=== PATIENT | male | born 1960 | race Caucasian/White ===

== ENCOUNTER 2024-12-17 20:45 | Inpatient (IN) | payer MEDICARE, MEDICAID, SELFPAY ==
--- OUTSIDE RECORDS SUMMARY | 2024-12-16 14:27 | XMS_ITS | Encounter Summary ---
Author Organization [facility] Address [address] [place] [address] Care Team Providers Care Obgyn Nurse Name Role Phone Fallon Jalloh DO Primary Care Provider [phone] Reason for Visit * Reason Comments Psychiatric Evaluation Encounter Details Date Type Department Care Team (Late st Contact Info) Description 12/16/2024 2:27 PM EDT - 12/17/2024 8:25 PM EDT Emergency [facility] Emergency [address] [place] [id number] Berkley Norman MD [address] [place] [address] Mitesh Salmon MD [address] [place] [address] Lakesha Lindquist MD [address] [place] [id number] Al Mckeon MD [address] [place] [id number] Paranoia (CMS/HCC V24, CMS/HCC V28) (Primary Dx); Altered mental status, unspecified altered mental status type Discharge Disposition: Psychiatric Hospital Social History Tobacco Use Types Packs/Day Years Used Date Smoking Tobacco: Former Smokeless Tobacco: Never Alcohol Use Standard Drinks/Week Comments No 0 (1 standard drink = 0.6 oz pur e alcohol) Sex and Gender Information Value Date Recorded Sex Assigned at Not on file Legal Sex Male 6:09 AM EST Gender Identity Not on file Sexual Orientation Not on file documented as of this encounter Last Filed Vital Signs Vital Sign Reading Time Taken Comments Blood Pressure 184/84 12/17/2024 2:47 PM EDT Pulse 88 12/17/2024 2:47 PM EDT Temperature 36.5 C (97.7 F) 12/17/2024 2:47 PM EDT Respiratory Rate 18 12/17/2024 2:47 PM EDT Oxygen Saturation 100% 12/17/2024 2:47 PM EDT Inhaled Oxygen Concentration - - Weight 68 kg (150 lb) 12/16/2024 3:46 PM EDT Height 172.7 cm (5' 8 ) 12/16/2024 3:46 PM EDT Body Mass Index 22.81 12/16/2024 3:46 PM EDT documented in this encounter Functional Status * Calculated C-SSRS Risk Score (Lifetime/Recent) Answer Date of Assessment Author No Risk Indicated 12/16/2024 6:27 PM EDT Mi Moe RN * Forrest Suicide Severity Rating Scale (Screener/Recent Self-Report) Question Answer Date of Assessment Author 1. Wish to be (Past 1 Month) No 025 6:27 PM EDT Mi Moe RN 2. Non-Specific Active Suici maritza Thoughts (Past 1 Month) No 12/16/2024 6:27 PM EDT Oswaldo Moe, RN 6. Suicidal Behavior (Lifetime) No 6:27 PM EDT Mi Moe, RODRIGO documented as of this encounter Medications at Time of Discharge ARIPiprazole (ABILIFY) 30 mg tablet Take 1 tablet (30 mg total) by mouth 1 (one) time each day. benztropine (COGENTIN) 2 mg tablet Take 1 tablet (2 mg total) by mouth 2 (two) times a day. calcitrioL (ROCALTROL) 0.25 mcg capsule Take 1 capsule (0.25 mcg total) by mouth 1 (one) time each day. dapagliflozin propanediol (FARXIGA) 10 mg tablet Take 1 tablet (10 mg total) by mouth 1 (one) time each day. docusate sodium (COLACE) 100 mg capsule Take 1 capsule (100 mg total) by mouth 1 (one) time each day. In the morning escitalopram (LEXAPRO) 20 mg tablet Take 1 tablet (20 mg total) by mouth 1 (one) time each day. famotidine (PEPCID) 20 mg tabletIndications :dyspepsia Take 1 tablet (20 mg total) by mouth 1 (one) time each day. ferrous sulfate 325 mg (65 mg elemental iron) tablet Take 1 tablet (325 mg total) by mouth 1 (one) time each day with breakfast. lamoTRIgine (LaMICtal) 200 mg tablet Take 1 tablet (200 mg total) by mouth 2 (two) times a day. loratadine (CLARITIN) 10 mg tablet Take 1 tablet (10 mg total) by mouth every other day. losartan (COZAAR) 100 mg tablet Take 1 tablet (100 mg total) by mouth 1 (one) time each day. naphazoline-pheni ramine (NAPHCON-A) 0.025-0.3 % ophthalmic solution Administer 1 drop into both eyes 4 (four) times a day if needed for irritation. QUEtiapine (SEROquel) 25 mg tablet Take 1 tablet (25 mg total) by mouth 3 (three) times a day if needed. Anxiety or restlessness QUEtiapine (SEROquel) 300 mg tablet Take 1 tablet (300 mg total) by mouth at bedtime. documented as of this encounter Discharge Disposition Disposition Code Departure Means Destination [facility] documented in this encounter Progress Notes * Al Mckeon MD - 12/17/2024 6:16 PM EDT ED Course as of 12/17/24 1816 Jacquelyn Dec 16, [address] with age related changes, more advanced than expected on my wet read, no mass or bleed noted. [AM] 1547 Patient pending labs and urine at this time. [AM] 1552 Vitals improved post benzos. Patient sedate post medication with appropriate spontaneous respirations. [AM] 1918 Received signout on this 64-year-old male presenting to the ED with altered mental status received medical sedation due to agitation. On my exam, he is awake, alert and not in acute distress. His vitals are stable. He denies headache, dizziness, chest pain or shortness of breath. He is alert and oriented x 4. Patient states that he does not know why his mother requested he presents to the ER. He denies SI/HI. Patient is medically cleared for psych evaluation. [AA] FriDec 17, 2024 0150 Pt was evaluated by crisis and deemed to be inpatient level of care. [AA] 0155 SO: Pending psych bed search [EK] 1204 oyster bed worker recommended EKG but patient refusing [AM] 1816 I, Dr. Harry Mckeon, have received signout for this patient from Dr Norman at 1600 hrs. The patient is currently pending transfer to inpatient psychiatric bed at 2000 hrs.. Patient departed ED during my shift. [MG] ED Course User Index [AA] Mitesh Salmon MD [AM] Berkley Norman MD [EK] Lakesha Lindquist MD [MG] Al Mckeon MD Clinical Impressions as of 12/17/241815 Altered mental status, unspecified altered mental status type Paranoia (CMS/HCC V24, CMS/HCC V28) Transfer to Psychiatric Facility 1. Paranoia (CMS/HCC V24, CMS/HCC V28) 2. Altered mental status, unspecified altered mental status type Procedures Juve Bush * Mi Moe RN - 12/17/2024 4:57 PM EDT Nurse to nurse report given to Litzy WALLACE [facility]. Mi Moe RN 12/17/24 1478 * Kristy Connors LCSW - 12/17/2024 2:52 PM EDT BED FOUND- Patient accepted to [facility], by Dr. Sebas Mendoza, with and ETA of 8:00pm. * Mi Moe RN - 12/17/2024 11:53 AM EDT Patient refusing EKG at this time, education provided, provider aware. Mi Moe RN 12/17/24 1153 * Mi Moe RN - 12/17/2024 10:00 AM EDT Patient's mother at bedside. This RN and patient's mother went through prescribed medications at [facility] one by one with the patient. Patient able to visualize name and dosage of mediations. Education provided around uses and indications of prescribed medications. Patient took pills appropriately with christian benson. Mi Moe RN 12/17/24 1053 * Mi Moe RN - 12/17/2024 9:00 AM EDT Rn attempted to give patient morning medications. Pt states that he will not take them unless his mother is at bedside with paperwork to prove and verify all of his medications. RN spoke with patient's mother on the phone, stated she is willing to visit ED to assist with patient. Mi Moe RN 12/17/24 1050 * Berkley Norman MD - 12/17/2024 6:20 AM EDT Juve Bush This patient was signed out to me by ED provider, Dr Lindquist. Briefly, the patient presented to the ED with abnormal behavior. Signed out to me pending psych placement. Home medications re-ordered. Patient does have a history of anemia and CKD and labs consistent withthis. Patient accepted to [facility], by Dr. Sebas Mendoza * Jacky Gillis RN - 12/16/2024 8:58 PM EDT Crisis meeting with patient at this time. * Mi Moe RN - 12/16/2024 7:10 PM EDT RN spoke with Pt's mother with his permission. Updated on plan of care. Requesting rn to call with updates. Marisabel Bush [phone] * Mi Moe RN - 12/16/2024 6:25 PM EDT Pt is refusing vitals at this time. Education provided. Respirations at 16, even and non labored. Pt laying in stretcher, no acute distress noted. Bed locked in lowest position. Mi Moe RN 12/16/24 766 * Mi Moe RN - 12/16/2024 6:00 PM EDT Pt requesting to use bathroom. This RN and information security specialist assisted patient into behavioral healthbathroom. Pt very unsteady on feet, requiring 2 assist. Pt unable to void at this time. Education provided around use of urinal vs bathroom, pt agreeable to attempt urinal in stretcher to void. Mi Moe RN 12/16/241824 * Mi Moe RN - 12/16/2024 4:00 PM EDT Pt arouses to verbal stimuli, agreeable to vitals and blood draw at this time. Respirations are even and non labored, bed locked in lowest position. Mi Moe RN 12/16/24 0790 * Mi Moe RN - 12/16/2024 2:35 PM EDT Pt appearing very paranoid, refusing vitals. RR 20, even and nonlabored. Mi Moe RN 12/16/24 1520 * Mi Moe RN - 12/16/2024 2:30 PM EDT Pt to ed from home via ems, family called concerned with agitated/confused behavior. Per family, pthas not been acting himself, hx of substance use. Denies SI/Hi for ems. * Mi Moe RN - 12/16/2024 2:30 PM EDT Pt processed and changed with security ad this RN. Pt requiring constant redirection and instruction on how to change clothes. Pt unsteady on feet, assisted back to stretcher and started care in hallway for patient safety. Mi Moe RN 12/16/24 1519 * Berkley Norman MD - 12/16/2024 2:23 PM EDT Images from the original note were not included. [facility] EMERGENCY EMERGENCY DEPARTMENT ENCOUNTER Patient: Juve Bush MR# [id number] Time of Service: 12/16/2024 2:27 PM History PCP: Fallon Jalloh DO. Juve Bush is a 64 y.o. male with PMH DM, HTN, and CKD who presents to the ED with chief complaint mental status change. Spoke to mother who states she went grocery shopping and when she came home he could hardly make itdown the stairs and was talking out of his head . I want to live but I don't want to . Almostfell into the coffee table, staggered into the kitchen and was saying something about the apple piethat was on the counter. Went and got a butter knife to cut the apple pie and another son got to the house and was worried that Juve had a knife. Patient put the knife in the sink after using it. Something similar happened a few weeks ago and patient was evaluated but left [facility] after a few hours as they couldn't hold him. Patient has a history of drug abuse, previously stayed at a place where he was in a drug program. Had been staying at a senior living on [facility] up until a month ago- has been staying at mother's house for about a month and she states his behavior is different- leaves around 5 or 6 am and is out for the day- says he is going to spiritism. Was previously psychiatrically hospitalized about 10 years ago. Patient is unable to provide any history. He appears confused and agitated, trying to complete tasks such as buttoning his shirt and putting on his socks. He has nonsensical speech though does ask meif it is required for him to stay here. He denies SI, HI, AVH. Denies drug and alcohol use. ROS Negative except for HPI. Allergies: Patient has no allergy information on record. Medical History[1] Problem List[2] Surgical History[3] Family History[4] Social History[5] Physical Exam Vitals: 12/16/24 1546 BP: 131/75 BP Location: Right arm Patient Position: Lying Pulse: 86 Resp: 14 Temp: 36.6 ??C (97.9 ??F) TempSrc: Axillary SpO2: 94% Weight: 68 kg (150 lb) Height: 1.727 m (68 ) Patient refuses for me to touch him General Appearance: confused, shirt inside out, mildly agitated Head: atraumatic, dry/crusted lips Neck: supple Respiratory: no respiratory distress Cardiovascular: normal perfusion Extremity: no obvious deformity Neurologic: Awake, alert, no obvious deficits, walks with unsteady gait, moving all extremities, cannot complete tasks such as buttoning shift Psychiatric: inappropriate, cooperative Results Results for orders placed or performed in visit on 06/17/24 Iron and TIBC Collection Time: 06/17/24 1:52 PM Result Value Ref Range Iron 59 50 - 160 mcg/dL TIBC 288 250 - 450 mcg/dL Iron Saturation 20 20 - 50 % Ferritin Collection Time: 06/17/24 1:52 PM Result Value Ref Range Ferritin 347 26 - 388 ng/mL Parathyroid hormone intact Collection Time: 06/17/24 1:52 PM Result Value Ref Range PTH 284.4 (H) 18.5 - 88.0 pcg/mL Vitamin D 25 hydroxy Collection Time: 06/17/24 1:52 PM Result Value Ref Range Vit D, 25-Hydroxy 20.3 (L) 30.0 - 80.0 ng/mL Microalbumin creatinine urine ratio Collection Time: 06/17/24 1:52 PM Result Value Ref Range Creatinine, Urine 115.0 mg/dL Microalb, Ur 2,270.0 (H) 0.0 - 29.0 mg/L Microalb/Creat Ratio 1,974 (H) <30 mg/g creat Renal function panel Collection Time: 06/17/24 1:52 PM Result Value Ref Range Sodium 136 133 - 145 mmol/L Potassium 4.4 3.5 - 5.5 mmol/L Chloride 104 96 - 110 mmol/L CO2 25 21 - 32 mmol/L Anion Gap 7 3 - 11 Glucose 159 (H) 70 - 100 mg/dL BUN 28 (H) 5 - 25 mg/dL Creatinine 2.80 (H) 0.70 - 1.30 mg/dL eGFR 25 (L) >=60 mL/min/1.73m2 BUN/Creatinine Ratio 10.0 Albumin 4.3 3.2 - 5.0 g/dL Calcium 9.8 8.5 - 10.5 mg/dL Phosphorus 3.2 2.5 - 4.5 mg/dL CBC auto differential Collection Time: 06/17/24 1:52 PM Result Value Ref Range WBC 3.1 (L) 4.8 - 10.8 K/mcL RBC 3.60 (L) 4.50 - 5.50 M/mcL Hemoglobin 9.8 (L) 13.5 - 17.5 g/dL Hematocrit 30.8 (L) 42.0 - 54.0 % MCV 86.5 79.0 - 98.0 FL MCH 27.5 27.0 - 32.0 pcg MCHC 31.8 (L) 32.0 - 37.0 g/dL RDW 13.2 11.0 - 15.0 % Platelets 359 130 - 400 K/mcL MPV 9.1 7.0 - 11.0 FL NRBC 0.0 <1.0 % NRBC Absolute 0.00 <0.10 K/mcL Neutrophils Relative 66.9 % Lymphocytes Relative 19.0 % Monocytes Relative 10.3 % Eosinophils Relative 2.9 % Basophils Relative 0.6 % Immature Granulocytes Relative 0.3 % Neutrophils Absolute 2.08 1.50 - 7.00 K/mcL Lymphocytes Absolute 0.59 (L) 1.00 - 5.00 K/mcL Monocytes Absolute 0.32 0.20 - 1.00 K/mcL Eosinophils Absolute 0.09 0.00 - 0.50 K/mcL Basophils Absolute 0.02 0.00 - 0.20 K/mcL Immature Granulocytes Absolute 0.01 0.00 - 0.03 K/mcL CT Head wo Contrast Final Result NO ACUTE INTRACRANIAL ABNORMALITY. -------- FINAL REPORT -------- Dictated By: Cathleen Morrison Dictated Date: 12/16/2024 15:43 ET Assigned Physician: Cathleen Morrison Reviewed and Electronically Signed By: Cathleen Morrison Signed Date: 12/16/2024 15:44 ET Workstation ID: [id number] Transcribed By: Self Edit Transcribed Date: 12/16/2024 15:43 ET Procedures Medical Decision Making 64 yo M presenting due to mental status change. He appears poorly kempt and appears intoxicated. Plan for psychiatric screening labs with alcohol level and urine drug screening. He does have a history of psychiatric disease and has been previously hospitalized but not much information is available in the system for me to review. I can see that he has been prescribed both Seroquel and aripiprazole. Will obtain CT head to rule out alternative cause of mental status change. Will medicate with Versed and Ativan to facilitate evaluation. Patient was hypertensive and tachycardic upon arrival, may have sympathomimetic on board and benzos would help with this as well. Will need evaluation by crisiswhen medically stable. Medications Administered Medications LORazepam (ATIVAN) injection 2 mg (2 mg intramuscular Given 12/16/24 1503) midazolam (VERSED) injection 5 mg (5 mg intramuscular Given 12/16/24 1503) ED Course as of 12/17/24 1510 Jacquelyn Dec 16, [address] with age related changes, more advanced than expected on my wet read, no mass or bleed noted. [AM] 1547 Patient pending labs and urine at this time. [AM] 1552 Vitals improved post benzos. Patient sedate post medication with appropriate spontaneous respirations. [AM] 1918 Received signout on this 64-year-old male presenting to the ED with altered mental status received medical sedation due to agitation. On my exam, he is awake, alert and not in acute distress. His vitals are stable. He denies headache, dizziness, chest pain or shortness of breath. He is alert and oriented x 4. Patient states that he does not know why his mother requested he presents to the ER. He denies SI/HI. Patient is medically cleared for psych evaluation. [AA] FriDec 17, 2024 0150 Pt was evaluated by crisis and deemed to be inpatient level of care. [AA] 0155 SO: Pending psych bed search [EK] 1204 oyster bed worker recommended EKG but patient refusing [AM] ED Course User Index [AA] Mitesh Salmon MD [AM] Berkley Norman MD [EK] Lakesha Lindquist MD Clinical Impressions as of 12/17/24 1510 Altered mental status, unspecified altered mental status type Paranoia (CMS/[facility] V24, CMS/[facility] V28) External Charts Reviewed: med list Additional History from Independent Historian: EMS, mother Disposition: pending, signed out to Dr Salmon pending labs, urine, reeval for clearing of sensorium, crisis evaluation CLINICAL IMPRESSION: 1. Altered mental status, unspecified altered mental status type 12/16/2024 MD Berkley Grace MD 12/16/24 1447 Berkley Norman MD 12/16/24 1512 Berkley Norman MD 12/16/24 1548 Berkley Norman MD 12/16/24 1552 Berkley Norman MD 12/17/24 1430 [1] Past Medical History: Diagnosis Date ??? Anemia DX:Anemia ??? Anxiety DX:Anxiety ??? Bipolar 1 disorder (CMS/HCC V24, CMS/HCC V28) DX:Bipolar 1 disorder (HCC) ??? Depression DX:Depression ??? Diabetes mellitus (CMS/HCC V24, CMS/HCC V28) DX:Diabetes mellitus (HCC) ??? Hypertension DX:Hypertension ??? Renal failure DX:Renal failure [2] There is no problem list on file for this patient. [3] Past Surgical History: Procedure Laterality Date ??? COLONOSCOPY PROCEDURE:COLONOSCOPY ??? OTHER SURGICAL HISTORY PROCEDURE:left ankle surgery [4] Family History Problem Relation Name Age of Onset ??? HIV Father [5] Social History Tobacco Use ??? Smoking status: Former ??? Smokeless tobacco: Never Substance Use Topics ??? Alcohol use: No ??? Drug use: No documented in this encounter Consult Notes * Christiano Garg - 12/16/2024 9:47 PM EDTAssociated Order(s): IP CONSULT TO POWERHOUSE MECHANIC HELPER Images from the original note were not included. Behavioral Health Services - Crisis Assessment Important times Time of arrival: 2:23PM--12/16/2024 Time of referral: 2:47PM--12/16/2024 Time of readiness: 2:49PM--12/16/2024 Time assessment started: 8:45PM--12/16/2024 Time of disposition: 9:30PM--12/16/2024 Location: [facility] Consulted case with: SHANTELL Martell Insurance information: Insurance: Medicare A+B Verified by: Susan Reason for Consultation / Presenting Problem: Juve Bush is being seen today for a consultive service at the request of Mitesh Salmon* to assess risk and identify appropriate level of care. Per ED nurse, Mi Moe, the patient was brought to the ED from home via EMS. The family called and they were concerned with agitated and confused behavior. They also reported that the patient has not been acting himself, he has a history of substance use. He denies SI/Hi for EMS. The patient requires constant redirection and instruction on how to change clothes. He was observed unsteadily on feet, assisted back to stretcher and started care in hallway for patient safety, in addition, he appeared very paranoid and intoxicated. The patient has a history of Diabetes Mellitus (DM), Hypertension (HTN), and chronic kidney disease (CKD) who presents to the ED with chief complaint mental status change. Speaking with the patient, he was calm and cooperative, but not oriented and can't recall any of his history and why he was brought here into [facility] ED. He explained he was brought here because he felt like a dog. When I asked him to elaborate more on that, he added, his mother and two other individuals were sitting on his neck, and he could not move. He patient observed decompensated, paranoid and was unable to tell me if he is on medication and taking them or not taking them as prescribed. History of Present Illness: Juve is a 64 y.o. male with Chief Complaint Patient presents with Psychiatric Evaluation Social/Educational History: Guardian - if Yes, provide contact information: no Status: none reported. State Agency Involvement: None reported. Sj's Order: No Marital Status: Single. Alternative Placement Details: N/A Living Situation for patient: The patient lives with his mother, housing is safe. Household Members/Age: Unknown. Friendships/Family/Social Peer Support/Relationships: Mother support. Highest level of education: College level Comments (Include Learning Needs): N/A Occupation: Unemployed-He receive food-stamp. Employment/Extracurricular Activities/Hobbies: N/A Limitations of Daily Activities: Not reported. Strengths/Supports: [facility]. Collaterals, contact information, and engagement level: Therapist: [facility] Psychiatrist: [facility] PCP: N/A Family: MotherMarisabel: [phone] Other: N/A Mental Status Speech: WNL Eye Contact: WNL Motor Activity: WNL Mood: WNL Affect: Flat Sleep: Poor Appetite: Poor Memory: Poor Attention / Concentration: Mild Impairment Behavior: Cooperative Appearance: dressed by Hospital attire. Hallucinations: None Delusions: None Thought Content: Poor SI: Denied HI: Denied Thought Process: Blocked Orientation Impairment: None Insight: WNL Judgment: WNL Impulse Control: WNL Substance Use History (Including family history): The patient stated that he has not using for about 20/25 years, none was reported about family. Utox Results: Positive on Benzo Substance Use Treatment History: None reported. Mental Health Treatment History: Outpatient Mental Health Treatment: Yes [facility]. Previous or Current Psychological Diagnosis: Per his Chart, bipolar, depression and anxiety. Prior Psychiatric Hospitalizations/Residential Treatment Facilities: Once at [facility] long times ago. Other Comments Regarding Mental Health Treatment History: N/A Mental Health Concerns in Family: None reported. Trauma History: None reported. Medications: Scheduled Meds: MEDSSCHEDULED[1] Continuous Infusions: MEDSCONTINUOUS[2] PRN Meds: MEDSPRN[3] The patient not able to list home medication. Risk Assessment: Self-Harm: None Suicidal Behavior: None Homicidal Behavior: None Physical Assault: None Physical Aggression: None Property Damage: None Verbal Aggression: None Family history of suicide: None was reported about his family. Protective Factors: The patient has [facility] as his outpatient provider, has safe housing, lives with others, he was calm and cooperative. Risk Factors: The patient presented decompensated, confused and paranoid, not able to list his medication, not able to tel if he is taking them on time, and not able to provide his medical or mental health history. Suicide Risk: Based on patient's history and current presentation, their level of risk for intentional lethal harm is considered Low Safety Plan Completed: no The patient will remain in the ED until his bed is found. Interventions: Empathetic listening, brief counseling, psychoeducation, support, and safety planning. Response to interventions: The patient was calm and cooperative but not able to carry-on with conversation. DSM-5TR Diagnosis: F31.9 Unspecified Bipolar and Related Disorder Plan: This is a 64 years old, An male, who presents with paranoia, decompensated and confused. In addition, not able to call of his medical or mental health history or whether he is on medication or taking as prescribed. The patient is not safe to go back into the community. Based on the above information, it is my clinical opinion that Juve would benefit from an inpatient psychiatric admission for safety and containment, mood stabilization, medication evaluation, diagnostic clarification, and participation in a therapeutic milieu. Upon discharge, he would benefit from a referral to outpatient providers for continued medication management, and to gain insight and psychoeducation into his mental health symptoms and develop adaptive coping skills for his depression, none-medication compliant and regain his orientation. Recommendations were discussed with requesting provider. It was a pleasure to assist Juve Bush here at [facility]. This report is written and finalized by: NICKOLAS Jacome Behavioral Health Specialist [facility] (Tel): [phone] / : [phone] [1] [2] [3] documented in this encounter Plan of Treatment Scheduled Orders Name Type Priority Associated Diagnoses Orde r Schedule ECG 12 lead ECG STAT Once for 1 Oc currences starting 12/17/2024 until 12/17/2024 documented as of this encounter Procedures Procedure Name Priority Date/Time Associated Diagnosis Comments DRUG ABUSE SCREEN 8A PANEL, URINE STAT 12/16/2024 7:37 PM EDT BUPRENORPHINE SCREEN, URINE STAT 12/16/2024 7:37 PM EDT METHADONE SCREEN, URINE STAT 12/16/2024 7:37 PM EDT PHENCYCLIDINE, URINE STAT 12/16/2024 7:37 PM EDT COMPLETE BLOOD COUNT STAT 12/16/2024 4:00 PM EDT ETHANOL STAT 12/16/2024 4:00 PM EDT ACETAMINOPHEN LEVEL STAT 12/16/2024 4 :00 PM EDT SALICYLATE LEVEL STAT 12/16/2024 4:00 PM EDT BASIC METABOLIC PANEL STAT 12/16/2024 4:[address] HEAD WO CONTRAST STAT 12/16/2024 3 :31 PM EDT documented in this encounter Results * (ABNORMAL) Drug abuse screen 8a panel, urine (12/16/2024 7:37 PM EDT) [facility] Signature Amphetamine Screen, Ur Negative Negative LAB CHEMISTRY METHOD 8:30 PM EDT [facility] Comment:Certain OTC medicati ons containing ephedrine, phenylephrine, pseudoephedrine and phenylpropanolamine can cause false positive results. Barbiturate Screen, Ur Negative Negative LAB CHEMISTRY METHOD 5 8:30 PM EDT [facility] Benzodiazepine Screen, Ur Positive(A ) Negative LAB CHEMISTRY METHOD 5 8:30 PM EDT [facility] Cocaine Screen, Ur Negative Negative LAB CHEMISTRY METHOD 5 8:30 PM EDT [facility] Opiate Screen, Ur Negative Negative LAB CHEMISTRY METHOD 5 8:30 PM EDT [facility] Cannabinoid (THC) Screen, Ur Negative Negative LAB CHEMISTRY METHOD 8:30 PM EDT [facility] Comment:Specimens from patie nts taking pantoprazole sodium (Protonix) have been shown to produce false positive results. Oxycodone Screen, Ur Negative Negative LAB CHEMISTRY METHOD 5 8:30 PM EDT [facility] Fentanyl, Ur Negative Negative LAB CHEMISTRY METHOD 5 8:30 PM EDT [facility] Urine Urine specimen obtained by clean catch procedure / Unknown Non-blood Collection / Unknown 12/16/2024 7:37 PM EDT 12/16/2024 8:05 PM EDT Narrative [facility] - 12/16/2024 8:30 PM EDT Assay cutoffs: Amphetamines 1000 ng/mL Barbiturates 200 ng/mL Benzodiazepines 200 ng/mL Cocaine 300 ng/mL Fentanyl 1 ng/mL Opiates 300 ng/mL Oxycodone 100 ng/mL THC 50 ng/mL Semi-quantitative assay for screening purposes only. Unconfirmed screening result should not be used for non-medical purposes. *ALTERNATE METHOD CONFIRMATION DONE UPON REQUEST ONLY* us Berkley Norman MD LAB URINE ORDERABLES Final Resul t [facility] [address] [place] [address], * Phencyclidine, urine (12/16/2024 7:37 PM EDT) PCP Scrn, Ur Negative Negative LAB CHEMISTRY METHOD 12/16/2024 8:30 PM EDT [facility] Comment: Assay cutoff 25 ng/mL Semi-quantitative assay for screening purposes only. Unconfirmed screening result should not be used for non-medical purposes. *ALTERNATE METHOD CONFIRMATION DONE UPON REQUEST ONLY* Urine Urine specimen obtained by clean catch procedure / Unknown Non-blood Collection / Unknown 12/16/2024 7:37 PM EDT 12/16/2024 8:05 PM EDT us Berkley Norman MD LAB URINE ORDERABLES Final Resul t Performing Organization Address [facility] Co de Phone Number [facility] [address] [place] [address], [place] [phone] * Methadone, urine (12/16/2024 7:37 PM EDT) Methadone Screen, Urine Negative Negative LAB CHEMISTRY METHOD 12/16/2024 8:30 PM EDT [facility] Comment: Assay cutoff 300 ng/mL Semi-quantitative assay for screening purposes only. Unconfirmed screening result should not be used for non-medical purposes. *ALTERNATE METHOD CONFIRMATION DONE UPON REQUEST ONLY* Urine Urine specimen obtained by clean catch procedure / Unknown Non-blood Collection / Unknown 12/16/2024 7:37 PM EDT 12/16/2024 8:05 PM EDT us Berkley Norman MD LAB URINE ORDERABLES Final Resul t Performing Organization Address City/[facility]/ZIP Co de Phone Number [facility] [address] [place] [address], [place] [phone] * Buprenorphine screen, urine (12/16/2024 7:37 PM EDT) Buprenorphine Screen Urine Negative Negative LAB CHEMISTRY METHOD 12/16/2024 8:30 PM EDT [facility] Urine Urine specimen obtained by clean catch procedure / Unknown Non-blood Collection / Unknown 12/16/2024 7:37 PM EDT 12/16/2024 8:05 PM EDT Narrative [facility] - 12/16/2024 8:30 PM EDT Assay cutoff 5 ng/mL Semi-quantitative assay for screening purposes only. Unconfirmed screening result should not be used for non-medical purposes. *ALTERNATE METHOD CONFIRMATION DONE UPON REQUEST ONLY* us Berkley Norman MD LAB URINE ORDERABLES Final Resul t [facility] [address] [place] [address], * (ABNORMAL) Complete blood count (12/16/2024 4:00 PM EDT) WBC 3.1(L) 4.8 - 10.8 K/mcL LAB HEMETOLOGY METHOD 12/16/2024 4:24 PM EDT [facility] RBC 2.90(L) 4.50 - 5.50 M/mcL LAB HEMETOLOGY METHOD 12/16/2024 4:24 PM EDT [facility] Hemoglobin 8.1(L) 13.5 - 17.5 g/dL LAB HEMETOLOGY METHOD 12/16/2024 4:24 PM EDT [facility] Hematocrit 25.1(L) 42.0 - 54.0 % LAB HEMETOLOGY METHOD 12/16/2024 4:24 PM EDT [facility] MCV 86.3 79.0 - 98.0 FL LAB HEMETOLOGY METHOD 12/16/2024 4:24 PM EDT [facility] MCH 27.8 27.0 - 32.0 pcg LAB HEMETOLOGY METHOD 12/16/2024 4:24 PM EDT [facility] MCHC 32.3 32.0 - 37.0 g/dL LAB HEMETOLOGY METHOD 12/16/2024 4:24 PM EDT [facility] RDW 13.1 11.0 - 15.0 % LAB HEMETOLOGY METHOD 12/16/2024 4:24 PM EDT [facility] Platelets 192 130 - 400 K/mcL LAB HEMETOLOGY METHOD 12/16/2024 4:24 PM EDT [facility] MPV 9.0 7.0 - 11.0 FL LAB HEMETOLOGY METHOD 12/16/2024 4:24 PM EDT [facility] NRBC 0.0 <1.0 % LAB HEMETOLOGY METHOD 12/16/2024 4:24 PM EDT [facility] NRBC Absolute 0.00 <0.10 K/mcL LAB HEMETOLOGY METHOD 12/16/2024 4:24 PM EDT [facility] Blood Venous blood specimen / Unknown Venipuncture / Unknown 12/16/2024 4:00 PM EDT 12/16/2024 4:11 PM EDT us Berkley Norman MD LAB BLOOD ORDERABLES Final Resul t Performing Organization Address City/[facility]/ZIP Co de Phone Number [facility] [address] [place] [address], * Ethanol (12/16/2024 4:00 PM EDT) Ethanol Level <3 0 - 10 mg/dL LAB CHEMISTRY METHOD 12/16/2024 4:48 PM EDT [facility] Blood Venous blood specimen / Unknown Venipuncture / Unknown 12/16/2024 4:00 PM EDT 12/16/2024 4:11 PM EDT us Berkley Norman MD LAB BLOOD ORDERABLES Final Resul t [facility] [address] [place] [address], [place] [phone] * (ABNORMAL) Basic metabolic panel (12/16/2024 4:00 PM EDT) Sodium 140 133 - 145 mmol/L LAB CHEMISTRY METHOD 12/16/2024 4:48 PM [facility] Potassium 3.6 3.5 - 5.5 mmol/L LAB CHEMISTRY METHOD 12/16/2024 4:48 PM [facility] Chloride 107 96 - 110 mmol/L LAB CHEMISTRY METHOD 12/16/2024 4:48 PM [facility] CO2 28 21 - 32 mmol/L LAB CHEMISTRY METHOD 12/16/2024 4:48 PM [facility] Anion Gap 5 3 - 11 LAB CHEMISTRY METHOD 12/16/2024 4:48 PM [facility] Glucose 138(H) 70 - 100 mg/dL LAB CHEMISTRY METHOD 12/16/2024 4:48 PM [facility] BUN 40(H) 5 - 25 mg/dL LAB CHEMISTRY METHOD 12/16/2024 4:48 PM [facility] Creatinine 3.55(H) 0.70 - 1.30 mg/dL LAB CHEMISTRY METHOD 12/16/2024 4:48 PM [facility] eGFR 19(L) >=60 mL/min/1. 73m2 LAB CHEMISTRY METHOD 12/16/2024 4:48 PM [facility] Comment:Calculation based on the Chronic Kidney Disease Epidemiology Collaboration (CKD-EPI) equation refit without adjustment for race. BUN/Creatinine Ratio 11.3 LAB CHEMISTRY METHOD 12/16/2024 4:48 PM [facility] Calcium 8.7 8.5 - 10.5 mg/dL LAB CHEMISTRY METHOD 12/16/2024 4:48 PM [facility] Blood Venous blood specimen / Unknown Venipuncture / Unknown 12/16/2024 4:00 PM EDT 12/16/2024 4:11 PM EDT us Berkley oNrman MD LAB BLOOD ORDERABLES Final Resul t Performing Organization Address [facility]/ZIP Co de Phone Number [facility] [address] [place] [address], [place] [phone] * (ABNORMAL) Acetaminophen level (12/16/2024 4:00 PM EDT) Acetaminophen Level <2.0(L) 10.0 - 30.0 mcg/mL LAB CHEMISTRY METHOD 12/16/2024 4:48 PM EDT [facility] Blood Venous blood specimen / Unknown Venipuncture / Unknown 12/16/2024 4:00 PM EDT 12/16/2024 4:11 PM EDT us Berkley Norman MD LAB BLOOD ORDERABLES Final Resul t Performing Organization Address [facility] de Phone Number [facility] [address] [place] [address], [place] [phone] * (ABNORMAL) Salicylate level (12/16/2024 4:00 PM EDT) Salicylate Level <1.7(L) 2.0 - 29.0 mg/dL LAB CHEMISTRY METHOD 12/16/2024 4:48 PM EDT [facility] Blood Venous blood specimen / Unknown Venipuncture / Unknown 12/16/2024 4:00 PM EDT 12/16/2024 4:11 PM EDT us Berkley Norman MD LAB BLOOD ORDERABLES Final Resul t Performing Organization Address [facility] Co de Phone Number [facility] [address] [place] [address], [place] [phone] * CT Head wo Contrast (12/16/2024 3:31 PM EDT) Anatomical Region Laterality Modality Head and Neck Computed Tomogra phy 12/16/2024 3:43 PM EDT Impressions 12/16/2024 3:44 PM EDT NO ACUTE INTRACRANIAL ABNORMALITY. -------- FINAL REPORT -------- Dictated By: Cathleen Morrison Dictated Date: 12/16/2024 15:43 ET Assigned Physician: Cathleen Morrison Reviewed and Electronically Signed By: Cathleen Morrison Signed Date: 12/16/2024 15:44 ET Workstation ID: [id number] Transcribed By: Self Edit Transcribed Date: 12/16/2024 15:43 ET Narrative 12/16/2024 3:44 PM EDT PROCEDURE: HEAD CT INDICATION: mental status change TECHNIQUE: CT of the head without intravenous contrast. Multiplanar reformats. The examination was performed utilizing dose reduction techniques. Total DLP 901 COMPARISON: No priors available. FINDINGS: No acute territorial infarct, mass effect, or intracranial hemorrhage. 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 No significant white matter disease No hydrocephalus. Visualized paranasal sinuses are clear. Mastoid air cells are clear. No calvarial fracture. Remote nasal bone fractures. Procedure Note Cathleen Morrison MD - 12/16/2024 PROCEDURE: HEAD CT INDICATION: mental status change TECHNIQUE: CT of the head without intravenous contrast. Multiplanarreformats. The examination was performed utilizing dose reductiontechniques. Total DLP 901 COMPARISON: No priors available. FINDINGS: No acute territorial infarct, mass effect, or intracranial hemorrhage.Encephalomalacia in the posterior fossa is due to prior bilateralcerebellar infarcts. No significant white matter disease No hydrocephalus. Visualized paranasal sinuses are clear. Mastoid air cells are clear. No calvarial fracture. Remote nasal bone fractures. IMPRESSION: NO ACUTE INTRACRANIAL ABNORMALITY. -------- FINAL REPORT -------- Dictated By: Cathleen Morrison Dictated Date: 12/16/2024 15:43 ET Assigned Physician: Cathleen Morrison Reviewed and Electronically Signed By: Cathleen Morrison Signed Date: 12/16/2024 15:44 ET Workstation ID: [id number] Transcribed By: Self Edit Transcribed Date: 12/16/2024 15:43 ET Berkley Norman MD IMG CT PROCEDURES Final Result documented in this encounter Visit Diagnoses Diagnosis Paranoia (CMS/HCC V24, CMS/HCC V28)- Primary Delusional disorder Altered mental status, unspecified altered mental status type documented in this encounter Administered Medications Active Administered Medications - up to 3 most recent administrations Medication Order MAR Action Action Date Dose Rate Site ARIPiprazole (ABILIFY) tablet 30 mg 30 mg, oral, Daily, First dose on Fri12/17/24 at 0930 Given 12/17/2024 10:24 AM EDT 30 mg benztropine (COGENTIN) tablet 2 mg 2 mg, oral, 2 times daily, First dose on Fri12/17/24 at 0900 Given 12/17/2024 10:15 AM EDT 2 mg dapagliflozin propanediol (FARXIGA) tablet 10 mg 10 mg, oral, Daily, First dose on Fri12/17/24 at 0930, Was patient receiving dapagliflozin prior to admission for the treatment of HEART FAILURE? (See order restrictions above): Yes Given 12/17/2024 10:25 AM EDT 10 mg docusate sodium (COLACE) capsule 100 mg 100 mg, oral, Daily, First dose on Fri12/17/24 at 0900 Given 12/17/2024 10:12 AM EDT 100 mg escitalopram (LEXAPRO) tablet 20 mg 20 mg, oral, Daily, First dose on Fri12/17/24 at 0930 Given 12/17/2024 10:14 AM EDT 20 mg famotidine (PEPCID) tablet 20 mg 20 mg, oral, Daily, First dose on Fri12/17/24 at 0900, Indications: dyspepsiaIndications:dyspepsia Given 12/17/2024 10:11 AM EDT 20 mg ferrous sulfate tablet 325 mg 325 mg, oral, Daily with breakfast, First dose on Fri12/17/24 at 0852, Take on an empty stomach with a full glass of water, at least 1 hour before or 2 hours after a meal. May be taken with food if causes an upset stomach. Avoid taking antacids or antibiotics within 2 hours before or after. Ordered as ferrous sulfate. 325 mg ferrous sulfate = 65 mg elemental iron. Given 12/17/2024 10:12 AM EDT 325 mg lamoTRIgine (LaMICtal) tablet 200 mg 200 mg, oral, 2 times daily, First dose on Fri12/17/24 at 0900 Given 12/17/2024 10:09 AM EDT 200 mg loratadine (CLARITIN) tablet 10 mg 10 mg, oral, Every other day, First dose on Fri12/17/24 at 0900 Given 12/17/2024 10:13 AM EDT 10 mg losartan (COZAAR) tablet 100 mg 100 mg, oral, Daily, First dose on Fri12/17/24 at 0625 Given 12/17/2024 10:22 AM EDT 100 mg Inactive Administered Medications - up to 3 most recent administrations Medication Order MAR Action Action Date Dose Rate Site LORazepam (ATIVAN) injection 2 mg 2 mg, intramuscular, Once, On Jacquelyn 12/16/24 at 1448, For 1 dose, Prior to IV use, lorazepam injection should be DILUTED with an equal volume of compatible solution; Rate of administration should NOT exceed 2 mg/min. Given 12/16/2024 3:03 PM EDT 2 mg Left Deltoid midazolam (VERSED) injection 5 mg 5 mg, intramuscular, Once, On Jacquelyn 12/16/24 at 1459, For 1 dose Given 12/16/2024 3:03 PM EDT 5 mg Right Ventrogluteal documented in this encounter Historical Medications * This list may reflect changes made after this encounter. QUEtiapine (SEROquel) 300 mg tablet Take 1 tablet (300 mg total) by mouth at bedtime. QUEtiapine (SEROquel) 25 mg tablet Take 1 tablet (25 mg total) by mouth 3 (three) times a day if needed. Anxiety or restlessness naphazoline-pheni ramine (NAPHCON-A) 0.025-0.3 % ophthalmic solution Administer 1 drop into both eyes 4 (four) times a day if needed for irritation. losartan (COZAAR) 100 mg tablet Take 1 tablet (100 mg total) by mouth 1 (one) time each day. lamoTRIgine (LaMICtal) 200 mg tablet Take 1 tablet (200 mg total) by mouth 2 (two) times a day. ferrous sulfate 325 mg (65 mg elemental iron) tablet Take 1 tablet (325 mg total) by mouth 1 (one) time each day with breakfast. dapagliflozin propanediol (FARXIGA) 10 mg tablet Take 1 tablet (10 mg total) by mouth 1 (one) time each day. famotidine (PEPCID) 20 mg tabletIndications :dyspepsia Take 1 tablet (20 mg total) by mouth 1 (one) time each day. escitalopram (LEXAPRO) 20 mg tablet Take 1 tablet (20 mg total) by mouth 1 (one) time each day. docusate sodium (COLACE) 100 mg capsule Take 1 capsule (100 mg total) by mouth 1 (one) time each day. In the morning calcitrioL (ROCALTROL) 0.25 mcg capsule Take 1 capsule (0.25 mcg total) by mouth 1 (one) time each day. benztropine (COGENTIN) 2 mg tablet Take 1 tablet (2 mg total) by mouth 2 (two) times a day. ARIPiprazole (ABILIFY) 30 mg tablet Take 1 tablet (30 mg total) by mouth 1 (one) time each day. loratadine (CLARITIN) 10 mg tablet Take 1 tablet (10 mg total) by mouth every other day. added in this encounter Active and Recently Administered Medications Times are shown in EDT. Scheduled Medication Order 12/15/2024 12/16/2024 12/17/2024 ARIPiprazole (ABILIFY) tablet 30 mg 30 mg, oral, Daily, First dose on Fri12/17/24 at 0930 1024 (Given - Provid er: Mi Moe RN) benztropine (COGENTIN) tablet 2 mg 2 mg, oral, 2 times daily, First dose on Fri12/17/24 at 0900 1015 (Given - Provid er: Mi Moe RN)2100 (Due) calcitrioL (ROCALTROL) capsule 0.25 mcg 0.25 mcg, oral, Daily, First dose on Fri12/17/24 at 0930 1047 (Not Given - Provider: Mi Moe RN - Reason: Patient/Resident/Agent refused - education provided ) dapagliflozin propanediol (FARXIGA) tablet 10 mg 10 mg, oral, Daily, First dose on Fri12/17/24 at 0930, Was patient receiving dapagliflozin prior to admission for the treatment of HEART FAILURE? (See order restrictions above): Yes 1025 (Given - Provid er: Mi Moe RN) docusate sodium (COLACE) capsule 100 mg 100 mg, oral, Daily, First dose on Fri12/17/24 at 0900 1012 (Given - Provid er: Mi Moe RN) escitalopram (LEXAPRO) tablet 20 mg 20 mg, oral, Daily, First dose on Fri12/17/24 at 0930 1014 (Given - Provid er: Mi Moe RN) famotidine (PEPCID) tablet 20 mg 20 mg, oral, Daily, First dose on Fri12/17/24 at 0900, Indications: dyspepsia 1011 (Given - Provid er: Mi Moe RN) ferrous sulfate tablet 325 mg 325 mg, oral, Daily with breakfast, First dose on Fri12/17/24 at 0852, Take on an empty stomach with a full glass of water, at least 1 hour before or 2 hours after a meal. May be taken with food if causes an upset stomach. Avoid taking antacids or antibiotics within 2 hours before or after. Ordered as ferrous sulfate. 325 mg ferrous sulfate = 65 mg elemental iron. 1012 (Given - Provid er: Mi Moe RN) lamoTRIgine (LaMICtal) tablet 200 mg 200 mg, oral, 2 times daily, First dose on Fri12/17/24 at 0900 1009 (Given - Provid er: Mi Moe RN)2100 (Due) loratadine (CLARITIN) tablet 10 mg 10 mg, oral, Every other day, First dose on Fri12/17/24 at 0900 1013 (Given - Provid er: Mi Moe RN) LORazepam (ATIVAN) injection 2 mg (COMPLETED) 2 mg, intramuscular, Once, On Jacquelyn 12/16/24 at 1448, For 1 dose, Prior to IV use, lorazepam injection should be DILUTED with an equal volume of compatible solution; Rate of administration should NOT exceed 2 mg/min. 1503 (Given - Provider: Mi Moe RN) losartan (COZAAR) tablet 100 mg 100 mg, oral, Daily, First dose on Fri12/17/24 at 0625 0638 (Not Given - Provider: Jacky Gillis RN - Reason: Patient/Resident/Agent refused - education provided - Comment: Patient refused to take medication at this time despite being educated that it is the same dosage he takes at home, being shown the packaging of the medication, nd informing him that it is the blood pressure medication that he takes.)1022 (Given - Provider: Mi Moe RN - Comment: Pt refused this morning, agreeable to take the medication now) midazolam (VERSED) injection 5 mg (COMPLETED) 5 mg, intramuscular, Once, On Jacquelyn 12/16/24 at 1459, For 1 dose 1503 (Given - Provider: Mi Moe, RODRIGO) QUEtiapine (SEROquel) tablet 300 mg 300 mg, oral, Nightly, First dose on Fri12/17/24 at 2100 2100 (Due) PRN Medication Order 12/15/2024 12/16/2024 12/17/2024 QUEtiapine (SEROquel) tablet 25 mg 25 mg, oral, 3 times daily PRN, agitation, Starting on Fri12/17/24 at 0851 documented in this encounter Orders Medications Ordered That Saleem ht Not Have Been Administered Count Last Ordered Date First Ordered Date calcitrioL (ROCALTROL) capsule 0.25 mcg 1 1 QUEtiapine (SEROquel) tablet 25 mg 1 2024 QUEtiapine (SEROquel) tablet 300 mg 1 12/17 Diet Count Last Ordered Date First Orde red Date ADULT DIET 1 12/16/2024 Nursing Count Last Ordered Date First Orde red Date VITAL SIGNS 1 12/16/2024 Consult Count Last Ordered Date First Orde red Date IP CONSULT TO POWERHOUSE MECHANIC HELPER 1 12/16/2024 Privilege Level Count Last Ordered Date First O rdered Date 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
--- OUTSIDE RECORDS SUMMARY | 2024-12-17 20:52 | XMS_ITS | Clinical Summary ---
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 0 Active metFORMIN (GLUCOPHAGE) tablet 500 mg Take 750 mg by mouth 2 (two) times a day with meals. 0 Active esomeprazole (NEXIUM) 40 MG capsule Take 40 mg by mouth every morning before breakfast. 0 Active benztropine (COGENTIN) 2 MG tablet Take 2 mg by mouth 2 (two) times a day. 0 Active lamoTRIgine (LaMICtal) 200 MG tablet Take by mouth daily. 0 Active ARIPiprazole (ABILIFY) 30 MG tablet Take 30 mg by mouth daily. 0 Active traZODone (DESYREL) 100 MG tablet Take 200 mg by mouth every night at bedtime. 0 Active [place]-3 Fatty Acids (FISH OIL) 1000 MG CAPS Take 1,000 mg by mouth 2 (two) times a day. 0 Active propranolol (INDERAL) 10 MG tablet Take 10 mg by mouth 2 (two) times a day. 0 Active losartan (COZAAR) 100 MG tablet Take 100 mg by mouth daily. 0 Active amLODIPine (NORVASC) tablet 10 mg TAKE 1 TABLET BY MOUTH DAILY 30 tablet 3 03/28/2020 Active Pyridoxine HCl (vitamin B-6) 100 MG tablet Take 1 tablet (100 mg total) by mouth daily. 90 tablet 2 05/30/2021 Active ferrous sulfate (FeroSul) 325 (65 FE) MG tablet TAKE 1 TABLET BY MOUTH DAILY ON AN EMPTY STOMACH WITH VITAMIN-C 100 tablet 3 08/17/2021 Active ascorbic acid (VITAMIN C) 500 MG tablet TAKE 1 TABLET(500 MG) BY MOUTH DAILY 30 tablet 1 08/28/2021 Active folic acid (FOLVITE) tablet 1 mg TAKE 1 TABLET(1000 MCG) BY MOUTH DAILY 100 tablet 3 11/14/2021 Active Active Problems Problem Noted Date Diagnosed Date Type 2 diabetes mellitus wit hout complication, without long-term current use of insulin 12/23/2018 Essential hypertension 12/23/2018 Primary insomnia 12/23/2018 Iron deficiency anemia due to chronic blood loss 11/18/2016 Anemia in CKD (chronic kidney disease) 7 Family History Medical History Relation Name Comments HIV Father Relation Name Status Comments Father Social History Tobacco Use Types Packs/Day Years Used Date Smoking Tobacco: Former Smokeless Tobacco: Never Alcohol Use Standard Drinks/Week Comments No 0 (1 standard drink = 0.6 oz pur e alcohol) social Sex and Gender Information Value Date Recorded Sex Assigned at Not on file Gender Identity Not on file Sexual Orientation Not on file Last Filed Vital Signs Vital Sign Reading Time Taken Comments Blood Pressure 119/64 12/23/2018 9:38 AM EDT Pulse 100 12/23/2018 9:38 AM EDT Temperature 36.6 C (97.9 F) 12/23/2018 9:38 AM EDT Respiratory Rate - - Oxygen Saturation - - Inhaled Oxygen Concentration - - Weight 75.3 kg (166 lb) 12/23/2018 9:38 AM EDT Height 170.2 cm (5' 7 ) 12/23/2018 9:38 AM EDT Body Mass Index 26 12/23/2018 9:38 AM EDT Plan of Treatment Health Maintenance Due Date Last Done Comments Hepatitis C Screening 1962 COVID-19 Vaccine (#1) 02/22/1963 Pneumococcal Vaccine (1 of 2 - PCV) 1968 Depression Screening 1974 Preventative Health Evaluation 1980 DTap / Tdap / Td (1 - Tdap) 1981 Colon Cancer Screening (Colonoscopy) 08/24/2007 Shingrix-Zoster Vaccine (1 of 2) 2012 Influenza Vaccine (#1) 2024 RSV Adult > 60+ Yrs or Pregn ant (1 - 1-dose 75+ series) 2037 Hepatitis B Vaccines Aged Out No long er eligible based on patient's age to complete this topic RSV Ped < 20 months Aged Out No longe r eligible based on patient's age to complete this topic
--- OUTSIDE RECORDS SUMMARY | 2024-12-17 20:52 | XMS_ITS | Clinical Summary ---
Author Organization [place] [address] [address] [facility] Building Address [address] [place], [place] [address] [address] Phone Care Team Providers Care Pattern Hanger Name Role Phone Fallon Jalloh DO Primary Care Provider [phone] Allergies No known active allergies Medications loratadine (CLARITIN) 10 mg tablet Take 1 tablet (10 mg total) by mouth every other day. Active ARIPiprazole (ABILIFY) 30 mg tablet Take 1 tablet (30 mg total) by mouth 1 (one) time each day. Active benztropine (COGENTIN) 2 mg tablet Take 1 tablet (2 mg total) by mouth 2 (two) times a day. Active calcitrioL (ROCALTROL) 0.25 mcg capsule Take 1 capsule (0.25 mcg total) by mouth 1 (one) time each day. Active docusate sodium (COLACE) 100 mg capsule Take 1 capsule (100 mg total) by mouth 1 (one) time each day. In the morning Active escitalopram (LEXAPRO) 20 mg tablet Take 1 tablet (20 mg total) by mouth 1 (one) time each day. Active famotidine (PEPCID) 20 mg tabletIndicatio ns:dyspepsia Take 1 tablet (20 mg total) by mouth 1 (one) time each day. Active dapagliflozin propanediol (FARXIGA) 10 mg tablet Take 1 tablet (10 mg total) by mouth 1 (one) time each day. Active ferrous sulfate 325 mg (65 mg elemental iron) tablet Take 1 tablet (325 mg total) by mouth 1 (one) time each day with breakfast. Active lamoTRIgine (LaMICtal) 200 mg tablet Take 1 tablet (200 mg total) by mouth 2 (two) times a day. Active losartan (COZAAR) 100 mg tablet Take 1 tablet (100 mg total) by mouth 1 (one) time each day. Active naphazoline-phe niramine (NAPHCON-A) 0.025-0.3 % ophthalmic solution Administer 1 drop into both eyes 4 (four) times a day if needed for irritation. Active QUEtiapine (SEROquel) 25 mg tablet Take 1 tablet (25 mg total) by mouth 3 (three) times a day if needed. Anxiety or restlessness Active QUEtiapine (SEROquel) 300 mg tablet Take 1 tablet (300 mg total) by mouth at bedtime. Active Encounters Date Type Department Care Team Description 12/16/2024 2:27 PM EDT - 12/17/2024 8:25 PM EDT Emergency [facility] Emergency [address] [place] [address] Berkley Norman MD Amardey-Welling ton, Aaron, MD Kokkinos, Erika, MD Goebel, Mathew, MD Paranoia ([facility] V24, [facility] V28) (Primary Dx); Altered mental status, unspecified altered mental status type Discharge Disposition: Psychiatric Hospital from Last 3 Months Surgical History Surgery Date Site/Laterality Comments COLONOSCOPY PROCEDURE:COLONOSCOPY OTHER SURGICAL HISTORY PROCEDURE:left ankle surgery Medical History Medical History Date Comments Diabetes mellitus ([facility] V24, [facility] V28) DX:Diabetes mellitus ([facility]) Depression DX:Depression Renal failure DX:Renal failure Anemia DX:Anemia Hypertension DX:Hypertension Anxiety DX:Anxiety Bipolar 1 disorder ([facility] V24, [facility] V28) DX:Bipolar 1 disorder ([facility]) Family History Medical History Relation Name Comments [...] on file Sexual Orientation Not on file Obstetrics History Last Filed Vital Signs Vital Sign Reading [...] Mass Index 22.81 12/16/2024 3:46 PM EDT Plan of Treatment Health Maintenance Due Date Last Done Comments Colorectal Cancer Screening: Colonoscopy 1962 Diabetes: Annual Foot Exam 1972 Diabetes: Annual Retina Eye Exam 1972 Cholesterol Screening (Lipid Panel) 02/03/2022 HIV Screening 02/03/2022 Hepatitis C Screening 02/03/2022 Medicare Annual Wellness Visit 02/03/2022 Social Influencers of Health Screening 02/03/2022 Diabetes: Blood Sugar Control Test (HGBA1C) 02/09/2022 Depression Screening 03/03/2024 Diabetes: Annual Urine Albumin-Creatinine Ratio (uACR) 06/17/2025 06/17/2024 Diabetes: Annual GFR (Glomerular Filtration Rate) 12/16/2025 12/16/2024, 06/17/2024 Hypertension/CHF/CAD Annual BMP Blood Test 12/16/2025 12/16/2024, 06/17/2024 DTaP,Tdap,and Td Vaccines (3 - Td or Tdap) 10/14/2028 10/14/2018, 06/22/2015 COVID-19 Vaccine Completed 11/18/2023, , 04/16/2022, Additional history exists MMR Vaccines Aged Out 06/08/2024 No longer eligi ble based on patient's age to complete this topic Pneumococcal Vaccine: 50+ Years Completed 06/22/2024, 12/05/2015, 12/20/2014 RSV Immunization Adult Patients Completed 06/22/2024 Hepatitis B Vaccines Completed 08/21/2024, 07/18/19 25 Zoster Vaccines Completed 09/22/2024, 07/17/2024 Influenza Vaccine Completed 12/01/2024, , 12/20/2022, Additional history exists HIB Vaccines Aged Out No longer eligi ble based on patient's age to complete this topic HPV Vaccines Aged Out No longer eligi ble based on patient's age to complete this topic Hepatitis A Vaccines Aged Out No long er eligible based on patient's age to complete this topic IPV Vaccines Aged Out No longer eligi ble based on patient's age to complete this topic Meningococcal ACWY Vaccine Aged Out N o longer eligible based on patient's age to complete this topic Meningococcal B Vaccine Aged Out No l onger eligible based on patient's age to complete this topic RSV Immunization Patients Under 20 months Aged Out No longer eligible based on patient's age to complete this topic Varicella Vaccines Aged Out No longer eligible based on patient's age to complete this topic Procedures Procedure Name Priority Date/Time Associated Diagnosis Comments DRUG ABUSE SCREEN 8A PANEL, URINE STAT 12/16/2024 7:37 PM EDT PHENCYCLIDINE, URINE STAT 12/16/2024 7:37 PM EDT METHADONE SCREEN, URINE STAT 12/16/2024 7:37 PM EDT BUPRENORPHINE SCREEN, URINE STAT 12/16/2024 7:37 PM EDT COMPLETE BLOOD COUNT STAT 12/16/2024 4:00 PM EDT ETHANOL STAT 12/16/2024 4:00 PM EDT BASIC METABOLIC PANEL STAT 12/16/2024 4:00 PM EDT ACETAMINOPHEN LEVEL STAT 12/16/2024 4 :00 PM EDT SALICYLATE LEVEL STAT 12/16/2024 4:[address] HEAD WO CONTRAST STAT 12/16/2024 3 :31 PM EDT MICROALBUMIN CREATININE URINE RATIO Routine 06/17/2024 1:52 PM EDT Chronic kidney disease, stage IV (severe) (CMS/HCC V24, CMS/HCC V28) from Last 3 Months or Most Recently Relevant to Health Maintenance Results * (ABNORMAL) Drug abuse screen 8a panel, urine (12/16/2024 7:37 PM EDT) Amphetamine Screen, Ur Negative Negative LAB CHEMISTRY METHOD 5 8:30 PM EDT [facility] Comment:Certain OTC medicati ons containing ephedrine, phenylephrine, pseudoephedrine and phenylpropanolamine can cause false positive results. Barbiturate Screen, Ur Negative Negative LAB CHEMISTRY METHOD 5 8:30 PM EDT [facility] Benzodiazepine Screen, Ur Positive(A ) Negative LAB CHEMISTRY METHOD 5 8:30 PM EDT [facility] Cocaine Screen, Ur Negative Negative LAB CHEMISTRY METHOD 5 8:30 PM [facility] Opiate Screen, Ur Negative Negative LAB CHEMISTRY METHOD 5 8:30 PM [facility] Cannabinoid (THC) Screen, Ur Negative Negative LAB CHEMISTRY METHOD 5 8:30 PM EDT [facility] Comment:Specimens from patie nts taking pantoprazole sodium (Protonix) have been shown to produce false positive results. Oxycodone Screen, Ur Negative Negative [facility] Fentanyl, Ur Negative Negative LAB CHEMISTRY METHOD 5 8:30 PM T [facility] Urine Urine specimen obtained by clean catch procedure / Unknown Non-blood Collection / Unknown 12/16/2024 7:37 PM EDT 12/16/2024 8:05 PM EDT [facility] - 12/16/2024 8:30 PM EDT Assay cutoffs: Amphetamines 1000 ng/mL Barbiturates 200 ng/mL Benzodiazepines 200 ng/mL Cocaine 300 ng/mL Fentanyl 1 ng/mL Opiates 300 ng/mL Oxycodone 100 ng/mL THC 50 ng/mL Semi-quantitative assay for screening purposes only. Unconfirmed screening result should not be used for non-medical purposes. *ALTERNATE METHOD CONFIRMATION DONE UPON REQUEST ONLY* Berkley Norman MD LAB URINE ORDERABLES Final Resul t Performing Organization Address [facility]/ZIP Wy de Phone Number [facility] [address] [place] [address], * Buprenorphine screen, urine (12/16/2024 7:37 PM EDT) Buprenorphine Screen Urine Negative Negative LAB CHEMISTRY METHOD 12/16/2024 8:30 PM EDT [facility] Urine Urine specimen obtained by clean catch procedure / Unknown Non-blood Collection / Unknown 12/16/2024 7:37 PM EDT 12/16/2024 8:05 PM EDT Narrative [facility] - 12/16/2024 8:30 PM EDT Assay cutoff 5 ng/mL Semi-quantitative assay for screening purposes only. Unconfirmed screening result should not be used for non-medical purposes. *ALTERNATE METHOD CONFIRMATION DONE UPON REQUEST ONLY* Berkley Norman MD LAB URINE ORDERABLES Final Resul t Performing Organization Address [facility] de Phone Number [facility] [address] [place] [address], * Methadone, urine (12/16/2024 7:37 PM EDT) Methadone Screen, Urine Negative Negative LAB CHEMISTRY METHOD 12/16/2024 8:30 PM EDT [facility] Comment: Assay cutoff 300 ng/mL Semi-quantitative assay for screening purposes only. Unconfirmed screening result should not be used for non-medical purposes. *ALTERNATE METHOD CONFIRMATION DONE UPON REQUEST ONLY* Urine Urine specimen obtained by clean catch procedure / Unknown Non-blood Collection / Unknown 12/16/2024 7:37 PM EDT 12/16/2024 8:05 PM EDT Berkley Norman MD LAB URINE ORDERABLES Final Resul t Performing Organization Address [facility]/ZIP Co de Phone Number [facility] [address] [place] [address], [place] [phone] * Phencyclidine, urine (12/16/2024 7:37 PM EDT) Pathologist [facility] PCP Scrn, Ur Negative Negative LAB CHEMISTRY METHOD 12/16/2024 8:30 PM EDT [facility] Comment: Assay cutoff 25 ng/mL Semi-quantitative assay for screening purposes only. Unconfirmed screening result should not be used for non-medical purposes. *ALTERNATE METHOD CONFIRMATION DONE UPON REQUEST ONLY* Urine Urine specimen obtained by clean catch procedure / Unknown Non-blood Collection / Unknown 12/16/2024 7:37 PM EDT 12/16/2024 8:05 PM EDT Berkley Norman MD LAB URINE ORDERABLES Final Resul t Performing Organization Address [facility]/ZIP Co de Phone Number [facility] [address] [place] [address], [place] [phone] * (ABNORMAL) Complete blood count (12/16/2024 4:00 PM EDT) WBC 3.1(L) 4.8 - 10.8 K/mcL LAB HEMETOLOGY METHOD 12/16/2024 4:24 PM EDT [facility] RBC 2.90(L) 4.50 - 5.50 M/mcL LAB HEMETOLOGY METHOD 12/16/2024 4:24 PM EDT [facility] Hemoglobin 8.1(L) 13.5 - 17.5 g/dL LAB HEMETOLOGY METHOD 12/16/2024 4:24 PM EDT [facility] Hematocrit 25.1(L) 42.0 - 54.0 % LAB HEMETOLOGY METHOD 12/16/2024 4:24 PM EDT [facility] MCV 86.3 79.0 - 98.0 FL LAB HEMETOLOGY METHOD 12/16/2024 4:24 PM EDT [facility] MCH 27.8 27.0 - 32.0 pcg LAB HEMETOLOGY METHOD 12/16/2024 4:24 PM EDT [facility] MCHC 32.3 32.0 - 37.0 g/dL LAB HEMETOLOGY METHOD 12/16/2024 4:24 PM EDT [facility] RDW 13.1 11.0 - 15.0 % LAB HEMETOLOGY METHOD 12/16/2024 4:24 PM EDT [facility] Platelets 192 130 - 400 K/mcL LAB HEMETOLOGY METHOD 12/16/2024 4:24 PM EDT [facility] MPV 9.0 7.0 - 11.0 FL LAB HEMETOLOGY METHOD 12/16/2024 4:24 PM EDT [facility] NRBC 0.0 <1.0 % LAB HEMETOLOGY METHOD 12/16/2024 4:24 PM EDT [facility] NRBC Absolute 0.00 <0.10 K/mcL LAB HEMETOLOGY METHOD 12/16/2024 4:24 PM EDT [facility] Blood Venous blood specimen / Unknown Venipuncture / Unknown 12/16/2024 4:00 PM EDT 12/16/2024 4:11 PM EDT us Berkley Norman MD LAB BLOOD ORDERABLES Final Resul t [facility] [address] [place] [address], * Ethanol (12/16/2024 4:00 PM EDT) Ethanol Level <3 0 - 10 mg/dL LAB CHEMISTRY METHOD 12/16/2024 4:48 PM EDT [facility] Blood Venous blood specimen / Unknown Venipuncture / Unknown 12/16/2024 4:00 PM EDT 12/16/2024 4:11 PM EDT us Berkley Norman MD LAB BLOOD ORDERABLES Final Resul t Performing Organization Address [facility] Co de Phone Number [facility] [address] [place] [address], [place] [phone] * (ABNORMAL) Acetaminophen level (12/16/2024 4:00 PM EDT) Acetaminophen Level <2.0(L) 10.0 - 30.0 mcg/mL LAB CHEMISTRY METHOD 12/16/2024 4:48 PM EDT [facility] Blood Venous blood specimen / Unknown Venipuncture / Unknown 12/16/2024 4:00 PM EDT 12/16/2024 4:11 PM EDT us Berkley Norman MD LAB BLOOD ORDERABLES Final Resul t Performing Organization Address [facility] de Phone Number [facility] [address] [place] [address], [place] [phone] * (ABNORMAL) Salicylate level (12/16/2024 4:00 PM EDT) Salicylate Level <1.7(L) 2.0 - 29.0 mg/dL LAB CHEMISTRY METHOD 12/16/2024 4:48 PM EDT [facility] Blood Venous blood specimen / Unknown Venipuncture / Unknown 12/16/2024 4:00 PM EDT 12/16/2024 4:11 PM EDT us Berkley Norman MD LAB BLOOD ORDERABLES Final Resul t Performing Organization Address City/[facility] Co de Phone Number [facility] [address] [place] [address], [place] [phone] * (ABNORMAL) Basic metabolic panel (12/16/2024 4:00 PM EDT) Sodium 140 133 - 145 mmol/L LAB CHEMISTRY METHOD 12/16/2024 4:48 PM [facility] Potassium 3.6 3.5 - 5.5 mmol/L LAB CHEMISTRY METHOD 12/16/2024 4:48 PM [facility] Chloride 107 96 - 110 mmol/L LAB CHEMISTRY METHOD 12/16/2024 4:48 PM [facility] CO2 28 21 - 32 mmol/L LAB CHEMISTRY METHOD 12/16/2024 4:48 PM [facility] Anion Gap 5 3 - 11 LAB CHEMISTRY METHOD 12/16/2024 4:48 PM [facility] Glucose 138(H) 70 - 100 mg/dL LAB CHEMISTRY METHOD 12/16/2024 4:48 PM [facility] BUN 40(H) 5 - 25 mg/dL LAB CHEMISTRY METHOD 12/16/2024 4:48 PM [facility] Creatinine 3.55(H) 0.70 - 1.30 mg/dL LAB CHEMISTRY METHOD 12/16/2024 4:48 PM [facility] eGFR 19(L) >=60 mL/min/1. 73m2 LAB CHEMISTRY METHOD 12/16/2024 4:48 PM [facility] Comment:Calculation based on the Chronic Kidney Disease Epidemiology Collaboration (CKD-EPI) equation refit without adjustment for race. BUN/Creatinine Ratio 11.3 LAB CHEMISTRY METHOD 12/16/2024 4:48 PM [facility] Calcium 8.7 8.5 - 10.5 mg/dL LAB CHEMISTRY METHOD 12/16/2024 4:48 PM [facility] Blood Venous blood specimen / Unknown Venipuncture / Unknown 12/16/2024 4:00 PM EDT 12/16/2024 4:11 PM EDT Berkley Norman MD LAB BLOOD ORDERABLES Final Resul t [facility] [address] [place] [address], * CT Head wo Contrast (12/16/2024 3:31 PM EDT) Anatomical Region Laterality Modality Head and Neck Computed Tomogra phy 12/16/2024 3:43 PM EDT Impressions 12/16/2024 3:44 PM EDT NO ACUTE INTRACRANIAL ABNORMALITY. -------- FINAL REPORT -------- Dictated By: Cathleen Morrison Dictated Date: 12/16/2024 15:43 ET Assigned Physician: Cathleen Morrison Reviewed and Electronically Signed By: Cathleen Morrison Signed Date: 12/16/2024 15:44 ET Workstation ID: [id number] Transcribed By: Self Edit Transcribed Date: 12/16/2024 [...] Signed Date: 12/16/2024 15:44 ET Workstation ID: [id number] Transcribed By: Self Edit Transcribed Date: 12/16/2024 15:43 ET Berkley Norman MD IMG CT PROCEDURES Final Result * (ABNORMAL) Microalbumin creatinine urine ratio (06/17/2024 1:52 PM EDT) Creatinine, Urine 115.0 mg/dL LAB CHEMISTRY METHOD 06/17/2024 4:22 PM EDT [facility] Microalb, Ur 2,270.0(H ) 0.0 - 29.0 mg/L LAB CHEMISTRY METHOD 06/17/2024 4:22 PM EDT [facility] Comment:Results verified by repeat testing Microalb/Crea t Ratio 1,974(H) <30 mg/g creat LAB CHEMISTRY METHOD 06/17/2024 4:22 PM EDT [facility] Urine Urine specimen obtained by clean catch procedure / Unknown Non-blood Collection / Unknown 06/17/2024 1:52 PM EDT 06/17/2024 2:38 PM EDT Elvis Maravilla MD LAB URINE ORDERABLES Final Res ult [facility] [address] [place] [address], from Last 3 Months or Most Recently Relevant to Health Maintenance Insurance MEDICAID - [place] MEDICARE Care Teams Pattern Hanger Relationship Specialty Start Date End Date Fallon Jalloh DO [address] [place] [address] PCP - General Internal Medicine 04/26/24
--- OUTSIDE RECORDS SUMMARY | 2024-12-17 20:52 | XMS_ITS | Encounter Summary ---
Author Organization [facility] Address [address] [address] Phone Care Team Providers Care Managing Jeweler Name Role Phone Mervat Watts NP Primary Care Provider [phone] Reason for Visit * Reason Onset Date Comments Med Refill 12/14/2024 Encounter Details Date Type Department Care Team (Late st Contact Info) Description 12/14/2024 Refill [facility] [address] [address] No [place] [address] [address] Social History Tobacco Use Types Packs/Day Years Used Date Smoking Tobacco: Never Smokeless Tobacco: Never Alcohol Use Standard Drinks/Week Comments Not Currently 0 (1 standard drink = 0.6 oz pure alcohol) Alcoholic Drinks/day: Occasional social drink Sex and Gender Information Value Date Recorded Sex Assigned at Not on file Legal Sex Male 5:09 PM EST Gender Identity Not on file Sexual Orientation Not on file documented as of this encounter Plan of Treatment Upcoming Encounters Date Type Department Care Team (Late st Contact Info) Description 01/21/2025 10:00 AM EST Office Visit [facility] [address] [address] Elvis Maravilla MD [address] [address] documented as of this encounter Visit Diagnoses Not on filedocumented in this encounter Care Teams Managing Jeweler Relationship Specialty Start Date End Date Mervat Watts, THEO [address] [place] [address] PCP - General Nurse Practitioner 09/18/20 documented as of this encounter
--- OUTSIDE RECORDS SUMMARY | 2024-12-17 20:52 | XMS_ITS | Clinical Summary ---
Author Organization [facility] Address [address] [id number] Phone Care Team Providers Care Associate Professor Of Theatre Name Role Phone Unavailable Primary Care Provider Unavailabl e Social History Tobacco Use Types Packs/Day Years Used Date Smoking Tobacco: Never Assessed Sex and Gender Information Value Date Recorded Sex Assigned at Not on file Legal Sex Male 12:44 PM EDT Gender Identity Not on file Sexual Orientation Not on file Plan of Treatment Not on file Medical Devices Not on file Additional Source Comments The information contained in this document represents components of the legal health record. It is not the complete legal health record.[facility]
--- OUTSIDE RECORDS SUMMARY | 2024-12-17 20:52 | XMS_ITS | Encounter Summary ---
Author Organization [facility] Address [address] [facility] [address] [place] [address] Phone Care Team Providers Care Computer Repair Technician Name Role Phone Mervat Watts SENIOR QUANTITY SURVEYOR Primary Care Provider [phone] Reason for Visit * Reason Comments Med Refill Encounter Details Date Type Department Care Team (Late st Contact Info) Description 04/27/2024 Refill [facility] [address] [facility] [address] [place] [address] Tadeo Melendez MD [address] [address] Social History Tobacco Use Types [...] Office Visit [facility] [address] [phone] Elvis Maravilla MD [address] [address] documented as of this encounter Visit Diagnoses Not on filedocumented in this encounter Care Teams Computer Repair Technician Relationship Specialty Start Date End Date Mervat Watts, SENIOR QUANTITY SURVEYOR [address] [place] [id number] PCP - General Nurse Practitioner 09/18/20 documented as of this encounter
--- OUTSIDE RECORDS SUMMARY | 2024-12-17 20:52 | XMS_ITS | Clinical Summary ---
Author Organization [facility] Address [address] [facility] [address] [place] [address] Phone Care Team Providers Care Plastic Molder Name Role Phone Mervat Watts NP Primary Care Provider [phone] Allergies No known active allergies Medications ARIPiprazole (ABILIFY) 15 MG tablet Take 30 mg by mouth 1 (one) time each day Active benztropine (COGENTIN) 2 MG tablet Take 1 tablet by mouth 1 (one) time each day Active ferrous sulfate 325 (65 Fe) MG tablet Take 1 tablet by mouth 1 (one) time each day 0 Active folic acid (FOLVITE) 1 MG tablet Take 1 tablet by mouth 1 (one) time each day 0 Active escitalopram (LEXAPRO) 10 MG tablet Take 15 mg by mouth every morning 3 Active lamoTRIgine (LaMICtal) 200 MG tablet Take 200 mg by mouth 1 (one) time each day 3 Active metFORMIN XR (GLUCOPHAGE-XR) 750 MG 24 hr tablet Take 1 tablet by mouth in the morning and 1 tablet in the evening. 3 Active escitalopram (LEXAPRO) 5 MG tablet TAKE 1 TABLET BY MOUTH EVERY DAY. TAKE WITH 10MG TABLET FOR TOTAL DAILY DOSE OF 15MG 4 Active QUEtiapine (SEROquel) 25 MG tablet Take 25 mg by mouth at bed time 4 Active calcitriol (Rocaltrol) 0.25 MCG capsule Take 1 capsule (0.25 mcg total) by mouth 1 (one) time each day 30 capsule 11 5 06/22/19 26 Active docusate sodium (Colace) 100 MG capsule Take 1 capsule (100 mg total) by mouth in the morning. 90 capsule 3 5 Active famotidine (Pepcid) 20 MG tablet Take 1 tablet (20 mg total) by mouth 1 (one) time each day 90 tablet 3 5 Active Farxiga 10 MG tablet TAKE 1 TABLET BY MOUTH DAILY. 30 tablet 5 5 Active ferrous sulfate (Fe Tabs) 325 (65 Fe) MG EC tablet Take 1 tablet (325 mg total) by mouth 1 (one) time each day with breakfast Do not crush, chew, or split. 90 tablet 3 5 12/11/19 26 Active losartan (COZAAR) 100 MG tablet Take 1 tablet (100 mg total) by mouth 1 (one) time each day 90 tablet 1 5 01/15/20 25 Active losartan (COZAAR) 100 MG tablet Take 1 tablet (100 mg total) by mouth 1 (one) time each day 90 tablet 1 5 12/15/19 25 Discontinu ed(Reorder (does not appear on AVS)) Active Problems Problem Noted Date Diagnosed Date Hyperlipidemia 09/17/2021 Diabetes mellitus 09/17/2021 Bipolar disorder 09/17/2021 Overview (09/17/2021): Bipolar Type 1. Psychiatry through [facility] Chronic kidney disease 05/28/2020 Overview (09/11/2022): Dr. Chu. Johnny Proteinuria 05/28/2020 Renal disorder due to type 2 diabetes mellitus 0 05/28/2020 Essential hypertension 12/23/2018 Primary insomnia 12/23/2018 Type 2 diabetes mellitus without complication Anemia in chronic kidney disease 11/18/2016 Chronic iron deficiency anemia secondary to bloo d loss 11/18/2016 Encounters Date Type Department Care Team Description 12/14/2024 Refill [facility] [address] [place] [phone] No Henry 12/10/2024 8:45 AM EDT Office Visit [facility] [address] [place] [phone] Elvis Maravilla MD Chronic kidney disease, stage 4 (severe) (HCC) (Primary Dx); Type 2 diabetes mellitus with diabetic chronic kidney disease, not otherwise specified (HCC); Hypertension; Proteinuria, not otherwise specified; Anemia in chronic kidney disease from Last 3 Months Immunizations Immunization Administration Dates Next Due Moderna SARS-COV-2 05/02/2020,04/03/2020 Pneumococcal Polysaccharide 12/05/2015, 5 Tdap 10/14/2018,06/22/2015 Family History Medical History Relation Comments Diabetes Mother Relation Status Comments Father Mother Alive Social History Tobacco Use Types Packs/Day Years Used Date Smoking Tobacco: Never Smokeless Tobacco: Never Tobacco Cessation:Counseling Given: Not Answered Alcohol Use Standard Drinks/Week Comments Not Currently 0 (1 standard drink = 0.6 oz pure alcohol) Alcoholic Drinks/day: Occasional social drink Sex and Gender Information Value Date Recorded Sex Assigned at Not on file Legal Sex Male 5:09 PM EST Gender Identity Not on file Sexual Orientation Not on file Last Filed Vital Signs Vital Sign Reading Time Taken Comments Blood Pressure 136/78 12/10/2024 9:04 AM EDT Pulse 83 05/14/2024 10:19 AM EDT Temperature - - Respiratory Rate - - Oxygen Saturation 96% 04/28/2023 2:42 PM EST Inhaled Oxygen Concentration - - Weight 68.5 kg (151 lb) 12/10/2024 9:04 AM EDT Height 170.2 cm (5' 7 ) 02/08/2019 12:00 PM EST Body Mass Index 23.65 02/08/2019 12:00 PM EST Plan of Treatment Upcoming Encounters Date Type Department Care Team (Late st Contact Info) Description 01/21/2025 10:00 AM EST Office Visit [facility] [address] [phone] Elvis Maravilla MD [address] [phone] Health Maintenance Due Date Last Done Comments Colorectal Cancer Screening: Annual FOBT 08/24/2011 Colorectal Cancer Screening: Colonoscopy 08/24/2011 Colorectal Cancer Screening: Sigmoidoscopy 08/24/2011 Pneumococcal Vaccine: 50+ Years (3 of 3 - PCV) 12/04/2016 12/05/2015, 12/20/2014 Diabetes: Hemoglobin A1C 03/31/2020 Diabetes: Ophthalmology Exam 03/31/2020 Diabetes: Pedal Pulse Checked 03/31/2020 Diabetes: Sensory Foot Exam 03/31/2020 Diabetes: Visual Foot Exam 03/31/2020 Influenza Vaccine (#1) 2024 Pneumococcal Vaccine: Peds ( 0 to 5 Years) and At-Risk Patients (6 to 49 Years) Discontinued 12/05/2015, 12/20/2014 Hepatitis B Vaccine Aged Out No longe r eligible based on patient's age to complete this topic Procedures Procedure Name Priority Date/Time Associated Diagnosis Comments FERRITIN Routine 10/13/2024 12:31 PM EDT IRON PANEL (FE, TIBC, TSAT) Routine 10/13/2024 12:31 PM EDT CBC Routine 10/13/2024 12:31 PM EDT RENAL FUNCTION PANEL Routine 10/13/2024 12:31 PM EDT from Last 3 Months Results * (ABNORMAL) Iron Panel (Fe, TIBC, TSAT) (10/13/2024 12:31 PM EDT) TIBC 249(L) 250 - 450 ug/dL [facility] UIBC 201 111 - 343 ug/dL [facility] Iron 48 38 - 169 ug/dL [facility] Iron Saturation (TSat) 19 15 - 55 % [facility] 10/13/2024 12:3 1 PM EDT 10/13/2024 us Elvis Maravilla MD LAB BLOOD ORDERABLES Final Resul t [facility] [address] [place] [address] * (ABNORMAL) CBC (10/13/2024 12:31 PM EDT) WBC 2.8(L) 3.4 - 10.8 x10E3/uL [facility] RBC 3.05(L) 4.14 - 5.80 x10E6/uL [facility] Hemoglobin 8.3(L) 13.0 - 17.7 g/dL [facility] Hematocrit 25.6(L) 37.5 - 51.0 % [facility] MCV 84 79 - 97 fL [facility] MCH 27.2 26.6 - 33.0 pg [facility] MCHC 32.4 31.5 - 35.7 g/dL [facility] RDW 14.1 11.6 - 15.4 % [facility] Platelets 294 150 - 450 x10E3/uL [facility] 10/13/2024 12:3 1 PM EDT 10/13/2024 us Elvis Maravilla MD LAB BLOOD ORDERABLES Final Resul t [facility] [address] [place] [address] * Ferritin (10/13/2024 12:31 PM EDT) Ferritin 338 30 - 400 ng/mL [facility] 10/13/2024 12:3 1 PM EDT 10/13/2024 us Elvis Maravilla MD LAB BLOOD ORDERABLES Final Resul t [employer] [facility] [address] [place] [address] * (ABNORMAL) Renal Function Panel (10/13/2024 12:31 PM EDT) Glucose 125(H) 70 - 99 mg/dL [facility] BUN 35(H) 8 - 27 mg/dL [facility] Creatinine 2.54(H) 0.76 - 1.27 mg/dL [facility] eGFR CKD-EPI CR 2020 28(L) >59 mL/min/1.7 3 [facility] BUN/Creatinine Ratio 14 10 - 24 [facility] Sodium 140 134 - 144 mmol/L [facility] Potassium 4.6 3.5 - 5.2 mmol/L [facility] Chloride 105 96 - 106 mmol/L [facility] Bicarbonate (CO2) 20 20 - 29 mmol/L [facility] Calcium 9.2 8.6 - 10.2 mg/dL [facility] Albumin 4.2 3.9 - 4.9 g/dL [facility] Phosphorus 3.4 2.8 - 4.1 mg/dL [facility] 10/13/2024 12:3 1 PM EDT 10/13/2024 Elvis Mraavilla MD LAB BLOOD ORDERABLES Final Resul t [facility] [address] [place] [address] from Last 3 Months Insurance Medicare Medicaid [place] Care Teams Plastic Molder Relationship Specialty Start Date End Date Mervat Watts, TECHNICAL RESEARCH SCIENTIST [address] [place] [address] PCP - General Nurse Practitioner 09/18/20
[2024-12-17 22:15] VITALS: BP 162/94; PULSE 102; RESP 16; TEMP 36.9; O2SAT 100
[2024-12-17 23:23] VITALS: BMI 21.6
--- NOTE | 2024-12-18 02:51 | PC.ADMIT ---
Juve arrived on M-5 around 2100 hours from [facility]. Legal status Section 12b. He was accompanied by two FOOTWEAR SALES REPRESENTATIVE. Patient is a poor historian, and did not know where he is and why he is here. Per hospital paperwork, patient was BIBA after his mother called 911, due to patient holding a butter knife, seemed unsure of how to use it, exhibiting confusion, agitation and nonsensical speech at home. Patient was evaluated at [facility] ED for altered mental status. He had experienced a similar episode about a month ago, and at that point he was taken to [facility] for evaluation, but left before he got treatment. Patient labs were unremarkable, urine test was positive for Benzos. Patient has a history of drug abuse, and he was staying at a support program on [facility], up until a month ago when he moved in with his mother and other siblings. Medical diagnosis include Diabetes Mellitus, hypertension. He has PCP and psychiatric providers in the community. Admitting diagnosis is Bipolar disorder, unspecified. Patient was oriented to the unit, provided with toiletries and placed on safety checks every 15 minutes.
--- NOTE | 2024-12-18 08:14 | P.CNHOSGPS_ITS ---
History of Present Illness Data of Consult Service Date: 12/18/24 Requesting physician: Lillian Huber Primary Care Provider: Unknown Physician HPI Reason for consult: New External Admit H&P This is a 64 year old male with history of DM, anemia in CKD3, HTN, HLD, bipolar disorder who was admitted to from [facility] overnight. The hospitalist service was asked to see the patient for a routine medical consultation. Patient is evaluated in his room, lying in bed. He declines to sit up or get out of bed, but he is willing to answer medical questions. He he confirms the diagnosis of diabetes, hypertension, hyperlipidemia and chronic kidney disease as well as anemia due to underlying kidney disease. He does take losartan for hypertension. He denies any active medical issues at this time. Review of Systems 2 Review of Systems: Yes all other systems are reviewed and are negative Constitutional: Constitutional: Denies chills and Denies fever(s) Cardiovascular: Cardiovascular: Denies chest pain, Denies palpitations and Denies dyspnea Respiratory: Respiratory: Denies cough and Denies dyspnea Gastrointestinal: Gastrointestinal: Denies abdominal pain, Denies diarrhea and Denies vomiting Endocrine: Endocrine: Denies palpitations [facility] Medical History Anemia in chronic kidney disease (CKD) HTN (hypertension) CKD (chronic kidney disease) stage 3, GFR 30-59 ml/min Diabetes Social History Household Members: Family Housing: Apartment Do you presently have visiting nurse or other home services: No Patient Tobacco Use Status: Former Tobacco user Tobacco use type: Cigarette Smoked in Last 30 Days: No e-Cigarette/Vaping Use: Never Used Patient Interested in Nicotine Replacement: No Patient Given Instructions on How to Stop Smoking: No Second Hand Smoke Exposure: No Currently Displaying Signs/Symptoms of Drug Intoxication Withdrawal: No Have you been hit, kicked, punched, or otherwise hurt by someone within the past year? If so, by whom?: No Do you feel safe in your current relationship?: No Current Relationship Is there a partner from a previous relationship who is making you feel unsafe now?: No Are you made to feel afraid or neglected: No Advance Directives: No Advance Directives Information Provided: No Do you have thoughts of harming others: None Do you have a plan to hurt others: No Plan Recently lost weight without trying: No Eating poorly because of decreased appetite: No Nutrition Risks: No Nutritional Risk Poor oral hygiene: No Meds Allergies Allergy/AdvReac Type Severity Reaction Status Date / Time No Known Allergies Allergy Verified 12/17/24 20:12 Active Medications: Current Medications Acetaminophen (Acetaminophen 325 Mg Tablet) 650 mg PO Q6H PRN PRN Reason: Headache/Pain, Scale 1-10 Al Hydroxide/Mg Hydroxide (Magnesium Hydrox/Alum Hydrox 30 Ml Oral.Susp) 30 ml PO Q6H PRN PRN Reason: Heartburn/Nausea Aripiprazole (Aripiprazole 30 Mg Tablet) 30 mg PO DAILY [facility] Benztropine Mesylate (Benztropine Mesylate 1 Mg Tablet) 2 mg PO BID [facility] Calcitriol (Calcitriol 0.25 Mcg Capsule) 0.25 mcg PO DAILY [facility] Docusate Sodium (Docusate Sodium 100 Mg Capsule) 100 mg PO DAILY [facility] Empagliflozin (Empagliflozin 10 Mg Tablet) 10 mg PO DAILY [facility] Escitalopram Oxalate (Escitalopram Oxalate 20 Mg Tablet) 20 mg PO DAILY [facility] Famotidine (Famotidine 20 Mg Tablet) 20 mg PO DAILY [facility] Ferrous Sulfate (Ferrous Sulfate 324 Mg Tablet.Dr) 324 mg PO DAILY [facility] Hydroxyzine HCl (Hydroxyzine Hcl 25 Mg Tablet) 25 mg PO Q6H PRN PRN Reason: mild anxiety Loratadine (Loratadine 10 Mg Tablet) 10 mg PO Q2D [facility] Losartan Potassium (Losartan Potassium 50 Mg Tablet) 100 mg PO DAILY [facility]; Protocol Magnesium Hydroxide (Milk Of Magnesia 30 Ml Oral.Susp) 30 ml PO DAILY PRN PRN Reason: Constipation Nicotine (Nicotine 21 Mg Patch.Td24) 21 mg TRANSDERMA DAILY PRN PRN Reason: nicotine craving Nicotine Polacrilex (Nicotine Polacrilex 2 Mg Gum) 2 mg BUCCAL Q2H PRN PRN Reason: Nicotine Cravings Olanzapine (Olanzapine 5 Mg Tablet) 5 mg PO BID PRN PRN Reason: agitation Quetiapine Fumarate (Quetiapine Fumarate 25 Mg Tablet) 25 mg PO TID PRN PRN Reason: Anxiety Quetiapine Fumarate (Quetiapine Fumarate 300 Mg Tablet) 300 mg PO BEDTIME [facility] Last Admin: 12/18/24 02:14 Dose: Not Given Trazodone HCl (Trazodone Hcl 50 Mg Tablet) 50 mg PO BEDTIME MRX1 PRN PRN Reason: Insomnia Home Medications ?Medication ?Instructions ?Recorded ?Confirmed ?Last Taken ?Type aripiprazole 30 mg tablet 30 mg PO DAILY 12/17/2412/01 Unknown History benztropine 2 mg tablet 2 mg PO BID 12/17/24 5 Unknown History calcitriol 0.25 mcg capsule 0.25 mcg PO DAILY 12/17/24 12/17/24 Unknown History dapagliflozin propanediol 10 mg 10 mg PO DAILY 5 12/17/24 Unknown History tablet (Farxiga) docusate sodium 100 mg capsule 100 mg PO QAM 12/17/24 12/17/24 Unknown History escitalopram oxalate 20 mg tablet 20 mg PO QAM 5 12/17/24 Unknown History famotidine 20 mg tablet 20 mg PO DAILY 12/17/2412/01 Unknown History ferrous sulfate 325 mg (65 mg 325 mg PO DAILY 12/17/24 12/17/24 Unknown History iron) tablet,delayed release lamotrigine 200 mg tablet 200 mg PO BID 12/17/2412/17 Unknown History loratadine 10 mg tablet 10 mg PO Q OTHER DAY 5 12/17/24 Unknown History losartan 100 mg tablet 100 mg PO DAILY 12/17/24 Unknown History quetiapine 25 mg tablet 25 mg PO TID PRN anxiety 12/17/24 Unknown History quetiapine 300 mg tablet 300 mg PO BEDTIME 12/17/24 1 Unknown History Results Labs 12/18/24 07:59 Assessment and Plan (1) Routine medical exam: Status: Acute Plan This is a 64-year-old male with a history of diabetes, hypertension, CKD stage 3, chronic anemia, bipolar disorder admitted to M5 from [facility] HTN overnight bp high, no am vital signs previous chart from [place] reviewed, pt bp frequenty declined BP checks or adjustment in BP meds unless done by his catheter builder Dr. Maravilla continue current dose of Losartan follow bp T2DM Hba1c from 11/2024 6.9 continue Jardiance (formulary equivalent for his home dose of Farxiga) follow POCs, cover with SSI as needed recommend diabetic diet CKD3b vs CKD4 SCr most recently 2.80 continue calcitriol anemia of chronic disease outside labs reviewed, most recent H/H 9.8/30 continue baseline iron supplementation No current labs available for review. There are no active medical issues at this time. Physical Exam Vital Signs: Last Vital Signs Temp 98.5 F 12/17/24 22:15 Pulse 102 H 12/17/24 22:15 Resp 16 12/17/24 22:15 BP 162/94 H 12/17/24 22:15 Pulse Ox 100 12/17/24 22:15 O2 Del Method Room Air 12/17/24 22:15 BMI result Body Mass Index 21.6 Const Other: Resting comfortably in bed General: comfortable, no acute distress, alert and awake Nutritional Appearance: average body habitus Resp Effort & Inspection: normal respiratory effort, able to speak in complete sentences and no respiratory distress Auscultation: clear to auscultation bilaterally Cardio Rate: regular rate Neuro General: moves all extremities Cranial nerves: Yes CN's II-XII intact bilaterally
[2024-12-18 08:46] LABS: Hemoglobin A1C 139.3089 umol/L; Total Hemoglobin (HGBA1C) 2730.4872 umol/L
[2024-12-18 08:52] LABS: Alanine Aminotransferase 24 U/L (0-40); Albumin Level 4.8 g/dL (3.5-5.0); Alkaline Phosphatase 137 U/L (39-117); Anion Gap 17 (12-20); Aspartate Amino Transferase 32 U/L (5-37); Blood Urea Nitrogen 36 mg/dL (9-16); Calcium 9.9 mg/dL (8.4-10.2); Carbon Dioxide 23 mmol/L (22-29); Chloride 105 mmol/L (96-108); Cholesterol 290 mg/dL (<200); Creatinine Clr Calc Pharmacy 22.6; Estimated Glomerular Filt Rate 21; HDL Cholesterol 44 mg/dL (>40); Potassium 4.4 mmol/L (3.3-5.1); Sodium 141 mmol/L (135-145); Total Protein 9.1 g/dL (6.5-8.0); Triglycerides 168 mg/dL (<150)
[2024-12-18 08:57] LABS: Free T4 (Free Thyroxine) 0.80 ng/dL (0.71-1.85); Thyroid Stimulating Hormone 1.17 uIU/mL (0.32-4.0)
[2024-12-18] MEDS: ARIPiprazole 30 MG TABLET PO (09:10)
[2024-12-18] MEDS: Ferrous Sulfate 324 MG TABLET.DR PO (09:10)
[2024-12-18 09:50] VITALS: BP 176/81; PULSE 79; TEMP 36.8; O2SAT 98
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
[2024-12-18 12:01] LABS: Glucose, Whole Blood 122 mg/dL (60-115)
[2024-12-18 17:10] LABS: Glucose, Whole Blood 117 mg/dL (60-115)
[2024-12-18 19:40] VITALS: BP 145/69; PULSE 68; RESP 18; TEMP 36.5; O2SAT 97
[2024-12-18 20:26] LABS: Glucose, Whole Blood 173 mg/dL (60-115)
[2024-12-19 08:00] VITALS: BP 130/70; PULSE 76; TEMP 36.4; O2SAT 98
[2024-12-19 08:12] LABS: Glucose, Whole Blood 147 mg/dL (60-115)
[2024-12-19] MEDS: Ferrous Sulfate 324 MG TABLET.DR PO (08:53)
[2024-12-19] MEDS: ARIPiprazole 30 MG TABLET PO (08:53)
--- NOTE | 2024-12-19 09:30 | HO.PSYCHPN ---
Subjective Subjective Date of Service: 12/19/24 Reason For Visit: F31.9 Interim History: Feels almost back to myself . Remains convinced that his episode of confusion was related to hyperglycemia . Says he is not confused anymore. Just thinking about returning home possibly on Friday. He is future oriented. He is planning on going to his therapy and psychiatry appointments, MELISSA, alejandro study on . Denies SI/HI/AVH. Has some latency in his responses Review of Systems Review of Systems Yes all other systems are reviewed and are negative Constitutional: Denies chills and Denies fever(s) Cardiovascular: Denies chest pain, Denies palpitations and Denies dyspnea Respiratory: Denies cough and Denies dyspnea Gastrointestinal: Denies abdominal pain, Denies diarrhea and Denies vomiting Endocrine: Denies palpitations Mental Status Exam Mental Status Exam Narrative: General appearance: Hospital attire. Unshaven. Thin. Good hygiene.? Eye contact: WNL. Musculoskeletal: Mild tremor Manner/behavior: cooperative, calm, and not guarded Speech:? Fluent, with slow rate, low tone and volume. Language: No receptive or expressive language impairment? Mood: It's almost back to myself. Affect: constricted range, congruent to mood and without lability? Thought process/associations: Circumstantial but organized.?? Thought content:?No delusions or paranoia.?? Hallucinations: No auditory, visual or other hallucinations Suicidality/self-destructive behavior: none, future oriented, hopeful.? ? Homicidally/violence: none.? Reliability: good.? ? Judgment: preserved.? ? Insight: preserved Cognition: Alert and oriented to time, place and person. Attention, concentration impaired somewhat. Impulse control and emotional regulation: preserved. Intelligence estimate: average.? Diagnostics Vital Signs (24Hr): Vital Signs - 24 hr 12/18/24 09:50 12/18/24 19:40 12/19/24 08:00 Temperature 98.2 F 97.7 F 97.5 F Pulse Rate 79 68 76 Respiratory Rate 18 Blood Pressure 176/81 H 145/69 H 130/70 Pulse Oximetry 98 97 98 Oxygen Delivery Method Room Air Room Air Room Air BMI result Body Mass Index 21.6 Labs 12/18/24 07:59 Labs: Laboratory Results - last 48 hr 12/18/24 12/18/2425 07:59 11:48 17:00 Sodium 141 Potassium 4.4 Chloride 105 Carbon Dioxide 23 Anion Gap 17 BUN 36 H Creatinine 3.09 H Estim Creat Clear Calc 22.6 Estimated GFR 21 POC Glucose 122 H 117 H Random Glucose 100 Estimat Average Glucose 148 Hemoglobin A1c % 6.8 H Calcium 9.9 Total Bilirubin 0.4 AST 32 ALT 24 Alkaline Phosphatase 137 H Total Protein 9.1 H Albumin 4.8 Triglycerides 168 H Cholesterol 290 H LDL Cholesterol, Calc 213 H HDL Cholesterol 44 TSH 1.17 Free T4 0.80 12/18/24 12/19/24 20:23 08:04 Sodium Potassium Chloride Carbon Dioxide Anion Gap BUN Creatinine Estim Creat Clear Calc Estimated GFR POC Glucose 173 H 147 H Random Glucose Estimat Average Glucose Hemoglobin A1c % Calcium Total Bilirubin AST ALT Alkaline Phosphatase Total Protein Albumin Triglycerides Cholesterol LDL Cholesterol, Calc HDL Cholesterol TSH Free T4 Medications Medications Current Medications Acetaminophen (Acetaminophen 325 Mg Tablet) 650 mg PO Q6H PRN PRN Reason: Headache/Pain, Scale 1-10 Al Hydroxide/Mg Hydroxide (Magnesium Hydrox/Alum Hydrox 30 Ml Oral.Susp) 30 ml PO Q6H PRN PRN Reason: Heartburn/Nausea Aripiprazole (Aripiprazole 30 Mg Tablet) 30 mg PO DAILY [facility] Last Admin: 12/19/24 08:53 Dose: 30 mg Benztropine Mesylate (Benztropine Mesylate 1 Mg Tablet) 2 mg PO BID [facility] Last Admin: 12/19/24 08:53 Dose: 2 mg Calcitriol (Calcitriol 0.25 Mcg Capsule) 0.25 mcg PO DAILY [facility] Last Admin: 12/19/24 08:53 Dose: 0.25 mcg Dextrose (Dextrose 50 % 25 Gm/50 Ml Syringe) 25 gm IVPUSH Q15M PRN; Protocol PRN Reason: per Hypoglycemia Standing Ord. Docusate Sodium (Docusate Sodium 100 Mg Capsule) 100 mg PO DAILY [facility] Last Admin: 12/19/24 08:52 Dose: 100 mg Empagliflozin (Empagliflozin 10 Mg Tablet) 10 mg PO DAILY [facility] Last Admin: 12/19/24 08:53 Dose: 10 mg Escitalopram Oxalate (Escitalopram Oxalate 20 Mg Tablet) 20 mg PO DAILY [facility] Last Admin: 12/19/24 08:52 Dose: 20 mg Famotidine (Famotidine 20 Mg Tablet) 20 mg PO DAILY [facility] Last Admin: 12/19/24 08:53 Dose: 20 mg Ferrous Sulfate (Ferrous Sulfate 324 Mg Tablet.Dr) 324 mg PO DAILY [facility] Last Admin: 12/19/24 08:53 Dose: 324 mg Glucose (Glucose Gel 15 Gm Gel..Gram.) 15 gm PO Q15M PRN; Protocol PRN Reason: per Hypoglycemia Standing Ord. Hydroxyzine HCl (Hydroxyzine Hcl 25 Mg Tablet) 25 mg PO Q6H PRN PRN Reason: mild anxiety Insulin Human Lispro (Insulin Lispro 100 Unit/Ml 3 Ml Vial) 0 unit SUBCUT QIDACHS [facility]; Protocol Last Admin: 12/19/24 08:25 Dose: Not Given Loratadine (Loratadine 10 Mg Tablet) 10 mg PO Q2D [facility] Last Admin: 12/18/24 10:50 Dose: Not Given Losartan Potassium (Losartan Potassium 50 Mg Tablet) 100 mg PO DAILY [facility]; Protocol Last Admin: 12/19/24 08:52 Dose: 100 mg Magnesium Hydroxide (Milk Of Magnesia 30 Ml Oral.Susp) 30 ml PO DAILY PRN PRN Reason: Constipation Nicotine (Nicotine 21 Mg Patch.Td24) 21 mg TRANSDERMA DAILY PRN PRN Reason: nicotine craving Nicotine Polacrilex (Nicotine Polacrilex 2 Mg Gum) 2 mg BUCCAL Q2H PRN PRN Reason: Nicotine Cravings Olanzapine (Olanzapine 5 Mg Tablet) 5 mg PO BID PRN PRN Reason: agitation Quetiapine Fumarate (Quetiapine Fumarate 25 Mg Tablet) 25 mg PO TID PRN PRN Reason: Anxiety Quetiapine Fumarate (Quetiapine Fumarate 300 Mg Tablet) 300 mg PO BEDTIME [facility] Last Admin: 12/18/24 21:11 Dose: 300 mg Trazodone HCl (Trazodone Hcl 50 Mg Tablet) 50 mg PO BEDTIME MRX1 PRN PRN Reason: Insomnia Allergies Allergies Allergy/AdvReac Type Severity Reaction Status Date / Time No Known Allergies Allergy Verified 12/17/24 20:12 Assessment & Plan Assessment & Plan (1) Acute confusional state: Status: Acute Code(s): F05 - Delirium due to known physiological condition Assessment and Plan: Seems to have resolved/resolving (2) Bipolar 1 disorder: Status: Acute Code(s): F31.9 - Bipolar disorder, unspecified Assessment and Plan: 64 yo man with history of bipolar disorder and substance use in remission, presented to [facility] with acute confusional state/delirium which seems to be resolved/resolving. Unclear etiology. PLAN: - Admit to inpatient psychiatry - CV - Collateral information from family and providers. - Milieu treatment and group therapy. - Medications: Continue home medications - Social work evaluation. - Disposition planning. 12/19: continue current management and treatment plan. Reason for continued inpatient stay Substantial Risk for: inability to function, rapid decompensation and med/psych decompensation Time Spent With Patient Time: Total time managing care of this patient today ____ minutes.
[2024-12-19 11:51] LABS: Glucose, Whole Blood 142 mg/dL (60-115)
[2024-12-19 17:24] LABS: Glucose, Whole Blood 147 mg/dL (60-115)
[2024-12-19 20:00] VITALS: BP 193/86; PULSE 81; RESP 16; TEMP 36.9; O2SAT 99
[2024-12-19 20:00] LABS: Glucose, Whole Blood 138 mg/dL (60-115)
[2024-12-19 20:27] VITALS: BP 193/86
--- NOTE | 2024-12-19 23:26 | PC.NURSE ---
12/19/24 pt bp 193/86 rechecked 204/98. Lillian Huber DNP aware, clonidine given. Pt did not allow a recheck pt stated I took the medication I don't want it checked again until morning.
[2024-12-20 08:00] VITALS: BP 134/74; PULSE 75; RESP 18; TEMP 36.4; O2SAT 97
[2024-12-20 08:08] LABS: Glucose, Whole Blood 118 mg/dL (60-115)
--- NOTE | 2024-12-20 08:14 | HO.PM.IMCN ---
History of Present Illness Data of Consult Service Date: 12/20/24 Primary Care Provider: Unknown Physician HPI Reason for consult: Medical consult 64-year-old male with past medical history of diabetes, anemia, anxiety, bipolar 1 disorder hypertension and chronic kidney disease presented to the ED at [facility] with mental status changes. Review of outside records revealed an elevated PTH and a low vitamin-D level, patient currently on calcitriol. No electrolyte imbalances, creatinine 2.8. Patient's has chronic kidney disease stage IIIB. No leukocytosis, mild anemia. Head CT was negative for any acute intracranial abnormality, demonstrated age-related changes. On exam he has no medical concerns. Guarded and suspicious. Answering questions, wanted door open. Review of Systems Review of Systems: Denies any shortness of breath, chest pain, headaches, dysuria, abdominal pain or discomfort, nausea, vomiting or diarrhea. Denies fever or chills. [facility] Medical History (Updated 12/20/24 @ 15:33 by iBndu Meza DNP) Anemia in chronic kidney disease (CKD) HTN (hypertension) CKD (chronic kidney disease) stage 3, GFR 30-59 ml/min Diabetes Social History Household Members: Family Housing: Apartment Do you presently have visiting nurse or other home services: No Patient Tobacco Use Status: Former Tobacco user Tobacco use type: Cigarette Smoked in Last 30 Days: No e-Cigarette/Vaping Use: Never Used Patient Interested in Nicotine Replacement: No Patient Given Instructions on How to Stop Smoking: No Second Hand Smoke Exposure: No Currently Displaying Signs/Symptoms of Drug Intoxication Withdrawal: No Have you been hit, kicked, punched, or otherwise hurt by someone within the past year? If so, by whom?: No Do you feel safe in your current relationship?: No Current Relationship Is there a partner from a previous relationship who is making you feel unsafe now?: No Are you made to feel afraid or neglected: No Advance Directives: No Advance Directives Information Provided: No Do you have thoughts of harming others: None Do you have a plan to hurt others: No Plan Recently lost weight without trying: No Eating poorly because of decreased appetite: No Nutrition Risks: No Nutritional Risk Poor oral hygiene: No Meds Allergies Allergy/AdvReac Type Severity Reaction Status Date / Time No Known Allergies Allergy Verified 12/17/24 20:12 Active Medications: Current Medications Acetaminophen (Acetaminophen 325 Mg Tablet) 650 mg PO Q6H PRN PRN Reason: Headache/Pain, Scale 1-10 Al Hydroxide/Mg Hydroxide (Magnesium Hydrox/Alum Hydrox 30 Ml Oral.Susp) 30 ml PO Q6H PRN PRN Reason: Heartburn/Nausea Aripiprazole (Aripiprazole 30 Mg Tablet) 30 mg PO DAILY [facility] Last Admin: 12/19/24 08:53 Dose: 30 mg Benztropine Mesylate (Benztropine Mesylate 1 Mg Tablet) 2 mg PO BID [facility] Last Admin: 12/19/24 20:27 Dose: 2 mg Calcitriol (Calcitriol 0.25 Mcg Capsule) 0.25 mcg PO DAILY [facility] Last Admin: 12/19/24 08:53 Dose: 0.25 mcg Dextrose (Dextrose 50 % 25 Gm/50 Ml Syringe) 25 gm IVPUSH Q15M PRN; Protocol PRN Reason: per Hypoglycemia Standing Ord. Docusate Sodium (Docusate Sodium 100 Mg Capsule) 100 mg PO DAILY [facility] Last Admin: 12/19/24 08:52 Dose: 100 mg Empagliflozin (Empagliflozin 10 Mg Tablet) 10 mg PO DAILY [facility] Last Admin: 12/19/24 08:53 Dose: 10 mg Escitalopram Oxalate (Escitalopram Oxalate 20 Mg Tablet) 20 mg PO DAILY [facility] Last Admin: 12/19/24 08:52 Dose: 20 mg Famotidine (Famotidine 20 Mg Tablet) 20 mg PO DAILY [facility] Last Admin: 12/19/24 08:53 Dose: 20 mg Ferrous Sulfate (Ferrous Sulfate 324 Mg Tablet.Dr) 324 mg PO DAILY [facility] Last Admin: 12/19/24 08:53 Dose: 324 mg Glucose (Glucose Gel 15 Gm Gel..Gram.) 15 gm PO Q15M PRN; Protocol PRN Reason: per Hypoglycemia Standing Ord. Hydroxyzine HCl (Hydroxyzine Hcl 25 Mg Tablet) 25 mg PO Q6H PRN PRN Reason: mild anxiety Insulin Human Lispro (Insulin Lispro 100 Unit/Ml 3 Ml Vial) 0 unit SUBCUT QIDACHS [facility]; Protocol Last Admin: 12/19/24 21:41 Dose: Not Given Loratadine (Loratadine 10 Mg Tablet) 10 mg PO Q2D [facility] Last Admin: 12/18/24 10:50 Dose: Not Given Losartan Potassium (Losartan Potassium 50 Mg Tablet) 100 mg PO DAILY [facility]; Protocol Last Admin: 12/19/24 08:52 Dose: 100 mg Magnesium Hydroxide (Milk Of Magnesia 30 Ml Oral.Susp) 30 ml PO DAILY PRN PRN Reason: Constipation Nicotine (Nicotine 21 Mg Patch.Td24) 21 mg TRANSDERMA DAILY PRN PRN Reason: nicotine craving Nicotine Polacrilex (Nicotine Polacrilex 2 Mg Gum) 2 mg BUCCAL Q2H PRN PRN Reason: Nicotine Cravings Olanzapine (Olanzapine 5 Mg Tablet) 5 mg PO BID PRN PRN Reason: agitation Quetiapine Fumarate (Quetiapine Fumarate 25 Mg Tablet) 25 mg PO TID PRN PRN Reason: Anxiety Last Admin: 12/19/24 20:30 Dose: 25 mg Quetiapine Fumarate (Quetiapine Fumarate 300 Mg Tablet) 300 mg PO BEDTIME [facility] Last Admin: 12/19/24 20:26 Dose: 300 mg Trazodone HCl (Trazodone Hcl 50 Mg Tablet) 50 mg PO BEDTIME MRX1 PRN PRN Reason: Insomnia Home Medications ?Medication ?Instructions ?Recorded ?Confirmed ?Last Taken ?Type aripiprazole 30 mg tablet 30 mg PO DAILY 12/17/24 12/17/24 Unknown History benztropine 2 mg tablet 2 mg PO BID 12/17/24 12/17/24 Unknown History calcitriol 0.25 mcg capsule 0.25 mcg PO DAILY 12/17/24 12/17/24 Unknown History dapagliflozin propanediol 10 mg 10 mg PO DAILY 12/17/24 12/17/24 Unknown History tablet (Farxiga) docusate sodium 100 mg capsule 100 mg PO QAM 12/17/24 12/17/24 Unknown History escitalopram oxalate 20 mg tablet 20 mg PO QAM 12/17/24 12/17/24 Unknown History famotidine 20 mg tablet 20 mg PO DAILY 12/17/24 12/17/24 Unknown History ferrous sulfate 325 mg (65 mg 325 mg PO DAILY 12/17/24 12/17/24 Unknown History iron) tablet,delayed release lamotrigine 200 mg tablet 200 mg PO BID 12/17/24 12/17/24 Unknown History loratadine 10 mg tablet 10 mg PO Q OTHER DAY 12/17/24 12/17/24 Unknown History losartan 100 mg tablet 100 mg PO DAILY 12/17/24 12/17/24 Unknown History quetiapine 25 mg tablet 25 mg PO TID PRN anxiety 12/17/24 12/17/24 Unknown History quetiapine 300 mg tablet 300 mg PO BEDTIME 12/17/24 12/17/24 Unknown History Physical Exam Vital Signs and Narrative: Vital Signs: Last Vital Signs Temp 98.4 F 12/19/24 20:00 Pulse 81 12/19/24 20:00 Resp 16 12/19/24 20:00 BP 193/86 H 12/19/24 20:27 Pulse Ox 99 12/19/24 20:00 O2 Del Method Room Air 12/19/24 20:00 BMI result Body Mass Index 21.6 CONST: Alert and oriented, in NAD. Well nourished HEENT: Normocephalic, atraumatic, MMM, Eyes clear, Neck supple RESP: Lungs clear, RRR even and regular HEART:,RRR, S1, S2. No edema GI:Abdomen Soft NT, ND. + BS times four :Deferred SKIN: Warm dry and intact, no visible lesions or rashes NEURO:CN II-XII Intact bilaterally, Sensation intact. Speech clear PSYCH: Normal affect Results Labs 12/18/24 07:59 Labs: Laboratory Results - last 24 hr 12/19/24 12/19/24 12/19/24 11:47 17:10 19:55 POC Glucose 142 H 147 H 138 H 12/20/24 08:01 POC Glucose 118 H Assessment and Plan (1) CKD (chronic kidney disease) stage 3, GFR 30-59 ml/min: Status: Acute Plan 64-year-old male with a past medical history was listed below presented to emergency department at [facility] with mental status changes. Now admitted to inpatient psych for further care. Bipolar 1 disorder/anxiety/mental status changes Treatment per psychiatric team Type 2 diabetes Continue Jardiance Hemoglobin A1c 6.8 Anemia Follow labs Chronic kidney disease stage IIIB Creatinine 3.09 Unclear baseline Avoid nephrotoxins Consult nephrology Type 2 diabetes Hemoglobin A1c 6.8 Continue Jardiance Hypertension Patient taking Cozaar, previously taking Norvasc We will continue to monitor Thank you for allowing me to participate in the care of this patient. Will follow with you, please notify medical provider with any changes in condition or concerns.
[2024-12-20 09:02] VITALS: BP 134/76
[2024-12-20] MEDS: Ferrous Sulfate 324 MG TABLET.DR PO (09:02)
[2024-12-20] MEDS: ARIPiprazole 30 MG TABLET PO (09:03)
--- NOTE | 2024-12-20 09:48 | P.PNPSI_ITS ---
Subjective Subjective Date of Service: 12/20/24 Reason For Visit: F31.9 Subjective Notes: Section 12B Healthcare Proxy: No Guardianship: No Medical Problems Affecting Mental Status: No Interim History: Section XIIB to on 12/22. Denies SI,HI, AH,VH. No sx of acute psychosis or seth. Some anxiety pt reports, denies med SE. Finds Abilify, Seroquel very helpful Pt with sx HTN, propranolol with effect. Reports he is back to baseline, distanced, mildly paranoid, looking forward to discharge, as I don't need to be here. I feel back on track-I want to get back to therapy, medicine evaluation, groups, AA,NA, bible study and my life activities. POC changed to BID from ?QID-pts values have been stable. Medication Compliance: Yes Side effects from medications: No Attending Groups: Intermittent Review of Systems Acute medical concerns: No Medical Review of Systems: unchanged Review of Systems Review of Systems I am well Mental Status Exam Mental Status Exam Patient Appearance: Appropriate Patient Orientation: Person, Place, Time and Situation Level of Consciousness: Alert Patient Behavior: Appropriate, Talkative and Good Eye Contact Mood Description: Constricted Affect Description: Constricted Patient Cognition Impaired: No Ability to Follow Directions: Good Speech Pattern: Spontaneous Speech Memory Description: Intact Hallucinations: None Delusions: Paranoid Ideation (mild) Thought Process: Goal Oriented Thought Content: positive for Goal Oriented and positive for Suicidal Ideation (denies) Depressive Symptoms: Thoughts of /Suicide (denies) Abnormal Motor Activity Signs and Symptoms: Restlessness Judgement: Fair Diagnostics Vital Signs (24Hr): Vital Signs - 24 hr 12/19/24 20:00 12/19/24 20:27 12/20/24 09:02 Temperature 98.4 F Pulse Rate 81 Respiratory Rate 16 Blood Pressure 193/86 H 193/86 H 134/76 Pulse Oximetry 99 Oxygen Delivery Method Room Air BMI result Body Mass Index 21.6 Labs 12/18/24 07:59 Labs: Laboratory Results - last 48 hr 12/18/24 12/18/24 12/18/24 11:48 17:00 20:23 POC Glucose 122 H 117 H 173 H 12/19/24 12/19/24 12/19/24 08:04 11:47 17:10 POC Glucose 147 H 142 H 147 H 12/19/24 12/20/24 19:55 08:01 POC Glucose 138 H 118 H Medications Medications Current Medications Acetaminophen (Acetaminophen 325 Mg Tablet) 650 mg PO Q6H PRN PRN Reason: Headache/Pain, Scale 1-10 Al Hydroxide/Mg Hydroxide (Magnesium Hydrox/Alum Hydrox 30 Ml Oral.Susp) 30 ml PO Q6H PRN PRN Reason: Heartburn/Nausea Aripiprazole (Aripiprazole 30 Mg Tablet) 30 mg PO DAILY [facility] Last Admin: 12/20/24 09:03 Dose: 30 mg Benztropine Mesylate (Benztropine Mesylate 1 Mg Tablet) 2 mg PO BID [facility] Last Admin: 12/20/24 09:03 Dose: 2 mg Calcitriol (Calcitriol 0.25 Mcg Capsule) 0.25 mcg PO DAILY [facility] Last Admin: 12/20/24 09:03 Dose: 0.25 mcg Dextrose (Dextrose 50 % 25 Gm/50 Ml Syringe) 25 gm IVPUSH Q15M PRN; Protocol PRN Reason: per Hypoglycemia Standing Ord. Docusate Sodium (Docusate Sodium 100 Mg Capsule) 100 mg PO DAILY [facility] Last Admin: 12/20/24 09:03 Dose: 100 mg Empagliflozin (Empagliflozin 10 Mg Tablet) 10 mg PO DAILY [facility] Last Admin: 12/20/24 09:04 Dose: 10 mg Escitalopram Oxalate (Escitalopram Oxalate 20 Mg Tablet) 20 mg PO DAILY [facility] Last Admin: 12/20/24 09:04 Dose: 20 mg Famotidine (Famotidine 20 Mg Tablet) 20 mg PO DAILY [facility] Last Admin: 12/20/24 09:02 Dose: 20 mg Ferrous Sulfate (Ferrous Sulfate 324 Mg Tablet.Dr) 324 mg PO DAILY [facility] Last Admin: 12/20/24 09:02 Dose: 324 mg Glucose (Glucose Gel 15 Gm Gel..Gram.) 15 gm PO Q15M PRN; Protocol PRN Reason: per Hypoglycemia Standing Ord. Hydroxyzine HCl (Hydroxyzine Hcl 25 Mg Tablet) 25 mg PO Q6H PRN PRN Reason: mild anxiety Insulin Human Lispro (Insulin Lispro 100 Unit/Ml 3 Ml Vial) 0 unit SUBCUT QIDACHS [facility]; Protocol Last Admin: 12/20/24 08:44 Dose: Not Given Loratadine (Loratadine 10 Mg Tablet) 10 mg PO Q2D [facility] Last Admin: 12/20/24 09:11 Dose: 10 mg Losartan Potassium (Losartan Potassium 50 Mg Tablet) 100 mg PO DAILY [facility]; Protocol Last Admin: 12/20/24 09:02 Dose: 100 mg Magnesium Hydroxide (Milk Of Magnesia 30 Ml Oral.Susp) 30 ml PO DAILY PRN PRN Reason: Constipation Nicotine (Nicotine 21 Mg Patch.Td24) 21 mg TRANSDERMA DAILY PRN PRN Reason: nicotine craving Nicotine Polacrilex (Nicotine Polacrilex 2 Mg Gum) 2 mg BUCCAL Q2H PRN PRN Reason: Nicotine Cravings Olanzapine (Olanzapine 5 Mg Tablet) 5 mg PO BID PRN PRN Reason: agitation Quetiapine Fumarate (Quetiapine Fumarate 25 Mg Tablet) 25 mg PO TID PRN PRN Reason: Anxiety Last Admin: 12/19/24 20:30 Dose: 25 mg Quetiapine Fumarate (Quetiapine Fumarate 300 Mg Tablet) 300 mg PO BEDTIME [facility] Last Admin: 12/19/24 20:26 Dose: 300 mg Trazodone HCl (Trazodone Hcl 50 Mg Tablet) 50 mg PO BEDTIME MRX1 PRN PRN Reason: Insomnia Allergies Allergies Allergy/AdvReac Type Severity Reaction Status Date / Time No Known Allergies Allergy Verified 12/17/24 20:12 Assessment & Plan Assessment & Plan (1) Acute confusional state: Status: Acute Code(s): F05 - Delirium due to known physiological condition Assessment and Plan: Seems to have resolved/resolving (2) Bipolar 1 disorder: Status: Acute Code(s): F31.9 - Bipolar disorder, unspecified Assessment and Plan: 64 yo man with history of bipolar disorder and substance use in remission, presented to [facility] with acute confusional state/delirium which seems to be resolved/resolving. Unclear etiology. PLAN: - Admit to inpatient psychiatry - CV - Collateral information from family and providers. - Milieu treatment and group therapy. - Medications: Continue home medications - Social work evaluation. - Disposition planning. 12/19: continue current management and treatment plan. 12/20: Section XIIB to 12/22. Pt wanting to DC. Continue tx Reason for continued inpatient stay Substantial Risk for: rapid decompensation Time Spent With Patient Time: Total time managing care of this patient today ____ minutes.
[2024-12-20] MEDS: Magnesium Hydrox/Alum Hydrox 30 ML ORAL.SUSP PO (22:08)
[2024-12-20 22:30] LABS: Glucose, Whole Blood 150 mg/dL (60-115)
[2024-12-21 08:00] VITALS: BP 120/65; PULSE 88; RESP 18; TEMP 36.3; O2SAT 98
[2024-12-21 08:23] LABS: Glucose, Whole Blood 177 mg/dL (60-115)
[2024-12-21] MEDS: ARIPiprazole 30 MG TABLET PO (08:49)
[2024-12-21] MEDS: Ferrous Sulfate 324 MG TABLET.DR PO (08:49)
[2024-12-21] MEDS: Magnesium Hydrox/Alum Hydrox 30 ML ORAL.SUSP PO ×2 (11:26→20:22)
--- NOTE | 2024-12-21 12:06 | PM.CNNEP ---
History of Present Illness Reason for Consult Consult date: 12/21/24 Chief Complaint Chief complaint: F31.9 History of Present Illness Narrative: 64-year-old gentleman with past medical history of hypertension, diabetes mellitus, CKD stage IIIB is admitted to the hospital due to psych issues. Sees an outpatient agriculture sales account manager, last known creatinine is in 3s. No new symptoms, feels better denies any issues states he is ready to be discharged and followup with his outpatient agriculture sales account manager Review of Systems Review of Systems Const : no body aches, no chills, no excessive sweating and no fatigue Eyes: no blurry vision and no change in vision ENT: no bleeding gums and no change in voice, no dizziness Card: no chest pain, no shortness of breath, no orthopnea, no PND Resp: no cough, no excessive phlegm production, no SOB GI: no abdominal pain and no nausea, no vomiting : no hematuria, no urinary frequency and no difficulty voiding Musc: no abnormal gait, no bone pain Neuro: no abnormal movements, no weakness, + behavioral changes Psych: no behavioral changes and no change in appetite Endo: no change in body appearance, no cold intolerance PMFSH Past Medical History Medical History (Updated 12/20/24 @ 15:33 by Bindu Meza DNP) Anemia in chronic kidney disease (CKD) HTN (hypertension) CKD (chronic kidney disease) stage 3, GFR 30-59 ml/min Diabetes Social History Social History Household Members: Family Housing: Apartment Do you presently have visiting nurse or other home services: No Patient Tobacco Use Status: Former Tobacco user Tobacco use type: Cigarette Smoked in Last 30 Days: No e-Cigarette/Vaping Use: Never Used Patient Interested in Nicotine Replacement: No Patient Given Instructions on How to Stop Smoking: No Second Hand Smoke Exposure: No Currently Displaying Signs/Symptoms of Drug Intoxication Withdrawal: No Have you been hit, kicked, punched, or otherwise hurt by someone within the past year? If so, by whom?: No Do you feel safe in your current relationship?: No Current Relationship Is there a partner from a previous relationship who is making you feel unsafe now?: No Are you made to feel afraid or neglected: No Advance Directives: No Advance Directives Information Provided: No Do you have thoughts of harming others: None Do you have a plan to hurt others: No Plan Recently lost weight without trying: No Eating poorly because of decreased appetite: No Nutrition Risks: No Nutritional Risk Poor oral hygiene: No service: No Sexual orientation: Decline to Answer Meds Allergies Allergy/AdvReac Type Severity Reaction Status Date / Time No Known Allergies Allergy Verified 12/17/24 20:12 Active Medications: Current Medications Acetaminophen (Acetaminophen 325 Mg Tablet) 650 mg PO Q6H PRN PRN Reason: Headache/Pain, Scale 1-10 Al Hydroxide/Mg Hydroxide (Magnesium Hydrox/Alum Hydrox 30 Ml Oral.Susp) 30 ml PO Q6H PRN PRN Reason: Heartburn/Nausea Last Admin: 12/21/24 11:26 Dose: 30 ml Aripiprazole (Aripiprazole 30 Mg Tablet) 30 mg PO DAILY [facility] Last Admin: 12/21/24 08:49 Dose: 30 mg Benztropine Mesylate (Benztropine Mesylate 1 Mg Tablet) 2 mg PO BID [facility] Last Admin: 12/21/24 08:46 Dose: 2 mg Calcitriol (Calcitriol 0.25 Mcg Capsule) 0.25 mcg PO DAILY [facility] Last Admin: 12/21/24 08:46 Dose: 0.25 mcg Dextrose (Dextrose 50 % 25 Gm/50 Ml Syringe) 25 gm IVPUSH Q15M PRN; Protocol PRN Reason: per Hypoglycemia Standing Ord. Docusate Sodium (Docusate Sodium 100 Mg Capsule) 100 mg PO DAILY [facility] Last Admin: 12/21/24 08:47 Dose: 100 mg Empagliflozin (Empagliflozin 10 Mg Tablet) 10 mg PO DAILY [facility] Last Admin: 12/21/24 08:47 Dose: 10 mg Escitalopram Oxalate (Escitalopram Oxalate 20 Mg Tablet) 20 mg PO DAILY [facility] Last Admin: 12/21/24 08:47 Dose: 20 mg Famotidine (Famotidine 20 Mg Tablet) 10 mg PO Q2D [facility] Ferrous Sulfate (Ferrous Sulfate 324 Mg Tablet.Dr) 324 mg PO DAILY [facility] Last Admin: 12/21/24 08:49 Dose: 324 mg Glucose (Glucose Gel 15 Gm Gel..Gram.) 15 gm PO Q15M PRN; Protocol PRN Reason: per Hypoglycemia Standing Ord. Hydroxyzine HCl (Hydroxyzine Hcl 25 Mg Tablet) 25 mg PO Q6H PRN PRN Reason: mild anxiety Insulin Human Lispro (Insulin Lispro 100 Unit/Ml 3 Ml Vial) 0 unit SUBCUT BIDAC [facility]; Protocol Last Admin: 12/21/24 08:45 Dose: 2 unit Loratadine (Loratadine 10 Mg Tablet) 10 mg PO Q2D [facility] Last Admin: 12/20/24 09:11 Dose: 10 mg Losartan Potassium (Losartan Potassium 50 Mg Tablet) 100 mg PO DAILY [facility]; Protocol Last Admin: 12/21/24 08:47 Dose: 100 mg Magnesium Hydroxide (Milk Of Magnesia 30 Ml Oral.Susp) 30 ml PO DAILY PRN PRN Reason: Constipation Nicotine (Nicotine 21 Mg Patch.Td24) 21 mg TRANSDERMA DAILY PRN PRN Reason: nicotine craving Nicotine Polacrilex (Nicotine Polacrilex 2 Mg Gum) 2 mg BUCCAL Q2H PRN PRN Reason: Nicotine Cravings Olanzapine (Olanzapine 5 Mg Tablet) 5 mg PO BID PRN PRN Reason: agitation Quetiapine Fumarate (Quetiapine Fumarate 25 Mg Tablet) 25 mg PO TID PRN PRN Reason: Anxiety Last Admin: 12/20/24 21:01 Dose: 25 mg Quetiapine Fumarate (Quetiapine Fumarate 300 Mg Tablet) 300 mg PO BEDTIME [facility] Last Admin: 12/20/24 21:00 Dose: 300 mg Trazodone HCl (Trazodone Hcl 50 Mg Tablet) 50 mg PO BEDTIME MRX1 PRN PRN Reason: Insomnia Home Medications ?Medication ?Instructions ?Recorded ?Confirmed ?Last Taken ?Type aripiprazole 30 mg tablet 30 mg PO DAILY 12/17/24 12/17/24 Unknown History benztropine 2 mg tablet 2 mg PO BID 12/17/24 12/17/24 Unknown History calcitriol 0.25 mcg capsule 0.25 mcg PO DAILY 12/17/24 12/17/24 Unknown History dapagliflozin propanediol 10 mg 10 mg PO DAILY 12/17/24 12/17/24 Unknown History tablet (Farxiga) docusate sodium 100 mg capsule 100 mg PO QAM 12/17/24 12/17/24 Unknown History escitalopram oxalate 20 mg tablet 20 mg PO QAM 12/17/24 12/17/24 Unknown History famotidine 20 mg tablet 20 mg PO DAILY 12/17/24 12/17/24 Unknown History ferrous sulfate 325 mg (65 mg 325 mg PO DAILY 12/17/24 12/17/24 Unknown History iron) tablet,delayed release lamotrigine 200 mg tablet 200 mg PO BID 12/17/24 12/17/24 Unknown History loratadine 10 mg tablet 10 mg PO Q OTHER DAY 12/17/24 12/17/24 Unknown History losartan 100 mg tablet 100 mg PO DAILY 12/17/24 12/17/24 Unknown History quetiapine 25 mg tablet 25 mg PO TID PRN anxiety 12/17/24 12/17/24 Unknown History quetiapine 300 mg tablet 300 mg PO BEDTIME 12/17/24 12/17/24 Unknown History Physical Exam Vital Signs: Last Vital Signs Temp 97.4 F 12/21/24 08:00 Pulse 88 12/21/24 08:00 Resp 18 12/21/24 08:00 BP 120/65 12/21/24 08:00 Pulse Ox 98 12/21/24 08:00 O2 Del Method Room Air 12/21/24 08:00 BMI result Body Mass Index 21.6 General: not in any acute distress, ill appearing Nutritional Appearance: well nourished and overweight Eyes: appearance normal, both eyes and all related structures; Alignment and Position: alignment normal and position normal Neck: No lymphadenopathy, no thyromegaly Resp: bilateral air entry equal, no added sounds present Cardio: Regular rate, regular rhythm; Heart sounds: S1 normal heart sound present and S2 normal heart sound present GI: soft, nontender, no guarding, no hepatosplenomegaly : bladder normal to inspection, bladder normal to palpation, no renal angle tenderness Skin: no rashes or lesions noted and elasticity normal Neuro: alert, oriented x 3, moves all extremities Results Lab Results 12/18/24 07:59 Assessment and Plan (1) CKD (chronic kidney disease) stage 3, GFR 30-59 ml/min: Status: Acute (2) Acute confusional state: Status: Acute Plan Chronic kidney disease: Patient has underlying chronic kidney disease for several years now and follows up with an outpatient agriculture sales account manager Has labs on admission which shows creatinine 3.09 with GFR 21; which is his baseline as per the patient His HbA1c is 6.8 We will get urinalysis, urine protein creatinine ratio, urine microalbumin creatinine ratio, urine eosinophils We will get HIV, hepatitis panel, complements, CBC Patient refused ultrasound KUB Since we are not sure if this is a ANNE MARIE or CKD continue losartan 100 mg for now, continue Jardiance for renal protection He is on calcitriol, we will get PTH, vitamin-D and phos levels His renal function is at baseline, patient wants to follow up with his outpatient agriculture sales account manager upon discharge. Nephrology we will sign off Procedures Date of Service Date of Service: 12/21/24
--- NOTE | 2024-12-21 16:23 | HO.PSYCHPN ---
Subjective Subjective Date of Service: 12/21/24 Reason For Visit: F31.9 Subjective Notes: Section 12B Healthcare Proxy: No Guardianship: No Medical Problems Affecting Mental Status: No Interim History: Refused diagnostics, labs, ultrasound-prefers independent follow up with providers of his choice. Dismissive per team report. Slept seven hours. Will have out pt therapy appt next week and will follow up with Dr. Gamboa on 01/06/25. Pt prepared for discharge, remains distant from milieu, team and I am waiting to get back to my life. Medication Compliance: Yes Side effects from medications: No Attending Groups: Intermittent Review of Systems Acute medical concerns: No Refusal of diagnostics Medical Review of Systems: unchanged Review of Systems Review of Systems Denies Mental Status Exam Mental Status Exam Patient Appearance: Appropriate Patient Orientation: Person, Place, Time and Situation Level of Consciousness: Alert Patient Behavior: Appropriate, Talkative and Good Eye Contact Mood Description: Constricted Affect Description: Constricted Patient Cognition Impaired: No Ability to Follow Directions: Good Speech Pattern: Spontaneous Speech Memory Description: Intact Hallucinations: None Delusions: Paranoid Ideation (mild) Thought Process: Goal Oriented Thought Content: positive for Goal Oriented and positive for Suicidal Ideation (denies) Depressive Symptoms: Thoughts of /Suicide (denies) Abnormal Motor Activity Signs and Symptoms: Restlessness Judgement: Fair Diagnostics Vital Signs (24Hr): Vital Signs - 24 hr 12/21/24 08:00 Temperature 97.4 F Pulse Rate 88 Respiratory Rate 18 Blood Pressure 120/65 Pulse Oximetry 98 Oxygen Delivery Method Room Air BMI result Body Mass Index 21.6 Labs 12/18/24 07:59 Labs: Laboratory Results - last 48 hr 12/19/24 12/19/24 12/20/24 17:10 19:55 08:01 POC Glucose 147 H 138 H 118 H 12/20/24 12/21/24 22:25 08:19 POC Glucose 150 H 177 H Medications Medications Current Medications Acetaminophen (Acetaminophen 325 Mg Tablet) 650 mg PO Q6H PRN PRN Reason: Headache/Pain, Scale 1-10 Al Hydroxide/Mg Hydroxide (Magnesium Hydrox/Alum Hydrox 30 Ml Oral.Susp) 30 ml PO Q6H PRN PRN Reason: Heartburn/Nausea Last Admin: 12/21/24 11:26 Dose: 30 ml Aripiprazole (Aripiprazole 30 Mg Tablet) 30 mg PO DAILY [facility] Last Admin: 12/21/24 08:49 Dose: 30 mg Benztropine Mesylate (Benztropine Mesylate 1 Mg Tablet) 2 mg PO BID [facility] Last Admin: 12/21/24 08:46 Dose: 2 mg Calcitriol (Calcitriol 0.25 Mcg Capsule) 0.25 mcg PO DAILY [facility] Last Admin: 12/21/24 08:46 Dose: 0.25 mcg Dextrose (Dextrose 50 % 25 Gm/50 Ml Syringe) 25 gm IVPUSH Q15M PRN; Protocol PRN Reason: per Hypoglycemia Standing Ord. Docusate Sodium (Docusate Sodium 100 Mg Capsule) 100 mg PO DAILY [facility] Last Admin: 12/21/24 08:47 Dose: 100 mg Empagliflozin (Empagliflozin 10 Mg Tablet) 10 mg PO DAILY [facility] Last Admin: 12/21/24 08:47 Dose: 10 mg Escitalopram Oxalate (Escitalopram Oxalate 20 Mg Tablet) 20 mg PO DAILY [facility] Last Admin: 12/21/24 08:47 Dose: 20 mg Famotidine (Famotidine 20 Mg Tablet) 10 mg PO Q2D [facility] Ferrous Sulfate (Ferrous Sulfate 324 Mg Tablet.Dr) 324 mg PO DAILY [facility] Last Admin: 12/21/24 08:49 Dose: 324 mg Glucose (Glucose Gel 15 Gm Gel..Gram.) 15 gm PO Q15M PRN; Protocol PRN Reason: per Hypoglycemia Standing Ord. Hydroxyzine HCl (Hydroxyzine Hcl 25 Mg Tablet) 25 mg PO Q6H PRN PRN Reason: mild anxiety Insulin Human Lispro (Insulin Lispro 100 Unit/Ml 3 Ml Vial) 0 unit SUBCUT BIDAC [facility]; Protocol Last Admin: 12/21/24 08:45 Dose: 2 unit Loratadine (Loratadine 10 Mg Tablet) 10 mg PO Q2D [facility] Last Admin: 12/20/24 09:11 Dose: 10 mg Losartan Potassium (Losartan Potassium 50 Mg Tablet) 100 mg PO DAILY [facility]; Protocol Last Admin: 12/21/24 08:47 Dose: 100 mg Magnesium Hydroxide (Milk Of Magnesia 30 Ml Oral.Susp) 30 ml PO DAILY PRN PRN Reason: Constipation Nicotine (Nicotine 21 Mg Patch.Td24) 21 mg TRANSDERMA DAILY PRN PRN Reason: nicotine craving Nicotine Polacrilex (Nicotine Polacrilex 2 Mg Gum) 2 mg BUCCAL Q2H PRN PRN Reason: Nicotine Cravings Olanzapine (Olanzapine 5 Mg Tablet) 5 mg PO BID PRN PRN Reason: agitation Quetiapine Fumarate (Quetiapine Fumarate 25 Mg Tablet) 25 mg PO TID PRN PRN Reason: Anxiety Last Admin: 12/21/24 13:16 Dose: 25 mg Quetiapine Fumarate (Quetiapine Fumarate 300 Mg Tablet) 300 mg PO BEDTIME [facility] Last Admin: 12/20/24 21:00 Dose: 300 mg Trazodone HCl (Trazodone Hcl 50 Mg Tablet) 50 mg PO BEDTIME MRX1 PRN PRN Reason: Insomnia Allergies Allergies Allergy/AdvReac Type Severity Reaction Status Date / Time No Known Allergies Allergy Verified 12/17/24 20:12 Assessment & Plan Assessment & Plan (1) CKD (chronic kidney disease) stage 3, GFR 30-59 ml/min: Status: Acute Code(s): N18.30 - Chronic kidney disease, stage 3 unspecified (2) Acute confusional state: Status: Acute Code(s): F05 - Delirium due to known physiological condition Plan Chronic kidney disease: Patient has underlying chronic kidney disease for several years now and follows up with an outpatient in store banker Has labs on admission which shows creatinine 3.09 with GFR 21; which is his baseline as per the patient His HbA1c is 6.8 We will get urinalysis, urine protein creatinine ratio, urine microalbumin creatinine ratio, urine eosinophils We will get HIV, hepatitis panel, complements, CBC Patient refused ultrasound KUB Since we are not sure if this is a ANNE MARIE or CKD continue losartan 100 mg for now, continue Jardiance for renal protection He is on calcitriol, we will get PTH, vitamin-D and phos levels His renal function is at baseline, patient wants to follow up with his outpatient in store banker upon discharge. Nephrology we will sign off 12/21: Refused above diagnostics Planning discharge for 12/22. Reason for continued inpatient stay Substantial Risk for: stable for discharge Time Spent With Patient Time: Total time managing care of this patient today ____ minutes.
[2024-12-21 18:58] VITALS: BP 213/104; PULSE 77
--- NOTE | 2024-12-21 19:18 | PC.NURSE ---
Pt BP elevated 213/104 this evening and previous to that also elevated, pt declined to allow TW do a manual cuff pressure or recheck again in other extremeity. He denied CHIN, visual changes and other symptoms but is feeling nervous about BP. Lillian Huber was notified and orders obtained for Clonodine. He was given Clonodine 0.1 mg po once, he declined all prn's for anxiety. He expressed his wish for amlodopine and Provider Cecile did not want to order. He was previously see by hospitalist Friday as this happened 2 nights ago. This was endorsed to new RN assuming care on night clerk auditor to recheck and monitor.
[2024-12-21 20:00] VITALS: BP 207/100; PULSE 99; RESP 18; TEMP 36.3; O2SAT 92
[2024-12-21 21:43] VITALS: BP 206/92; PULSE 96
[2024-12-21 22:44] VITALS: BP 206/92
[2024-12-21 23:07] VITALS: BP 206/92
[2024-12-22 08:00] VITALS: BP 143/70; PULSE 110; RESP 16; TEMP 35.7; O2SAT 99
--- NOTE | 2024-12-22 08:17 | HO.PM.IMPN ---
Subjective Subjective Date of Service: 12/22/24 Interval History: Patient was seen per request of psychiatric provider for elevated blood pressure readings. On exam he refuses to answer my questions, is very guicho with his responses. Reports that he is going home does not wish any further follow up for his blood pressure. Refuses to answer questions regarding review of systems, refuses physical examination. Review of Systems Refused Physical Exam Exam: Exam: CONST: Alert and oriented, in NAD. Well nourished HEENT: Normocephalic, atraumatic RESP: Respiratory rate even and regular HEART: Decline GI: Decline : Decline SKIN: Color within normal limits, no visible lesions or rashes NEURO: Moves all extremities, Speech clear PSYCH: Answers questions Vital Signs: Vital Signs: Last Vital Signs Temp 96.3 F L 12/22/24 08:00 Pulse 110 H 12/22/24 08:00 Resp 16 12/22/24 08:00 BP 143/70 H 12/22/24 08:00 Pulse Ox 99 12/22/24 08:00 O2 Del Method Room Air 12/22/24 08:00 BMI result Body Mass Index 21.6 Objective Data Active Medications Acetaminophen (Acetaminophen 325 Mg Tablet) 650 mg PO Q6H PRN PRN Reason: Headache/Pain, Scale 1-10 Al Hydroxide/Mg Hydroxide (Magnesium Hydrox/Alum Hydrox 30 Ml Oral.Susp) 30 ml PO Q6H PRN PRN Reason: Heartburn/Nausea Last Admin: 12/21/24 20:22 Dose: 30 ml Documented By: CAIN Aripiprazole (Aripiprazole 30 Mg Tablet) 30 mg PO DAILY [facility] Last Admin: 12/21/24 08:49 Dose: 30 mg Documented By: MARIBETH Benztropine Mesylate (Benztropine Mesylate 1 Mg Tablet) 2 mg PO BID [facility] Last Admin: 12/21/24 20:22 Dose: 2 mg Documented By: CAIN Calcitriol (Calcitriol 0.25 Mcg Capsule) 0.25 mcg PO DAILY [facility] Last Admin: 12/21/24 08:46 Dose: 0.25 mcg Documented By: MARIBETH Dextrose (Dextrose 50 % 25 Gm/50 Ml Syringe) 25 gm IVPUSH Q15M PRN; Protocol PRN Reason: per Hypoglycemia Standing Ord. Docusate Sodium (Docusate Sodium 100 Mg Capsule) 100 mg PO DAILY [facility] Last Admin: 12/21/24 08:47 Dose: 100 mg Documented By: MARIBETH Empagliflozin (Empagliflozin 10 Mg Tablet) 10 mg PO DAILY [facility] Last Admin: 12/21/24 08:47 Dose: 10 mg Documented By: MARIBETH Escitalopram Oxalate (Escitalopram Oxalate 20 Mg Tablet) 20 mg PO DAILY [facility] Last Admin: 12/21/24 08:47 Dose: 20 mg Documented By: MARIBETH Famotidine (Famotidine 20 Mg Tablet) 10 mg PO Q2D [facility] Ferrous Sulfate (Ferrous Sulfate 324 Mg Tablet.Dr) 324 mg PO DAILY [facility] Last Admin: 12/21/24 08:49 Dose: 324 mg Documented By: MARIBETH Glucose (Glucose Gel 15 Gm Gel..Gram.) 15 gm PO Q15M PRN; Protocol PRN Reason: per Hypoglycemia Standing Ord. Hydroxyzine HCl (Hydroxyzine Hcl 25 Mg Tablet) 25 mg PO Q6H PRN PRN Reason: mild anxiety Insulin Human Lispro (Insulin Lispro 100 Unit/Ml 3 Ml Vial) 0 unit SUBCUT BIDAC [facility]; Protocol Last Admin: 12/21/24 18:42 Dose: Not Given Documented By: MARIBETH Non-Admin Reason: Patient Refused Loratadine (Loratadine 10 Mg Tablet) 10 mg PO Q2D [facility] Last Admin: 12/20/24 09:11 Dose: 10 mg Documented By: MARIBETH Losartan Potassium (Losartan Potassium 50 Mg Tablet) 100 mg PO DAILY [facility]; Protocol Last Admin: 12/21/24 08:47 Dose: 100 mg Documented By: MARIBETH Magnesium Hydroxide (Milk Of Magnesia 30 Ml Oral.Susp) 30 ml PO DAILY PRN PRN Reason: Constipation Nicotine (Nicotine 21 Mg Patch.Td24) 21 mg TRANSDERMA DAILY PRN PRN Reason: nicotine craving Nicotine Polacrilex (Nicotine Polacrilex 2 Mg Gum) 2 mg BUCCAL Q2H PRN PRN Reason: Nicotine Cravings Olanzapine (Olanzapine 5 Mg Tablet) 5 mg PO BID PRN PRN Reason: agitation Quetiapine Fumarate (Quetiapine Fumarate 25 Mg Tablet) 25 mg PO TID PRN PRN Reason: Anxiety Last Admin: 12/21/24 13:16 Dose: 25 mg Documented By: HO.KIMMICH Quetiapine Fumarate (Quetiapine Fumarate 300 Mg Tablet) 300 mg PO BEDTIME YAQUELIN Last Admin: 12/21/24 20:22 Dose: 300 mg Documented By: CAIN Trazodone HCl (Trazodone Hcl 50 Mg Tablet) 50 mg PO BEDTIME MRX1 PRN PRN Reason: Insomnia Labs 12/18/24 07:59 Labs: Laboratory Results - last 24 hr 12/21/24 08:19 POC Glucose 177 H Assessment and Plan (1) HTN (hypertension): Status: Acute Plan 64-year-old male with a past medical history was listed below presented to emergency department at [facility] with mental status changes. Now admitted to inpatient psych for further care. Bipolar 1 disorder/anxiety/mental status changes Treatment per psychiatric team Type 2 diabetes Continue Jardiance Hemoglobin A1c 6.8 Anemia Follow labs Chronic kidney disease stage IIIB Creatinine 3.09 Unclear baseline Avoid nephrotoxins Consult nephrology Type 2 diabetes Hemoglobin A1c 6.8 Continue Jardiance Hypertension Patient taking Cozaar, previously taking Norvasc We will continue to monitor Refuses to answer whether or not he has been taking his Norvasc at home Declines to answer any questions or participate in any physical exam We will add clonidine t.i.d. p.r.n. for systolic blood pressures greater than 160 Thank you for allowing me to participate in the care of this patient. Will follow with you, please notify medical provider with any changes in condition or concerns. Quality Stroke Does the patient have a stroke diagnosis?: No VTE Prior VTE?: No VTE Risk Level:: Medical - low VTE Device Contraindication: Treatment Not Indicated VTE Drug Contraindication: Treatment Not Indicated
[2024-12-22] MEDS: ARIPiprazole 30 MG TABLET PO (08:34)
[2024-12-22] MEDS: Ferrous Sulfate 324 MG TABLET.DR PO (08:35)
--- NOTE | 2024-12-22 09:14 | PM.PSYDC ---
DS: Providers Provider Date of Service: 12/22/24 Date of admission: 12/17/24 20:45 Date of discharge: 12/22/24 Primary care physician: Unknown Physician Admitting clinician: Jonathan Heath Attending physician on admission: Jonathan Heath Consults: 12/17/24 20:14 Consult to Hospitalist Routine Comment: Consulting Provider: [facility] Reason For Exam: New external admit H+P 12/20/24 15:30 Consult to Nephrology Routine Consulting Provider: [facility] Reason for consultation: Chronic kidney disease Has provider been notified: No 12/22/24 07:18 Consult to Hospitalist Routine Comment: Consulting Provider: [facility] Reason For Exam: hypertension Attending physician on discharge: Kevin Jorgensen Discharging clinician: Giulia Godwin DS: Diagnosis Discharge Diagnosis (1) CKD (chronic kidney disease) stage 3, GFR 30-59 ml/min: Status: Acute (2) Acute confusional state: Status: Acute DS: Medications Discharge Medications Home Medications: Home Medications ?Medication ?Instructions ?Recorded ?Confirmed calcitriol 0.25 mcg capsule 0.25 mcg PO DAILY 12/17/24 12/17/24 dapagliflozin propanediol 10 mg 10 mg PO DAILY 12/17/24 12/17/24 tablet (Farxiga) docusate sodium 100 mg capsule 100 mg PO QAM 12/17/24 12/17/24 famotidine 20 mg tablet 20 mg PO DAILY 12/17/24 12/17/24 ferrous sulfate 325 mg (65 mg 325 mg PO DAILY 12/17/24 12/17/24 iron) tablet,delayed release losartan 100 mg tablet 100 mg PO DAILY 12/17/24 12/17/24 Previous Rx's ?Medication ?Instructions ?Recorded acetaminophen 325 mg tablet 650 mg (2 x 325 mg) PO Q6H PRN 12/21/24 Headache/Pain, Scale 1-10 #0 tabs aripiprazole 30 mg tablet 30 mg PO DAILY #15 tabs 12/21/24 benztropine 2 mg tablet 2 mg PO BID #30 tabs 12/21/24 escitalopram oxalate 20 mg tablet 20 mg PO QAM #15 tabs 12/21/24 loratadine 10 mg tablet 10 mg PO Q2D #0 tabs 12/21/24 quetiapine 25 mg tablet 25 mg PO TID PRN anxiety #30 tabs 12/21/24 quetiapine 300 mg tablet 300 mg PO BEDTIME #15 tabs 12/21/24 Mental Status Exam Mental Status Exam Patient Appearance: Appropriate Patient Orientation: Person, Place, Time and Situation Level of Consciousness: Alert Patient Behavior: Appropriate, Talkative and Good Eye Contact Mood Description: Constricted Affect Description: Constricted Patient Cognition Impaired: No Ability to Follow Directions: Good Speech Pattern: Spontaneous Speech Memory Description: Intact Hallucinations: None Thought Process: Goal Oriented Thought Content: positive for Goal Oriented and positive for Suicidal Ideation (denies) Depressive Symptoms: Thoughts of /Suicide (denies) Abnormal Motor Activity Signs and Symptoms: Restlessness Judgement: Good Data Data Completed and Pending Completed studies during hospitalization [Text1]: 12/18/24 12/18/24 12/18/24 07:59 11:48 17:00 Sodium 141 Potassium 4.4 Chloride 105 Carbon Dioxide 23 Anion Gap 17 BUN 36 H Creatinine 3.09 H Estim Creat Clear Calc 22.6 Estimated GFR 21 POC Glucose 122 H 117 H Random Glucose 100 Estimat Average Glucose 148 Hemoglobin A1c % 6.8 H Calcium 9.9 Total Bilirubin 0.4 AST 32 ALT 24 Alkaline Phosphatase 137 H Total Protein 9.1 H Albumin 4.8 Triglycerides 168 H Cholesterol 290 H LDL Cholesterol, Calc 213 H HDL Cholesterol 44 TSH 1.17 Free T4 0.80 12/18/24 12/19/24 12/19/24 20:23 08:04 11:47 Sodium Potassium Chloride Carbon Dioxide Anion Gap BUN Creatinine Estim Creat Clear Calc Estimated GFR POC Glucose 173 H 147 H 142 H Random Glucose Estimat Average Glucose Hemoglobin A1c % Calcium Total Bilirubin AST ALT Alkaline Phosphatase Total Protein Albumin Triglycerides Cholesterol LDL Cholesterol, Calc HDL Cholesterol TSH Free T4 12/19/24 12/19/24 12/20/24 17:10 19:55 08:01 Sodium Potassium Chloride Carbon Dioxide Anion Gap BUN Creatinine Estim Creat Clear Calc Estimated GFR POC Glucose 147 H 138 H 118 H Random Glucose Estimat Average Glucose Hemoglobin A1c % Calcium Total Bilirubin AST ALT Alkaline Phosphatase Total Protein Albumin Triglycerides Cholesterol LDL Cholesterol, Calc HDL Cholesterol TSH Free T4 12/20/24 12/21/24 22:25 08:19 Sodium Potassium Chloride Carbon Dioxide Anion Gap BUN Creatinine Estim Creat Clear Calc Estimated GFR POC Glucose 150 H 177 H Random Glucose Estimat Average Glucose Hemoglobin A1c % Calcium Total Bilirubin AST ALT Alkaline Phosphatase Total Protein Albumin Triglycerides Cholesterol LDL Cholesterol, Calc HDL Cholesterol TSH Free T4 DS: Summary Hospital Course Hospital Course: Admission to adult psychiatry for exacerbation of bipolar disorder. Pt reports being sober for eight years. He presents with mental status changes and behavioral disorganization. Pt refused treatment and a 12B was filed. He cleared within the first day of admission. He reports sx were due to hyperglycemia, A1C 6.8, with team reporting POC's within moderately high range. Pt refused further psychiatric treatment, medical treatment, nephrology recommendations, diagnostics during the admission. He plans to follow up with his own out pt team, medically and psychiatrically, attend AA and his regular bible study group and I am waiting to leave here to get back to my life. Status at Discharge Functional status at discharge: independent ambulation Overall status at discharge: patient is back to baseline Time Spent with Patient Time attestation: Total time managing care of this patient today ____ minutes. Time spent: Less than 30 minutes Discharge Plan Discharge Anticipated Discharge Date/Time: 12/22/24 12:00 Patient Disposition: Home, Self-Care Discharge Diagnosis: Bipolar Disorder CKD-Stage III Referrals: [facility]: Forrest (therapist) [Other] - 12/28/24 10:30 am Referral Note: Scheduled appointment with therapist [facility]: Dr. Dmitriy Bender (psyhciatry) [Other] - 01/06/25 1:30 pm Referral Note: Scheduled appointment for psychiatric medication management. Appointment in person at [facility] Physician,Unknown J [Primary Care Provider, Medical] - 1 Week Discharge Medications: New acetaminophen 325 mg Tablet 650 mg PO Q6H PRN (Reason: Headache/Pain, Scale 1-10) Qty: 0 0RF loratadine 10 mg Tablet 10 mg PO Q2D Qty: 0 0RF Continued famotidine 20 mg tablet 20 mg PO DAILY docusate sodium 100 mg capsule 100 mg PO QAM calcitriol 0.25 mcg capsule 0.25 mcg PO DAILY dapagliflozin propanediol [Farxiga] 10 mg tablet 10 mg PO DAILY ferrous sulfate 325 mg (65 mg iron) tablet,delayed release (DR/EC) 325 mg PO DAILY losartan 100 mg tablet 100 mg PO DAILY quetiapine 25 mg tablet 25 mg PO TID PRN (Reason: anxiety) Qty: 30 0RF quetiapine 300 mg tablet 300 mg PO BEDTIME Qty: 15 0RF benztropine 2 mg tablet 2 mg PO BID Qty: 30 0RF escitalopram oxalate 20 mg tablet 20 mg PO QAM Qty: 15 0RF aripiprazole 30 mg tablet 30 mg PO DAILY Qty: 15 0RF Discontinued lamotrigine 200 mg tablet 200 mg PO BID loratadine 10 mg tablet 10 mg PO Q OTHER DAY Discharge Orders: Discharge Order (Routine); Ordered 12/22/24 Ordered By: Giulia Godwin Diet: Advance to usual diet Activity on Discharge: As tolerated Stand Alone Forms: Patient Portal Discharge page, Community Support Print Language: Citizen Of [place] Care Plan Goals: Mood and Behavioral Stabilization Maintain sobriety Health Concerns: Mood and Behavioral Stabilization Maintain sobriety Plan of Treatment: Attend scheduled appointments Take medications as directed Assessment: Pt discharges at the end of a Section XIIB. He declines further in pt treatment. Discharge Date/Time: 12/22/24 13:18
== END 2024-12-22 13:18 | disposition home or self-care (01) | DRG 885 ==
PROVIDERS: Nurse Practitioner Psychiatric/Mental Health; Admitting Provider Psychiatry & Neurology Psychiatry; Visit Provider Psychiatry & Neurology Psychiatry
DX: F31.9 Bipolar disorder, unspecified (principal); F05 Delirium due to known physiological condition; I12.9 Hypertensive chronic kidney disease with stage 1 through stage 4 chronic kidney disease, or unspecified chronic kidney disease; E11.22 Type 2 diabetes mellitus with diabetic chronic kidney disease; E78.5 Hyperlipidemia, unspecified; N18.32 Chronic kidney disease, stage 3b; D63.1 Anemia in chronic kidney disease; Z87.891 Personal history of nicotine dependence; Z79.899 Other long term (current) drug therapy
CPT/HCPCS: 36415; 80053; 80061; 82947; 83036; 84439; 84443

== ENCOUNTER → 2024-12-17 20:45 | Outpatient (BNV) | payer MEDICARE, MEDICAID, SELFPAY | PROVIDERS: Admitting Provider Psychiatry & Neurology Psychiatry; Visit Provider Internal Medicine Critical Care Medicine | DX: N18.30 Chronic kidney disease, stage 3 unspecified (principal); F05 Delirium due to known physiological condition | CPT/HCPCS: 99222 ==

== ENCOUNTER → 2024-12-17 20:45 | Outpatient (BNV) | payer MEDICARE, MEDICAID, SELFPAY | PROVIDERS: Admitting Provider Psychiatry & Neurology Psychiatry; Visit Provider Psychiatry & Neurology Psychiatry | DX: F31.9 Bipolar disorder, unspecified (principal); F05 Delirium due to known physiological condition; N18.30 Chronic kidney disease, stage 3 unspecified | CPT/HCPCS: 99223; 99231; 99232 ==

== ENCOUNTER → 2024-12-17 20:45 | Outpatient (BNV) | payer MEDICARE, MEDICAID, SELFPAY | PROVIDERS: Admitting Provider Psychiatry & Neurology Psychiatry; Visit Provider Physician Assistant Medical | DX: Z00.00 Encounter for general adult medical examination without abnormal findings (principal) | CPT/HCPCS: 99429 ==

== ENCOUNTER 2024-12-29 16:54 | Inpatient (IN) | payer MEDICARE, MEDICAID, SELFPAY ==
--- OUTSIDE RECORDS SUMMARY | 2024-12-23 23:59 | XMS_ITS | Continuity of Care Document ---
Author Organization [facility] Address [address] [place] [address]- Care Team Providers Care Transcriptionist Name Role Phone Mira Tuttle MD Primary Care Physician Encounter [facility] Date(s): 11/23/24 - 12/23/24 [facility] [address], [place] [phone] Encounter Type: Triage Allergies, Adverse Reactions, Alerts No Known Allergies Immunizations Given and Recorded Vaccine Date Status Refusal Reason SARS-CoV-2 (COVID-19) mRNA-1273 vaccine 05/02/20 R ecorded SARS-CoV-2 (COVID-19) mRNA-1273 vaccine 04/03/20 R ecorded influenza virus vaccine, inactivated 12/29/19 Martín rded influenza virus vaccine, inactivated 10/14/18 Martín rded influenza virus vaccine, inactivated 12/02/17 Give n influenza virus vaccine, inactivated 12/27/16 Martín rded influenza virus vaccine, inactivated 12/05/15 Martín rded influenza virus vaccine, inactivated 12/20/14 Give n tetanus/diphtheria/pertussis, acel(Tdap) 10/14/18 Recorded tetanus/diphtheria/pertussis, acel(Tdap) 06/22/15 Given pneumococcal 23-valent vaccine 12/05/15 Recorded pneumococcal 23-valent vaccine 12/20/14 Given Medications amLODIPine 10 mg oral tablet 1 tablet = 10 mg, By Mouth, Daily, # 30 tablet, 0 Refills, Maintenance, 04/18/24 7:00:00 AM EST, Tablet, Partial fill upon patient request if the prescription is for a schedule II opioid drug. Start Date: 04/18/24 Status: Ordered Medication Dispense Status: Completed Quantity: 30.0 Unit: tablet Total Allowed Fills: 1 Fills Dispensed: 0 ARIPiprazole 30 mg oral tablet 1 tablet = 30 mg, By Mouth, Daily, # 30 tablet, 0 Refills, Maintenance, 06/29/18 8:41:39 AM EDT, Tablet Start Date: 06/29/18 Status: Ordered Medication Dispense Status: Completed Quantity: 30.0 Unit: tablet Total Allowed Fills: 1 Fills Dispensed: 0 benztropine 2 mg oral tablet 1 tablet = 2 mg, By Mouth, 2 times a day, [facility], # 180 tablet, 0 Refills, Maintenance, 05/02/21 9:49:00 AM EST, Tablet, Partial fill upon patient request if the prescription is for a schedule II opioid drug. Start Date: 05/02/21 Status: Ordered Medication Dispense Status: Completed Quantity: 180.0 Unit: tablet Total Allowed Fills: 1 Fills Dispensed: 0 dapagliflozin 10 mg oral tablet 1 tablet = 10 mg, By Mouth, Daily, TAKE 1 TABLET BY MOUTH DAILY. Start Date: 04/18/24 Status: Ordered Medication Dispense Status: Completed Total Allowed Fills: 1 Fills Dispensed: 0 escitalopram 10 mg oral tablet 1 tablet = 10 mg, By Mouth, Daily, # 30 tablet, 0 Refills, Maintenance, 01/04/21 3:19:00 PM EDT, Tablet, Partial fill upon patient request if the prescription is for a schedule II opioid drug. Start Date: 01/04/21 Status: Ordered Medication Dispense Status: Completed Quantity: 30.0 Unit: tablet Total Allowed Fills: 1 Fills Dispensed: 0 Freestyle Lite Lancets See Instructions, # 200 each, Refills 5, Tot. Refills 5, Maintenance, use as directed for Type 2 Diabetes Mellitus. ICD10 250, 06/19/21 8:44:00 AM EDT, Supply, 171, cm, 06/19/21 8:05:00 EDT, Height Start Date: 06/19/21 Stop Date: 12/16/21 Status: Ordered Medication Dispense Status: Completed Quantity: 200.0 Unit: each Total Allowed Fills: 6 Fills Dispensed: 0 Freestyle Lite Monitor See Instructions, # 1 each, Maintenance, to use for home blood glucose monitoring. ICD10 250, 06/19/21 8:44:00 AM EDT, Supply, 171, cm, 06/19/21 8:05:00 EDT, Height Start Date: 06/19/21 Status: Ordered Medication Dispense Status: Completed Quantity: 1.0 Unit: each Total Allowed Fills: 1 Fills Dispensed: 0 Freestyle Lite Test Strips See Instructions, # 200 each, Maintenance, use as directed for Type 2 Diabetes Mellitus. ICD 10 250. test fasting daily, 06/19/21 8:44:00 AM EDT, Supply, 171, cm, 06/19/21 8:05:00 EDT, Height Start Date: 06/19/21 Stop Date: 07/19/21 Status: Ordered Medication Dispense Status: Completed Quantity: 200.0 Unit: each Total Allowed Fills: 1 Fills Dispensed: 0 lamotrigine 200 mg oral tablet 1 tablet = 200 mg, By Mouth, Daily, 0 Refills, Maintenance, 11/12/17 11:13:04 AM EDT Start Date: 11/12/17 Status: Ordered Medication Dispense Status: Completed Total Allowed Fills: 1 Fills Dispensed: 0 loratadine 10 mg oral tablet 10 mg, 1, tablet, By Mouth, Every other day, # 15 tablet, Refills 5, Tot. Refills 5, Maintenance, 07/02/24 3:08:00 PM EDT, Route to Pharmacy Electronically, [id number], Partial fill upon patient request if the prescription is for a schedule II opioid drug., 173, cm, 07/02/24 14:03:00EDT, Height, 71.1, kg, 04/19/24 11:21:00 EST, Dry Weight Start Date: 07/02/24 Status: Ordered Medication Dispense Status: Completed Quantity: 15.0 Unit: tablet Total Allowed Fills: 6 Fills Dispensed: 0 losartan 100 mg oral tablet 1 tablet = 100 mg, By Mouth, Daily, # 30 tablet, 0 Refills, Maintenance, 05/06/24 11:09:00 AM EST, Tablet, Partial fill upon patient request if the prescription is for a schedule II opioid drug. Start Date: 05/06/24 Status: Ordered Medication Dispense Status: Completed Quantity: 30.0 Unit: tablet Total Allowed Fills: 1 Fills Dispensed: 0 Naphcon-A 0.025%-0.3% ophthalmic solution See Instructions, 1 drop in both eyes, up to 4 times a day as needed for itch and irritation., # 15mL, 5 Refills, Maintenance, 07/02/24 3:09:00 PM EDT, [facility] #[id number], Partial fill upon patient request if the prescription is for a schedule II opioid drug., 1 drop in both eyes, up to 4 ti mes a day as needed for itch and irritation., 173, cm, 07/02/24 14:03:00 EDT, Height, 71.1, kg, 04/19/24 11:21:00 EST, Dry Weight Start Date: 07/02/24 Status: Ordered Medication Dispense Status: Completed Quantity: 15.0 Unit: mL Total Allowed Fills: 6 Fills Dispensed: 0 olanzapine 10 mg intramuscular injection = 10 mg, Intramuscular, Once, PRN Agitation, 0 Refills, Maintenance, 04/21/24 12:15:00 PM EST, Injection, Partial fill upon patient request if the prescription is for a schedule II opioid drug. Start Date: 04/21/24 Status: Ordered Medication Dispense Status: Completed Total Allowed Fills: 1 Fills Dispensed: 0 QUEtiapine 100 mg oral tablet 100 mg, 1, tablet, By Mouth, Daily at bedtime, TAKE 1 TABLET BY MOUTH EVERY NIGHT AT BEDTIME Start Date: 04/18/24 Status: Ordered Medication Dispense Status: Completed Total Allowed Fills: 1 Fills Dispensed: 0 SEROquel 25 mg oral tablet 50 mg, By Mouth, 2 times a day, PRN, Refills 0, Maintenance, Agitation, 04/21/24 12:15:00 PM EST, Partial fill upon patient request if the prescription is for a schedule II opioid drug. 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 Psychiatry through [facility] 2Dr. Taiwo 3Dr. Johnny 4often office resistant HTN. Home BPs are better controlled Social History Social History Type Response Sexual Sexually involved in last 6 months: No. Smoking Status Former smoker, quit more than 30 days ago entered on: 08/08/20 Sex Sex Representation Male (finding) Patient Care team information Care Team Personnel Name: Maribel Zuluaga LPN Position: S RN Member Role: Primary Care Nurse Name: Danay Maravilla MD Position: [facility] Renal MD Member Role: [employer] Consulting Physician Address: [address] [place] [address] [id number] [facility] [address] Telecom: Name: Litzy Castro RN Position: S RN Member Role: Primary Care Nurse Name: Emeli Reyes RN Position: [facility] ED RN W/OE and Tasks Member Role: Primary Care Nurse Name: Yenny Mock RN Position: [facility] ED RN W/OE and Tasks Member Role: Primary Care Nurse Name: Praveen Mccauley RN Position: [facility] SN RN Member Role: Primary Care Nurse Name: Carolina Gonzáles RN Position: [facility] SN RN Member Role: Primary Care Nurse Name: Mira Tuttle MD Position: [facility] Resident Member Role: PCP Address: [address] [place] [id number] Telecom: Care Team Related Persons Name: ANCELMO MUÑOZ Insurance Providers Guarantor name: CHIP BEARHIJane [employer] [facility] Information #: 1 Payer: MEDICARE B Payer Identifier: NA Member Number: [id number] Group Number: NA Subscriber Identifier: NA Relationship to Subscriber: self Coverage Type: NA Coverage Verification Date: NA Telecom: NA Address: NA Health Plan Information #: 2 Payer: [employer] Payer Identifier: NA Member Number: [id number] Group Number: NA Subscriber Identifier: NA Relationship to Subscriber: self Coverage Type: MEDICAID Coverage Verification Date: NA Telecom: NA Address:
--- OUTSIDE RECORDS SUMMARY | 2024-12-25 23:59 | XMS_ITS | Continuity of Care Document ---
Author Organization [facility] Address [address] [place] [address]- Care Team Providers Care Reconditioning Associate Name Role Phone Mira Tuttle MD Primary Care Physician Encounter [facility] ACCT R [id number] Date(s): 11/23/24 - 12/25/24 [facility] [address], [place] [phone] Attending Physician: Harinder Mendoza Admitting Physician: Harinder Mendoza Encounter Type: Pre-OutPatient One Time Allergies, Adverse Reactions, Alerts No Known Allergies [...] mg, By Mouth, 2 times a day, Twan Todd, # 180 tablet, 0 Refills, Maintenance, 05/02/21 [...] PM EDT, Route to Pharmacy Electronically, [facility] #[id number], Partial fill upon patient request if the [...] 5 Refills, Maintenance, 07/02/24 3:09:00 PM EDT, [facility] #[id number], Partial fill upon patient request if the [...] Care Nurse Name: Danay Maravilla MD Position: [facility] Renal MD Member Role: Lifetime Consulting Physician Address: [address] [place] [address] [address] [facility] [address] Telecom: Name: Litzy Castro RN Position: [facility] RN Member Role: Primary Care Nurse Name: Emeli Reyes RN Position: [facility] ED RN W/OE and Tasks Member Role: Primary Care Nurse Name: Yenny Mock RN Position: [facility] ED RN W/OE and Tasks Member Role: Primary Care Nurse Name: Praveen Mccauley RN Position: [facility] SN RN Member Role: Primary Care Nurse Name: Carolina Gonzáles RN Position: [facility] SN RN Member Role: Primary Care Nurse Name: Mira Tuttle MD Position: [facility] Resident Member Role: PCP Address: [address] [place] [address] Telecom: Care Team Related Persons Name: ANCELMO MUÑOZ Insurance Providers Guarantor name: [facility] [employer] [facility] Information #: 1 Payer: MEDICARE B Payer Identifier: NA Member Number: [id number] Group Number: NA Subscriber Identifier: [id number] Relationship to Subscriber: self Coverage Type: NA Coverage Verification Date: NA Telecom: NA Address: NA Health Plan Information #: 2 Payer: [employer] Payer Identifier: NA Member Number: [id number] Group Number: NA Subscriber Identifier: [id number] Relationship to Subscriber: self Coverage Type: MEDICAID Coverage Verification Date: NA Telecom: NA Address: NA
--- OUTSIDE RECORDS SUMMARY | 2024-12-28 19:40 | XMS_ITS | Encounter Summary ---
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 8.0 g/dL LAB CHEMISTRY METHOD 12/29/2024 11:22 AM [facility] Albumin 4.1 3.2 - 5.0 g/dL LAB CHEMISTRY METHOD 12/29/2024 11:22 AM [facility] Total Bilirubin 0.3 0.0 - 1.4 mg/dL LAB CHEMISTRY METHOD 12/29/2024 11:22 AM [facility] Blood Venous blood specimen / Unknown Venipuncture / Unknown 12/29/2024 10:45 AM EDT 12/29/2024 10:49 AM EDT us [facility] LAB BLOOD ORDERABLES Fin al Result [facility] [address] [place] [address], documented in this encounter Visit Diagnoses Diagnosis Paranoid behavior ([facility] V24, [facility] V28)- Primary Stage 4 chronic kidney disease ([facility] V24, [facility] V28) documented in this encounter Active and Recently Administered Medications Times are shown in EDT. Scheduled Medication Order 12/27/2024 12/28/2024 12/29/2024 haloperidol lactate (HALDOL) injection 5 mg 5 mg, intramuscular, Once, On Fri12/28/24 at 2042, For 1 dose, May be ordered via either intramuscular or intravenous route. If ordered IV, maximum of 5 mg/minute. 2118 (Not Given - Provider: Priscilla Roach RN - Reason: Other - Comment: pt refusing; continues to answer questions appropriately. ANM at bedside. No med to be given.) documented in this encounter Orders Medications Ordered That Saleem ht Not Have Been Administered Count Last Ordered Date First Ordered Date haloperidol lactate (HALDOL) injection 5 mg 2 12/28/2024 Consult Count Last Ordered Date First Orde red Date IP CONSULT TO [facility] 1 12/28/2024 documented in this encounter Care Teams Senior Technical Writer Relationship Specialty Start Date End Date Fallon Jalloh DO [address] [place] [address] PCP - General Internal Medicine 04/26/24 documented as of this encounter
[2024-12-29 18:02] VITALS: BMI 21.3
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
--- OUTSIDE RECORDS SUMMARY | 2024-12-29 20:16 | XMS_ITS | Clinical Summary ---
Author Organization [place] [address] [facility] Building Address [address] [place], [place] [address], [place] [address] Phone Care Team Providers Care Sales Representative Groceries Name Role Phone Fallon Jalloh DO Primary Care Provider [phone] Allergies No known active allergies Medications loratadine [...] Encounters Date Type Department Care Team Description 12/28/2024 7:40 PM EDT - 12/29/2024 4:39 PM EDT Emergency [facility] Emergency [address] [place] [address] Jonas Gonzales MD Gordon, Ruth, MD Landry, Jonathan P, MD Paranoid behavior ([facility] V24, [facility] V28) (Primary Dx); Stage 4 chronic kidney disease ([facility] V24, [facility] V28) Discharge Disposition: [facility] 12/16/2024 2:27 PM EDT - 12/17/2024 8:25 PM EDT Emergency [facility] Emergency [address] [place] [address] Berkley Norman MD Amardey-Wellington, Aaron, MD Kokkinos, Erika, MD Goebel, Mathew, MD Paranoia ([facility] V24, [facility] V28) (Primary Dx); Altered mental status, unspecified altered mental status type Discharge Disposition: [facility] from Last 3 Months Surgical History Surgery Date Site/Laterality Comments COLONOSCOPY PROCEDURE:COLONOSCOPY OTHER SURGICAL HISTORY PROCEDURE:left ankle surgery Medical History Medical History Date Comments Diabetes mellitus ([facility] V24, [facility] V28) DX:Diabetes mellitus ([facility]) Depression DX:Depression Renal failure DX:Renal failure Anemia DX:Anemia Hypertension DX:Hypertension Anxiety DX:Anxiety Bipolar 1 disorder ([facility] V24, [facility] V28) DX:Bipolar 1 disorder ([facility]) Family History Medical History Relation Name [...] 06/17/2024 Diabetes: Annual GFR (Glomerular Filtration Rate) 12/29/2025 12/29/2024, 12/24/2024, 12/16/2024, Additional history exists Hypertension/CHF/CAD Annual BMP Blood Test 12/29/2025 12/29/2024, 12/24/2024, 12/16/2024, Additional history exists DTaP,Tdap,and Td Vaccines (3 - Td or Tdap) 10/14/2028 10/14/2018, 06/22/2015 COVID-19 Vaccine Completed 11/18/2023, , 04/16/2022, Additional history exists MMR Vaccines Aged Out 06/08/2024 No longer eligi ble based on patient's age to complete this topic Pneumococcal Vaccine: 50+ Years Completed 06/22/2024, 12/05/2015, 12/20/2014 RSV Immunization Adult Patients Completed 06/22/2024 Hepatitis B Vaccines Completed 08/21/2024, 07/18/19 Zoster Vaccines Completed 09/22/2024, 07/17/2024 Influenza Vaccine [...] ECG 12-LEAD STAT 12/29/2024 1:26 PM EDT SALICYLATE LEVEL STAT Add-on 12/29/2024 10:4 5 AM EDT ETHANOL STAT Add-on 12/29/2024 10:45 AM EDT ACETAMINOPHEN LEVEL STAT Add-on 12/29/2024 1 0:45 AM EDT CBC WITH AUTO DIFFERENTIAL STAT 12/29/2024 10:45 AM EDT AMMONIA STAT 12/29/2024 10:45 AM EDT COMPREHENSIVE METABOLIC PANEL STAT 12/29/2024 10:45 AM EDT CBC AND DIFFERENTIAL STAT 12/29/2024 10:45 AM EDT IRON AND TIBC Routine 12/24/2024 10:39 AM EDT Chronic kidney disease, stage IV (severe) (CMS/HCC V24, CMS/HCC V28) FERRITIN Routine 12/24/2024 10:39 AM EDT Chronic kidney disease, stage IV (severe) (CMS/HCC V24, CMS/HCC V28) COMPLETE BLOOD COUNT Routine 12/24/2024 10:39 AM EDT Chronic kidney disease, stage IV (severe) (CMS/HCC V24, CMS/HCC V28) RENAL FUNCTION PANEL Routine 12/24/2024 10:39 AM EDT Chronic kidney disease, stage IV (severe) (CMS/HCC V24, CMS/HCC V28) DRUG ABUSE SCREEN 8A PANEL, URINE STAT [...] Recently Relevant to Health Maintenance Results * ECG 12 lead (12/29/2024 1:26 PM EDT) [facility] Ventricular Rate ECG 71 BPM GEMUSE Atrial Rate 71 BPM GEMUSE P-R Interval 186 ms GEMUSE QRS Duration 100 ms GEMUSE Q-T Interval 426 ms GEMUSE QTc 462 ms GEMUSE P Wave [place] 67 degrees GEMUSE R [place] -19 degrees GEMUSE T [place] 3 degrees GEMUSE ECG Interpretation Normal sinus rhythm Normal ECG No previous ECGs available Confirmed by Dwayne FERRER JOHN ([id number]) on 12/29/2024 2:45:24 PM GEMUSE 12/29/2024 1:26 PM EDT 12/29/2024 2:45 PM EDT Berkley OROPEZA ECG ORDERABLES Final Re sult GEMUSE * (ABNORMAL) CBC auto differential (12/29/2024 10:45 AM EDT) [facility] WBC 2.8(L) 4.8 - 10.8 [facility] LAB HEMETOLOGY METHOD 12/29/2024 10:57 AM EDT [facility] RBC 3.70(L) 4.50 - 5.50 [facility] LAB HEMETOLOGY METHOD 12/29/2024 10:57 AM EDT [facility] Hemoglobin 10.1(L) 13.5 - 17.5 g/dL LAB HEMETOLOGY METHOD 12/29/2024 10:57 AM EDT [facility] Hematocrit 31.5(L) 42.0 - 54.0 % LAB HEMETOLOGY METHOD 12/29/2024 10:57 AM [facility] MCV 86.1 79.0 - 98.0 FL LAB HEMETOLOGY METHOD 12/29/2024 10:57 AM [facility] MCH 27.6 27.0 - 32.0 pcg LAB HEMETOLOGY METHOD 12/29/2024 10:57 AM [facility] MCHC 32.1 32.0 - 37.0 g/dL LAB HEMETOLOGY METHOD 12/29/2024 10:57 AM [facility] RDW 12.8 11.0 - 15.0 % LAB HEMETOLOGY METHOD 12/29/2024 10:57 AM [facility] Platelets 288 130 - 400 K/mcL LAB HEMETOLOGY METHOD 12/29/2024 10:57 AM [facility] MPV 8.8 7.0 - 11.0 FL LAB HEMETOLOGY METHOD 12/29/2024 10:57 AM [facility] NRBC 0.0 <1.0 % LAB HEMETOLOGY METHOD 12/29/2024 10:57 AM [facility] NRBC Absolute 0.00 <0.10 K/mcL LAB HEMETOLOGY METHOD 12/29/2024 10:57 AM [facility] Neutrophils Relative 67.4 % LAB HEMETOLOGY METHOD 12/29/2024 10:57 AM [facility] Lymphocytes Relative 20.1 % LAB HEMETOLOGY METHOD 12/29/2024 10:57 AM [facility] Monocytes Relative 10.6 % LAB HEMETOLOGY METHOD 12/29/2024 10:57 AM [facility] Eosinophils Relative 1.1 % LAB HEMETOLOGY METHOD 12/29/2024 10:57 AM [facility] Basophils Relative 0.4 % LAB HEMETOLOGY METHOD 12/29/2024 10:57 AM EDT [facility] Immature Granulocytes Relative 0.4 % LAB HEMETOLOGY METHOD 12/29/2024 10:57 AM EDT [facility] Neutrophils Absolute 1.92 1.50 - 7.00 K/mcL LAB HEMETOLOGY METHOD 12/29/2024 10:57 AM EDT [facility] Lymphocytes Absolute 0.57(L) 1.00 - 5.00 K/mcL LAB HEMETOLOGY METHOD 12/29/2024 10:57 AM EDT [facility] Monocytes Absolute 0.30 0.20 - 1.00 K/mcL LAB HEMETOLOGY METHOD 12/29/2024 10:57 AM EDT [facility] Eosinophils Absolute 0.03 0.00 - 0.50 K/mcL LAB HEMETOLOGY METHOD 12/29/2024 10:57 AM EDT [facility] Basophils Absolute 0.01 0.00 - 0.20 K/mcL LAB HEMETOLOGY METHOD 12/29/2024 10:57 AM EDT [facility] Immature Granulocytes Absolute 0.01 0.00 - 0.03 K/mcL LAB HEMETOLOGY METHOD 12/29/2024 10:57 AM EDT [facility] Blood Venous blood specimen / Unknown Venipuncture / Unknown 12/29/2024 10:45 AM EDT 12/29/2024 10:49 AM EDT us Berkley OROPEZA LAB BLOOD ORDERABLES Fin al Result [facility] [address] [place] [address], * Ammonia (12/29/2024 10:45 AM EDT) Ammonia 17 11 - 35 mcmol/L LAB CHEMISTRY METHOD 12/29/2024 11:16 AM EDT [facility] Blood Venous blood specimen / Unknown Venipuncture / Unknown 12/29/2024 10:45 AM EDT 12/29/2024 10:50 AM EDT Berkley OROPEZA LAB BLOOD ORDERABLES Fin al Result Performing Organization Address City/[facility] de Phone Number [facility] [address] [place] [address], * Ethanol (12/29/2024 10:45 AM EDT) Only the most recent of2 resultswithin the time period is included. Ethanol Level <3 0 - 10 mg/dL LAB CHEMISTRY METHOD 12/29/2024 11:58 AM EDT [facility] Blood Venous blood specimen / Unknown Venipuncture / Unknown 12/29/2024 10:45 AM EDT 12/29/2024 10:49 AM EDT Milad Zarate MD LAB BLOOD ORDERABLES Final Result Performing Organization Address [facility] de Phone Number [facility] [address] [place] [address], [place] [phone] * (ABNORMAL) Acetaminophen level (12/29/2024 10:45 AM EDT) Only the most recent of2 resultswithin the time period is included. Acetaminophen Level <2.0(L) 10.0 - 30.0 mcg/mL LAB CHEMISTRY METHOD 12/29/2024 11:58 AM EDT [facility] Blood Venous blood specimen / Unknown Venipuncture / Unknown 12/29/2024 10:45 AM EDT 12/29/2024 10:49 AM EDT Milad Zarate MD LAB BLOOD ORDERABLES Final Result Performing Organization Address City/[facility] de Phone Number [facility] [address] [place] [address], [place] [phone] * (ABNORMAL) Salicylate level (12/29/2024 10:45 AM EDT) Only the most recent of2 resultswithin the time period is included. Salicylate Level <1.7(L) 2.0 - 29.0 mg/dL LAB CHEMISTRY METHOD 12/29/2024 11:53 AM EDT [facility] Blood Venous blood specimen / Unknown Venipuncture / Unknown 12/29/2024 10:45 AM EDT 12/29/2024 10:49 AM EDT Milad Zarate MD LAB BLOOD ORDERABLES Final Result Performing Organization Address [facility]/State/ZIP Co de Phone Number [facility] [address] [place] [address], [place] [phone] * (ABNORMAL) Comprehensive metabolic panel (12/29/2024 10:45 AM EDT) Sodium 137 133 - 145 mmol/L LAB CHEMISTRY METHOD 12/29/2024 11:22 AM [facility] Potassium 5.2 3.5 - 5.5 mmol/L LAB CHEMISTRY METHOD 12/29/2024 11:22 AM [facility] Chloride 106 96 - 110 mmol/L LAB CHEMISTRY METHOD 12/29/2024 11:22 AM [facility] CO2 28 21 - 32 mmol/L LAB CHEMISTRY METHOD 12/29/2024 11:22 AM [facility] Anion Gap 3 3 - 11 LAB CHEMISTRY METHOD 12/29/2024 11:22 AM [facility] Glucose 144(H) 70 - 100 mg/dL LAB CHEMISTRY METHOD 12/29/2024 11:22 AM [facility] BUN 48(H) 5 - 25 mg/dL LAB CHEMISTRY METHOD 12/29/2024 11:22 AM [facility] Creatinine 3.96(H) 0.70 - 1.30 mg/dL LAB CHEMISTRY METHOD 12/29/2024 11:22 AM [facility] eGFR 16(L) >=60 mL/min/1. 73m2 LAB CHEMISTRY METHOD 12/29/2024 11:22 AM [facility] Comment:Calculation based on the Chronic Kidney Disease Epidemiology Collaboration (CKD-EPI) equation refit without adjustment for race. BUN/Creatinine Ratio 12.1 LAB CHEMISTRY METHOD 12/29/2024 11:22 AM [facility] Calcium 9.5 8.5 - 10.5 mg/dL LAB CHEMISTRY METHOD 12/29/2024 11:22 AM [facility] AST (SGOT) 23 10 - 42 unit/L LAB CHEMISTRY METHOD 12/29/2024 11:22 AM [facility] ALT (SGPT) 46 10 - 60 unit/L LAB CHEMISTRY METHOD 12/29/2024 11:22 AM [facility] Alkaline Phosphatase 138(H) 42 - 121 unit/L LAB CHEMISTRY METHOD 12/29/2024 11:22 AM [facility] Total Protein 8.5(H) 6.0 - 8.0 g/dL LAB CHEMISTRY METHOD 12/29/2024 11:22 AM [facility] Albumin 4.1 3.2 - 5.0 g/dL LAB CHEMISTRY METHOD 12/29/2024 11:22 AM [facility] Total Bilirubin 0.3 0.0 - 1.4 mg/dL LAB CHEMISTRY METHOD 12/29/2024 11:22 AM [facility] Blood Venous blood specimen / Unknown Venipuncture / Unknown 12/29/2024 10:45 AM EDT 12/29/2024 10:49 AM EDT Berkley OROPEZA LAB BLOOD ORDERABLES Fin al Result [facility] [address] [place] [address], [place] [phone] * (ABNORMAL) Iron and TIBC (12/24/2024 10:39 AM EDT) Iron 50 50 - 160 mcg/dL LAB CHEMISTRY METHOD 12/24/2024 1:02 PM EDT [facility] TIBC 279 250 - 450 mcg/dL LAB CHEMISTRY METHOD 12/24/2024 1:02 PM EDT [facility] Iron Saturation 18(L) 20 - 50 % LAB CHEMISTRY METHOD 12/24/2024 1:02 PM EDT [facility] Blood Venous blood specimen / Unknown Venipuncture / Unknown 12/24/2024 10:39 AM EDT 12/24/2024 11:26 AM EDT Elvis Maravilla MD LAB BLOOD ORDERABLES Final Res ult Performing Organization Address City/[facility]/ZIP Co de Phone Number [facility] [address] [place] [address], [place] [phone] * (ABNORMAL) Complete blood count (12/24/2024 10:39 AM EDT) Only the most recent of2 resultswithin the time period is included. WBC 2.4(L) 4.8 - 10.8 K/mcL LAB HEMETOLOGY METHOD 12/24/2024 11:46 AM EDT [facility] RBC 3.30(L) 4.50 - 5.50 [facility] LAB HEMETOLOGY METHOD 12/24/2024 11:46 AM EDT [facility] Hemoglobin 9.1(L) 13.5 - 17.5 g/dL LAB HEMETOLOGY METHOD 12/24/2024 11:46 AM EDT [facility] Hematocrit 28.2(L) 42.0 - 54.0 % LAB HEMETOLOGY METHOD 12/24/2024 11:46 AM T [facility] MCV 84.9 79.0 - 98.0 FL LAB HEMETOLOGY METHOD 12/24/2024 11:46 AM [facility] MCH 27.4 27.0 - 32.0 pcg LAB HEMETOLOGY METHOD 12/24/2024 11:46 AM T [facility] MCHC 32.3 32.0 - 37.0 g/dL LAB HEMETOLOGY METHOD 12/24/2024 11:46 AM T [facility] RDW 12.9 11.0 - 15.0 % LAB HEMETOLOGY METHOD 12/24/2024 11:46 AM [facility] Platelets 338 130 - 400 K/mcL LAB HEMETOLOGY METHOD 12/24/2024 11:46 AM [facility] MPV 8.8 7.0 - 11.0 FL LAB HEMETOLOGY METHOD 12/24/2024 11:46 AM [facility] NRBC 0.0 <1.0 % LAB HEMETOLOGY METHOD 12/24/2024 11:46 AM [facility] NRBC Absolute 0.00 <0.10 K/mcL LAB HEMETOLOGY METHOD 12/24/2024 11:46 AM [facility] Blood Venous blood specimen / Unknown Venipuncture / Unknown 12/24/2024 10:39 AM EDT 12/24/2024 11:28 AM EDT us Elvis Maravilla MD LAB BLOOD ORDERABLES Final Res ult [facility] [address] [place] [address], * Ferritin (12/24/2024 10:39 AM EDT) Ferritin 318 26 - 388 ng/mL LAB CHEMISTRY METHOD 12/24/2024 1:02 PM [facility] Blood Venous blood specimen / Unknown Venipuncture / Unknown 12/24/2024 10:39 AM EDT 12/24/2024 11:26 AM EDT us Elvis Maravilla MD LAB BLOOD ORDERABLES Final Res ult [facility] [address] [place] [address], * (ABNORMAL) Renal function panel (12/24/2024 10:39 AM EDT) Pathologist [facility] Sodium 138 133 - 145 mmol/L LAB CHEMISTRY METHOD 12/24/2024 1:02 PM [facility] Potassium 4.9 3.5 - 5.5 mmol/L LAB CHEMISTRY METHOD 12/24/2024 1:02 PM [facility] Chloride 102 96 - 110 mmol/L LAB CHEMISTRY METHOD 12/24/2024 1:02 PM [facility] CO2 31 21 - 32 mmol/L LAB CHEMISTRY METHOD 12/24/2024 1:02 PM [facility] Anion Gap 5 3 - 11 LAB CHEMISTRY METHOD 12/24/2024 1:02 PM [facility] Glucose 134(H) 70 - 100 mg/dL LAB CHEMISTRY METHOD 12/24/2024 1:02 PM [facility] BUN 50(H) 5 - 25 mg/dL LAB CHEMISTRY METHOD 12/24/2024 1:02 PM [facility] Creatinine 3.24(H) 0.70 - 1.30 mg/dL LAB CHEMISTRY METHOD 12/24/2024 1:02 PM [facility] eGFR 21(L) >=60 mL/min/1. 73m2 LAB CHEMISTRY METHOD 12/24/2024 1:02 PM EDT [facility] Comment:Calculation based on the Chronic Kidney Disease Epidemiology Collaboration (CKD-EPI) equation refit without adjustment for race. BUN/Creatinine Ratio 15.4 LAB CHEMISTRY METHOD 12/24/2024 1:02 PM EDT [facility] Albumin 3.9 3.2 - 5.0 g/dL LAB CHEMISTRY METHOD 12/24/2024 1:02 PM EDT [facility] Calcium 9.0 8.5 - 10.5 mg/dL LAB CHEMISTRY METHOD 12/24/2024 1:02 PM EDT [facility] Phosphorus 3.1 2.5 - 4.5 mg/dL LAB CHEMISTRY METHOD 12/24/2024 1:02 PM EDT [facility] Blood Venous blood specimen / Unknown Venipuncture / Unknown 12/24/2024 10:39 AM EDT 12/24/2024 11:26 AM EDT us Elvis Maravilla MD LAB BLOOD ORDERABLES Final Res ult [facility] [address] [place] [address], * (ABNORMAL) Drug abuse screen 8a panel, urine (12/16/2024 7:37 PM EDT) Amphetamine Screen, Ur Negative Negative LAB CHEMISTRY METHOD 8:30 PM EDT [facility] Comment:Certain OTC medicati ons containing ephedrine, phenylephrine, pseudoephedrine and phenylpropanolamine can cause false positive results. Barbiturate Screen, Ur Negative Negative LAB CHEMISTRY METHOD 8:30 PM EDT [facility] Benzodiazepine Screen, Ur Positive(A ) Negative LAB CHEMISTRY METHOD 8:30 PM EDT [facility] Cocaine Screen, Ur Negative Negative LAB CHEMISTRY METHOD 5 8:30 PM EDT [facility] Opiate Screen, Ur Negative Negative LAB CHEMISTRY METHOD 5 8:30 PM EDT [facility] Cannabinoid (THC) Screen, Ur Negative Negative LAB CHEMISTRY METHOD 8:30 PM EDT [facility] Comment:Specimens from patie nts taking pantoprazole sodium (Protonix) have been shown to produce false positive results. Oxycodone Screen, Ur Negative Negative LAB CHEMISTRY METHOD 5 8:30 PM EDT [facility] Fentanyl, Ur Negative Negative LAB CHEMISTRY METHOD 8:30 PM EDT [facility] Urine Urine specimen obtained by clean catch procedure / Unknown Non-blood Collection / Unknown 12/16/2024 7:37 PM EDT 12/16/2024 8:05 PM EDT Narrative [facility] - 12/16/2024 8:30 PM EDT Assay [...] MD LAB URINE ORDERABLES Final Resul t [facility] [address] [place] [address], * Buprenorphine screen, urine (12/16/2024 7:37 PM EDT) [facility] Buprenorphine Screen Urine Negative Negative LAB CHEMISTRY METHOD 12/16/2024 8:30 PM EDT [facility] Urine Urine specimen obtained by clean catch procedure / Unknown Non-blood Collection / Unknown 12/16/2024 7:37 PM EDT 12/16/2024 8:05 PM EDT Narrative [facility] - 12/16/2024 8:30 PM EDT Assay cutoff 5 ng/mL Semi-quantitative assay for screening purposes only. Unconfirmed screening result should not be used for non-medical purposes. *ALTERNATE METHOD CONFIRMATION DONE UPON REQUEST ONLY* us Berkley Norman MD LAB URINE ORDERABLES Final Resul t Performing Organization Address [facility] de Phone Number [facility] [address] [place] [address], [place] [phone] * Methadone, urine (12/16/2024 7:37 PM EDT) Methadone Screen, Urine Negative Negative LAB CHEMISTRY METHOD 12/16/2024 8:30 PM EDT [facility] Comment: Assay cutoff 300 ng/mL Semi-quantitative [...] ORDERABLES Final Resul t Performing Organization Address [facility]/ZIP Co de Phone Number [facility] [address] [place] [address], [place] [phone] * Phencyclidine, urine (12/16/2024 7:37 PM EDT) PCP Scrn, Ur Negative Negative LAB CHEMISTRY METHOD 12/16/2024 8:30 PM EDT [facility] Comment: Assay cutoff 25 ng/mL Semi-quantitative assay for screening purposes only. Unconfirmed screening result should not be used for non-medical purposes. *ALTERNATE METHOD CONFIRMATION DONE UPON REQUEST ONLY* Urine Urine specimen obtained by clean catch procedure / Unknown Non-blood Collection / Unknown 12/16/2024 7:37 PM EDT 12/16/2024 8:05 PM EDT Berkley Norman MD LAB URINE ORDERABLES Final Resul t [facility] [address] [place] [address], * (ABNORMAL) Basic metabolic panel (12/16/2024 4:00 PM EDT) Sodium 140 133 - 145 mmol/L LAB CHEMISTRY METHOD 12/16/2024 4:48 PM [facility] Potassium 3.6 3.5 - 5.5 mmol/L LAB CHEMISTRY METHOD 12/16/2024 4:48 PM [facility] Chloride 107 96 - 110 mmol/L LAB CHEMISTRY METHOD 12/16/2024 4:48 PM [facility] CO2 28 21 - 32 mmol/L LAB CHEMISTRY METHOD 12/16/2024 4:48 PM [facility] Anion Gap 5 3 - 11 LAB CHEMISTRY METHOD 12/16/2024 4:48 PM [facility] Glucose 138(H) 70 - 100 mg/dL LAB CHEMISTRY METHOD 12/16/2024 4:48 PM [facility] BUN 40(H) 5 - 25 mg/dL LAB CHEMISTRY METHOD 12/16/2024 4:48 PM [facility] Creatinine 3.55(H) 0.70 - 1.30 mg/dL LAB CHEMISTRY METHOD 12/16/2024 4:48 PM [facility] eGFR 19(L) >=60 mL/min/1. 73m2 LAB CHEMISTRY METHOD 12/16/2024 4:48 PM [facility] Comment:Calculation based on the Chronic Kidney Disease Epidemiology Collaboration (CKD-EPI) equation refit without adjustment for race. BUN/Creatinine Ratio 11.3 LAB CHEMISTRY METHOD 12/16/2024 4:48 PM EDT [facility] Calcium 8.7 8.5 - 10.5 mg/dL LAB CHEMISTRY METHOD 12/16/2024 4:48 PM EDT [facility] Blood Venous blood specimen / Unknown Venipuncture / Unknown 12/16/2024 4:00 PM EDT 12/16/2024 4:11 PM EDT us Berkley Norman MD LAB BLOOD ORDERABLES Final Resul t [facility] [address] [place] [address], * CT Head wo Contrast (12/16/2024 3:31 PM EDT) Anatomical Region Laterality Modality Head and Neck Computed Tomogra phy 12/16/2024 3:43 PM EDT Impressions 12/16/2024 3:44 PM EDT NO ACUTE INTRACRANIAL ABNORMALITY. -------- FINAL REPORT -------- Dictated By: Cathleen Morrison Dictated Date: 12/16/2024 15:43 ET Assigned Physician: Cathleen Morrison Reviewed and Electronically Signed By: Cathleen Morrison Signed Date: 12/16/2024 15:44 ET Workstation ID: [id number] Transcribed By: Self Edit Transcribed Date: 12/16/2024 [...] Signed Date: 12/16/2024 15:44 ET Workstation ID: [id number] Transcribed By: Self Edit Transcribed Date: 12/16/2024 15:43 ET Berkley Norman MD [facility] [place] PROCEDURES Final Result * (ABNORMAL) Microalbumin creatinine urine ratio (06/17/2024 1:52 PM EDT) Creatinine, Urine 115.0 mg/dL LAB CHEMISTRY METHOD 06/17/2024 4:22 PM EDT [facility] Microalb, Ur 2,270.0(H ) 0.0 - 29.0 mg/L LAB CHEMISTRY METHOD 06/17/2024 4:22 PM EDT [facility] Comment:Results verified by repeat testing Microalb/Crea t Ratio 1,974(H) <30 mg/g creat LAB CHEMISTRY METHOD 06/17/2024 4:22 PM EDT [facility] Urine Urine specimen obtained by clean catch procedure / Unknown Non-blood Collection / Unknown 06/17/2024 1:52 PM EDT 06/17/2024 2:38 PM EDT Elvis Maravilla MD LAB URINE ORDERABLES Final Res ult [facility] [address] [place] [address], from Last 3 Months or Most Recently Relevant to Health Maintenance Insurance MEDICAID - [place] MEDICARE Care Teams Sales Representative Groceries Relationship Specialty Start Date End Date Fallon Jalloh DO [address] [place] [address] PCP - General Internal Medicine 04/26/24
--- OUTSIDE RECORDS SUMMARY | 2024-12-29 20:16 | XMS_ITS | Clinical Summary ---
Author Organization [facility] Address [address] [place] [address] Care Team Providers Care Artificial Leather Calender Operator Name Role Phone Unavailable Primary Care Provider [...] mouth every night at bedtime. 0 Active [place]-3 Fatty Acids (FISH OIL) 1000 MG CAPS [...]
--- OUTSIDE RECORDS SUMMARY | 2024-12-29 20:16 | XMS_ITS | Encounter Summary ---
Author Organization [facility] Address [address] [facility] [address] [place] [address] Phone Care Team Providers Care Deicer Inspector Pneumatic Name Role Phone Mervat Watts CORPORATE DIRECTOR TALENT ASSESSMENT Primary Care Provider [phone] Reason for Visit * Reason Comments Med Refill Encounter Details Date Type Department Care Team (Late st Contact Info) Description 04/27/2024 Refill [facility] [address] [facility] [address] [place] [address] Tadeo Melendez MD [address] [address] Social History Tobacco Use Types [...] Visit [facility] [address] [address] Elvis Maravilla MD [address] [address] documented as of this encounter Visit Diagnoses Not on filedocumented in this encounter Care Teams Deicer Inspector Pneumatic Relationship Specialty Start Date End Date Mervat Watts, CORPORATE DIRECTOR TALENT ASSESSMENT [address] [place] [id number] PCP - General Nurse Practitioner 09/18/20 documented as of this encounter
--- OUTSIDE RECORDS SUMMARY | 2024-12-29 20:16 | XMS_ITS | Clinical Summary ---
Author Organization [facility] Address [address] [id number] Phone Care Team Providers Care Principal Architectural Firm Name Role Phone Unavailable Primary Care Provider [...] It is not the complete legal health record.[facility]
--- OUTSIDE RECORDS SUMMARY | 2024-12-29 20:16 | XMS_ITS | Clinical Summary ---
Author Organization [facility] Address [address] [facility] [address] [place] [address] Phone Care Team Providers Care Unpaid Intern Name Role Phone Mervat Watts NP Primary Care Provider [phone] Allergies No known active allergies Medications ARIPiprazole [...] 12/14/2024 Refill [facility] [address] [place] [phone] No Henry 12/10/2024 8:45 AM EDT Office Visit [facility] [address] [place] [phone] Elvis Maravilla MD Chronic kidney disease, stage [...] Visit [facility] [address] [phone] Elvis Mraavilla MD [address] [phone] Health Maintenance Due Date Last Done Comments [...] Procedure Name Priority Date/Time Associated Diagnosis Comments IRON PANEL (FE, TIBC, TSAT) Routine 12/24/2024 10:39 AM EDT Chronic kidney disease, stage 4 (severe) (HCC) FERRITIN Routine 12/24/2024 10:39 AM EDT Chronic kidney disease, stage 4 (severe) (HCC) CBC Routine 12/24/2024 10:39 AM EDT Chronic kidney disease, stage 4 (severe) (HCC) RENAL FUNCTION PANEL Routine 12/24/2024 10:39 AM EDT Chronic kidney disease, stage 4 (severe) (HCC) FERRITIN Routine 10/13/2024 12:31 PM EDT IRON PANEL (FE, TIBC, TSAT) Routine 10/13/2024 12:31 PM EDT CBC Routine 10/13/2024 12:31 PM EDT RENAL FUNCTION PANEL Routine 10/13/2024 12:31 PM EDT from Last 3 Months Results * (ABNORMAL) Iron Panel (Fe, TIBC, TSAT) (12/24/2024 10:39 AM EDT) Only the most recent of2 resultswithin the time period is included. Iron 50 50 - 160 mcg/dL [facility] TIBC 279 250 - 450 mcg/dL [facility] Iron Saturation (TSat) 18(L) 20 - 50 % [facility] Blood Venous blood / Unknown 12/24/2024 10:39 AM EDT 12/24/2024 11:26 AM EDT Elvis Maravilla MD LAB BLOOD ORDERABLES Final Resul t [facility] [address] [place] [address] * (ABNORMAL) CBC without diff (12/24/2024 10:39 AM EDT) Only the most recent of2 resultswithin the time period is included. WBC 2.4(L) 4.8 - 10.8 K/[facility] RBC 3.30(L) 4.50 - 5.50 M/[facility] Hgb 9.1(L) 13.5 - 17.5 g/dL [facility] Hematocrit 28.2(L) 42.0 - 54.0 % [facility] MCV 84.9 79.0 - 98.0 [facility] MCH 27.4 27.0 - 32.0 pcg [facility] MCHC 32.3 32.0 - 37.0 g/dL [facility] RDW 12.9 11.0 - 15.0 % [facility] Platelets 338 130 - 400 K/[facility] MPV 8.8 7.0 - 11.0 [facility] nRBC Count 0.0 <1.0 % [facility] NRBC Absolute 0.00 <0.10 K/mcL [facility] Blood Venous blood / Unknown 12/24/2024 10:39 AM EDT 12/24/2024 11:28 AM EDT us Elvis Maravilla MD LAB BLOOD ORDERABLES Final Resul t Performing Organization Address City/[facility]/ZIP Co de Phone Number [facility] [address] [place] [address] * Ferritin (12/24/2024 10:39 AM EDT) Only the most recent of2 resultswithin the time period is included. Pathologist [facility] Ferritin 318 26 - 388 ng/mL [facility] Blood Venous blood / Unknown 12/24/2024 10:39 AM EDT 12/24/2024 11:26 AM EDT us Elvis Maravilla MD LAB BLOOD ORDERABLES Final Resul t Performing Organization Address City/[facility]/ZIP Co de Phone Number [facility] [address] [place] [address] * (ABNORMAL) Renal funtion panel (12/24/2024 10:39 AM EDT) Only the most recent of2 resultswithin the time period is included. [facility] Sodium 138 133 - 145 mmol/L [facility] Potassium 4.9 3.5 - 5.5 mmol/L [facility] Chloride 102 96 - 110 mmol/L [facility] Bicarbonate (CO2) 31 21 - 32 mmol/L [facility] Anion Gap 5 3 - 11 [facility] Glucose 134(H) 70 - 100 mg/dL [facility] BUN 50(H) 5 - 25 mg/dL [facility] Creatinine Serum 3.24(H) 0.70 - 1.30 mg/dL [facility] eGFR 21(L) >=60 mL/min/1. 73m2 [facility] Comment:Calculation based on the Chronic Kidney Disease Epidemiology Collaboration (CKD-EPI) equation refit without adjustment for race. BUN/Creatinine Ratio 15.4 [facility] Albumin 3.9 3.2 - 5.0 g/dL [facility] Calcium 9.0 8.5 - 10.5 mg/dL [facility] Phosphorus 3.1 2.5 - 4.5 mg/dL [facility] Blood Venous blood / Unknown 12/24/2024 10:39 AM EDT 12/24/2024 11:26 AM EDT us Elvis Maravilla MD LAB BLOOD ORDERABLES Final Resul t THOMAS [facility] [address] [place] [address] from Last 3 Months Insurance Medicare Medicaid [place] Medicare Medicaid [place] Care Teams Unpaid Intern Relationship Specialty Start Date End Date Mervat Watts NP [address] [place] [address] PCP - General Nurse Practitioner 09/18/20
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
--- NOTE | 2024-12-30 08:17 | PC.NURSE ---
Pt refused vital signs
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
[2024-12-30] MEDS: Milk of Magnesia 30 ML ORAL.SUSP PO (12:03)
[2024-12-30 12:43] LABS: Appearance Urine Clear; Glucose Urine UA >=1000 mg/dL (Negative); PH 6.0 (5.0-9.0); Specific Gravity - Urine 1.025 (1.005-1.025); UMIC TRIGGER UA YES
[2024-12-30 13:18] LABS: Microalbum/Creatinine Ratio Ur 1279.9 ug/mg cr (<30); Protein/Creatinine Ratio, Ur 1.85 (<0.2); Total Protein Urine Random 220 mg/dL (<12)
--- NOTE | 2024-12-30 14:00 | PM.EVENT ---
Event Note Date of Service: 12/30/24 Event Note: Juve is well known to us from previous admission. He has underlying CKD. Serum creatinine was 3.09 few weeks ago. Repeat labs has been ordered and pending. Full consult to follow Time Spent With Patient Time: Total time managing care of this patient today ____ minutes.
[2024-12-30 15:46] LABS: EOS Counted 0 CELLS; EOS QC POS YES; EOS Stain Quality OK YES; WBC, Counted 4 CELLS
[2024-12-30 16:29] LABS: Glucose, Whole Blood 105 mg/dL (60-115)
[2024-12-30 19:49] VITALS: BP 147/74; PULSE 71; RESP 18; TEMP 36.5; O2SAT 99
[2024-12-31 01:02] LABS: Cannabinoid Screen Urine Not Detected (Not Detect)
[2024-12-31 07:54] LABS: MANUAL DIFF FLAG NO
[2024-12-31 08:00] VITALS: BP 125/75; PULSE 80; TEMP 36.5; O2SAT 98
[2024-12-31 08:02] LABS: Hematocrit 31.0 % (42.0-52.0); Hemoglobin 9.8 g/dl (14.0-18.0); Imm Gran Abs Auto 0.01 X10*3/uL (0.00-0.03); Imm Gran Pct Auto 0.4 % (0.0-0.4); Lymphocytes Absolute Auto 0.7 X10*3/uL (1.2-4.9); Mean Corpuscular HGB Conc 31.6 g/dl (31.0-36.0); Mean Corpuscular Hemoglobin 27.5 pg (27.0-33.0); Mean Corpuscular Volume 86.8 fL (80.0-98.0); NRBC Abs Auto 0.000 X10*3/uL (0.0-0.012); NRBC Pct Auto 0.0 /100WBC (0.0-0.2); Platelet Count 253 X10*3/uL (160-400); Red Blood Count 3.57 X10*6/uL (4.60-5.80); White Blood Count 2.7 X10*3/uL (4.8-10.8)
[2024-12-31 08:24] LABS: Anion Gap 14 (12-20); Blood Urea Nitrogen 45 mg/dL (9-16); Calcium 9.6 mg/dL (8.4-10.2); Carbon Dioxide 23 mmol/L (22-29); Chloride 106 mmol/L (96-108); Cholesterol 249 mg/dL (<200); Creatinine Clr Calc Pharmacy 24.3; Estimated Glomerular Filt Rate 23; HDL Cholesterol 35 mg/dL (>40); Magnesium 2.1 mg/dL (1.6-2.6); Potassium 4.8 mmol/L (3.3-5.1); Sodium 138 mmol/L (135-145); Triglycerides 495 mg/dL (<150)
[2024-12-31 08:35] LABS: Parathyroid Hormone Intact 279.2 pg/mL (8.7-77.1)
[2024-12-31 08:41] LABS: Free T4 (Free Thyroxine) 0.78 ng/dL (0.71-1.85); Thyroid Stimulating Hormone 1.78 uIU/mL (0.32-4.0)
[2024-12-31 08:52] LABS: Folate 5.3 ng/mL (> or = 4.0); Vitamin B12 239 pg/mL (200-900)
[2024-12-31 09:04] VITALS: BP 125/75
[2024-12-31] MEDS: ARIPiprazole 30 MG TABLET PO (09:27)
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
[2024-12-31 11:00] LABS: HBS Num1 > 1000.00 mIU/mL (0-7.99); HBc Num1 5.80 S/CO (0.00-0.79); HBsAGNum1 0.29 S/CO (0.00-0.99); Hepatitis A Antibody IgM 0.19 Index (0-0.79); Hepatitis B Surface Antigen Negative (Negative); ~HepC Num1 0.26 S/CO (0.00-0.79); ~Hepatitis A Antibody IgM Nonreactive (Nonreactive); ~Hepatitis B Surface Antibody REACTIVE (Nonreactive); ~Hepatitis C Antibody Nonreactive (Nonreactive)
[2024-12-31] MEDS: Milk of Magnesia 30 ML ORAL.SUSP PO (11:25)
[2024-12-31 12:06] LABS: HBc Num2 5.38 S/CO; HBc Num3 4.96 S/CO
[2024-12-31 20:24] VITALS: BP 146/74; PULSE 84; RESP 16; TEMP 36.8; O2SAT 100
[2024-12-31] MEDS: Ferrous Sulfate 324 MG TABLET.DR PO (20:28)
--- NOTE | 2025-01-01 05:56 | PC.NURSE ---
During rounds around 0545 hours, [place] staff noticed that patient had wet his bed, after being incontinent of urine.
[2025-01-01 08:41] VITALS: BP 127/67; PULSE 83; TEMP 36.4; O2SAT 100
[2025-01-01] MEDS: ARIPiprazole 30 MG TABLET PO (08:49)
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
[2025-01-01 20:11] VITALS: BP 163/79; PULSE 84; RESP 16; TEMP 36.9; O2SAT 100
[2025-01-02 08:02] VITALS: BP 191/93; PULSE 81; TEMP 36.4; O2SAT 100
[2025-01-02] MEDS: ARIPiprazole 30 MG TABLET PO (08:54)
[2025-01-02] MEDS: Magnesium Hydrox/Alum Hydrox 30 ML ORAL.SUSP PO (09:00)
[2025-01-02 13:00] VITALS: BP 175/86; PULSE 88
[2025-01-02 15:27] VITALS: BP 126/74; PULSE 92
[2025-01-02 20:28] VITALS: BP 160/80; PULSE 88; RESP 15; TEMP 37.1; O2SAT 100
[2025-01-02] MEDS: Ferrous Sulfate 324 MG TABLET.DR PO (21:10)
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
[2025-01-03 08:08] VITALS: BP 132/74; PULSE 90; TEMP 36.9; O2SAT 99
[2025-01-03 08:30] VITALS: BP 132/74; PULSE 90; TEMP 36.9; O2SAT 99
[2025-01-03] MEDS: ARIPiprazole 30 MG TABLET PO (08:48)
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
[2025-01-03 13:00] VITALS: BP 128/78
[2025-01-03 20:00] VITALS: BP 158/80; PULSE 103; TEMP 36.8; O2SAT 97
[2025-01-03 20:07] VITALS: BP 158/80
[2025-01-03 21:30] VITALS: BP 133/64
--- NOTE | 2025-01-03 22:03 | PC.NURSE ---
This patient approached this blog writer at approximately 2130, and asked If an employee stole something, would they be fired? This blog writer replied Yes. The patient stated ok, and walked away, to [facility] The [facility] reported to this blog writer that the patient asked him Are you giving my information to anybody? The [facility] replied No, and the patient stated Good, because you can be fired, and walked away.
[2025-01-04] MEDS: ARIPiprazole 30 MG TABLET PO (08:48)
[2025-01-04 09:00] VITALS: BP 108/56; PULSE 83; RESP 16; TEMP 36.4; O2SAT 99
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
[2025-01-04] MEDS: Magnesium Hydrox/Alum Hydrox 30 ML ORAL.SUSP PO (12:48)
[2025-01-04] MEDS: Ferrous Sulfate 324 MG TABLET.DR PO (19:06)
[2025-01-04 19:17] VITALS: BP 184/85; PULSE 95; RESP 16; TEMP 36.7; O2SAT 98
--- NOTE | 2025-01-04 19:24 | PC.NURSE ---
Vital signs at 1719 98.1, 95 pulse, 16 Respiration, 98 O2 and 184/85 BP. Provider notified.
[2025-01-04 20:14] VITALS: BP 184/85
[2025-01-04 21:21] VITALS: BP 138/72
[2025-01-04 21:22] VITALS: BP 138/72
[2025-01-05 08:04] VITALS: BP 147/73; PULSE 77; TEMP 36.3; O2SAT 99
[2025-01-05 08:43] LABS: Iron 84 mcg/dL (45-160); Percent Iron Saturation 37 % (15-50); Total Iron Binding Capacity 230 mcg/dL (228-428); Unsaturated Iron Binding 146 ug/dL
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
[2025-01-05] MEDS: ARIPiprazole 30 MG TABLET PO (09:17)
[2025-01-05 09:18] VITALS: BP 146/78
[2025-01-05] MEDS: Magnesium Hydrox/Alum Hydrox 30 ML ORAL.SUSP PO (10:23)
[2025-01-05 12:45] LABS: Blood Urea Nitrogen 53 mg/dL (9-16); Creatinine Clr Calc Pharmacy 21.3; Estimated Glomerular Filt Rate 20
[2025-01-05 13:00] VITALS: BP 157/84; PULSE 99
[2025-01-05 13:31] VITALS: BP 157/84
[2025-01-06 07:00] VITALS: BMI 22.4
[2025-01-06 08:00] VITALS: BP 111/57; PULSE 73; TEMP 36.3; O2SAT 98
[2025-01-06] MEDS: ARIPiprazole 30 MG TABLET PO (08:41)
[2025-01-06 15:00] VITALS: BP 131/68; PULSE 95; RESP 16; TEMP 36.4; O2SAT 94
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
[2025-01-06 18:28] VITALS: BP 180/78; PULSE 84
[2025-01-06] MEDS: Ferrous Sulfate 324 MG TABLET.DR PO (18:30)
[2025-01-06] MEDS: Magnesium Hydrox/Alum Hydrox 30 ML ORAL.SUSP PO (21:26)
[2025-01-07 08:00] VITALS: BP 127/68; PULSE 99; RESP 16; TEMP 36.6; O2SAT 98
[2025-01-07 09:16] VITALS: BP 127/68
[2025-01-07] MEDS: ARIPiprazole 30 MG TABLET PO (09:16)
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
[2025-01-07 13:00] VITALS: BP 137/74; PULSE 84; RESP 16; TEMP 36.8; O2SAT 99
[2025-01-07 16:26] VITALS: BP 191/88
[2025-01-07 18:00] VITALS: BP 163/85; PULSE 87; RESP 16; O2SAT 100
--- NOTE | 2025-01-07 18:48 | PC.NURSE ---
Pt stated to provide another clonidine to pt, close to the last administration, d/t BP.
[2025-01-07 20:13] VITALS: BP 123/68; PULSE 108; RESP 15; TEMP 36.4; O2SAT 98
[2025-01-08] VITALS (7 sets, daily range): BP systolic 130–174; BP diastolic 67–81; PULSE 93–106; RESP 15–19; TEMP 36.5–37.2; O2SAT 98–100
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
[2025-01-08] MEDS: ARIPiprazole 30 MG TABLET PO (08:25)
[2025-01-08] MEDS: Ferrous Sulfate 324 MG TABLET.DR PO (20:40)
[2025-01-08] MEDS: Magnesium Hydrox/Alum Hydrox 30 ML ORAL.SUSP PO (20:40)
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
[2025-01-09 09:00] VITALS: BP 146/72
[2025-01-09] MEDS: ARIPiprazole 30 MG TABLET PO (09:14)
[2025-01-09 09:15] VITALS: BP 146/72
[2025-01-09] MEDS: Magnesium Hydrox/Alum Hydrox 30 ML ORAL.SUSP PO ×2 (10:54→21:48)
[2025-01-09 16:55] VITALS: BP 201/98; PULSE 108; RESP 20; TEMP 37.7; O2SAT 98
--- NOTE | 2025-01-09 18:40 | PC.NURSE ---
Pt refused to have BP checked twice this evening after being given Clonidine 0.2 mg once to treat BP 201/98 and made it clear to staff No thank you, I don't want them taken! 15 minutes later he came out and demanded his BP be checked so it was automated reading was 190/80, he agreed to manual BP and it was 150/90 while sitting and in right upper extremity. He did not feel reassured by this and asked telephone repairer provider to be notified. Lillian Huber made aware of BP. Pt offered prn medications for anxiety/agitation and he declined.
[2025-01-09 18:45] VITALS: BP 150/90; PULSE 87; O2SAT 97
[2025-01-09 20:00] VITALS: BP 144/67; PULSE 86; RESP 15; TEMP 35.7; O2SAT 99
--- NOTE | 2025-01-10 01:03 | PC.NURSE ---
Juve is requesting that any of his providers check to see if Amlodipine is an appropriate medication to give to him to help with his blood pressure.
[2025-01-10 08:04] VITALS: BP 134/77; PULSE 109; RESP 16; TEMP 35.8; O2SAT 98
[2025-01-10] MEDS: ARIPiprazole 30 MG TABLET PO (08:49)
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
[2025-01-10 13:00] VITALS: BP 135/78; PULSE 80
[2025-01-10 13:53] LABS: Alanine Aminotransferase 60 U/L (0-40); Albumin Level 4.3 g/dL (3.5-5.0); Alkaline Phosphatase 171 U/L (39-117); Anion Gap 13 (12-20); Aspartate Amino Transferase 43 U/L (5-37); Blood Urea Nitrogen 61 mg/dL (9-16); Calcium 10.3 mg/dL (8.4-10.2); Carbon Dioxide 25 mmol/L (22-29); Chloride 104 mmol/L (96-108); Creatinine Clr Calc Pharmacy 20.8; Estimated Glomerular Filt Rate 18; Potassium 6.7 mmol/L (3.3-5.1); Sodium 135 mmol/L (135-145); Total Protein 8.2 g/dL (6.5-8.0)
--- NOTE | 2025-01-10 16:07 | PM.EVENT ---
Event Note Date of Service: 01/10/25 Event Note: Psychiatry ordered a BMP due to patient's increased agitation. Potassium noted to be 6.7, creatinine of 3.47. Losartan placed on hold, patient refusing repeat potassium level draw and medications. Plan to transfer to telemetry for further monitoring. Time Spent With Patient Time: Total time managing care of this patient today ____ minutes.
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
[2025-01-10] MEDS: Albuterol Sulfate (0.083%) 2.5 MG/3 ML VIAL.NEB 10 MG INHALE (22:40)
[2025-01-11 08:28] LABS: Glucose, Whole Blood 149 mg/dL (60-115)
== END 2025-01-10 20:20 | disposition short-term general hospital (02) | DRG 885 ==
PROVIDERS: Nurse Practitioner Family; Admitting Provider Psychiatry & Neurology Psychiatry; Visit Provider Clinical Nurse Specialist Psychiatric/Mental Health, Adult
DX: F31.9 Bipolar disorder, unspecified (principal); I12.9 Hypertensive chronic kidney disease with stage 1 through stage 4 chronic kidney disease, or unspecified chronic kidney disease; D63.1 Anemia in chronic kidney disease; E87.5 Hyperkalemia; E11.22 Type 2 diabetes mellitus with diabetic chronic kidney disease; N18.32 Chronic kidney disease, stage 3b; Z87.891 Personal history of nicotine dependence; Z79.899 Other long term (current) drug therapy
CPT/HCPCS: 36415; 80048; 80053; 80061; 80307; 81001; 82043; 82306; 82565; 82570; 82607; 82746; 82947; 83036; 83540; 83735; 83970; 84100; 84156; 84439; 84443; 84520; 85025; 85999; 86704; 86706; 86709; 86803; 87340

== ENCOUNTER → 2024-12-29 16:54 | Outpatient (BNV) | payer MEDICARE, MEDICAID, SELFPAY | PROVIDERS: Admitting Provider Psychiatry & Neurology Psychiatry; Visit Provider Nurse Practitioner Family | DX: N18.30 Chronic kidney disease, stage 3 unspecified (principal) | CPT/HCPCS: 99221 ==

== ENCOUNTER → 2024-12-29 16:54 | Outpatient (BNV) | payer MEDICARE, MEDICAID, SELFPAY | PROVIDERS: Admitting Provider Psychiatry & Neurology Psychiatry; Visit Provider Nurse Practitioner Family | DX: F31.0 Bipolar disorder, current episode hypomanic (principal); I10 Essential (primary) hypertension; N18.30 Chronic kidney disease, stage 3 unspecified; E11.9 Type 2 diabetes mellitus without complications | CPT/HCPCS: 90792; 99231; 99232 ==

== ENCOUNTER 2025-01-10 20:21 | Inpatient (IN) | payer MEDICARE, MEDICAID, SELFPAY ==
--- NOTE | 2025-01-10 | ECG_ITS ---
Test Reason : high potasium Blood Pressure : */* mmHG Vent. Rate : 93 BPM Atrial Rate : 93 BPM P-R Int : 166 ms QRS Dur : 94 ms QT Int : 358 ms P-R-T Axes : 66 -18 12 degrees QTcB Int : 445 ms Normal sinus rhythm Septal infarct , age undetermined Abnormal ECG No previous ECGs available Referred By: Pradeep Mcdermott Electronically Signed By: STEPHANIE HANCOCK MD
--- NOTE | 2025-01-10 18:38 | PM.IMHP ---
History of Present Illness Date of Service: 01/10/25 Chief Complaint: hyperkalmeia 64M PMH diabetes, CKD 4, hypertension, bipolar, depression admitted to inpatient psychiatry on 12/30/2024 for hypomania. Labs were done on 01/10/2025 shown to have a potassium of 6.7 non hemolyzed, creatinine of 3.47. patient denies any symptoms. he refused treatment or further work up. after discussion with psychiatry, it was felt patient does not have adequeate capacity to make this decision so he will be transfered to telemetry floor. Review of Systems Review of Systems: Yes all other systems are reviewed and are negative [facility] Medical History (Updated 01/10/25 @ 18:45 by Pradeep Mcdermott MD) Hyperkalemia Anemia in chronic kidney disease (CKD) HTN (hypertension) CKD (chronic kidney disease) stage 3, GFR 30-59 ml/min Diabetes Social History Household Members: Other Household Members Other:: Mother Housing: Apartment Do you presently have visiting nurse or other home services: No Patient Tobacco Use Status: Former Tobacco user Tobacco use type: Cigarette e-Cigarette/Vaping Use: Never Used Second Hand Smoke Exposure: No service: No Sexual orientation: Decline to Answer Meds Allergies Allergy/AdvReac Type Severity Reaction Status Date / Time No Known Allergies Allergy Verified 12/17/24 20:12 Active Medications: Current Medications Acetaminophen (Acetaminophen 325 Mg Tablet) 650 mg PO Q6H PRN PRN Reason: Pain, Mild 1-3,fever,headache Albuterol/Ipratropium (Albuterol/Iprat 2.5/0.5mg 3 Ml Ampul.Neb) 3 ml INHALE RQ4H WHILE AWAKE PRN PRN Reason: sob Calcium Carbonate (Calcium Carbonate 750 Mg Tab.Chew) 750 mg PO Q4H PRN PRN Reason: Heartburn Furosemide (Furosemide 40 Mg/4 Ml Vial) 40 mg IVPUSH ONCE ONE; Protocol Stop: 01/10/25 18:36 Magnesium Hydroxide (Milk Of Magnesia 30 Ml Oral.Susp) 30 ml PO DAILY PRN PRN Reason: Constipation Melatonin (Melatonin 3 Mg Tablet) 6 mg PO BEDTIME PRN PRN Reason: Insomnia Sodium Chloride (0.9 % Sodium Chloride Flush 3 Ml Syringe) 3 ml IVFLUSH QSHIFT [facility] Sodium Zirconium Cyclosilicate (Sodium Zirconium Cyclosilicate 10 Gm Powd.Pack) 10 gm PO TID [facility] Stop: 01/12/25 15:01 Home Medications ?Medication ?Instructions ?Recorded ?Confirmed ?Last Taken ?Type calcitriol 0.25 mcg capsule 0.25 mcg PO DAILY 12/17/24 12/30/24 12/24/24 History dapagliflozin propanediol 10 mg 10 mg PO DAILY 12/17/24 12/29/24 Unknown History tablet (Farxiga) docusate sodium 100 mg capsule 100 mg PO QAM 12/17/24 12/30/24 12/24/24 History famotidine 20 mg tablet 20 mg PO DAILY 12/17/24 12/30/24 12/24/24 History ferrous sulfate 325 mg (65 mg 325 mg PO Q OTHER DAY 12/17/24 12/29/24 Unknown History iron) tablet,delayed release omeprazole 30 mg DIRECTED 12/29/24 12/30/24 Unknown History Physical Exam Vital Signs and Narrative: General: AO X 3, no acute distress Resp: CTA bilateral, no accessory muscles used CVS: S1,S2,RRR GI: soft, non tender, non distended Neuro: motor grossly intact, alert Psych: agitated affect, impaired insight Assessment and Plan (1) Hyperkalemia: Status: Acute Plan 64M PMH diabetes, CKD 4, hypertension, bipolar, depression admitted to inpatient psychiatry on 12/30/2024 for hypomania, being transfered to medical service for hyperkalemia 6.7 Acute hyperkalemia Check repeat, EKG, Lokelma, Lasix,, albuterol insulin/d50 monitor on tele renal consult ([facility], sees dr Maravilla) hold losartan CKD IV stable dm insulin bipolar conitnue mood stabilizers dvt prophylaxis - lovenox full code due to severity and life-threatening nature of severe hyperkalemia expected to require at least 2 midnights inpatient Quality Stroke Does the patient have a stroke diagnosis?: No VTE Prior VTE?: No VTE Risk Level:: Medical - moderate - high VTE Device Contraindication: Treatment Not Indicated VTE Drug Contraindication: N/A - Med Ordered
--- OUTSIDE RECORDS SUMMARY | 2025-01-10 20:25 | XMS_ITS | Encounter Summary ---
Author Organization [facility] Address [address] [facility] [address] [place] [address] Phone Care Team Providers Care Nitric Acid Concentrator Operator Name Role Phone Mervat Watts BIOPROCESSING MANUFACTURING TECHNICIAN Primary Care Provider [phone] Reason for Visit * Reason Comments Med Refill Encounter Details Date Type Department Care Team (Late st Contact Info) Description 04/27/2024 Refill [facility] [address] [facility] [address] [place] [address] Tadeo Melendez MD [id number] [address] Social History Tobacco Use Types [...] Visit [facility] [address] [phone] Elvis Maravilla MD [address] [phone] documented as of this encounter Visit Diagnoses Not on filedocumented in this encounter Care Teams Nitric Acid Concentrator Operator Relationship Specialty Start Date End Date Mervat Watts, BIOPROCESSING MANUFACTURING TECHNICIAN [address] [place] [phone] PCP - General Nurse Practitioner 09/18/20 documented as of this encounter
--- OUTSIDE RECORDS SUMMARY | 2025-01-10 20:25 | XMS_ITS | Clinical Summary ---
Author Organization [facility] Address [address] [phone] Phone Care Team Providers Care Skiver Hand Name Role Phone Unavailable Primary Care Provider [...] It is not the complete legal health record.[facility]
--- OUTSIDE RECORDS SUMMARY | 2025-01-10 20:25 | XMS_ITS | Clinical Summary ---
Author Organization [facility] Address [address] [facility] [address] [place] [address] Phone Care Team Providers Care Xm1 Tank Driver Name Role Phone Mervat Watts NP Primary Care Provider [phone] Allergies No known active allergies Medications ARIPiprazole [...] Overview (09/17/2021): Bipolar Type 1. Psychiatry through [facility] Chronic kidney disease 05/28/2020 Overview (09/11/2022): [...] 12/14/2024 Refill [facility] [address] [place] [phone] No Henry 12/10/2024 8:45 AM EDT Office Visit [facility] [address] [place] [phone] Elvis Maravilla MD Chronic kidney disease, stage [...] Visit [facility] of the [facility] [address] [phone] Elvis Maravilla MD [address] [phone] Health Maintenance Due Date Last Done Comments [...] included. Iron 50 50 - 160 mcg/dL [facility] TIBC 279 250 - 450 mcg/dL [facility] Iron Saturation (TSat) 18(L) 20 - 50 % [facility] Blood Venous blood / Unknown 12/24/2024 10:39 AM EDT 12/24/2024 11:26 AM EDT Elvis Maravilla MD LAB BLOOD ORDERABLES Final Resul t [facility] [address] [place] [address] * (ABNORMAL) CBC without diff (12/24/2024 10:39 AM EDT) Only the most recent of2 resultswithin the time period is included. WBC 2.4(L) 4.8 - 10.8 K/[facility] RBC 3.30(L) 4.50 - 5.50 M/[facility] Hgb 9.1(L) 13.5 - 17.5 g/dL [facility] Hematocrit 28.2(L) 42.0 - 54.0 % [facility] MCV 84.9 79.0 - 98.0 [facility] MCH 27.4 27.0 - 32.0 pcg [facility] MCHC 32.3 32.0 - 37.0 g/dL [facility] RDW 12.9 11.0 - 15.0 % [facility] Platelets 338 130 - 400 K/[facility] MPV 8.8 7.0 - 11.0 [facility] nRBC Count 0.0 <1.0 % [facility] NRBC Absolute 0.00 <0.10 K/mcL [facility] Blood Venous blood / Unknown 12/24/2024 10:39 AM EDT 12/24/2024 11:28 AM EDT us Elvis Maravilla MD LAB BLOOD ORDERABLES Final Resul t Performing Organization Address City/[facility]/ZIP Co de Phone Number [facility] [address] [place] [address] * Ferritin (12/24/2024 10:39 AM EDT) Only the most recent of2 resultswithin the time period is included. Pathologist [facility] Ferritin 318 26 - 388 ng/mL [facility] Blood Venous blood / Unknown 12/24/2024 10:39 AM EDT 12/24/2024 11:26 AM EDT us Elvis Maravilla MD LAB BLOOD ORDERABLES Final Resul t Performing Organization Address City/[facility]/ZIP Co de Phone Number [facility] [address] [place] [address] * (ABNORMAL) Renal funtion panel (12/24/2024 10:39 AM EDT) Only the most recent of2 resultswithin the time period is included. [facility] Sodium 138 133 - 145 mmol/L [facility] Potassium 4.9 3.5 - 5.5 mmol/L [facility] Chloride 102 96 - 110 mmol/L [facility] Bicarbonate (CO2) 31 21 - 32 mmol/L [facility] Anion Gap 5 3 - 11 [facility] Glucose 134(H) 70 - 100 mg/dL [facility] BUN 50(H) 5 - 25 mg/dL [facility] Creatinine Serum 3.24(H) 0.70 - 1.30 mg/dL [facility] eGFR 21(L) >=60 mL/min/1. 73m2 [facility] Comment:Calculation based on the Chronic Kidney Disease Epidemiology Collaboration (CKD-EPI) equation refit without adjustment for race. BUN/Creatinine Ratio 15.4 [facility] Albumin 3.9 3.2 - 5.0 g/dL [facility] Calcium 9.0 8.5 - 10.5 mg/dL [facility] Phosphorus 3.1 2.5 - 4.5 mg/dL [facility] Blood Venous blood / Unknown 12/24/2024 10:39 AM EDT 12/24/2024 11:26 AM EDT us Elvis Maravilla MD LAB BLOOD ORDERABLES Final Resul t [facility] [address] [place] [address] from Last 3 Months Insurance Medicare Medicaid [place] Medicare Medicaid [place] Care Teams Xm1 Tank Driver Relationship Specialty Start Date End Date Mervat Watts NP [address] [place] [address] PCP - General Nurse Practitioner 09/18/20
--- OUTSIDE RECORDS SUMMARY | 2025-01-10 20:25 | XMS_ITS | Clinical Summary ---
Author Organization [place] [address] [facility] Building Address [address] [place], [place] [address], [place] [address] Phone Care Team Providers Care Fitness And Wellness Instructor Name Role Phone Fallon Jalloh DO Primary Care Provider [phone] Allergies No known active allergies Medications loratadine [...] - 12/29/2024 4:39 PM EDT Emergency [facility] Emergency [address] [place] [address] Jonas Gonzales MD Gordon, Ruth, MD Landry, Jonathan P, MD Paranoid behavior ([facility] V24, [facility] V28) (Primary Dx); Stage 4 chronic kidney disease ([facility] V24, [facility] V28) Discharge Disposition: [facility] 12/16/2024 2:27 PM EDT - 12/17/2024 8:25 PM EDT Emergency [facility] Emergency [address] [place] [address] Berkley Norman MD Amardey-Wellington, Aaron, MD Kokkinos, Erika, MD Goebel, Mathew, MD Paranoia ([facility] V24, [facility] V28) (Primary Dx); Altered mental status, unspecified altered mental status type Discharge Disposition: [facility] from Last 3 Months Surgical History Surgery Date Site/Laterality Comments COLONOSCOPY PROCEDURE:COLONOSCOPY OTHER SURGICAL HISTORY PROCEDURE:left ankle surgery Medical History Medical History Date Comments Diabetes mellitus ([facility] [facility] V24, [facility] V28) DX:Diabetes mellitus ([facility]) Depression DX:Depression Renal failure DX:Renal failure Anemia DX:Anemia Hypertension DX:Hypertension Anxiety DX:Anxiety Bipolar 1 disorder ([facility] V24, [facility] V28) DX:Bipolar 1 disorder ([facility]) Family History Medical History Relation Name Comments [...] Name Priority Date/Time Associated Diagnosis Comments ECG ANNOTATED 12/30/2024 ECG 12-LEAD STAT 12/29/2024 1:26 PM EDT [...] Recently Relevant to Health Maintenance Results * ECG-Annotated (12/30/2024) us Provider Onbase MD ECG ORDERABLES Final Result * ECG 12 lead (12/29/2024 1:26 PM EDT) Ventricular Rate ECG 71 BPM GEMUSE Atrial Rate 71 BPM GEMUSE P-R Interval 186 ms GEMUSE QRS Duration 100 ms GEMUSE Q-T Interval 426 ms GEMUSE QTc 462 ms GEMUSE P Wave [place] 67 degrees GEMUSE R [place] -19 degrees GEMUSE T [place] 3 degrees GEMUSE ECG Interpretation Normal sinus rhythm Normal ECG No previous ECGs available Confirmed by Dwayne FERRER JOHN ([id number]) on 12/29/2024 2:45:24 PM GEMUSE 12/29/2024 1:26 PM EDT 12/29/2024 2:45 PM EDT Berkley OROPEZA ECG ORDERABLES Final Re sult GEMUSE * (ABNORMAL) CBC auto differential (12/29/2024 10:45 AM EDT) WBC 2.8(L) 4.8 - 10.8 K/mcL LAB HEMETOLOGY METHOD 12/29/2024 10:57 AM EDT [facility] RBC 3.70(L) 4.50 - 5.50 M/mcL LAB HEMETOLOGY METHOD 12/29/2024 10:57 AM EDT [facility] Hemoglobin 10.1(L) 13.5 - 17.5 g/dL LAB HEMETOLOGY METHOD 12/29/2024 10:57 AM [facility] Hematocrit 31.5(L) 42.0 - 54.0 % LAB HEMETOLOGY METHOD 12/29/2024 10:57 AM [facility] MCV 86.1 79.0 - 98.0 FL LAB HEMETOLOGY METHOD 12/29/2024 10:57 AM [facility] MCH 27.6 27.0 - 32.0 pcg LAB HEMETOLOGY METHOD 12/29/2024 10:57 AM [facility] MCHC 32.1 32.0 - 37.0 g/dL LAB HEMETOLOGY METHOD 12/29/2024 10:57 AM [facility] RDW 12.8 11.0 - 15.0 % LAB HEMETOLOGY METHOD 12/29/2024 10:57 AM [facility] Platelets 288 130 - 400 K/mcL LAB HEMETOLOGY METHOD 12/29/2024 10:57 AM [facility] MPV 8.8 7.0 - 11.0 FL LAB HEMETOLOGY METHOD 12/29/2024 10:57 AM [facility] NRBC 0.0 <1.0 % LAB HEMETOLOGY METHOD 12/29/2024 10:57 AM [facility] NRBC Absolute 0.00 <0.10 K/mcL LAB HEMETOLOGY METHOD 12/29/2024 10:57 AM [facility] Neutrophils Relative 67.4 % LAB HEMETOLOGY METHOD 12/29/2024 10:57 AM [facility] Lymphocytes Relative 20.1 % LAB HEMETOLOGY METHOD 12/29/2024 10:57 AM [facility] Monocytes Relative 10.6 % LAB HEMETOLOGY METHOD 12/29/2024 10:57 AM EDT [facility] Eosinophils Relative 1.1 % LAB HEMETOLOGY METHOD 12/29/2024 10:57 AM EDT [facility] Basophils Relative 0.4 % LAB HEMETOLOGY METHOD 12/29/2024 10:57 AM EDT [facility] Immature Granulocytes Relative 0.4 % LAB HEMETOLOGY METHOD 12/29/2024 10:57 AM EDT [facility] Neutrophils Absolute 1.92 1.50 - 7.00 K/mcL LAB HEMETOLOGY METHOD 12/29/2024 10:57 AM EDT [facility] Lymphocytes Absolute 0.57(L) 1.00 - 5.00 K/mcL LAB HEMETOLOGY METHOD 12/29/2024 10:57 AM EDT [facility] Monocytes Absolute 0.30 0.20 - 1.00 K/mcL LAB HEMETOLOGY METHOD 12/29/2024 10:57 AM EDT [facility] Eosinophils Absolute 0.03 0.00 - 0.50 K/mcL LAB HEMETOLOGY METHOD 12/29/2024 10:57 AM EDT [facility] Basophils Absolute 0.01 0.00 - 0.20 K/mcL LAB HEMETOLOGY METHOD 12/29/2024 10:57 AM EDT [facility] Immature Granulocytes Absolute 0.01 0.00 - 0.03 K/mcL LAB HEMETOLOGY METHOD 12/29/2024 10:57 AM EDT [facility] Blood Venous blood specimen / Unknown Venipuncture / Unknown 12/29/2024 10:45 AM EDT 12/29/2024 10:49 AM EDT us Berkley OROPEZA LAB BLOOD ORDERABLES Fin al Result [facility] [address] [place] [address], * Ammonia (12/29/2024 10:45 AM EDT) Ammonia 17 11 - 35 mcmol/L LAB CHEMISTRY METHOD 12/29/2024 11:16 AM EDT [facility] Blood Venous blood specimen / Unknown Venipuncture / Unknown 12/29/2024 10:45 AM EDT 12/29/2024 10:50 AM EDT Berkley OROPEZA LAB BLOOD ORDERABLES Fin al Result Performing Organization Address City/[facility]/ZIP Co de Phone Number [facility] [address] [place] [address], * Ethanol (12/29/2024 10:45 AM EDT) Only the most recent of2 resultswithin the time period is included. Ethanol Level <3 0 - 10 mg/dL LAB CHEMISTRY METHOD 12/29/2024 11:58 AM EDT [facility] Blood Venous blood specimen / Unknown Venipuncture / Unknown 12/29/2024 10:45 AM EDT 12/29/2024 10:49 AM EDT Milad Zarate MD LAB BLOOD ORDERABLES Final Result Performing Organization Address City/[facility]/ZIP Co de Phone Number [facility] [address] [place] [address], [place] [phone] * (ABNORMAL) Acetaminophen level (12/29/2024 10:45 AM EDT) Only the most recent of2 resultswithin the time period is included. Acetaminophen Level <2.0(L) 10.0 - 30.0 mcg/mL LAB CHEMISTRY METHOD 12/29/2024 11:58 AM EDT [facility] Blood Venous blood specimen / Unknown Venipuncture / Unknown 12/29/2024 10:45 AM EDT 12/29/2024 10:49 AM EDT Milad Zarate MD LAB BLOOD ORDERABLES Final Result Performing Organization Address [facility]/ZIP Co de Phone Number [facility] [address] [place] [address], [place] [phone] * (ABNORMAL) Salicylate level (12/29/2024 10:45 AM EDT) Only the most recent of2 resultswithin the time period is included. Salicylate Level <1.7(L) 2.0 - 29.0 mg/dL LAB CHEMISTRY METHOD 12/29/2024 11:53 AM EDT [facility] Blood Venous blood specimen / Unknown Venipuncture / Unknown 12/29/2024 10:45 AM EDT 12/29/2024 10:49 AM EDT Milad Zarate MD LAB BLOOD ORDERABLES Final Result Performing Organization Address [facility] Co de Phone Number [facility] [address] [place] [address], [place] [phone] * (ABNORMAL) Comprehensive metabolic panel (12/29/2024 10:45 AM EDT) Sodium 137 133 - 145 mmol/L LAB CHEMISTRY METHOD 12/29/2024 11:22 AM EDT [facility] Potassium 5.2 3.5 - 5.5 mmol/L LAB CHEMISTRY METHOD 12/29/2024 11:22 AM EDT [facility] Chloride 106 96 - 110 mmol/L LAB CHEMISTRY METHOD 12/29/2024 11:22 AM EDT [facility] CO2 28 21 - 32 mmol/L LAB CHEMISTRY METHOD 12/29/2024 11:22 AM EDT [facility] Anion Gap 3 3 - 11 LAB CHEMISTRY METHOD 12/29/2024 11:22 AM EDT [facility] Glucose 144(H) 70 - 100 mg/dL LAB CHEMISTRY METHOD 12/29/2024 11:22 AM [facility] BUN 48(H) 5 - 25 mg/dL LAB CHEMISTRY METHOD 12/29/2024 11:22 AM [facility] Creatinine 3.96(H) 0.70 - 1.30 mg/dL LAB CHEMISTRY METHOD 12/29/2024 11:22 AM [facility] eGFR 16(L) >=60 mL/min/1. 73m2 LAB CHEMISTRY METHOD 12/29/2024 11:22 AM [facility] Comment:Calculation based on the Chronic Kidney Disease Epidemiology Collaboration (CKD-EPI) equation refit without adjustment for race. BUN/Creatinine Ratio 12.1 LAB CHEMISTRY METHOD 12/29/2024 11:22 AM [facility] Calcium 9.5 8.5 - 10.5 mg/dL LAB CHEMISTRY METHOD 12/29/2024 11:22 AM [facility] AST (SGOT) 23 10 - 42 unit/L LAB CHEMISTRY METHOD 12/29/2024 11:22 AM [facility] ALT (SGPT) 46 10 - 60 unit/L LAB CHEMISTRY METHOD 12/29/2024 11:22 AM [facility] Alkaline Phosphatase 138(H) 42 - 121 unit/L LAB CHEMISTRY METHOD 12/29/2024 11:22 AM [facility] Total Protein 8.5(H) 6.0 - 8.0 g/dL LAB CHEMISTRY METHOD 12/29/2024 11:22 AM [facility] Albumin 4.1 3.2 - 5.0 g/dL LAB CHEMISTRY METHOD 12/29/2024 11:22 AM [facility] Total Bilirubin 0.3 0.0 - 1.4 mg/dL LAB CHEMISTRY METHOD 12/29/2024 11:22 AM [facility] Blood Venous blood specimen / Unknown Venipuncture / Unknown 12/29/2024 10:45 AM EDT 12/29/2024 10:49 AM EDT Berkley OROPEZA LAB BLOOD ORDERABLES Fin al Result Performing Organization Address [facility] de Phone Number [facility] [address] [place] [address], * (ABNORMAL) Iron and TIBC (12/24/2024 10:39 AM EDT) Iron 50 50 - 160 mcg/dL LAB CHEMISTRY METHOD 12/24/2024 1:02 PM EDT [facility] TIBC 279 250 - 450 mcg/dL LAB CHEMISTRY METHOD 12/24/2024 1:02 PM EDT [facility] Iron Saturation 18(L) 20 - 50 % LAB CHEMISTRY METHOD 12/24/2024 1:02 PM EDT [facility] Blood Venous blood specimen / Unknown Venipuncture / Unknown 12/24/2024 10:39 AM EDT 12/24/2024 11:26 AM EDT Elvis Maravilla MD LAB BLOOD ORDERABLES Final Res ult Performing Organization Address [facility] de Phone Number [facility] [address] [place] [address], * (ABNORMAL) Complete blood count (12/24/2024 10:39 AM EDT) Only the most recent of2 resultswithin the time period is included. WBC 2.4(L) 4.8 - 10.8 K/[facility] LAB HEMETOLOGY METHOD 12/24/2024 11:46 AM EDT [facility] RBC 3.30(L) 4.50 - 5.50 M/[facility] LAB HEMETOLOGY [facility] Hemoglobin 9.1(L) 13.5 - 17.5 g/dL LAB HEMETOLOGY METHOD 12/24/2024 11:46 AM [facility] Hematocrit 28.2(L) 42.0 - 54.0 % LAB HEMETOLOGY METHOD 12/24/2024 11:46 AM [facility] MCV 84.9 79.0 - 98.0 FL LAB HEMETOLOGY METHOD 12/24/2024 11:46 AM [facility] MCH 27.4 27.0 - 32.0 pcg LAB HEMETOLOGY METHOD 12/24/2024 11:46 AM [facility] MCHC 32.3 32.0 - 37.0 g/dL LAB HEMETOLOGY METHOD 12/24/2024 11:46 AM [facility] RDW 12.9 11.0 - 15.0 % LAB HEMETOLOGY METHOD 12/24/2024 11:46 AM [facility] Platelets 338 130 - 400 K/mcL LAB HEMETOLOGY METHOD 12/24/2024 11:46 AM [facility] MPV 8.8 7.0 - 11.0 FL LAB HEMETOLOGY METHOD 12/24/2024 11:46 AM [facility] NRBC 0.0 <1.0 % LAB HEMETOLOGY METHOD 12/24/2024 11:46 AM [facility] NRBC Absolute 0.00 <0.10 K/mcL LAB HEMETOLOGY METHOD 12/24/2024 11:46 AM [facility] Blood Venous blood specimen / Unknown Venipuncture / Unknown 12/24/2024 10:39 AM EDT 12/24/2024 11:28 AM EDT us Elvis Maravilla MD LAB BLOOD ORDERABLES Final Res ult [facility] [address] [place] [address], [place] [phone] * Ferritin (12/24/2024 10:39 AM EDT) [facility] Ferritin 318 26 - 388 ng/mL LAB CHEMISTRY [facility] Blood Venous blood specimen / Unknown Venipuncture / Unknown 12/24/2024 10:39 AM EDT 12/24/2024 11:26 AM EDT Elvis Maravilla MD LAB BLOOD ORDERABLES Final Res ult Performing Organization Address [facility]/ZIP Co de Phone Number [facility] [address] [place] [address], [place] [phone] * (ABNORMAL) Renal function panel (12/24/2024 10:39 AM EDT) [facility] Sodium 138 133 - 145 mmol/L LAB CHEMISTRY METHOD 12/24/2024 1:02 PM [facility] Potassium 4.9 3.5 - 5.5 mmol/L LAB CHEMISTRY METHOD 12/24/2024 1:02 PM [facility] Chloride 102 96 - 110 mmol/L LAB CHEMISTRY METHOD 12/24/2024 1:02 PM [facility] CO2 31 21 - 32 mmol/L LAB CHEMISTRY METHOD 12/24/2024 1:02 PM [facility] Anion Gap 5 3 - 11 LAB CHEMISTRY METHOD 12/24/2024 1:02 PM [facility] Glucose 134(H) 70 - 100 mg/dL LAB CHEMISTRY METHOD 12/24/2024 1:02 PM [facility] BUN 50(H) 5 - 25 mg/dL LAB CHEMISTRY METHOD 12/24/2024 1:02 PM [facility] Creatinine 3.24(H) 0.70 - 1.30 mg/dL LAB CHEMISTRY METHOD 12/24/2024 1:02 PM EDT [facility] eGFR 21(L) >=60 mL/min/1. 73m2 LAB CHEMISTRY METHOD 12/24/2024 1:02 PM EDT [facility] Comment:Calculation based on the Chronic Kidney Disease Epidemiology Collaboration (CKD-EPI) equation refit without adjustment for race. BUN/Creatinine Ratio 15.4 LAB CHEMISTRY METHOD 12/24/2024 1:02 PM EDT [facility] Albumin 3.9 3.2 - 5.0 g/dL LAB CHEMISTRY METHOD 12/24/2024 1:02 PM EDT [facility] Calcium 9.0 8.5 - 10.5 mg/dL LAB CHEMISTRY METHOD 12/24/2024 1:02 PM [facility] Phosphorus 3.1 2.5 - 4.5 mg/dL LAB CHEMISTRY METHOD 12/24/2024 1:02 PM [facility] Blood Venous blood specimen / Unknown Venipuncture / Unknown 12/24/2024 10:39 AM EDT 12/24/2024 11:26 AM EDT us Elvis Maravilla MD LAB BLOOD ORDERABLES Final Res ult [facility] [address] [place] [address], * (ABNORMAL) Drug abuse screen 8a panel, urine (12/16/2024 7:37 PM EDT) Amphetamine Screen, Ur Negative Negative LAB CHEMISTRY METHOD 8:30 PM EDT [facility] Comment:Certain OTC medicati ons containing ephedrine, phenylephrine, pseudoephedrine and phenylpropanolamine can cause false positive results. Barbiturate Screen, Ur Negative Negative LAB CHEMISTRY METHOD 8:30 PM EDT [facility] Benzodiazepine Screen, Ur Positive(A ) Negative LAB CHEMISTRY METHOD 8:30 PM EDT [facility] Cocaine Screen, Ur Negative Negative LAB CHEMISTRY METHOD 8:30 PM EDT [facility] Opiate Screen, Ur Negative Negative LAB CHEMISTRY METHOD 8:30 PM EDT [facility] Cannabinoid (THC) Screen, Ur Negative Negative LAB CHEMISTRY METHOD 8:30 PM EDT [facility] Comment:Specimens from patie nts taking pantoprazole sodium (Protonix) have been shown to produce false positive results. Oxycodone Screen, Ur Negative Negative LAB CHEMISTRY METHOD 8:30 PM EDT [facility] Fentanyl, Ur Negative Negative LAB CHEMISTRY METHOD 8:30 PM EDT [facility] Urine Urine specimen obtained by clean catch procedure / Unknown Non-blood Collection / Unknown 12/16/2024 7:37 PM EDT 12/16/2024 8:05 PM EDT Narrative [facility] - 12/16/2024 8:30 PM EDT [...] MD LAB URINE ORDERABLES Final Resul t [facility] [address] [place] [address], * Buprenorphine screen, urine (12/16/2024 7:37 PM EDT) Buprenorphine Screen Urine Negative Negative LAB CHEMISTRY METHOD 12/16/2024 8:30 PM EDT [facility] Urine Urine specimen obtained by clean catch procedure / Unknown Non-blood Collection / Unknown 12/16/2024 7:37 PM EDT 12/16/2024 8:05 PM EDT Narrative [facility] - 12/16/2024 8:30 PM EDT Assay cutoff 5 ng/mL Semi-quantitative assay for screening purposes only. Unconfirmed screening result should not be used for non-medical purposes. *ALTERNATE METHOD CONFIRMATION DONE UPON REQUEST ONLY* us Berkley Norman MD LAB URINE ORDERABLES Final Resul t Performing Organization Address [facility]/ZIP Co de Phone Number [facility] [address] [place] [address], [place] [phone] * Methadone, urine (12/16/2024 7:37 PM EDT) Methadone Screen, Urine Negative Negative LAB CHEMISTRY METHOD 12/16/2024 8:30 PM EDT [facility] Comment: Assay cutoff 300 ng/mL [...] ORDERABLES Final Resul t Performing Organization Address City/[facility]/ZIP Co de Phone Number [facility] [address] [place] [address], [place] [phone] * Phencyclidine, urine (12/16/2024 7:37 PM EDT) PCP Scrn, Ur Negative Negative LAB CHEMISTRY METHOD 12/16/2024 8:30 PM EDT [facility] Comment: Assay cutoff 25 ng/mL Semi-quantitative assay for screening purposes only. Unconfirmed screening result should not be used for non-medical purposes. *ALTERNATE METHOD CONFIRMATION DONE UPON REQUEST ONLY* Urine Urine specimen obtained by clean catch procedure / Unknown Non-blood Collection / Unknown 12/16/2024 7:37 PM EDT 12/16/2024 8:05 PM EDT Berkley Norman MD LAB URINE ORDERABLES Final Resul t [facility] [address] [place] [address], [place] [phone] * (ABNORMAL) Basic metabolic panel (12/16/2024 4:00 PM EDT) Sodium 140 133 - 145 mmol/L LAB CHEMISTRY METHOD 12/16/2024 4:48 PM [facility] Potassium 3.6 3.5 - 5.5 mmol/L LAB CHEMISTRY METHOD 12/16/2024 4:48 PM [facility] Chloride 107 96 - 110 mmol/L LAB CHEMISTRY METHOD 12/16/2024 4:48 PM [facility] CO2 28 21 - 32 mmol/L LAB CHEMISTRY METHOD 12/16/2024 4:48 PM [facility] Anion Gap 5 3 - 11 LAB CHEMISTRY METHOD 12/16/2024 4:48 PM [facility] Glucose 138(H) 70 - 100 mg/dL LAB CHEMISTRY METHOD 12/16/2024 4:48 PM [facility] BUN 40(H) 5 - 25 mg/dL LAB CHEMISTRY METHOD 12/16/2024 4:48 PM [facility] Creatinine 3.55(H) 0.70 - 1.30 mg/dL LAB CHEMISTRY METHOD 12/16/2024 4:48 PM [facility] eGFR 19(L) >=60 mL/min/1. 73m2 LAB CHEMISTRY METHOD 12/16/2024 4:48 PM EDT [facility] Comment:Calculation based on the Chronic Kidney Disease Epidemiology Collaboration (CKD-EPI) equation refit without adjustment for race. BUN/Creatinine Ratio 11.3 LAB CHEMISTRY METHOD 12/16/2024 4:48 PM EDT [facility] Calcium 8.7 8.5 - 10.5 mg/dL LAB CHEMISTRY METHOD 12/16/2024 4:48 PM EDT [facility] Blood Venous blood specimen / Unknown Venipuncture / Unknown 12/16/2024 4:00 PM EDT 12/16/2024 4:11 PM EDT us Berkley Norman MD LAB BLOOD ORDERABLES Final Resul t [facility] [address] [place] [address], * CT Head wo Contrast (12/16/2024 3:31 PM EDT) Anatomical Region Laterality Modality Head and Neck Computed Tomogra phy 12/16/2024 3:43 PM EDT Impressions 12/16/2024 3:44 PM EDT NO ACUTE INTRACRANIAL ABNORMALITY. -------- FINAL REPORT -------- Dictated By: Cathleen Morrison Dictated Date: 12/16/2024 15:43 ET Assigned Physician: Cathleen Morrison Reviewed and Electronically Signed By: Cathleen Morrison Signed Date: 12/16/2024 15:44 ET Workstation ID: [id number] Transcribed By: Self Edit Transcribed Date: 12/16/2024 [...] Signed Date: 12/16/2024 15:44 ET Workstation ID: [id number] Transcribed By: Self Edit Transcribed Date: 12/16/2024 15:43 ET Berkley Norman MD [facility] CT PROCEDURES Final Result * (ABNORMAL) Microalbumin creatinine urine ratio (06/17/2024 1:52 PM EDT) Creatinine, Urine 115.0 mg/dL LAB CHEMISTRY METHOD 06/17/2024 4:22 PM EDT [facility] Microalb, Ur 2,270.0(H ) 0.0 - 29.0 mg/L LAB CHEMISTRY METHOD 06/17/2024 4:22 PM EDT [facility] Comment:Results verified by repeat testing Microalb/Crea t Ratio 1,974(H) <30 mg/g creat LAB CHEMISTRY METHOD 06/17/2024 4:22 PM [facility] Urine Urine specimen obtained by clean catch procedure / Unknown Non-blood Collection / Unknown 06/17/2024 1:52 PM EDT 06/17/2024 2:38 PM EDT us Elvis Maravilla MD LAB URINE ORDERABLES Final Res ult [facility] [address] [place] [address], [place] [phone] from Last 3 Months or Most Recently Relevant to Health Maintenance Insurance [place] Care Teams Fitness And Wellness Instructor Relationship Specialty Start Date End Date Fallon Jalloh DO [address] [place] [address] PCP - General Internal Medicine 04/26/24
--- NOTE | 2025-01-10 21:39 | PHA.MEDREC ---
Pharmacy Consult ? Medication Reconciliation Pharmacy has completed the medication reconciliation.MED REC COMPLETE, PT TRANSFER FROM PSYCH FLOOR, UTILIZED MEDICAL RECORD TO UPDATE
[2025-01-10] MEDS: Albuterol Sulfate (0.083%) 2.5 MG/3 ML VIAL.NEB 10 MG INHALE (22:45)
[2025-01-11] VITALS: BP 155/80; PULSE 92; RESP 18; TEMP 36.6; O2SAT 100
[2025-01-11 02:25] LABS: Hematocrit 25.6 % (42.0-52.0); Hemoglobin 8.4 g/dl (14.0-18.0); Mean Corpuscular HGB Conc 32.8 g/dl (31.0-36.0); Mean Corpuscular Hemoglobin 27.8 pg (27.0-33.0); Mean Corpuscular Volume 84.8 fL (80.0-98.0); NRBC Abs Auto 0.000 X10*3/uL (0.0-0.012); NRBC Pct Auto 0.0 /100WBC (0.0-0.2); Platelet Count 247 X10*3/uL (160-400); Red Blood Count 3.02 X10*6/uL (4.60-5.80); White Blood Count 3.4 X10*3/uL (4.8-10.8)
[2025-01-11 02:36] LABS: Anion Gap 14 (12-20); Blood Urea Nitrogen 66 mg/dL (9-16); Calcium 9.8 mg/dL (8.4-10.2); Carbon Dioxide 25 mmol/L (22-29); Chloride 103 mmol/L (96-108); Estimated Glomerular Filt Rate 19; Potassium 4.9 mmol/L (3.3-5.1); Sodium 137 mmol/L (135-145)
[2025-01-11 03:35] VITALS: BP 167/81; PULSE 85; RESP 18; TEMP 36.8; O2SAT 96
[2025-01-11 07:16] LABS: Anion Gap 16 (12-20); Blood Urea Nitrogen 66 mg/dL (9-16); Calcium 10.3 mg/dL (8.4-10.2); Carbon Dioxide 25 mmol/L (22-29); Chloride 103 mmol/L (96-108); Estimated Glomerular Filt Rate 18; Potassium 5.1 mmol/L (3.3-5.1); Sodium 139 mmol/L (135-145)
[2025-01-11 07:36] VITALS: BP 146/86; PULSE 87; RESP 16; TEMP 36.5; O2SAT 100
[2025-01-11 08:04] LABS: Glucose, Whole Blood 268 mg/dL (60-115)
[2025-01-11] MEDS: ARIPiprazole 30 MG TABLET PO (08:27)
--- NOTE | 2025-01-11 09:13 | MHC.CM.PN ---
CM met with Patient at bedside; he refused to sign the IMM but it was discussed verbally with him and he accepted the original (a copy was also placed on the chart). [facility] and it is Patient's goal to return there. CM has initiated and will follow for dc planning. PCP is from [facility] and Patient would need assist with transportation if dc'd to home. Patient is connected with [facility] for therapy & med management. Documentation indicates that Partial Hospitalization is being considered. There is no HCP and there is a question about capacity.
--- NOTE | 2025-01-11 10:45 | MHC.CM.PN ---
CM confirmed with MD that per Care Tram, Patient will return to [facility].
--- NOTE | 2025-01-11 11:02 | HO.PM.IMPN ---
Subjective Subjective Date of Service: 01/11/25 Interval History: no complaints Physical Exam Exam: Exam: General: AO X 3, no acute distress Resp: CTA bilateral, no accessory muscles used CVS: S1,S2,RRR GI: soft, non tender, non distended Neuro: motor grossly intact, alert Vital Signs: Vital Signs: Last Vital Signs Temp 97.7 F 01/11/25 07:36 Pulse 87 01/11/25 07:36 Resp 16 01/11/25 07:36 BP 146/86 H 01/11/25 07:36 Pulse Ox 100 01/11/25 07:36 O2 Del Method Room Air 01/11/25 07:36 Objective Data Active Medications Acetaminophen (Acetaminophen 325 Mg Tablet) 650 mg PO Q6H PRN PRN Reason: Pain, Mild 1-3,fever,headache Albuterol/Ipratropium (Albuterol/Iprat 2.5/0.5mg 3 Ml Ampul.Neb) 3 ml INHALE RQ4H WHILE AWAKE PRN PRN Reason: sob Aripiprazole (Aripiprazole 30 Mg Tablet) 30 mg PO DAILY [facility] Last Admin: 01/11/25 08:27 Dose: 30 mg Documented By: VANNESA Atorvastatin Calcium (Atorvastatin Calcium 40 Mg Tablet) 40 mg PO DAILY [facility] Last Admin: 01/11/25 08:27 Dose: 40 mg Documented By: VANNESA Benztropine Mesylate (Benztropine Mesylate 1 Mg Tablet) 2 mg PO BID [facility] Last Admin: 01/11/25 08:27 Dose: 2 mg Documented By: VANNESA Bisacodyl (Bisacodyl 5 Mg Tablet.) 10 mg PO BEDTIME PRN PRN Reason: Constipation Calcitriol (Calcitriol 0.25 Mcg Capsule) 0.25 mcg PO DAILY [facility] Last Admin: 01/11/25 08:27 Dose: 0.25 mcg Documented By: VANNESA Calcium Carbonate (Calcium Carbonate 750 Mg Tab.Chew) 750 mg PO Q4H PRN PRN Reason: Heartburn Clonidine HCl (Clonidine Hcl 0.1 Mg Tablet) 0.1 mg PO TID PRN; Protocol PRN Reason: SBP > 160 Dextrose (Dextrose 50 % 25 Gm/50 Ml Syringe) 25 gm IVPUSH Q15M PRN; Protocol PRN Reason: per Hypoglycemia Standing Ord. Docusate Sodium (Docusate Sodium 100 Mg Capsule) 100 mg PO DAILY [facility] Last Admin: 01/11/25 08:27 Dose: 100 mg Documented By: VANNESA Enoxaparin Sodium (Enoxaparin Sodium 30 Mg/0.3 Ml Syringe) 30 mg SUBCUT Q24H [facility] Last Admin: 01/10/25 23:06 Dose: Not Given Documented By: CM Non-Admin Reason: Patient Refused Escitalopram Oxalate (Escitalopram Oxalate 20 Mg Tablet) 20 mg PO DAILY [facility] Last Admin: 01/11/25 08:27 Dose: 20 mg Documented By: VANNESA Famotidine (Famotidine 20 Mg Tablet) 10 mg PO Q48H [facility] Glucose (Glucose Gel 15 Gm Gel..Gram.) 15 gm PO Q15M PRN; Protocol PRN Reason: per Hypoglycemia Standing Ord. Insulin Human Lispro (Insulin Lispro 100 Unit/Ml 3 Ml Vial) 0 unit SUBCUT QIDACHS [facility]; Protocol Last Admin: 01/11/25 08:26 Dose: 6 unit Documented By: VANNESA Lamotrigine (Lamotrigine 100 Mg Tablet) 200 mg PO BID [facility] Last Admin: 01/11/25 08:27 Dose: 200 mg Documented By: VANNESA Loratadine (Loratadine 10 Mg Tablet) 10 mg PO Q48H [facility] Last Admin: 01/11/25 08:27 Dose: 10 mg Documented By: VANNESA Magnesium Hydroxide (Milk Of Magnesia 30 Ml Oral.Susp) 30 ml PO DAILY PRN PRN Reason: Constipation Melatonin (Melatonin 3 Mg Tablet) 6 mg PO BEDTIME PRN PRN Reason: Insomnia Olanzapine (Olanzapine 10 Mg Tablet) 30 mg PO BEDTIME [facility] Quetiapine Fumarate (Quetiapine Fumarate 50 Mg Tablet) 50 mg PO TID PRN PRN Reason: severe agitation/psychosis Quetiapine Fumarate (Quetiapine Fumarate 300 Mg Tablet) 300 mg PO BEDTIME [facility] Sodium Chloride (0.9 % Sodium Chloride Flush 3 Ml Syringe) 3 ml IVFLUSH QSHIFT [facility] Last Admin: 01/11/25 09:46 Dose: Not Given Documented By: VANNESA Non-Admin Reason: No Access Sodium Zirconium Cyclosilicate (Sodium Zirconium Cyclosilicate 10 Gm Powd.Pack) 10 gm PO DAILY [facility] Stop: 01/16/25 09:01 Last Admin: 01/11/25 08:27 Dose: 10 gm Documented By: VANNESA Labs 01/11/25 02:19 01/11/25 06:28 Labs: Laboratory Results - last 24 hr 01/11/25 01/11/25 01/11/25 02:19 06:28 07:54 MCV 84.8 MCH 27.8 MCHC 32.8 RDW 12.8 Plt Count 247 MPV 8.6 L Absolute Nucleated RBC 0.000 Nucleated RBC % (auto) 0.0 Anion Gap 14 16 Estim Creat Clear Calc TNP TNP Estimated GFR 19 18 POC Glucose 268 H Random Glucose 279 H 200 H Calcium 9.8 10.3 H Assessment and Plan (1) Hyperkalemia: Status: Acute Plan 64M PMH diabetes, CKD 4, hypertension, bipolar, depression admitted to inpatient psychiatry on 12/30/2024 for hypomania, being transfered to medical service for hyperkalemia 6.7 Acute hyperkalemia much improved after albuerol and lokelma now 5.1 dc losartan nephro appreciated, continue daily lokelma for now medciall cleared for psych bed CKD IV stable dm insulin bipolar continue mood stabilizers dvt prophylaxis - lovenox full code reason for continued hospitalization:awaiting psych bed Quality Stroke Does the patient have a stroke diagnosis?: No VTE Prior VTE?: No VTE Risk Level:: Medical - moderate - high VTE Device Contraindication: Treatment Not Indicated VTE Drug Contraindication: N/A - Med Ordered
--- NOTE | 2025-01-11 11:06 | PM.DS ---
DS: Providers Provider Date of Service: 01/11/25 Date of admission: 01/10/25 20:21 Date of discharge: 01/11/25 Primary care physician: Unknown Physician Consults: 01/10/25 18:35 Consult to Nephrology Routine Consulting Provider: Liz Hendrix Reason for consultation: hyperk, ckd 01/11/25 09:37 Inpt CARE Team Crisis Consult Routine Comment: Reason for consultation: medically cleared DS: Diagnosis Discharge Diagnosis (1) Hyperkalemia: Status: Acute DS: Summary Hospital Course Hospital Course: from initial hpi: 64M PMH diabetes, CKD 4, hypertension, bipolar, depression admitted to inpatient psychiatry on 12/30/2024 for hypomania. Labs were done on 01/10/2025 shown to have a potassium of 6.7 non hemolyzed, creatinine of 3.47. patient denies any symptoms. he refused treatment or further work up. after discussion with psychiatry, it was felt patient does not have adequeate capacity to make this decision so he will be transfered to telemetry floor. hospital course: Patient was admitted for acute hyperkalemia. Was given Lokelma and albuterol and potassium significantly improved. It is 5.1 at time of discharge. Was seen by Nephrology recommended daily low, and monitoring as well as low potassium diet. Losartan has been discontinued. For CKD 4 remained stable. For diabetes was continued on insulin. For bipolar disorder was continued on mood stabilizers and seen by care team who recommended transfer back to inpatient psychiatry. Time Attestation Discharge Coordination Time (in mins): 37 Quality: Safe Use of Opioids Does Pt have an Active Cancer Diagnosis on the Problem List?: No Quality: Stroke Does the patient have a stroke diagnosis?: No Physical Exam Exam: Exam: General: AO X 3, no acute distress Resp: CTA bilateral, no accessory muscles used CVS: S1,S2,RRR GI: soft, non tender, non distended Neuro: motor grossly intact, alert Vital Signs: Vital Signs: Last Vital Signs Temp 97.7 F 01/11/25 07:36 Pulse 87 01/11/25 07:36 Resp 16 01/11/25 07:36 BP 146/86 H 01/11/25 07:36 Pulse Ox 100 01/11/25 07:36 O2 Del Method Room Air 01/11/25 07:36 DS: Data Data Completed and Pending Labs on day of discharge: Laboratory Results - last 24 hr 01/11/25 01/11/25 01/11/25 02:19 02:19 06:28 WBC 3.4 L RBC 3.02 L Hgb 8.4 L Hct 25.6 L MCV 84.8 MCH 27.8 MCHC 32.8 RDW 12.8 Plt Count 247 MPV 8.6 L Absolute Nucleated RBC 0.000 Nucleated RBC % (auto) 0.0 Sodium 137 139 Potassium Cancelled 4.9 D 5.1 Chloride 103 103 Carbon Dioxide 25 25 Anion Gap 14 16 BUN 66 H 66 H Creatinine 3.39 H 3.41 H Estim Creat Clear Calc TNP TNP Estimated GFR 19 18 POC Glucose Random Glucose 279 H 200 H Calcium 9.8 10.3 H 01/11/25 07:54 WBC RBC Hgb Hct MCV MCH MCHC RDW Plt Count MPV Absolute Nucleated RBC Nucleated RBC % (auto) Sodium Potassium Chloride Carbon Dioxide Anion Gap BUN Creatinine Estim Creat Clear Calc Estimated GFR POC Glucose 268 H Random Glucose Calcium Discharge Plan Discharge Anticipated Discharge Date/Time: 01/11/25 11:04 Patient Disposition: Xfer Other Discharge Diagnosis: hyperK Referrals: Physician,Unknown J [Primary Care Provider, Medical] - 1 Week Discharge Medications: New Lokelma 10 gram Powder In Packet 10 g PO DAILY Qty: 0 0RF amlodipine 10 mg Tablet 10 mg PO DAILY Qty: 0 0RF Protocol: Hold for SBP< HOLD for SBP < : 90 Continued famotidine 20 mg tablet 20 mg PO DAILY docusate sodium 100 mg capsule 100 mg PO DAILY calcitriol 0.25 mcg capsule 0.25 mcg PO DAILY dapagliflozin propanediol [Farxiga] 10 mg tablet 10 mg PO DAILY ferrous sulfate 325 mg (65 mg iron) tablet,delayed release (DR/EC) 325 mg PO Q2D acetaminophen 325 mg Tablet 650 mg PO Q6H PRN (Reason: Headache/Pain, Scale 1-10) Qty: 0 0RF loratadine 10 mg Tablet 10 mg PO Q2D Qty: 0 0RF quetiapine 300 mg tablet 300 mg PO BEDTIME Qty: 15 0RF benztropine 2 mg tablet 2 mg PO BID Qty: 30 0RF aripiprazole 30 mg tablet 30 mg PO DAILY Qty: 15 0RF omeprazole 30 mg 30 mg DIRECTED atorvastatin 40 mg Tablet 40 mg PO DAILY Qty: 0 0RF clonidine HCl 0.1 mg Tablet 0.1 mg PO TID PRN (Reason: Sbp > 160) Qty: 0 0RF Protocol: Hold for SBP/HR < HOLD for SBP < : 90 HOLD for HR < : 60 olanzapine 10 mg Tablet 30 mg PO BEDTIME Qty: 0 0RF bisacodyl 5 mg Tablet,Delayed Release (Dr/Ec) 10 mg PO BEDTIME PRN (Reason: Constipation) Qty: 0 0RF quetiapine 50 mg Tablet 50 mg PO TID PRN (Reason: severe agitation/psychosis) Qty: 0 0RF lamotrigine [Lamictal] 200 mg tablet 200 mg PO BID Naphcon-A 0.025-0.3 % drops 1 drp ophthalmic (eye) QD-QID PRN (Reason: itch) escitalopram oxalate 20 mg tablet 20 mg PO DAILY Diet: low potassium diet Activity on Discharge: As tolerated Stand Alone Forms: Patient Portal Discharge page Print Language: Danish Care Plan Goals: Avoid hyperkalemia Health Concerns: Hyperkalemia Plan of Treatment: Losartan discontinued, daily low lokelma, monitor potassium Assessment: see above
[2025-01-11 11:11] LABS: Glucose, Whole Blood 211 mg/dL (60-115)
[2025-01-11 11:45] VITALS: PULSE 88; RESP 16; TEMP 37; O2SAT 100
[2025-01-11 11:58] VITALS: BP 165/90
--- NOTE | 2025-01-11 12:40 | P.CONNP_ITS ---
History of Present Illness Reason for Consult Consult date: 01/11/25 Chief Complaint Chief complaint: Hyperkalemia History of Present Illness Narrative: RTANE consulted for HyperK in setting of adv CKD. 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 Our records indicate he sees Dr Maravilla routinely and is closely followed by him and identifies him clearly as his [facility] H/O DM, hypertension, bipolar, depression Review of Systems Review of Systems Yes all other systems are reviewed and are negative PMFSH Past Medical History Medical History Hyperkalemia Anemia in chronic kidney disease (CKD) HTN (hypertension) CKD (chronic kidney disease) stage 3, GFR 30-59 ml/min Diabetes Social History Social History Household Members: Family Household Members Other:: Mother Housing: House Do you presently have visiting nurse or other home services: No Patient Tobacco Use Status: Former Tobacco user Tobacco use type: Cigarette e-Cigarette/Vaping Use: Never Used Second Hand Smoke Exposure: No Currently Displaying Signs/Symptoms of Drug Intoxication Withdrawal: No Advance Directives: No Advance Directives Information Provided: No Do you have a plan to hurt others: No Plan Recently lost weight without trying: No Eating poorly because of decreased appetite: No Nutrition Risks: No Nutritional Risk Poor oral hygiene: No service: No Sexual orientation: Decline to Answer Meds Allergies Allergy/AdvReac Type Severity Reaction Status Date / Time No Known Allergies Allergy Verified 12/17/24 20:12 Active Medications: Current Medications Acetaminophen (Acetaminophen 325 Mg Tablet) 650 mg PO Q6H PRN PRN Reason: Pain, Mild 1-3,fever,headache Albuterol/Ipratropium (Albuterol/Iprat 2.5/0.5mg 3 Ml Ampul.Neb) 3 ml INHALE RQ4H WHILE AWAKE PRN PRN Reason: sob Amlodipine Besylate (Amlodipine Besylate 10 Mg Tablet) 10 mg PO DAILY [facility]; Protocol Last Admin: 01/11/25 12:10 Dose: 10 mg Aripiprazole (Aripiprazole 30 Mg Tablet) 30 mg PO DAILY [facility] Last Admin: 01/11/25 08:27 Dose: 30 mg Atorvastatin Calcium (Atorvastatin Calcium 40 Mg Tablet) 40 mg PO DAILY [facility] Last Admin: 01/11/25 08:27 Dose: 40 mg Benztropine Mesylate (Benztropine Mesylate 1 Mg Tablet) 2 mg PO BID [facility] Last Admin: 01/11/25 08:27 Dose: 2 mg Bisacodyl (Bisacodyl 5 Mg Tablet.Dr) 10 mg PO BEDTIME PRN PRN Reason: Constipation Calcitriol (Calcitriol 0.25 Mcg Capsule) 0.25 mcg PO DAILY [facility] Last Admin: 01/11/25 08:27 Dose: 0.25 mcg Calcium Carbonate (Calcium Carbonate 750 Mg Tab.Chew) 750 mg PO Q4H PRN PRN Reason: Heartburn Clonidine HCl (Clonidine Hcl 0.1 Mg Tablet) 0.1 mg PO TID PRN; Protocol PRN Reason: SBP > 160 Dextrose (Dextrose 50 % 25 Gm/50 Ml Syringe) 25 gm IVPUSH Q15M PRN; Protocol PRN Reason: per Hypoglycemia Standing Ord. Docusate Sodium (Docusate Sodium 100 Mg Capsule) 100 mg PO DAILY [facility] Last Admin: 01/11/25 08:27 Dose: 100 mg Enoxaparin Sodium (Enoxaparin Sodium 30 Mg/0.3 Ml Syringe) 30 mg SUBCUT Q24H [facility] Last Admin: 01/10/25 23:06 Dose: Not Given Escitalopram Oxalate (Escitalopram Oxalate 20 Mg Tablet) 20 mg PO DAILY [facility] Last Admin: 01/11/25 08:27 Dose: 20 mg Famotidine (Famotidine 20 Mg Tablet) 10 mg PO Q48H [facility] Glucose (Glucose Gel 15 Gm Gel..Gram.) 15 gm PO Q15M PRN; Protocol PRN Reason: per Hypoglycemia Standing Ord. Insulin Human Lispro (Insulin Lispro 100 Unit/Ml 3 Ml Vial) 0 unit SUBCUT QIDACHS [facility]; Protocol Last Admin: 01/11/25 11:51 Dose: 4 unit Lamotrigine (Lamotrigine 100 Mg Tablet) 200 mg PO BID [facility] Last Admin: 01/11/25 08:27 Dose: 200 mg Loratadine (Loratadine 10 Mg Tablet) 10 mg PO Q48H [facility] Last Admin: 01/11/25 08:27 Dose: 10 mg Magnesium Hydroxide (Milk Of Magnesia 30 Ml Oral.Susp) 30 ml PO DAILY PRN PRN Reason: Constipation Melatonin (Melatonin 3 Mg Tablet) 6 mg PO BEDTIME PRN PRN Reason: Insomnia Olanzapine (Olanzapine 10 Mg Tablet) 30 mg PO BEDTIME [facility] Quetiapine Fumarate (Quetiapine Fumarate 50 Mg Tablet) 50 mg PO TID PRN PRN Reason: severe agitation/psychosis Last Admin: 01/11/25 11:17 Dose: 50 mg Quetiapine Fumarate (Quetiapine Fumarate 300 Mg Tablet) 300 mg PO BEDTIME [facility] Sodium Chloride (0.9 % Sodium Chloride Flush 3 Ml Syringe) 3 ml IVFLUSH QSHIFT [facility] Last Admin: 01/11/25 09:46 Dose: Not Given Sodium Zirconium Cyclosilicate (Sodium Zirconium Cyclosilicate 10 Gm Powd.Pack) 10 gm PO DAILY [facility] Stop: 01/16/25 09:01 Last Admin: 01/11/25 08:27 Dose: 10 gm Home Medications ?Medication ?Instructions ?Recorded ?Confirmed ?Last Taken ?Type calcitriol 0.25 mcg capsule 0.25 mcg PO DAILY 12/17/24 01/10/25 12/24/24 History dapagliflozin propanediol 10 mg 10 mg PO DAILY 5 01/10/25 Unknown History tablet (Farxiga) docusate sodium 100 mg capsule 100 mg PO DAILY 5 01/10/25 12/24/24 History famotidine 20 mg tablet 20 mg PO DAILY 12/17/2401/0112/24/24 History ferrous sulfate 325 mg (65 mg 325 mg PO Q2D 12/17/2403/12/24 Unknown History iron) tablet,delayed release omeprazole 30 mg DIRECTED 12/29/24 1 Unknown History escitalopram oxalate 20 mg tablet 20 mg PO DAILY 01/1001/10/25 Unknown History lamotrigine 200 mg tablet 200 mg PO BID 01/10/2501/10 Unknown History (Lamictal) naphazoline 0.025 %-pheniramine 1 drp ophthalmic (eye) QD-QID PRN 01/10/25 01/10/25 Unknown History 0.3 % eye drops (Naphcon-A) itch Physical Exam Vital Signs: Last Vital Signs Temp 98.6 F 01/11/25 11:45 Pulse 88 01/11/25 11:45 Resp 16 01/11/25 11:45 BP 165/90 H 01/11/25 11:58 Pulse Ox 100 01/11/25 11:45 O2 Del Method Room Air 01/11/25 11:45 Results Lab Results 01/11/25 02:19 01/11/25 06:28 Lab results: Chemistry 01/11/25 01/11/25 01/11/25 02:19 02:19 06:28 Sodium 137 139 Potassium Cancelled 4.9 D 5.1 Carbon Dioxide 25 25 BUN 66 H 66 H Creatinine 3.39 H 3.41 H Calcium 9.8 10.3 H Hematology 01/11/25 02:19 WBC 3.4 L Hgb 8.4 L Plt Count 247 Assessment and Plan (1) Hyperkalemia: Status: Acute Plan CKD 4: DN/HTN renal dis with previous BSL SCr 2.5--3.0 and may be at new BSL Nephrogenic anemia: check Fe stores and may be candidate for EPO in future MBD of CKD: track CA/Phos/PTH HyperK: controlle after Lokelma REC: cont to track renal func and K; may need routine K-binder to controll K if incr again, check Fe sotres Phos and PTH Will follow w team Procedures Date of Service Date of Service: 01/11/25
== END 2025-01-11 14:13 | disposition other institution (70) | DRG 641 ==
PROVIDERS: Student in an Organized Health Care Education/Training Program; Admitting Provider Internal Medicine; PCP Surgery; Visit Provider Internal Medicine
DX: E87.5 Hyperkalemia (principal); N18.4 Chronic kidney disease, stage 4 (severe); I12.9 Hypertensive chronic kidney disease with stage 1 through stage 4 chronic kidney disease, or unspecified chronic kidney disease; D63.1 Anemia in chronic kidney disease; N25.0 Renal osteodystrophy; E11.22 Type 2 diabetes mellitus with diabetic chronic kidney disease; F31.9 Bipolar disorder, unspecified; Z79.899 Other long term (current) drug therapy
CPT/HCPCS: 80048; 82947; 85027; 93005; S9485

== ENCOUNTER → 2025-01-10 20:21 | Outpatient (BNV) | payer MEDICARE, MEDICAID, SELFPAY | PROVIDERS: Admitting Provider Internal Medicine; Visit Provider Internal Medicine Cardiovascular Disease | DX: R94.31 Abnormal electrocardiogram [ECG] [EKG] (principal); E87.5 Hyperkalemia | CPT/HCPCS: 93010 ==

== ENCOUNTER → 2025-01-10 | Outpatient (BNV) | payer MEDICARE, MEDICAID, SELFPAY | PROVIDERS: Admitting Provider Internal Medicine; Visit Provider Internal Medicine | DX: E87.5 Hyperkalemia (principal) | CPT/HCPCS: 99223 ==

== ENCOUNTER 2025-01-11 14:20 | Outpatient (BNV) | payer MEDICARE, MEDICAID, SELFPAY | END 2025-02-05 17:54 | PROVIDERS: Admitting Provider Clinical Nurse Specialist Psychiatric/Mental Health, Adult; Visit Provider Student in an Organized Health Care Education/Training Program | DX: Z13.83 Encounter for screening for respiratory disorder NEC (principal) | CPT/HCPCS: 71046 ==

== ENCOUNTER 2025-01-11 14:20 | Inpatient (IN) | payer MEDICARE, MEDICAID, SELFPAY ==
--- NOTE | ~2025-01-11 | XR_ITS ---
EXAMINATION: XR CHEST CLINICAL INFORMATION: mental status changes COMPARISON: None available. TECHNIQUE: PA view of the chest was obtained. FINDINGS: No prominence of the interstitial markings. No gross consolidation pleural effusion or pneumothorax. Hyperinflation. Cardiomediastinal silhouette size is normal. Multilevel thoracolumbar spondylosis. XR/XR chest 1V IMPRESSION: Concerning acute small airway inflammatory processes versus multifocal pneumonia versus mild interstitial edema. Electronically signed by: Daniel Agosto MD 02/03/2025 11:51 AM TRUNG
--- NOTE | ~2025-01-11 | MR_ITS ---
EXAMINATION: MR BRAIN WITHOUT CONTRAST CLINICAL INFORMATION: Mental status changes. COMPARISON: None available. TECHNIQUE: MRI of the brain was obtained using routine sequences without contrast. Examination performed on a 1.5 [employer] Siemens high-field unit. Standard sequences utilized. FINDINGS: There is no diffusion restriction. There is no intracranial hemorrhage, acute infarction, mass effect, or edema. Ventricles, sulci, and cisterns are diffusely somewhat prominent, in keeping with mildly age advanced cerebral and cerebellar involutional changes. No shift of midline. There are a few scattered punctate and minimally confluent foci of white matter T2 hyperintensity in the periventricular, subcortical, and hemispheric deep white matter. These foci are nonspecific but statistically relate to small vessel ischemic changes. There are larger areas of encephalomalacia within the bilateral inferomedial cerebellar hemispheres, including the inferior cerebellar vermis, within the bilateral PICA territories. There is associated hemosiderin deposition within the left-sided infarct consistent with old microhemorrhage. No additional abnormal hemosiderin deposition. Midline structures appear normally formed. The pituitary gland appears normal. Posterior fossa structures appear normal. Cerebellar tonsils are appropriately located. Major flow voids are preserved within the skull base. The globes and orbital contents demonstrate no abnormalities. Paranasal sinuses are normally pneumatized bilaterally. The mastoids and tympanic cavities are normally aerated. Extracranial soft tissues demonstrate no abnormalities. No suspicious bone marrow changes are evident. Atlantoaxial joint demonstrates mild degenerative changes. MR/MR head/brain wo con IMPRESSION: 1. No evidence of intracranial hemorrhage, acute infarction, mass effect, or edema. 2. 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 3. There are mild white matter changes of small vessel ischemia. Electronically signed by: Jaden Talbert MD 02/04/2025 04:18 PM [facility]
--- NOTE | ~2025-01-11 | US_ITS ---
EXAMINATION: US ABDOMEN LIMITED CLINICAL INFORMATION: Elevated liver enzymes.. COMPARISON: None available. TECHNIQUE: Real-time imaging of the right upper quadrant abdominal viscera. FINDINGS: PANCREAS: Visualized portions are unremarkable. LIVER: The liver is normal in size. Right hepatic lobe measures 15.0 cm in length. The liver contour is normal. Mildly diffusely increased parenchymal echogenicity, most likely on the basis of fatty infiltration. No suspicious hepatic lesion or intrahepatic biliary dilatation. GALLBLADDER: The gallbladder is physiologically distended without evidence of stones, sludge, polyps, wall thickening or pericholecystic fluid. Negative sonographic Montes's sign. COMMON BILE DUCT: Normal in caliber measuring 0.3 cm in diameter. RIGHT KIDNEY: No hydronephrosis. No renal calculi or suspicious focal parenchymal lesions. The kidney measures approximately 10.0 cm in maximum dimension. There are several tiny renal cysts present, the largest in the midpole measuring 1.4 cm. FREE FLUID: None. US/US abdomen limited IMPRESSION: 1. Mildly diffusely increased hepatic echogenicity in keeping with steatosis. No suspicious focal lesion or intrahepatic biliary dilatation. 2. Normal gallbladder. No extrahepatic biliary dilatation. 3. Several tiny right renal simple cysts. Electronically signed by: Jaden Talbert MD 02/11/2025 04:50 PM EST
--- NOTE | ~2025-01-11 | XR_ITS ---
CLINICAL HISTORY: Repeat-hospitalist, pulmonology recommendation --- Additional Notes or Special Instructions: To compare to earlier exam this week. 2 view chest x-ray Comparison: CR/SR - XR CHEST 1 VIEW - 02/03/25 11:39 EST Findings: No consolidation or effusion. Normal size heart. No acute fracture. IMPRESSION: 1. No acute findings. This document has been electronically signed by: Karen Figueroa MD on 02/05/2025 18:30:29
--- NOTE | ~2025-01-11 | XR_ITS ---
EXAMINATION: XR SKULL CLINICAL INFORMATION: Mental status changes COMPARISON: None available. TECHNIQUE: AP and lateral views FINDINGS: No acute cortical disruption, bony calvarium. No metallic or radiopaque foreign body. Paranasal sinuses are pneumatized without gross air-fluid levels. No gross lytic or blastic lesions. XR/XR skull <4V IMPRESSION: Negative for foreign body or gross acute fracture, skull. Electronically signed by: Daniel Agosto MD 02/03/2025 11:52 AM [facility]
--- NOTE | ~2025-01-11 | XR_ITS ---
EXAMINATION: XR ABDOMEN KUB CLINICAL INDICATION: mental status changes COMPARISON: None available. TECHNIQUE: AP view of the abdomen. FINDINGS: Moderate to large volume of stool is present throughout the colon, most pronounced in the rectal region. Column shaped calcific density extends cephalad from the right greater trochanter. XR/XR abdomen 1V IMPRESSION: Large to moderate volume of stool, most pronounced in the rectum. Suspected calcific tendinitis involving gluteal tendons on the right, correlate for symptoms of right hip pain. Electronically signed by: Malcom Batres MD 02/03/2025 11:52 AM [facility]
[2025-01-11 14:37] VITALS: BP 192/86; PULSE 104; RESP 20; TEMP 36.9; O2SAT 98
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
--- NOTE | 2025-01-11 15:50 | PC.ADMIT ---
Pt arrived to the unit from [facility] at 1415. Skin check/contraband search completed. Pt re-oriented to unit. Pt placed on 15 minute safety checks. Pt signed a CV. Pt was treated on [facility] for hyperkalemia. Last K+ 5.1. Pt refused to sign legals. Safety tool & treatment plan completed. Pt is isolative to his room & self at this time. Refusing to answer questions at this time. In behavioral control. Denies SI & HI at this time.
--- OUTSIDE RECORDS SUMMARY | 2025-01-11 16:00 | XMS_ITS | Encounter Summary ---
Author Organization [facility] Address [address] [facility] [address] [place] [address] Phone Care Team Providers Care Grader Patrol Name Role Phone Mervat Watts TUMBLER DRIER OPERATOR Primary Care Provider [phone] Reason for Visit * Reason Comments Med Refill Encounter Details Date Type Department Care Team (Late st Contact Info) Description 04/27/2024 Refill [facility] [address] [facility] [address] [place] [address] Tadeo Melendez MD [address] [address] Social History Tobacco Use Types [...] Visit [facility] [address] [address] Elvis Maravilla MD [address] [address] documented as of this encounter Visit Diagnoses Not on filedocumented in this encounter Care Teams Grader Patrol Relationship Specialty Start Date End Date Mervat Watts, TUMBLER DRIER OPERATOR [address] [place] [id number] PCP - General Nurse Practitioner 09/18/20 documented as of this encounter
--- OUTSIDE RECORDS SUMMARY | 2025-01-11 16:00 | XMS_ITS | Clinical Summary ---
Author Organization [facility] Address [address] [phone] Phone Care Team Providers Care Patient Care Manager Name Role Phone Unavailable Primary Care Provider [...] It is not the complete legal health record.[facility]
--- OUTSIDE RECORDS SUMMARY | 2025-01-11 16:00 | XMS_ITS | Clinical Summary ---
Author Organization [facility] Address [address] [place] [address] Phone Care Team Providers Care Psychiatric Lpn Name Role Phone Mervat Watts NP Primary Care Provider [phone] Allergies No known active allergies Medications ARIPiprazole [...] Overview (09/17/2021): Bipolar Type 1. Psychiatry through [facility] Chronic kidney disease 05/28/2020 Overview (09/11/2022): Dr. Chu. 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 [place] [place] [facility] [address] [phone] Elvis Maravilla MD [address] [phone] Health Maintenance Due Date Last Done Comments [...] included. Iron 50 50 - 160 mcg/dL [facility] TIBC 279 250 - 450 mcg/dL [facility] Iron Saturation (TSat) 18(L) 20 - 50 % [facility] Blood Venous blood / Unknown 12/24/2024 10:39 AM EDT 12/24/2024 11:26 AM EDT Elvis Maravilla MD LAB BLOOD ORDERABLES Final Resul t [facility] [address] [place] [address] * (ABNORMAL) CBC without diff (12/24/2024 10:39 AM EDT) Only the most recent of2 resultswithin the time period is included. WBC 2.4(L) 4.8 - 10.8 [facility] RBC 3.30(L) 4.50 - 5.50 M/[facility] Hgb 9.1(L) 13.5 - 17.5 g/dL [facility] Hematocrit 28.2(L) 42.0 - 54.0 % [facility] MCV 84.9 79.0 - 98.0 [facility] MCH 27.4 27.0 - 32.0 pcg [facility] MCHC 32.3 32.0 - 37.0 g/dL [facility] RDW 12.9 11.0 - 15.0 % [facility] Platelets 338 130 - 400 K/[facility] MPV 8.8 7.0 - 11.0 [facility] nRBC Count 0.0 <1.0 % [facility] NRBC Absolute 0.00 <0.10 K/mcL [facility] Blood Venous blood / Unknown 12/24/2024 10:39 AM EDT 12/24/2024 11:28 AM EDT us Elvis Maravilla MD LAB BLOOD ORDERABLES Final Resul t Performing Organization Address City/[facility]/ZIP Co de Phone Number [facility] [address] [place] [address] * Ferritin (12/24/2024 10:39 AM EDT) Only the most recent of2 resultswithin the time period is included. Pathologist [facility] Ferritin 318 26 - 388 ng/mL [facility] Blood Venous blood / Unknown 12/24/2024 10:39 AM EDT 12/24/2024 11:26 AM EDT us Elvis Maravilla MD LAB BLOOD ORDERABLES Final Resul t Performing Organization Address City/[facility]/ZIP Co de Phone Number [facility] [address] [place] [address] * (ABNORMAL) Renal funtion panel (12/24/2024 10:39 AM EDT) Only the most recent of2 resultswithin the time period is included. [facility] Sodium 138 133 - 145 mmol/L [facility] Potassium 4.9 3.5 - 5.5 mmol/L [facility] Chloride 102 96 - 110 mmol/L [facility] Bicarbonate (CO2) 31 21 - 32 mmol/L [facility] Anion Gap 5 3 - 11 [facility] Glucose 134(H) 70 - 100 mg/dL [facility] BUN 50(H) 5 - 25 mg/dL [facility] Creatinine Serum 3.24(H) 0.70 - 1.30 mg/dL [facility] eGFR 21(L) >=60 mL/min/1. 73m2 [facility] Comment:Calculation based on the Chronic Kidney Disease Epidemiology Collaboration (CKD-EPI) equation refit without adjustment for race. BUN/Creatinine Ratio 15.4 [facility] Albumin 3.9 3.2 - 5.0 g/dL [facility] Calcium 9.0 8.5 - 10.5 mg/dL [facility] Phosphorus 3.1 2.5 - 4.5 mg/dL [facility] Blood Venous blood / Unknown 12/24/2024 10:39 AM EDT 12/24/2024 11:26 AM EDT us Elvis Maravilla MD LAB BLOOD ORDERABLES Final Resul t [facility] [address] [place] [address] from Last 3 Months Insurance Medicare Medicaid [place] Medicare Medicaid [place] Care Teams Psychiatric Lpn Relationship Specialty Start Date End Date Mervat Watts NP [address] [place] [address] PCP - General Nurse Practitioner 09/18/20
--- OUTSIDE RECORDS SUMMARY | 2025-01-11 16:00 | XMS_ITS | Clinical Summary ---
Author Organization [place] [address] [facility] Building Address [address] [place], [place] [address] [address] Phone Care Team Providers Care Guest Services Attendant Name Role Phone Fallon Jalloh DO Primary Care Provider [phone] Allergies No known active allergies Medications loratadine [...] EDT - 12/29/2024 4:39 PM EDT Emergency [facility] Emergency [address] [place] [address] Jonas Gonzales MD Gordon, Ruth, MD Landry, Jonathan P, MD Paranoid behavior ([facility] V24, [facility] V28) (Primary Dx); Stage 4 chronic kidney disease ([facility] V24, [facility] V28) Discharge Disposition: [facility] 12/16/2024 2:27 PM EDT - 12/17/2024 8:25 PM EDT Emergency [facility] Emergency [address] [place] [address] Berkley Norman MD Amardey-Wellington, Aaron, MD Kokkinos, Erika, MD Goebel, Mathew, MD Paranoia ([facility] V24, [facility] V28) (Primary Dx); Altered mental status, unspecified altered mental status type Discharge Disposition: [facility] from Last 3 Months Surgical History Surgery Date Site/Laterality Comments COLONOSCOPY PROCEDURE:COLONOSCOPY OTHER SURGICAL HISTORY PROCEDURE:left ankle surgery Medical History Medical History Date Comments Diabetes mellitus ([facility] V24, [facility] V28) DX:Diabetes mellitus ([facility]) Depression DX:Depression Renal failure DX:Renal failure Anemia DX:Anemia Hypertension DX:Hypertension Anxiety DX:Anxiety Bipolar 1 disorder ([facility] V24, [facility] V28) DX:Bipolar 1 disorder ([facility]) Family History Medical History Relation Name [...] Control Test (HGBA1C) 02/09/2022 Depression Screening 03/03/2024 COVID-19 Vaccine ( season) 2024 11/18/2023, 12/20/2022, 04/16/2022, Additional history exists Diabetes: Annual Urine Albumin-Creatinine Ratio (uACR) 06/17/2025 06/17/2024 Diabetes: Annual GFR (Glomerular Filtration Rate) 12/29/2025 12/29/2024, 12/24/2024, 12/16/2024, Additional history exists Hypertension/CHF/CAD Annual BMP Blood Test 12/29/2025 12/29/2024, 12/24/2024, 12/16/2024, Additional history exists DTaP,Tdap,and Td Vaccines (3 - Td or Tdap) 10/14/2028 10/14/2018, 06/22/2015 MMR Vaccines Aged Out 06/08/2024 No longer [...] ECG 12 lead (12/29/2024 1:26 PM EDT) Pathologist [facility] Ventricular Rate ECG 71 BPM GEMUSE Atrial Rate 71 BPM GEMUSE P-R Interval 186 ms GEMUSE QRS Duration 100 ms GEMUSE Q-T Interval 426 ms GEMUSE QTc 462 ms GEMUSE P Wave [place] 67 degrees GEMUSE R [place] -19 degrees GEMUSE T [place] 3 degrees GEMUSE ECG Interpretation Normal sinus rhythm Normal ECG No previous ECGs available Confirmed by Dwayne FERRER JOHN ([id number]) on 12/29/2024 2:45:24 PM GEMUSE 12/29/2024 1:26 PM EDT 12/29/2024 2:45 PM EDT Berkley OROPEZA ECG ORDERABLES Final Re sult GEMUSE * (ABNORMAL) CBC auto differential (12/29/2024 10:45 AM EDT) WBC 2.8(L) 4.8 - 10.8 K/mcL LAB HEMETOLOGY METHOD 12/29/2024 10:[address] [facility] RBC 3.70(L) 4.50 - 5.50 M/mcL LAB HEMETOLOGY METHOD 12/29/2024 10:[address] [facility] Hemoglobin 10.1(L) 13.5 - 17.5 g/dL LAB HEMETOLOGY METHOD 12/29/2024 10:57 AM [facility] Hematocrit 31.5(L) 42.0 - 54.0 % LAB HEMETOLOGY METHOD 12/29/2024 10:57 AM [facility] MCV 86.1 79.0 - 98.0 FL LAB HEMETOLOGY METHOD 12/29/2024 10:57 AM [facility] MCH 27.6 27.0 - 32.0 pcg LAB HEMETOLOGY METHOD 12/29/2024 10:57 AM [facility] MCHC 32.1 32.0 - 37.0 g/dL LAB HEMETOLOGY METHOD 12/29/2024 10:57 AM [facility] RDW 12.8 11.0 - 15.0 % LAB HEMETOLOGY METHOD 12/29/2024 10:57 AM [facility] Platelets 288 130 - 400 K/mcL LAB HEMETOLOGY METHOD 12/29/2024 10:57 AM [facility] MPV 8.8 7.0 - 11.0 FL LAB HEMETOLOGY METHOD 12/29/2024 10:57 AM [facility] NRBC 0.0 <1.0 % LAB HEMETOLOGY METHOD 12/29/2024 10:57 AM [facility] NRBC Absolute 0.00 <0.10 K/mcL LAB HEMETOLOGY METHOD 12/29/2024 10:57 AM [facility] Neutrophils Relative 67.4 % LAB HEMETOLOGY METHOD 12/29/2024 10:57 AM [facility] Lymphocytes Relative 20.1 % LAB HEMETOLOGY METHOD 12/29/2024 10:57 AM [facility] Monocytes Relative 10.6 % LAB HEMETOLOGY METHOD 12/29/2024 10:[address] [facility] Eosinophils Relative 1.1 % LAB HEMETOLOGY METHOD 12/29/2024 10:[address] [facility] Basophils Relative 0.4 % LAB HEMETOLOGY METHOD 12/29/2024 10:[address] [facility] Immature Granulocytes Relative 0.4 % LAB HEMETOLOGY METHOD 12/29/2024 10:[address] [facility] Neutrophils Absolute 1.92 1.50 - 7.00 K/mcL LAB HEMETOLOGY METHOD 12/29/2024 10:[address] [facility] Lymphocytes Absolute 0.57(L) 1.00 - 5.00 K/mcL LAB HEMETOLOGY METHOD 12/29/2024 10:[address] [facility] Monocytes Absolute 0.30 0.20 - 1.00 K/mcL LAB HEMETOLOGY METHOD 12/29/2024 10:[address] [facility] Eosinophils Absolute 0.03 0.00 - 0.50 K/mcL LAB HEMETOLOGY METHOD 12/29/2024 10:[address] [facility] Basophils Absolute 0.01 0.00 - 0.20 K/mcL LAB HEMETOLOGY METHOD 12/29/2024 10:[address] [facility] Immature Granulocytes Absolute 0.01 0.00 - 0.03 K/mcL LAB HEMETOLOGY METHOD 12/29/2024 10:[address] [facility] Blood Venous blood specimen / Unknown Venipuncture / Unknown 12/29/2024 10:45 AM EDT 12/29/2024 10:49 AM EDT us Berkley OROPEZA LAB BLOOD ORDERABLES Fin al Result [facility] [address] [place] [address], * Ammonia (12/29/2024 10:45 AM EDT) Ammonia 17 11 - 35 mcmol/L LAB CHEMISTRY METHOD 12/29/2024 11:[address] [facility] Blood Venous blood specimen / Unknown Venipuncture / Unknown 12/29/2024 10:45 AM EDT 12/29/2024 10:50 AM EDT Berkley OROPEZA LAB BLOOD ORDERABLES Fin al Result Performing Organization Address City/[facility]/ZIP Co de Phone Number [facility] [address] [place] [address], * Ethanol (12/29/2024 10:45 AM EDT) Only the most recent of2 resultswithin the time period is included. Ethanol Level <3 0 - 10 mg/dL LAB CHEMISTRY METHOD 12/29/2024 11:[address] [facility] Blood Venous blood specimen / Unknown Venipuncture / Unknown 12/29/2024 10:45 AM EDT 12/29/2024 10:49 AM EDT Milad Zarate MD LAB BLOOD ORDERABLES Final Result Performing Organization Address City/[facility]/ZIP Co de Phone Number [facility] [address] [place] [address], [place] [phone] * (ABNORMAL) Acetaminophen level (12/29/2024 10:45 AM EDT) Only the most recent of2 resultswithin the time period is included. Acetaminophen Level <2.0(L) 10.0 - 30.0 mcg/mL LAB CHEMISTRY METHOD 12/29/2024 11:[address] [facility] Blood Venous blood specimen / Unknown Venipuncture / Unknown 12/29/2024 10:45 AM EDT 12/29/2024 10:49 AM EDT Milad Zarate MD LAB BLOOD ORDERABLES Final Result Performing Organization Address [facility] Co de Phone Number [facility] [address] [place] [address], [place] [phone] * (ABNORMAL) Salicylate level (12/29/2024 10:45 AM EDT) Only the most recent of2 resultswithin the time period is included. Salicylate Level <1.7(L) 2.0 - 29.0 mg/dL LAB CHEMISTRY METHOD 12/29/2024 11:[address] [facility] Blood Venous blood specimen / Unknown Venipuncture / Unknown 12/29/2024 10:45 AM EDT 12/29/2024 10:49 AM EDT Milad Zarate MD LAB BLOOD ORDERABLES Final Result Performing Organization Address [facility]/ZIP Co de Phone Number [facility] [address] [place] [address], [place] [phone] * (ABNORMAL) Comprehensive metabolic panel (12/29/2024 10:45 AM EDT) Sodium 137 133 - 145 mmol/L LAB CHEMISTRY METHOD 12/29/2024 11:[address] [facility] Potassium 5.2 3.5 - 5.5 mmol/L LAB CHEMISTRY METHOD 12/29/2024 11:[address] [facility] Chloride 106 96 - 110 mmol/L LAB CHEMISTRY METHOD 12/29/2024 11:[address] [facility] CO2 28 21 - 32 mmol/L LAB CHEMISTRY METHOD 12/29/2024 11:[address] [facility] Anion Gap 3 3 - 11 LAB CHEMISTRY METHOD 12/29/2024 11:22 AM [facility] Glucose 144(H) 70 - 100 mg/dL LAB CHEMISTRY METHOD 12/29/2024 11:22 AM [facility] BUN 48(H) 5 - 25 mg/dL LAB CHEMISTRY METHOD 12/29/2024 11:22 AM [facility] Creatinine 3.96(H) 0.70 - 1.30 mg/dL LAB CHEMISTRY METHOD 12/29/2024 11:22 AM [facility] eGFR 16(L) >=60 mL/min/1. 73m2 LAB CHEMISTRY METHOD 12/29/2024 11:22 AM [facility] Comment:Calculation based on the Chronic Kidney Disease Epidemiology Collaboration (CKD-EPI) equation refit without adjustment for race. BUN/Creatinine Ratio 12.1 LAB CHEMISTRY METHOD 12/29/2024 11:22 AM [facility] Calcium 9.5 8.5 - 10.5 mg/dL LAB CHEMISTRY METHOD 12/29/2024 11:22 AM [facility] AST (SGOT) 23 10 - 42 unit/L LAB CHEMISTRY METHOD 12/29/2024 11:22 AM [facility] ALT (SGPT) 46 10 - 60 unit/L LAB CHEMISTRY METHOD 12/29/2024 11:22 AM [facility] Alkaline Phosphatase 138(H) 42 - 121 unit/L LAB CHEMISTRY METHOD 12/29/2024 11:22 AM [facility] Total Protein 8.5(H) 6.0 - 8.0 g/dL LAB CHEMISTRY METHOD 12/29/2024 11:22 AM [facility] Albumin 4.1 3.2 - 5.0 g/dL LAB CHEMISTRY METHOD 12/29/2024 11:22 AM [facility] Total Bilirubin 0.3 0.0 - 1.4 mg/dL LAB CHEMISTRY METHOD 12/29/2024 11:[address] [facility] Blood Venous blood specimen / Unknown Venipuncture / Unknown 12/29/2024 10:45 AM EDT 12/29/2024 10:49 AM EDT Berkley OROPEZA LAB BLOOD ORDERABLES Fin al Result Performing Organization Address [facility]/ZIP Co de Phone Number [facility] [address] [place] [address], * (ABNORMAL) Iron and TIBC (12/24/2024 10:39 AM EDT) Iron 50 50 - 160 mcg/dL LAB CHEMISTRY METHOD 12/24/2024 1:[address] [facility] TIBC 279 250 - 450 mcg/dL LAB CHEMISTRY METHOD 12/24/2024 1:[address] [facility] Iron Saturation 18(L) 20 - 50 % LAB CHEMISTRY METHOD 12/24/2024 1:[address] [facility] Blood Venous blood specimen / Unknown Venipuncture / Unknown 12/24/2024 10:39 AM EDT 12/24/2024 11:26 AM EDT Elvis Maravilla MD LAB BLOOD ORDERABLES Final Res ult Performing Organization Address [facility]/ZIP Co de Phone Number [facility] [address] [place] [address], * (ABNORMAL) Complete blood count (12/24/2024 10:39 AM EDT) Only the most recent of2 resultswithin the time period is included. WBC 2.4(L) 4.8 - 10.8 K/mcL LAB HEMETOLOGY METHOD 12/24/2024 11:[address] [facility] RBC 3.30(L) 4.50 - 5.50 M/mcL LAB HEMETOLOGY METHOD 12/24/2024 11:46 AM [facility] Hemoglobin 9.1(L) 13.5 - 17.5 g/dL LAB HEMETOLOGY METHOD 12/24/2024 11:46 AM [facility] Hematocrit 28.2(L) 42.0 - 54.0 % LAB HEMETOLOGY METHOD 12/24/2024 11:46 AM [facility] MCV 84.9 79.0 - 98.0 FL LAB HEMETOLOGY METHOD 12/24/2024 11:46 AM [facility] MCH 27.4 27.0 - 32.0 pcg LAB HEMETOLOGY METHOD 12/24/2024 11:46 AM [facility] MCHC 32.3 32.0 - 37.0 g/dL LAB HEMETOLOGY METHOD 12/24/2024 11:46 AM [facility] RDW 12.9 11.0 - 15.0 % LAB HEMETOLOGY METHOD 12/24/2024 11:46 AM [facility] Platelets 338 130 - 400 K/mcL LAB HEMETOLOGY METHOD 12/24/2024 11:46 AM [facility] MPV 8.8 7.0 - 11.0 FL LAB HEMETOLOGY METHOD 12/24/2024 11:46 AM [facility] NRBC 0.0 <1.0 % LAB HEMETOLOGY METHOD 12/24/2024 11:46 AM [facility] NRBC Absolute 0.00 <0.10 K/mcL LAB HEMETOLOGY METHOD 12/24/2024 11:46 AM [facility] Blood Venous blood specimen / Unknown Venipuncture / Unknown 12/24/2024 10:39 AM EDT 12/24/2024 11:28 AM EDT us Elvis Maravilla MD LAB BLOOD ORDERABLES Final Res ult Performing Organization Address [facility]/ZIP Co de Phone Number [facility] [address] [place] [address], [place] [phone] * Ferritin (12/24/2024 10:39 AM EDT) Ferritin 318 26 - 388 ng/mL LAB [facility] Venous blood specimen / Unknown Venipuncture / Unknown 12/24/2024 10:39 AM EDT 12/24/2024 11:26 AM EDT us Elvis Maravilla MD LAB BLOOD ORDERABLES Final Res ult Performing Organization Address [facility]/ZIP Co de Phone Number [facility] [address] [place] [address], [place] [phone] * (ABNORMAL) Renal function panel (12/24/2024 10:39 AM EDT) [facility] Sodium 138 133 - 145 mmol/L LAB CHEMISTRY METHOD 12/24/2024 1:02 PM [facility] Potassium 4.9 3.5 - 5.5 mmol/L LAB CHEMISTRY METHOD 12/24/2024 1:02 PM [facility] Chloride 102 96 - 110 mmol/L LAB CHEMISTRY METHOD 12/24/2024 1:02 PM [facility] CO2 31 21 - 32 mmol/L LAB CHEMISTRY METHOD 12/24/2024 1:02 PM [facility] Anion Gap 5 3 - 11 LAB CHEMISTRY METHOD 12/24/2024 1:02 PM [facility] Glucose 134(H) 70 - 100 mg/dL LAB CHEMISTRY METHOD 12/24/2024 1:02 PM [facility] BUN 50(H) 5 - 25 mg/dL LAB CHEMISTRY METHOD 12/24/2024 1:[address] [facility] Creatinine 3.24(H) 0.70 - 1.30 mg/dL LAB CHEMISTRY METHOD 12/24/2024 1:[address] [facility] eGFR 21(L) >=60 mL/min/1. 73m2 LAB CHEMISTRY METHOD 12/24/2024 1:[address] [facility] Comment:Calculation based on the Chronic Kidney Disease Epidemiology Collaboration (CKD-EPI) equation refit without adjustment for race. BUN/Creatinine Ratio 15.4 LAB CHEMISTRY METHOD 12/24/2024 1:02 PM [facility] Albumin 3.9 3.2 - 5.0 g/dL LAB CHEMISTRY METHOD 12/24/2024 1:02 PM [facility] Calcium 9.0 8.5 - 10.5 mg/dL LAB CHEMISTRY METHOD 12/24/2024 1:02 PM [facility] Phosphorus 3.1 2.5 - 4.5 mg/dL LAB CHEMISTRY METHOD 12/24/2024 1:02 PM [facility] Blood Venous blood specimen / Unknown Venipuncture / Unknown 12/24/2024 10:39 AM EDT 12/24/2024 11:26 AM EDT us Elvis Maravilla MD LAB BLOOD ORDERABLES Final Res ult [facility] [address] [place] [address], * (ABNORMAL) Drug abuse screen 8a panel, urine (12/16/2024 7:37 PM EDT) Amphetamine Screen, Ur Negative Negative LAB CHEMISTRY METHOD 8:[address] [facility] Comment:Certain OTC medicati ons containing ephedrine, phenylephrine, pseudoephedrine and phenylpropanolamine can cause false positive results. Barbiturate Screen, Ur Negative Negative LAB CHEMISTRY METHOD 5 8:[address] [facility] Benzodiazepine Screen, Ur Positive(A ) Negative LAB CHEMISTRY METHOD 5 8:[address] [facility] Cocaine Screen, Ur Negative Negative LAB CHEMISTRY METHOD 5 8:[address] [facility] Opiate Screen, Ur Negative Negative LAB CHEMISTRY METHOD 5 8:[address] [facility] Cannabinoid (THC) Screen, Ur Negative Negative LAB CHEMISTRY METHOD 8:[address] [facility] Comment:Specimens from patie nts taking pantoprazole sodium (Protonix) have been shown to produce false positive results. Oxycodone Screen, Ur Negative Negative LAB CHEMISTRY METHOD 8:[address] [facility] Fentanyl, Ur Negative Negative LAB CHEMISTRY METHOD 8:[address] [facility] Urine Urine specimen obtained by clean catch procedure / Unknown Non-blood Collection / Unknown 12/16/2024 7:37 PM EDT 12/16/2024 8:[address] [facility] - 12/16/2024 8:30 PM EDT [...] MD LAB URINE ORDERABLES Final Resul t [facility] [address] [place] [address], * Buprenorphine screen, urine (12/16/2024 7:37 PM EDT) Buprenorphine Screen Urine Negative Negative LAB CHEMISTRY METHOD 12/16/2024 8:[address] [facility] Urine Urine specimen obtained by clean catch procedure / Unknown Non-blood Collection / Unknown 12/16/2024 7:37 PM EDT 12/16/2024 8:[address] [facility] - 12/16/2024 8:30 PM EDT Assay cutoff 5 ng/mL Semi-quantitative assay for screening purposes only. Unconfirmed screening result should not be used for non-medical purposes. *ALTERNATE METHOD CONFIRMATION DONE UPON REQUEST ONLY* us Berkley Norman MD LAB URINE ORDERABLES Final Resul t Performing Organization Address [facility]/ZIP Co de Phone Number [facility] [address] [place] [address], [place] [phone] * Methadone, urine (12/16/2024 7:37 PM EDT) Pathologist [facility] Methadone Screen, Urine Negative Negative LAB CHEMISTRY METHOD 12/16/2024 8:[address] [facility] Comment: Assay cutoff 300 ng/mL [...] ORDERABLES Final Resul t Performing Organization Address City/[facility]/ZIP Co de Phone Number [facility] [address] [place] [address], [place] [phone] * Phencyclidine, urine (12/16/2024 7:37 PM EDT) PCP Scrn, Ur Negative Negative LAB CHEMISTRY METHOD 12/16/2024 8:[address] [facility] Comment: Assay cutoff 25 ng/mL Semi-quantitative assay for screening purposes only. Unconfirmed screening result should not be used for non-medical purposes. *ALTERNATE METHOD CONFIRMATION DONE UPON REQUEST ONLY* Urine Urine specimen obtained by clean catch procedure / Unknown Non-blood Collection / Unknown 12/16/2024 7:37 PM EDT 12/16/2024 8:05 PM EDT us Berkley Norman MD LAB URINE ORDERABLES Final Resul t [facility] [address] [place] [address], * (ABNORMAL) Basic metabolic panel (12/16/2024 4:00 PM EDT) Sodium 140 133 - 145 mmol/L LAB CHEMISTRY METHOD 12/16/2024 4:48 PM [facility] Potassium 3.6 3.5 - 5.5 mmol/L LAB CHEMISTRY METHOD 12/16/2024 4:48 PM [facility] Chloride 107 96 - 110 mmol/L LAB CHEMISTRY METHOD 12/16/2024 4:48 PM [facility] CO2 28 21 - 32 mmol/L LAB CHEMISTRY METHOD 12/16/2024 4:48 PM [facility] Anion Gap 5 3 - 11 LAB CHEMISTRY METHOD 12/16/2024 4:48 PM [facility] Glucose 138(H) 70 - 100 mg/dL LAB CHEMISTRY METHOD 12/16/2024 4:48 PM [facility] BUN 40(H) 5 - 25 mg/dL LAB CHEMISTRY METHOD 12/16/2024 4:48 PM [facility] Creatinine 3.55(H) 0.70 - 1.30 mg/dL LAB CHEMISTRY METHOD 12/16/2024 4:48 PM EDT [facility] eGFR 19(L) >=60 mL/min/1. 73m2 LAB CHEMISTRY METHOD 12/16/2024 4:[address] [facility] Comment:Calculation based on the Chronic Kidney Disease Epidemiology Collaboration (CKD-EPI) equation refit without adjustment for race. BUN/Creatinine Ratio 11.3 LAB CHEMISTRY METHOD 12/16/2024 4:[address] [facility] Calcium 8.7 8.5 - 10.5 mg/dL LAB CHEMISTRY METHOD 12/16/2024 4:[address] [facility] Blood Venous blood specimen / Unknown Venipuncture / Unknown 12/16/2024 4:00 PM EDT 12/16/2024 4:11 PM EDT us Berkley Norman MD LAB BLOOD ORDERABLES Final Resul t [facility] [address] [place] [address], * CT Head wo Contrast (12/16/2024 3:31 PM EDT) Anatomical Region Laterality Modality Head and Neck Computed Tomogra phy 12/16/2024 3:43 PM EDT Impressions 12/16/2024 3:44 PM EDT NO ACUTE INTRACRANIAL ABNORMALITY. -------- FINAL REPORT -------- Dictated By: Cathleen Morrison Dictated Date: 12/16/2024 15:43 ET Assigned Physician: Cathleen Morrison Reviewed and Electronically Signed By: Cathleen Morrison Signed Date: 12/16/2024 15:44 ET Workstation ID: [id number] Transcribed By: Self Edit Transcribed Date: 12/16/2024 [...] Cathleen Morrison Reviewed and Electronically Signed By: Catlheen Morrison Signed Date: 12/16/2024 15:44 ET Workstation ID: [id number] Transcribed By: Self Edit Transcribed Date: 12/16/2024 15:43 ET Berkley Norman MD [facility] [place] PROCEDURES Final Result * (ABNORMAL) Microalbumin creatinine urine ratio (06/17/2024 1:52 PM EDT) Creatinine, Urine 115.0 mg/dL LAB CHEMISTRY METHOD 06/17/2024 4:[address] [facility] Microalb, Ur 2,270.0(H ) 0.0 - 29.0 mg/L LAB CHEMISTRY METHOD 06/17/2024 4:[address] [facility] Comment:Results verified by repeat testing Microalb/Crea t Ratio 1,974(H) <30 mg/g creat LAB CHEMISTRY METHOD 06/17/2024 4:22 PM [facility] Urine Urine specimen obtained by clean catch procedure / Unknown Non-blood Collection / Unknown 06/17/2024 1:52 PM EDT 06/17/2024 2:38 PM EDT us Elvis Maravilla MD LAB URINE ORDERABLES Final Res ult [facility] [address] [place] [address], from Last 3 Months or Most Recently Relevant to Health Maintenance Insurance MEDICAID - [place] MEDICARE Care Teams Guest Services Attendant Relationship Specialty Start Date End Date Fallon Jalloh DO [address] [place] [address] PCP - General Internal Medicine 04/26/24
[2025-01-11 20:00] VITALS: BP 158/80; PULSE 109; TEMP 36.7; O2SAT 100
[2025-01-11 20:55] VITALS: BP 158/80
[2025-01-12 08:00] VITALS: BP 136/76; PULSE 98; TEMP 37.3; O2SAT 98
[2025-01-12] MEDS: ARIPiprazole 30 MG TABLET PO (08:46)
[2025-01-12 08:47] VITALS: BP 136/76
[2025-01-12 08:51] LABS: Cholesterol 223 mg/dL (<200); HDL Cholesterol 38 mg/dL (>40); Magnesium 2.0 mg/dL (1.6-2.6); Triglycerides 528 mg/dL (<150)
[2025-01-12 09:08] LABS: Free T4 (Free Thyroxine) 0.67 ng/dL (0.71-1.85); Thyroid Stimulating Hormone 1.00 uIU/mL (0.32-4.0)
[2025-01-12 09:18] LABS: Folate 6.6 ng/mL (> or = 4.0); Vitamin B12 234 pg/mL (200-900)
--- NOTE | 2025-01-12 09:19 | HO.PM.IMPN ---
Subjective Subjective Date of Service: 01/12/25 Interval History: Patient is seen in follow up after being transferred off of inpatient psychiatry for a potassium level of 6.7 which was non hemolyzed and a creatinine of 3.47. He initially refused treatment or further workup, it was determined that he did not have adequate capacity to make this decision so he was transferred to telemetry. Patient was given lokelma and albuterol and potassium significantly improved. 5.1 at time of discharge. Patient's losartan was discontinued, and he was started on amlodipine, his blood pressure is currently well-controlled. He is followed outpatient by Dr. Parra as an outpatient. On exam patient is guicho, cooperative. In no acute distress, ambulating on unit. Review of Systems Denies any shortness of breath, chest pain, headaches, dysuria, abdominal pain or discomfort, nausea, vomiting or diarrhea. Denies fever or chills. Physical Exam Exam: Exam: CONST: Alert and oriented, in NAD. Well nourished HEENT: Normocephalic, atraumatic RESP: Respiratory rate even and regular. Lung sounds clear HEART: S1-S2 no ectopy GI: Decline : Decline SKIN: Color within normal limits, no visible lesions or rashes NEURO: Moves all extremities, Speech clear. Ambulates with steady gait PSYCH: Answers questions Vital Signs: Vital Signs: Last Vital Signs Temp 98.1 F 01/11/25 20:00 Pulse 109 H 01/11/25 20:00 Resp 20 01/11/25 14:37 BP 136/76 01/12/25 08:47 Pulse Ox 100 01/11/25 20:00 O2 Del Method Room Air 01/11/25 20:00 Objective Data Active Medications Al Hydroxide/Mg Hydroxide (Magnesium Hydrox/Alum Hydrox 30 Ml Oral.Susp) 30 ml PO Q6H PRN PRN Reason: Heartburn/Nausea Amlodipine Besylate (Amlodipine Besylate 10 Mg Tablet) 10 mg PO DAILY [facility]; Protocol Last Admin: 01/12/25 08:47 Dose: 10 mg Documented By: CHRIS Aripiprazole (Aripiprazole 30 Mg Tablet) 30 mg PO DAILY [facility] Last Admin: 01/12/25 08:46 Dose: 30 mg Documented By: CHRIS Artificial Tears (Artificial Tears 15 Ml Drops) 1 drop EYE-BOTH DAILY PRN PRN Reason: allergy sx Atorvastatin Calcium (Atorvastatin Calcium 40 Mg Tablet) 40 mg PO DAILY [facility] Last Admin: 01/12/25 08:48 Dose: 40 mg Documented By: CHRIS Benztropine Mesylate (Benztropine Mesylate 1 Mg Tablet) 2 mg PO BID [facility] Last Admin: 01/12/25 08:45 Dose: 2 mg Documented By: CHRIS Bisacodyl (Bisacodyl 5 Mg Tablet.) 10 mg PO BEDTIME PRN PRN Reason: Constipation Calcitriol (Calcitriol 0.25 Mcg Capsule) 0.25 mcg PO DAILY [facility] Last Admin: 01/12/25 08:46 Dose: 0.25 mcg Documented By: CHRIS Clonidine HCl (Clonidine Hcl 0.1 Mg Tablet) 0.1 mg PO TID PRN; Protocol PRN Reason: anxiety Last Admin: 01/12/25 09:00 Dose: 0.1 mg Documented By: CHRIS Docusate Sodium (Docusate Sodium 100 Mg Capsule) 100 mg PO BEDTIME [facility] Last Admin: 01/11/25 20:56 Dose: 100 mg Documented By: MARIO Empagliflozin (Empagliflozin 10 Mg Tablet) 10 mg PO DAILY [facility] Last Admin: 01/12/25 08:48 Dose: 10 mg Documented By: CHRIS Escitalopram Oxalate (Escitalopram Oxalate 20 Mg Tablet) 20 mg PO DAILY [facility] Last Admin: 01/12/25 08:46 Dose: 20 mg Documented By: CHRIS Famotidine (Famotidine 20 Mg Tablet) 20 mg PO DAILY [facility] Last Admin: 01/12/25 08:45 Dose: 20 mg Documented By: CHRIS Ferrous Sulfate (Ferrous Sulfate 324 Mg Tablet.) 324 mg PO Q2D [facility] Last Admin: 01/11/25 16:28 Dose: Not Given Documented By: CRIS Non-Admin Reason: Patient Asleep Hydralazine HCl (Hydralazine Hcl 25 Mg Tablet) 25 mg PO TID [facility]; Protocol Last Admin: 01/12/25 08:48 Dose: 25 mg Documented By: CHRIS Hydroxyzine HCl (Hydroxyzine Hcl 25 Mg Tablet) 25 mg PO Q6H PRN PRN Reason: mild anxiety Last Admin: 01/12/25 09:00 Dose: 25 mg Documented By: CHRIS Lamotrigine (Lamotrigine 100 Mg Tablet) 200 mg PO BID [facility] Last Admin: 01/12/25 08:49 Dose: 200 mg Documented By: CHRIS Loratadine (Loratadine 10 Mg Tablet) 10 mg PO Q2D [facility] Nicotine Polacrilex (Nicotine Polacrilex 2 Mg Gum) 4 mg BUCCAL Q2H PRN PRN Reason: Nicotine Cravings Olanzapine (Olanzapine 10 Mg Tablet) 10 mg PO BEDTIME [facility] Last Admin: 01/11/25 20:55 Dose: 10 mg Documented By: MARIO Omeprazole (Omeprazole 20 Mg Capsule.) 20 mg PO DAILY@0630 [facility] Quetiapine Fumarate (Quetiapine Fumarate 400 Mg Tablet) 400 mg PO BEDTIME [facility] Last Admin: 01/11/25 20:58 Dose: Not Given Documented By: MARIO Non-Admin Reason: Patient Refused Quetiapine Fumarate (Quetiapine Fumarate 50 Mg Tablet) 50 mg PO TID PRN PRN Reason: agitation Last Admin: 01/12/25 08:52 Dose: 50 mg Documented By: CHRIS Sodium Zirconium Cyclosilicate (Sodium Zirconium Cyclosilicate 10 Gm Powd.Pack) 10 gm PO DAILY [facility] Trazodone HCl (Trazodone Hcl 50 Mg Tablet) 50 mg PO BEDTIME MRX1 PRN PRN Reason: Insomnia Labs Labs: Laboratory Results - last 24 hr 01/12/25 08:04 Estimat Average Glucose 163 Hemoglobin A1c % 7.3 H Magnesium 2.0 Triglycerides 528 H Cholesterol 223 H LDL Cholesterol, Calc TNP HDL Cholesterol 38 L TSH 1.00 Free T4 0.67 L Assessment and Plan (1) HTN (hypertension): Status: Acute Plan 64-year-old male with a past medical history was listed below presented to emergency department at [facility] with mental status changes. Now admitted to inpatient psych for further care. Bipolar 1 disorder/anxiety/mental status changes Treatment per psychiatric team Type 2 diabetes Continue Jardiance Hemoglobin A1c 6.8 Nephrogenic anemia Iron studies within normal limits May need EPO in the future, followed by Nephrology Hyperkalemia Continue on Lokelma daily Check potassium in the morning. Chronic kidney disease stage 4/diabetic nephropathy and hypertensive renal disease Avoid nephrotoxins Followed by Dr. Maravilla as an outpatient Continue calcitriol Type 2 diabetes Hemoglobin A1c 6.8 Continue Jardiance Hypertension/HLD Losartan DC due to kidney injury, Continue Norvasc, hydralazine 25 t.i.d. Recently started atorvastatin Clonidine t.i.d. p.r.n. Blood pressure well controlled Thank you for allowing me to participate in the care of this patient. Will follow with you, please notify medical provider with any changes in condition or concerns. Quality Stroke Does the patient have a stroke diagnosis?: No VTE Prior VTE?: No VTE Risk Level:: Medical - low VTE Device Contraindication: Treatment Not Indicated VTE Drug Contraindication: Treatment Not Indicated
--- NOTE | 2025-01-12 12:02 | PC.NURSE ---
pharmacy notified about medication not available in pyxis.
[2025-01-12 14:33] VITALS: BP 123/67
--- NOTE | 2025-01-12 16:26 | HO.PSYCHPN ---
Subjective Subjective Date of Service: 01/12/25 Reason For Visit: bipolar disorder Subjective Notes: Conditional Voluntary Healthcare Proxy: No Guardianship: No Medical Problems Affecting Mental Status: No Interim History: Refusing medications. K+5.1 Met with pt, full review of meds. Pt concerned as antihypertensives were changed-discussed rationale to decrease pressure on kidneys. He agrees this is an appropriate intervention. Pt agrees he will resume regime. Calm, clear, some lability at times. Visable in milieu. Denies SI,HI,AH,VH. Medication Compliance: No Side effects from medications: No Attending Groups: Yes Review of Systems CKD 3-4, resolving hyperkalemia Medical Review of Systems: unchanged Review of Systems Review of Systems Pt denies today Mental Status Exam Mental Status Exam Patient Appearance: Appropriate Patient Orientation: Person, Place, Time and Situation Level of Consciousness: Alert Patient Behavior: Talkative and Good Eye Contact Mood Description: Labile Affect Description: Labile Patient Cognition Impaired: Yes Ability to Follow Directions: Good Speech Pattern: Spontaneous Speech Memory Description: Remote Impaired and Episodic Impaired Hallucinations: None Delusions: Paranoid Ideation (mild) Perceptual Disturbances: Derealization Thought Process: Illogical, Distracted and Confusion Thought Content: positive for Circumstantial and positive for Suicidal Ideation (denies) Depressive Symptoms: Thoughts of /Suicide (denies) Judgement: Poor Diagnostics Vital Signs (24Hr): Vital Signs - 24 hr 01/11/25 20:00 01/11/25 20:55 01/12/25 08:00 Temperature 98.1 F 99.2 F Pulse Rate 109 H 98 Blood Pressure 158/80 H 158/80 H 136/76 Pulse Oximetry 100 98 Oxygen Delivery Method Room Air Room Air 01/12/25 08:47 01/12/25 14:33 Temperature Pulse Rate Blood Pressure 136/76 123/67 Pulse Oximetry Oxygen Delivery Method Labs 01/13/25 08:26 Labs: Laboratory Results - last 48 hr 01/12/25 08:04 Estimat Average Glucose 163 Hemoglobin A1c % 7.3 H Magnesium 2.0 Triglycerides 528 H Cholesterol 223 H LDL Cholesterol, Calc TNP HDL Cholesterol 38 L Vitamin B12 234 Folate 6.6 TSH 1.00 Free T4 0.67 L Medications Medications Current Medications Al Hydroxide/Mg Hydroxide (Magnesium Hydrox/Alum Hydrox 30 Ml Oral.Susp) 30 ml PO Q6H PRN PRN Reason: Heartburn/Nausea Amlodipine Besylate (Amlodipine Besylate 10 Mg Tablet) 10 mg PO DAILY [facility]; Protocol Last Admin: 01/12/25 08:47 Dose: 10 mg Aripiprazole (Aripiprazole 30 Mg Tablet) 30 mg PO DAILY [facility] Last Admin: 01/12/25 08:46 Dose: 30 mg Artificial Tears (Artificial Tears 15 Ml Drops) 1 drop EYE-BOTH DAILY PRN PRN Reason: allergy sx Atorvastatin Calcium (Atorvastatin Calcium 40 Mg Tablet) 40 mg PO DAILY [facility] Last Admin: 01/12/25 08:48 Dose: 40 mg Benztropine Mesylate (Benztropine Mesylate 1 Mg Tablet) 2 mg PO BID [facility] Last Admin: 01/12/25 08:45 Dose: 2 mg Bisacodyl (Bisacodyl 5 Mg Tablet.) 10 mg PO BEDTIME PRN PRN Reason: Constipation Calcitriol (Calcitriol 0.25 Mcg Capsule) 0.25 mcg PO DAILY [facility] Last Admin: 01/12/25 08:46 Dose: 0.25 mcg Clonidine HCl (Clonidine Hcl 0.1 Mg Tablet) 0.1 mg PO TID PRN; Protocol PRN Reason: anxiety Last Admin: 01/12/25 09:00 Dose: 0.1 mg Docusate Sodium (Docusate Sodium 100 Mg Capsule) 100 mg PO BEDTIME [facility] Last Admin: 01/11/25 20:56 Dose: 100 mg Empagliflozin (Empagliflozin 10 Mg Tablet) 10 mg PO DAILY [facility] Last Admin: 01/12/25 08:48 Dose: 10 mg Escitalopram Oxalate (Escitalopram Oxalate 20 Mg Tablet) 20 mg PO DAILY [facility] Last Admin: 01/12/25 08:46 Dose: 20 mg Famotidine (Famotidine 20 Mg Tablet) 20 mg PO DAILY [facility] Last Admin: 01/12/25 08:45 Dose: 20 mg Ferrous Sulfate (Ferrous Sulfate 324 Mg Tablet.Dr) 324 mg PO Q2D [facility] Last Admin: 01/11/25 16:28 Dose: Not Given Hydralazine HCl (Hydralazine Hcl 25 Mg Tablet) 25 mg PO TID [facility]; Protocol Last Admin: 01/12/25 14:33 Dose: 25 mg Hydroxyzine HCl (Hydroxyzine Hcl 25 Mg Tablet) 25 mg PO Q6H PRN PRN Reason: mild anxiety Last Admin: 01/12/25 09:00 Dose: 25 mg Lamotrigine (Lamotrigine 100 Mg Tablet) 200 mg PO BID [facility] Last Admin: 01/12/25 08:49 Dose: 200 mg Loratadine (Loratadine 10 Mg Tablet) 10 mg PO Q2D [facility] Nicotine Polacrilex (Nicotine Polacrilex 2 Mg Gum) 4 mg BUCCAL Q2H PRN PRN Reason: Nicotine Cravings Olanzapine (Olanzapine 10 Mg Tablet) 10 mg PO BEDTIME [facility] Last Admin: 01/11/25 20:55 Dose: 10 mg Omeprazole (Omeprazole 20 Mg Capsule.Dr) 20 mg PO DAILY@0630 [facility] Quetiapine Fumarate (Quetiapine Fumarate 400 Mg Tablet) 400 mg PO BEDTIME [facility] Last Admin: 01/11/25 20:58 Dose: Not Given Quetiapine Fumarate (Quetiapine Fumarate 50 Mg Tablet) 50 mg PO TID PRN PRN Reason: agitation Last Admin: 01/12/25 08:52 Dose: 50 mg Sodium Zirconium Cyclosilicate (Sodium Zirconium Cyclosilicate 10 Gm Powd.Pack) 10 gm PO DAILY [facility] Last Admin: 01/12/25 14:32 Dose: 10 gm Trazodone HCl (Trazodone Hcl 50 Mg Tablet) 50 mg PO BEDTIME MRX1 PRN PRN Reason: Insomnia Allergies Allergies Allergy/AdvReac Type Severity Reaction Status Date / Time No Known Allergies Allergy Verified 12/17/24 20:12 Assessment & Plan Assessment & Plan (1) HTN (hypertension): Status: Acute Code(s): I10 - Essential (primary) hypertension (2) Bipolar 1 disorder: Status: Acute Code(s): F31.9 - Bipolar disorder, unspecified (3) CKD (chronic kidney disease) stage 3, GFR 30-59 ml/min: Status: Acute Code(s): N18.30 - Chronic kidney disease, stage 3 unspecified Plan 64-year-old male with a past medical history was listed below presented to emergency department at [facility] with mental status changes. Now admitted to inpatient psych for further care. Bipolar 1 disorder/anxiety/mental status changes Treatment per psychiatric team Type 2 diabetes Continue Jardiance Hemoglobin A1c 6.8 Nephrogenic anemia Iron studies within normal limits May need EPO in the future, followed by Nephrology Hyperkalemia Continue on Lokelnm daily Check potassium in the morning. Chronic kidney disease stage 4/diabetic nephropathy and hypertensive renal disease Avoid nephrotoxins Followed by Dr. Maravilla as an outpatient Continue calcitriol Type 2 diabetes Hemoglobin A1c 6.8 Continue Jardiance Hypertension/HLD Losartan DC due to kidney injury, Continue Norvasc, hydralazine 25 t.i.d. Recently started atorvastatin Clonidine t.i.d. p.r.n. Blood pressure well controlled Thank you for allowing me to participate in the care of this patient. Will follow with you, please notify medical provider with any changes in condition or concerns. 01/12: Decrease Quetiapine to 300 mg HS Continue Olanzapine at 10 mg HS Reason for continued inpatient stay Substantial Risk for: rapid decompensation and med/psych decompensation Time Spent With Patient Time: Total time managing care of this patient today ____ minutes.
[2025-01-12] MEDS: Magnesium Hydrox/Alum Hydrox 30 ML ORAL.SUSP PO (18:47)
[2025-01-12 20:16] VITALS: BP 138/75; PULSE 98; RESP 18; TEMP 36.5; O2SAT 99
[2025-01-13] MEDS: Magnesium Hydrox/Alum Hydrox 30 ML ORAL.SUSP PO (04:31)
[2025-01-13 08:00] VITALS: BP 119/72; PULSE 100; TEMP 36.4; O2SAT 100
[2025-01-13] MEDS: ARIPiprazole 30 MG TABLET PO (08:28)
[2025-01-13 08:31] VITALS: BP 119/72
[2025-01-13 09:00] LABS: Anion Gap 15 (12-20); Blood Urea Nitrogen 57 mg/dL (9-16); Calcium 9.7 mg/dL (8.4-10.2); Carbon Dioxide 26 mmol/L (22-29); Chloride 104 mmol/L (96-108); Estimated Glomerular Filt Rate 20; Potassium 4.7 mmol/L (3.3-5.1); Sodium 140 mmol/L (135-145)
--- NOTE | 2025-01-13 09:51 | P.PNPSI_ITS ---
Subjective Subjective Date of Service: 01/13/25 Reason For Visit: bipolar disorder Subjective Notes: Conditional Voluntary Healthcare Proxy: No Guardianship: No Medical Problems Affecting Mental Status: No Interim History: LLabile, irritable, refused HS medications. Slept. Denies SI,HI,AH, VH. Review of medications. I just refuse to refuse, I feel power when I refuse. Discussed pt's feeling disempowered in care. Reports feeling totally controlled- being on a locked unit, yet telling team he needs and want to remain. Reports feeling included in his plan, yet feels angry that he has to manage CKD. Reviewed hospitalist recommendations for atorvastatin and omeprazole. Medication Compliance: Intermittent Side effects from medications: No Attending Groups: Yes Review of Systems Acute medical concerns: Yes CKD Resolving hyperkalemia Medical Review of Systems: unchanged Review of Systems Review of Systems I am great Mental Status Exam Mental Status Exam Patient Appearance: Appropriate Patient Orientation: Person, Place, Time and Situation Level of Consciousness: Alert Patient Behavior: Talkative and Good Eye Contact Mood Description: Labile Affect Description: Labile Patient Cognition Impaired: Yes Ability to Follow Directions: Good Speech Pattern: Spontaneous Speech Memory Description: Remote Impaired and Episodic Impaired Hallucinations: None Delusions: Paranoid Ideation (mild) Perceptual Disturbances: Derealization Thought Process: Illogical, Distracted and Confusion Thought Content: positive for Circumstantial and positive for Suicidal Ideation (denies) Depressive Symptoms: Thoughts of /Suicide (denies) Judgement: Poor Diagnostics Vital Signs (24Hr): Vital Signs - 24 hr 01/12/25 14:33 01/12/25 20:16 01/13/25 08:00 Temperature 97.7 F 97.5 F Pulse Rate 98 100 Respiratory Rate 18 Blood Pressure 123/67 138/75 119/72 Pulse Oximetry 99 100 Oxygen Delivery Method Room Air Room Air 01/13/25 08:31 Temperature Pulse Rate Respiratory Rate Blood Pressure 119/72 Pulse Oximetry Oxygen Delivery Method Labs 01/13/25 08:26 Labs: Laboratory Results - last 48 hr 01/12/25 01/13/25 08:04 08:26 Sodium 140 Potassium 4.7 Chloride 104 Carbon Dioxide 26 Anion Gap 15 BUN 57 H Creatinine 3.13 H Estim Creat Clear Calc TNP Estimated GFR 20 Random Glucose 216 H Estimat Average Glucose 163 Hemoglobin A1c % 7.3 H Calcium 9.7 Magnesium 2.0 Triglycerides 528 H Cholesterol 223 H LDL Cholesterol, Calc TNP HDL Cholesterol 38 L Vitamin B12 234 Folate 6.6 TSH 1.00 Free T4 0.67 L Medications Medications Current Medications Al Hydroxide/Mg Hydroxide (Magnesium Hydrox/Alum Hydrox 30 Ml Oral.Susp) 30 ml PO Q6H PRN PRN Reason: Heartburn/Nausea Last Admin: 01/13/25 04:31 Dose: 30 ml Amlodipine Besylate (Amlodipine Besylate 10 Mg Tablet) 10 mg PO DAILY [facility]; Protocol Last Admin: 01/13/25 08:31 Dose: 10 mg Aripiprazole (Aripiprazole 30 Mg Tablet) 30 mg PO DAILY [facility] Last Admin: 01/13/25 08:28 Dose: 30 mg Artificial Tears (Artificial Tears 15 Ml Drops) 1 drop EYE-BOTH DAILY PRN PRN Reason: allergy sx Atorvastatin Calcium (Atorvastatin Calcium 40 Mg Tablet) 40 mg PO DAILY [facility] Last Admin: 01/13/25 08:30 Dose: 40 mg Benztropine Mesylate (Benztropine Mesylate 1 Mg Tablet) 2 mg PO BID [facility] Last Admin: 01/13/25 08:29 Dose: 2 mg Bisacodyl (Bisacodyl 5 Mg Tablet.) 10 mg PO BEDTIME PRN PRN Reason: Constipation Calcitriol (Calcitriol 0.25 Mcg Capsule) 0.25 mcg PO DAILY [facility] Last Admin: 01/13/25 08:30 Dose: 0.25 mcg Clonidine HCl (Clonidine Hcl 0.1 Mg Tablet) 0.1 mg PO TID PRN; Protocol PRN Reason: anxiety Last Admin: 01/12/25 09:00 Dose: 0.1 mg Docusate Sodium (Docusate Sodium 100 Mg Capsule) 100 mg PO BEDTIME [facility] Last Admin: 01/13/25 03:14 Dose: Not Given Empagliflozin (Empagliflozin 10 Mg Tablet) 10 mg PO DAILY [facility] Last Admin: 01/13/25 08:29 Dose: 10 mg Escitalopram Oxalate (Escitalopram Oxalate 20 Mg Tablet) 20 mg PO DAILY [facility] Last Admin: 01/13/25 08:29 Dose: 20 mg Famotidine (Famotidine 20 Mg Tablet) 20 mg PO DAILY [facility] Last Admin: 01/13/25 08:30 Dose: 20 mg Ferrous Sulfate (Ferrous Sulfate 324 Mg Tablet.) 324 mg PO Q2D [facility] Last Admin: 01/11/25 16:28 Dose: Not Given Hydralazine HCl (Hydralazine Hcl 25 Mg Tablet) 25 mg PO TID [facility]; Protocol Last Admin: 01/13/25 08:31 Dose: 25 mg Hydroxyzine HCl (Hydroxyzine Hcl 25 Mg Tablet) 25 mg PO Q6H PRN PRN Reason: mild anxiety Last Admin: 01/13/25 08:35 Dose: 25 mg Lamotrigine (Lamotrigine 100 Mg Tablet) 200 mg PO BID [facility] Last Admin: 01/13/25 08:30 Dose: 200 mg Loratadine (Loratadine 10 Mg Tablet) 10 mg PO Q2D [facility] Nicotine Polacrilex (Nicotine Polacrilex 2 Mg Gum) 4 mg BUCCAL Q2H PRN PRN Reason: Nicotine Cravings Olanzapine (Olanzapine 10 Mg Tablet) 10 mg PO BEDTIME [facility] Last Admin: 01/13/25 03:15 Dose: Not Given Omeprazole (Omeprazole 20 Mg Capsule.Dr) 20 mg PO DAILY@0630 [facility] Last Admin: 01/13/25 08:29 Dose: 20 mg Quetiapine Fumarate (Quetiapine Fumarate 50 Mg Tablet) 50 mg PO TID PRN PRN Reason: agitation Last Admin: 01/13/25 08:35 Dose: 50 mg Quetiapine Fumarate (Quetiapine Fumarate 300 Mg Tablet) 300 mg PO BEDTIME [facility] Last Admin: 01/13/25 03:15 Dose: Not Given Sodium Zirconium Cyclosilicate (Sodium Zirconium Cyclosilicate 10 Gm Powd.Pack) 10 gm PO DAILY [facility] Last Admin: 01/12/25 14:32 Dose: 10 gm Trazodone HCl (Trazodone Hcl 50 Mg Tablet) 50 mg PO BEDTIME MRX1 PRN PRN Reason: Insomnia Allergies Allergies Allergy/AdvReac Type Severity Reaction Status Date / Time No Known Allergies Allergy Verified 12/17/24 20:12 Assessment & Plan Assessment & Plan (1) HTN (hypertension): Status: Acute Code(s): I10 - Essential (primary) hypertension (2) Bipolar 1 disorder: Status: Acute Code(s): F31.9 - Bipolar disorder, unspecified (3) CKD (chronic kidney disease) stage 3, GFR 30-59 ml/min: Status: Acute Code(s): N18.30 - Chronic kidney disease, stage 3 unspecified Plan 64-year-old male with a past medical history was listed below presented to emergency department at [facility] with mental status changes. Now admitted to inpatient psych for further care. Bipolar 1 disorder/anxiety/mental status changes Treatment per psychiatric team Type 2 diabetes Continue Jardiance Hemoglobin A1c 6.8 Nephrogenic anemia Iron studies within normal limits May need EPO in the future, followed by Nephrology Hyperkalemia Continue on Lokelma daily Check potassium in the morning. Chronic kidney disease stage 4/diabetic nephropathy and hypertensive renal disease Avoid nephrotoxins Followed by Dr. Maravilla as an outpatient Continue calcitriol Type 2 diabetes Hemoglobin A1c 6.8 Continue Jardiance Hypertension/HLD Losartan DC due to kidney injury, Continue Norvasc, hydralazine 25 t.i.d. Recently started atorvastatin Clonidine t.i.d. p.r.n. Blood pressure well controlled Thank you for allowing me to participate in the care of this patient. Will follow with you, please notify medical provider with any changes in condition or concerns. 01/13/25: Continue regime. Ongoing support and education with care that pt does not feel an increase in disempowerment Reason for continued inpatient stay Substantial Risk for: inability to function, rapid decompensation and med/psych decompensation Time Spent With Patient Time: Total time managing care of this patient today ____ minutes.
[2025-01-13 15:14] VITALS: BP 169/87
[2025-01-13] MEDS: Ferrous Sulfate 324 MG TABLET.DR PO (15:14)
[2025-01-13 20:00] VITALS: BP 138/81; PULSE 93; RESP 18; TEMP 36.4; O2SAT 97
[2025-01-14 08:31] VITALS: BP 147/76; PULSE 98; TEMP 36.4; O2SAT 100
[2025-01-14] MEDS: ARIPiprazole 30 MG TABLET PO (09:08)
--- NOTE | 2025-01-14 09:52 | HO.PSYCHPN ---
Subjective Subjective Date of Service: 01/14/25 Reason For Visit: bipolar disorder Subjective Notes: Conditional Voluntary Healthcare Proxy: No Guardianship: No Medical Problems Affecting Mental Status: Yes Interim History: Good Morning Natali Labile, energized earlier this a.m. Met with pt later in the day. Have I refused my medicine? I never met to do that . Everyone has been careful with my care and medicine, I never met to do this . Reviewed with pt that he missed 2 doses this week. That will not happen again. Discussed with pt treatment goals. 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 He talked of his memory of being forced into police work and this relating to he feeling empowered when he refuses things. Encouraged to consider if what he is refusing at the time may harm him. I know- I am thankful that all three of you made me transfer to medicine this week, I was not clear when I refused. Denies SI,HI,AH, VH. Reports he is feeling safe in milieu and like he is improving. He continues to have periods of mental status changes, lability and is aware of this which continue to be monitored. He discussed worry that his mother has just completed cataract surgery this week in [place]-she will visit on 01/15 and he reports she is doing well. Medication Compliance: Yes Side effects from medications: No Attending Groups: Yes Review of Systems Acute medical concerns: Yes CKD 3-4 Medical Review of Systems: unchanged Review of Systems Review of Systems I feel well, thank you. Mental Status Exam Mental Status Exam Patient Appearance: Appropriate Patient Orientation: Person, Place, Time and Situation Level of Consciousness: Alert Patient Behavior: Talkative and Good Eye Contact Mood Description: Labile Affect Description: Labile Patient Cognition Impaired: Yes Ability to Follow Directions: Good Speech Pattern: Spontaneous Speech Memory Description: Remote Impaired and Episodic Impaired Hallucinations: None Delusions: Paranoid Ideation (mild) Perceptual Disturbances: Derealization Thought Process: Illogical, Distracted and Confusion Thought Content: positive for Circumstantial and positive for Suicidal Ideation (denies) Depressive Symptoms: Thoughts of /Suicide (denies) Judgement: Poor Diagnostics Vital Signs (24Hr): Vital Signs - 24 hr 01/13/25 15:14 01/13/25 20:00 01/14/25 08:31 Temperature 97.6 F 97.6 F Pulse Rate 93 98 Respiratory Rate 18 Blood Pressure 169/87 H 138/81 147/76 H Pulse Oximetry 97 100 Oxygen Delivery Method Room Air Room Air Labs 01/13/25 08:26 Labs: Laboratory Results - last 48 hr 01/13/25 08:26 Sodium 140 Potassium 4.7 Chloride 104 Carbon Dioxide 26 Anion Gap 15 BUN 57 H Creatinine 3.13 H Estim Creat Clear Calc TNP Estimated GFR 20 Random Glucose 216 H Calcium 9.7 Medications Medications Current Medications Al Hydroxide/Mg Hydroxide (Magnesium Hydrox/Alum Hydrox 30 Ml Oral.Susp) 30 ml PO Q6H PRN PRN Reason: Heartburn/Nausea Last Admin: 01/13/25 04:31 Dose: 30 ml Amlodipine Besylate (Amlodipine Besylate 10 Mg Tablet) 10 mg PO DAILY [facility]; Protocol Last Admin: 01/14/25 09:08 Dose: 10 mg Aripiprazole (Aripiprazole 30 Mg Tablet) 30 mg PO DAILY [facility] Last Admin: 01/14/25 09:08 Dose: 30 mg Artificial Tears (Artificial Tears 15 Ml Drops) 1 drop EYE-BOTH DAILY PRN PRN Reason: allergy sx Atorvastatin Calcium (Atorvastatin Calcium 40 Mg Tablet) 40 mg PO DAILY [facility] Last Admin: 01/14/25 09:08 Dose: 40 mg Benztropine Mesylate (Benztropine Mesylate 1 Mg Tablet) 2 mg PO BID [facility] Last Admin: 01/14/25 09:09 Dose: 2 mg Bisacodyl (Bisacodyl 5 Mg Tablet.Dr) 10 mg PO BEDTIME PRN PRN Reason: Constipation Calcitriol (Calcitriol 0.25 Mcg Capsule) 0.25 mcg PO DAILY [facility] Last Admin: 01/14/25 09:08 Dose: 0.25 mcg Clonidine HCl (Clonidine Hcl 0.1 Mg Tablet) 0.1 mg PO TID PRN; Protocol PRN Reason: anxiety Last Admin: 01/12/25 09:00 Dose: 0.1 mg Docusate Sodium (Docusate Sodium 100 Mg Capsule) 100 mg PO BEDTIME [facility] Last Admin: 01/13/25 21:46 Dose: 100 mg Empagliflozin (Empagliflozin 10 Mg Tablet) 10 mg PO DAILY [facility] Last Admin: 01/14/25 09:09 Dose: 10 mg Escitalopram Oxalate (Escitalopram Oxalate 20 Mg Tablet) 20 mg PO DAILY [facility] Last Admin: 01/14/25 09:08 Dose: 20 mg Famotidine (Famotidine 20 Mg Tablet) 20 mg PO DAILY [facility] Last Admin: 01/14/25 09:08 Dose: 20 mg Ferrous Sulfate (Ferrous Sulfate 324 Mg Tablet.) 324 mg PO Q2D [facility] Last Admin: 01/13/25 15:14 Dose: 324 mg Hydralazine HCl (Hydralazine Hcl 25 Mg Tablet) 25 mg PO TID [facility]; Protocol Last Admin: 01/14/25 09:09 Dose: 25 mg Hydroxyzine HCl (Hydroxyzine Hcl 25 Mg Tablet) 25 mg PO Q6H PRN PRN Reason: mild anxiety Last Admin: 01/13/25 08:35 Dose: 25 mg Lamotrigine (Lamotrigine 100 Mg Tablet) 200 mg PO BID [facility] Last Admin: 01/14/25 09:08 Dose: 200 mg Loratadine (Loratadine 10 Mg Tablet) 10 mg PO Q2D [facility] Last Admin: 01/13/25 14:03 Dose: Not Given Nicotine Polacrilex (Nicotine Polacrilex 2 Mg Gum) 4 mg BUCCAL Q2H PRN PRN Reason: Nicotine Cravings Olanzapine (Olanzapine 10 Mg Tablet) 10 mg PO BEDTIME [facility] Last Admin: 01/13/25 21:46 Dose: 10 mg Omeprazole (Omeprazole 20 Mg Capsule.) 20 mg PO DAILY@0630 [facility] Last Admin: 01/14/25 05:49 Dose: Not Given Quetiapine Fumarate (Quetiapine Fumarate 50 Mg Tablet) 50 mg PO TID PRN PRN Reason: agitation Last Admin: 01/13/25 08:35 Dose: 50 mg Quetiapine Fumarate (Quetiapine Fumarate 300 Mg Tablet) 300 mg PO BEDTIME [facility] Last Admin: 01/13/25 21:46 Dose: 300 mg Sodium Zirconium Cyclosilicate (Sodium Zirconium Cyclosilicate 10 Gm Powd.Pack) 10 gm PO DAILY [facility] Last Admin: 01/14/25 09:08 Dose: 10 gm Trazodone HCl (Trazodone Hcl 50 Mg Tablet) 50 mg PO BEDTIME MRX1 PRN PRN Reason: Insomnia Allergies Allergies Allergy/AdvReac Type Severity Reaction Status Date / Time No Known Allergies Allergy Verified 12/17/24 20:12 Assessment & Plan Assessment & Plan (1) HTN (hypertension): Status: Acute Code(s): I10 - Essential (primary) hypertension Assessment and Plan: This evening, pt is questioning regime. He has needed reminders of changes this week due to CKD and hyperkalemia by the team. (2) Bipolar 1 disorder: Status: Acute Code(s): F31.9 - Bipolar disorder, unspecified (3) CKD (chronic kidney disease) stage 3, GFR 30-59 ml/min: Status: Acute Code(s): N18.30 - Chronic kidney disease, stage 3 unspecified Plan 64-year-old male with a past medical history was listed below presented to emergency department at [facility] with mental status changes. Now admitted to inpatient psych for further care. Bipolar 1 disorder/anxiety/mental status changes Treatment per psychiatric team Type 2 diabetes Continue Jardiance Hemoglobin A1c 6.8 Nephrogenic anemia Iron studies within normal limits May need EPO in the future, followed by Nephrology Hyperkalemia Continue on Lokelma daily Check potassium in the morning. Chronic kidney disease stage 4/diabetic nephropathy and hypertensive renal disease Avoid nephrotoxins Followed by Dr. Maravilla as an outpatient Continue calcitriol Type 2 diabetes Hemoglobin A1c 6.8 Continue Jardiance Hypertension/HLD Losartan DC due to kidney injury, Continue Norvasc, hydralazine 25 t.i.d. Recently started atorvastatin Clonidine t.i.d. p.r.n. Blood pressure well controlled Thank you for allowing me to participate in the care of this patient. Will follow with you, please notify medical provider with any changes in condition or concerns. 01/14/25: Continue treatment. Support/Educate Reason for continued inpatient stay Substantial Risk for: inability to function, rapid decompensation and med/psych decompensation Time Spent With Patient Time: Total time managing care of this patient today ____ minutes.
[2025-01-14 15:16] VITALS: BP 144/75
[2025-01-14] MEDS: Magnesium Hydrox/Alum Hydrox 30 ML ORAL.SUSP PO (15:16)
[2025-01-14 16:30] VITALS: BP 161/75; PULSE 102; O2SAT 99
[2025-01-14 19:49] VITALS: BP 175/92; PULSE 95; TEMP 37.1; O2SAT 96
[2025-01-14 20:31] VITALS: BP 148/90
[2025-01-14 20:33] VITALS: BP 148/90
[2025-01-15] MEDS: Magnesium Hydrox/Alum Hydrox 30 ML ORAL.SUSP PO (04:08)
[2025-01-15 08:29] VITALS: BP 166/80; PULSE 92; TEMP 36.1; O2SAT 99
[2025-01-15] MEDS: ARIPiprazole 30 MG TABLET PO (08:41)
[2025-01-15 12:42] VITALS: BP 142/66
[2025-01-15] MEDS: Ferrous Sulfate 324 MG TABLET.DR PO (13:00)
--- NOTE | 2025-01-15 14:56 | P.PNPSI_ITS ---
Subjective Subjective Date of Service: 01/15/25 Reason For Visit: bipolar disorder Subjective Notes: Conditional Voluntary Healthcare Proxy: No Guardianship: No Medical Problems Affecting Mental Status: No Interim History: Patient seen in the OT office.? They were calm, cooperative, communicative. Some disorganization noted as the encounter progressed. Focused on tremor that he states has been going on for 6 months. He says he has not told a provider before today. He was encouraged to follow up with his primary team. He wants to increase dosage of Cogentin but he is already on 2 mg BID. Otherwise they denied concerns about their care at this time. Patient denies SI, HI, AH, VH. Medication Compliance: Yes Side effects from medications: Yes (tremor in bilateral hands) Attending Groups: Yes Review of Systems Acute medical concerns: Yes tremor as noted x 6 months Medical Review of Systems: changed Review of Systems: tremor as noted Review of Systems Review of Systems as per HPI Yes all other systems are reviewed and are negative Mental Status Exam Mental Status Exam Narrative: Patient Appearance: Well Groomed, adequate hygiene Patient Behavior: Appropriate Level of Consciousness: Awake, alert Patient Orientation: Person, Place and Time, situational context Memory: grossly intact to recent events Psychomotor: no agitation or slowing Speech: normal rate, tone, volume Mood: ?good? Affect: appropriate range Thought Process: circumstantial with mild disorganization Thought Content: denies SI/HI; focused on treatment questions Hallucinations: Denies; does not appear preoccupied Delusions: None evinced Insight: mild impairment Judgment: mild impairment Impulsivity: low Diagnostics Vital Signs (24Hr): Vital Signs - 24 hr 01/14/25 15:16 01/14/25 16:30 01/14/25 19:49 Temperature 98.8 F Pulse Rate 102 H 95 Blood Pressure 144/75 H 161/75 H 175/92 H Pulse Oximetry 99 96 Oxygen Delivery Method Room Air Room Air 01/14/25 20:31 01/14/25 20:33 01/15/25 08:29 Temperature 97 F Pulse Rate 92 Blood Pressure 148/90 H 148/90 H 166/80 H Pulse Oximetry 99 Oxygen Delivery Method Room Air 01/15/25 12:42 Temperature Pulse Rate Blood Pressure 142/66 H Pulse Oximetry Oxygen Delivery Method Labs 01/13/25 08:26 Medications Medications Current Medications Al Hydroxide/Mg Hydroxide (Magnesium Hydrox/Alum Hydrox 30 Ml Oral.Susp) 30 ml PO Q6H PRN PRN Reason: Heartburn/Nausea Last Admin: 01/15/25 04:08 Dose: 30 ml Amlodipine Besylate (Amlodipine Besylate 10 Mg Tablet) 10 mg PO DAILY [facility]; Protocol Last Admin: 01/15/25 08:42 Dose: 10 mg Aripiprazole (Aripiprazole 30 Mg Tablet) 30 mg PO DAILY [facility] Last Admin: 01/15/25 08:41 Dose: 30 mg Artificial Tears (Artificial Tears 15 Ml Drops) 1 drop EYE-BOTH DAILY PRN PRN Reason: allergy sx Atorvastatin Calcium (Atorvastatin Calcium 40 Mg Tablet) 40 mg PO DAILY [facility] Last Admin: 01/15/25 08:41 Dose: 40 mg Benztropine Mesylate (Benztropine Mesylate 1 Mg Tablet) 2 mg PO BID [facility] Last Admin: 01/15/25 08:41 Dose: 2 mg Bisacodyl (Bisacodyl 5 Mg Tablet.) 10 mg PO BEDTIME PRN PRN Reason: Constipation Calcitriol (Calcitriol 0.25 Mcg Capsule) 0.25 mcg PO DAILY [facility] Last Admin: 01/15/25 08:41 Dose: 0.25 mcg Clonidine HCl (Clonidine Hcl 0.1 Mg Tablet) 0.1 mg PO TID PRN; Protocol PRN Reason: anxiety Last Admin: 01/15/25 12:42 Dose: 0.1 mg Docusate Sodium (Docusate Sodium 100 Mg Capsule) 100 mg PO BEDTIME [facility] Last Admin: 01/14/25 20:34 Dose: 100 mg Empagliflozin (Empagliflozin 10 Mg Tablet) 10 mg PO DAILY [facility] Last Admin: 01/15/25 08:41 Dose: 10 mg Escitalopram Oxalate (Escitalopram Oxalate 20 Mg Tablet) 20 mg PO DAILY [facility] Last Admin: 01/15/25 08:42 Dose: 20 mg Famotidine (Famotidine 20 Mg Tablet) 20 mg PO DAILY [facility] Last Admin: 01/15/25 08:42 Dose: 20 mg Ferrous Sulfate (Ferrous Sulfate 324 Mg Tablet.) 324 mg PO Q2D [facility] Last Admin: 01/13/25 15:14 Dose: 324 mg Hydralazine HCl (Hydralazine Hcl 25 Mg Tablet) 25 mg PO TID [facility]; Protocol Last Admin: 01/15/25 08:41 Dose: 25 mg Hydroxyzine HCl (Hydroxyzine Hcl 25 Mg Tablet) 25 mg PO Q6H PRN PRN Reason: mild anxiety Last Admin: 01/13/25 08:35 Dose: 25 mg Lamotrigine (Lamotrigine 100 Mg Tablet) 200 mg PO BID [facility] Last Admin: 01/15/25 08:42 Dose: 200 mg Loratadine (Loratadine 10 Mg Tablet) 10 mg PO Q2D [facility] Last Admin: 01/15/25 11:30 Dose: Not Given Nicotine Polacrilex (Nicotine Polacrilex 2 Mg Gum) 4 mg BUCCAL Q2H PRN PRN Reason: Nicotine Cravings Olanzapine (Olanzapine 10 Mg Tablet) 10 mg PO BEDTIME [facility] Last Admin: 01/14/25 20:34 Dose: 10 mg Omeprazole (Omeprazole 20 Mg Capsule.Dr) 20 mg PO DAILY@0630 [facility] Last Admin: 01/15/25 06:24 Dose: 20 mg Quetiapine Fumarate (Quetiapine Fumarate 50 Mg Tablet) 50 mg PO TID PRN PRN Reason: agitation Last Admin: 01/15/25 04:08 Dose: 50 mg Quetiapine Fumarate (Quetiapine Fumarate 300 Mg Tablet) 300 mg PO BEDTIME [facility] Last Admin: 01/14/25 20:33 Dose: 300 mg Sodium Zirconium Cyclosilicate (Sodium Zirconium Cyclosilicate 10 Gm Powd.Pack) 10 gm PO DAILY [facility] Last Admin: 01/15/25 08:42 Dose: 10 gm Trazodone HCl (Trazodone Hcl 50 Mg Tablet) 50 mg PO BEDTIME MRX1 PRN PRN Reason: Insomnia Allergies Allergies Allergy/AdvReac Type Severity Reaction Status Date / Time No Known Allergies Allergy Verified 12/17/24 20:12 Assessment & Plan Assessment & Plan (1) HTN (hypertension): Status: Acute Code(s): I10 - Essential (primary) hypertension Assessment and Plan: This evening, pt is questioning regime. He has needed reminders of changes this week due to CKD and hyperkalemia by the team. (2) Bipolar 1 disorder: Status: Acute Code(s): F31.9 - Bipolar disorder, unspecified (3) CKD (chronic kidney disease) stage 3, GFR 30-59 ml/min: Status: Acute Code(s): N18.30 - Chronic kidney disease, stage 3 unspecified Plan 64-year-old male with a past medical history was listed below presented to emergency department at [facility] with mental status changes. Now admitted to inpatient psych for further care. 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 Chronic kidney disease stage 4/diabetic nephropathy and hypertensive renal disease Avoid nephrotoxins Followed by Dr. Maravilla as an outpatient Continue calcitriol Type 2 diabetes Hemoglobin A1c 6.8 Continue Jardiance Hypertension/HLD Losartan DC due to kidney injury, Continue Norvasc, hydralazine 25 t.i.d. Recently started atorvastatin Clonidine t.i.d. p.r.n. Blood pressure well controlled 01/14/25: Continue treatment. Support/Educate 01/15: no changes - f/u on tremor Patient educated on: diagnosis and medication risk/benefits Informed Consent: understands Reason for continued inpatient stay Substantial Risk for: inability to function and rapid decompensation Time Spent With Patient Time: Total time managing care of this patient today __15__ minutes.
[2025-01-15 15:31] VITALS: BP 158/81
[2025-01-15 19:46] VITALS: BP 152/72; PULSE 102; RESP 16; TEMP 36.6; O2SAT 99
[2025-01-15 20:32] VITALS: BP 152/72
[2025-01-16 08:00] VITALS: BP 114/71; PULSE 111; RESP 16; TEMP 36.7; O2SAT 98
[2025-01-16 08:57] VITALS: BP 114/71
[2025-01-16 08:58] VITALS: BP 114/71
[2025-01-16] MEDS: ARIPiprazole 30 MG TABLET PO (08:59)
[2025-01-16 15:37] VITALS: BP 173/79
[2025-01-16 19:48] VITALS: BP 163/77; PULSE 119; RESP 15; TEMP 37.8; O2SAT 96
--- NOTE | 2025-01-16 23:10 | HO.PSYCHPN ---
Subjective Subjective Date of Service: 01/16/25 Reason For Visit: bipolar disorder Subjective Notes: Conditional Voluntary Healthcare Proxy: No Guardianship: No Medical Problems Affecting Mental Status: No Interim History: Patient seen in his room. HE remains concerned about tremor. Per yesterday;s encounter: he says he has not told a provider before today. He was encouraged to follow up with his primary team. He wants to increase dosage of Cogentin but he is already on 2 mg BID. Otherwise he denied concerns about his care at this time. He appeared more labile/expansive today. Patient denies SI, HI, AH, VH. 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 Affect: expansive Thought Process: Goal Oriented Thought Content: denies SI/HI; focused on physical symptoms Hallucinations: Denies; does not appear preoccupied Delusions: None evinced Insight: impairment Judgment: impairment Impulsivity: low Diagnostics Vital Signs (24Hr): Vital Signs - 24 hr 01/16/25 08:00 01/16/25 08:57 01/16/25 08:58 Temperature 98.1 F Pulse Rate 111 H Respiratory Rate 16 Blood Pressure 114/71 114/71 114/71 Pulse Oximetry 98 Oxygen Delivery Method Room Air 01/16/25 15:37 01/16/25 19:48 Temperature 100.1 F Pulse Rate 119 H Respiratory Rate 15 Blood Pressure 173/79 H 163/77 H Pulse Oximetry 96 Oxygen Delivery Method Labs 01/13/25 08:26 Medications Medications Current Medications Al Hydroxide/Mg Hydroxide (Magnesium Hydrox/Alum Hydrox 30 Ml Oral.Susp) 30 ml PO Q6H PRN PRN Reason: Heartburn/Nausea Last Admin: 01/15/25 04:08 Dose: 30 ml Amlodipine Besylate (Amlodipine Besylate 10 Mg Tablet) 10 mg PO DAILY [facility]; Protocol Last Admin: 01/16/25 08:57 Dose: 10 mg Aripiprazole (Aripiprazole 30 Mg Tablet) 30 mg PO DAILY [facility] Last Admin: 01/16/25 08:59 Dose: 30 mg Artificial Tears (Artificial Tears 15 Ml Drops) 1 drop EYE-BOTH DAILY PRN PRN Reason: allergy sx Atorvastatin Calcium (Atorvastatin Calcium 40 Mg Tablet) 40 mg PO DAILY [facility] Last Admin: 01/16/25 08:59 Dose: 40 mg Benztropine Mesylate (Benztropine Mesylate 1 Mg Tablet) 2 mg PO BID [facility] Last Admin: 01/16/25 20:18 Dose: 2 mg Bisacodyl (Bisacodyl 5 Mg Tablet.Dr) 10 mg PO BEDTIME PRN PRN Reason: Constipation Calcitriol (Calcitriol 0.25 Mcg Capsule) 0.25 mcg PO DAILY [facility] Last Admin: 01/16/25 08:58 Dose: 0.25 mcg Clonidine HCl (Clonidine Hcl 0.1 Mg Tablet) 0.1 mg PO TID PRN; Protocol PRN Reason: anxiety Last Admin: 01/16/25 20:17 Dose: 0.1 mg Docusate Sodium (Docusate Sodium 100 Mg Capsule) 100 mg PO BEDTIME [facility] Last Admin: 01/16/25 20:18 Dose: 100 mg Empagliflozin (Empagliflozin 10 Mg Tablet) 10 mg PO DAILY [facility] Last Admin: 01/16/25 08:59 Dose: 10 mg Escitalopram Oxalate (Escitalopram Oxalate 20 Mg Tablet) 20 mg PO DAILY [facility] Last Admin: 01/16/25 09:02 Dose: 20 mg Famotidine (Famotidine 20 Mg Tablet) 20 mg PO DAILY [facility] Last Admin: 01/16/25 08:57 Dose: 20 mg Ferrous Sulfate (Ferrous Sulfate 324 Mg Tablet.Dr) 324 mg PO Q2D [facility] Last Admin: 01/15/25 13:00 Dose: 324 mg Hydralazine HCl (Hydralazine Hcl 25 Mg Tablet) 25 mg PO TID [facility]; Protocol Last Admin: 01/16/25 20:18 Dose: 25 mg Hydroxyzine HCl (Hydroxyzine Hcl 25 Mg Tablet) 25 mg PO Q6H PRN PRN Reason: mild anxiety Last Admin: 01/16/25 18:49 Dose: 25 mg Lamotrigine (Lamotrigine 100 Mg Tablet) 200 mg PO BID [facility] Last Admin: 01/16/25 20:18 Dose: 200 mg Loratadine (Loratadine 10 Mg Tablet) 10 mg PO Q2D [facility] Last Admin: 01/15/25 11:30 Dose: Not Given Nicotine Polacrilex (Nicotine Polacrilex 2 Mg Gum) 4 mg BUCCAL Q2H PRN PRN Reason: Nicotine Cravings Olanzapine (Olanzapine 10 Mg Tablet) 10 mg PO BEDTIME [facility] Last Admin: 01/16/25 20:18 Dose: 10 mg Omeprazole (Omeprazole 20 Mg Capsule.Dr) 20 mg PO DAILY@0630 [facility] Last Admin: 01/16/25 06:30 Dose: 20 mg Quetiapine Fumarate (Quetiapine Fumarate 50 Mg Tablet) 50 mg PO TID PRN PRN Reason: agitation Last Admin: 01/15/25 04:08 Dose: 50 mg Quetiapine Fumarate (Quetiapine Fumarate 300 Mg Tablet) 300 mg PO BEDTIME [facility] Last Admin: 01/16/25 20:18 Dose: 300 mg Sodium Zirconium Cyclosilicate (Sodium Zirconium Cyclosilicate 10 Gm Powd.Pack) 10 gm PO DAILY [facility] Last Admin: 01/16/25 08:59 Dose: 10 gm Trazodone HCl (Trazodone Hcl 50 Mg Tablet) 50 mg PO BEDTIME MRX1 PRN PRN Reason: Insomnia Allergies Allergies Allergy/AdvReac Type Severity Reaction Status Date / Time No Known Allergies Allergy Verified 12/17/24 20:12 Assessment & Plan Assessment & Plan (1) HTN (hypertension): Status: Acute Code(s): I10 - Essential (primary) hypertension Assessment and Plan: This evening, pt is questioning regime. He has needed reminders of changes this week due to CKD and hyperkalemia by the team. (2) Bipolar 1 disorder: Status: Acute Code(s): F31.9 - Bipolar disorder, unspecified (3) CKD (chronic kidney disease) stage 3, GFR 30-59 ml/min: Status: Acute Code(s): N18.30 - Chronic kidney disease, stage 3 unspecified Plan 64-year-old male with a past medical history was listed below presented to emergency department at [facility] with mental status changes. Now admitted to inpatient psych for further care. 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 Chronic kidney disease stage 4/diabetic nephropathy and hypertensive renal disease Avoid nephrotoxins Followed by Dr. Maravilla as an outpatient Continue calcitriol Type 2 diabetes Hemoglobin A1c 6.8 Continue Jardiance Hypertension/HLD Losartan DC due to kidney injury, Continue Norvasc, hydralazine 25 t.i.d. Recently started atorvastatin Clonidine t.i.d. p.r.n. Blood pressure well controlled 01/14/25: Continue treatment. Support/Educate 01/15, : no changes - f/u on tremor Patient educated on: diagnosis and medication risk/benefits Informed Consent: understands Reason for continued inpatient stay Substantial Risk for: inability to function Time Spent With Patient Time: Total time managing care of this patient today _15___ minutes.
[2025-01-17] VITALS (9 sets, daily range): BP systolic 174–193; BP diastolic 76–88; PULSE 93–99; RESP 15–18; TEMP 36.6; O2SAT 96–100
[2025-01-17] MEDS: ARIPiprazole 30 MG TABLET PO (08:41)
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
[2025-01-17] MEDS: Ferrous Sulfate 324 MG TABLET.DR PO (12:57)
--- NOTE | 2025-01-17 13:05 | PM.EVENT ---
Event Note Date of Service: 01/17/25 Event Note: Patient's blood pressure continues to be elevated, we will increase the hydralazine to 50 mg t.i.d. continue clonidine 0.1 t.i.d. p.r.n. and continue amlodipine 10 mg daily. If patient's blood pressure continues to be elevated, will add torsemide daily. Follow up BMP. Time Spent With Patient Time: Total time managing care of this patient today ____ minutes.
[2025-01-17 13:38] LABS: Anion Gap 15 (12-20); Blood Urea Nitrogen 45 mg/dL (9-16); Calcium 10.0 mg/dL (8.4-10.2); Carbon Dioxide 25 mmol/L (22-29); Chloride 102 mmol/L (96-108); Estimated Glomerular Filt Rate 20; Potassium 4.4 mmol/L (3.3-5.1); Sodium 138 mmol/L (135-145)
--- NOTE | 2025-01-17 15:09 | PC.NURSE ---
This filing writer took BP for 1500 medication: L 219/97, R 193/88, pulse 104. Denies symptoms. Provider aware.
--- NOTE | 2025-01-17 16:00 | PC.NURSE ---
This bid writer requested to recheck pt.'s blood pressure after administering his 1500 medications. Pt refused. Provider aware.
--- NOTE | 2025-01-17 16:22 | HO.PM.IMPN ---
Subjective Subjective Date of Service: 01/17/25 Interval History: Patient seen for elevated blood pressures. Discussed case with Dr. Velasquez who recommended increasing hydralazine 59 mgs TID. Patient's creatinine is 3.15, and his potassium levels within normal limits 4.4. Discussed with the patient, patient is guicho and does not wish to discuss any blood pressure medication is resistive to have in his blood pressure checked. Denies any other symptoms including chest pain or shortness of breath. Review of Systems Denies any shortness of breath, chest pain, palpitations, dizziness, lightheadedness, headaches, dysuria, abdominal pain or discomfort, nausea, vomiting or diarrhea. Physical Exam Exam: Exam: CONST: Alert and oriented, in NAD. Well nourished HEENT: Normocephalic, atraumatic RESP: Respiratory rate even and regular. Lung sounds clear HEART: S1-S2 no ectopy GI: Decline : Decline SKIN: Color within normal limits, no visible lesions or rashes NEURO: Moves all extremities, Speech clear. Ambulates with steady gait PSYCH: Answers questions Vital Signs: Vital Signs: Last Vital Signs Temp 97.9 F 01/17/25 08:00 Pulse 93 01/17/25 08:00 Resp 15 01/17/25 08:00 BP 193/88 H 01/17/25 15:05 Pulse Ox 100 01/17/25 08:00 O2 Del Method Room Air 01/17/25 08:00 Objective Data Active Medications Al Hydroxide/Mg Hydroxide (Magnesium Hydrox/Alum Hydrox 30 Ml Oral.Susp) 30 ml PO Q6H PRN PRN Reason: Heartburn/Nausea Last Admin: 01/15/25 04:08 Dose: 30 ml Documented By: TIFFANIE Amlodipine Besylate (Amlodipine Besylate 10 Mg Tablet) 10 mg PO DAILY [facility]; Protocol Last Admin: 01/17/25 08:40 Dose: 10 mg Documented By: EMERSON Aripiprazole (Aripiprazole 30 Mg Tablet) 30 mg PO DAILY [facility] Last Admin: 01/17/25 08:41 Dose: 30 mg Documented By: EMERSON Artificial Tears (Artificial Tears 15 Ml Drops) 1 drop EYE-BOTH DAILY PRN PRN Reason: allergy sx Atorvastatin Calcium (Atorvastatin Calcium 40 Mg Tablet) 40 mg PO DAILY [facility] Last Admin: 01/17/25 08:40 Dose: 40 mg Documented By: EMERSON Benztropine Mesylate (Benztropine Mesylate 1 Mg Tablet) 2 mg PO BID [facility] Last Admin: 01/17/25 08:41 Dose: 2 mg Documented By: EMERSON Bisacodyl (Bisacodyl 5 Mg Tablet.) 10 mg PO BEDTIME PRN PRN Reason: Constipation Calcitriol (Calcitriol 0.25 Mcg Capsule) 0.25 mcg PO DAILY [facility] Last Admin: 01/17/25 08:41 Dose: 0.25 mcg Documented By: EMERSON Clonidine HCl (Clonidine Hcl 0.1 Mg Tablet) 0.1 mg PO TID PRN; Protocol PRN Reason: anxiety Last Admin: 01/16/25 20:17 Dose: 0.1 mg Documented By: KENDRICK Docusate Sodium (Docusate Sodium 100 Mg Capsule) 100 mg PO BEDTIME [facility] Last Admin: 01/16/25 20:18 Dose: 100 mg Documented By: KENDRICK Empagliflozin (Empagliflozin 10 Mg Tablet) 10 mg PO DAILY [facility] Last Admin: 01/17/25 08:40 Dose: 10 mg Documented By: EMERSON Escitalopram Oxalate (Escitalopram Oxalate 20 Mg Tablet) 20 mg PO DAILY [facility] Last Admin: 01/17/25 08:40 Dose: 20 mg Documented By: EMERSON Famotidine (Famotidine 20 Mg Tablet) 20 mg PO DAILY [facility] Last Admin: 01/17/25 08:41 Dose: 20 mg Documented By: EMERSON Ferrous Sulfate (Ferrous Sulfate 324 Mg Tablet.) 324 mg PO Q2D [facility] Last Admin: 01/17/25 12:57 Dose: 324 mg Documented By: EMERSON Hydralazine HCl (Hydralazine Hcl 50 Mg Tablet) 50 mg PO TID [facility]; Protocol Last Admin: 01/17/25 15:03 Dose: 50 mg Documented By: EMERSON Hydroxyzine HCl (Hydroxyzine Hcl 25 Mg Tablet) 25 mg PO Q6H PRN PRN Reason: mild anxiety Last Admin: 01/16/25 18:49 Dose: 25 mg Documented By: DELVIS Lamotrigine (Lamotrigine 100 Mg Tablet) 200 mg PO BID [facility] Last Admin: 01/17/25 08:41 Dose: 200 mg Documented By: EMERSON Loratadine (Loratadine 10 Mg Tablet) 10 mg PO Q2D [facility] Last Admin: 01/17/25 09:43 Dose: 10 mg Documented By: EMERSON Nicotine Polacrilex (Nicotine Polacrilex 2 Mg Gum) 4 mg BUCCAL Q2H PRN PRN Reason: Nicotine Cravings Olanzapine (Olanzapine 10 Mg Tablet) 10 mg PO BEDTIME [facility] Last Admin: 01/16/25 20:18 Dose: 10 mg Documented By: KENDRICK Omeprazole (Omeprazole 20 Mg Capsule.) 20 mg PO DAILY@0630 [facility] Last Admin: 01/17/25 06:32 Dose: 20 mg Documented By: KENDRICK Quetiapine Fumarate (Quetiapine Fumarate 50 Mg Tablet) 50 mg PO TID PRN PRN Reason: agitation Last Admin: 01/15/25 04:08 Dose: 50 mg Documented By: TIFFANIE Quetiapine Fumarate (Quetiapine Fumarate 400 Mg Tablet) 400 mg PO BEDTIME [facility] Sodium Zirconium Cyclosilicate (Sodium Zirconium Cyclosilicate 10 Gm Powd.Pack) 10 gm PO DAILY [facility] Last Admin: 01/17/25 08:40 Dose: 10 gm Documented By: EMERSON Trazodone HCl (Trazodone Hcl 50 Mg Tablet) 50 mg PO BEDTIME MRX1 PRN PRN Reason: Insomnia Labs 01/17/25 13:08 Labs: Laboratory Results - last 24 hr 01/17/25 13:08 Anion Gap 15 Estim Creat Clear Calc TNP Estimated GFR 20 Random Glucose 170 H Calcium 10.0 Assessment and Plan (1) HTN (hypertension): Status: Acute Plan 64-year-old male with a past medical history was listed below presented to emergency department at [facility] with mental status changes. Now admitted to inpatient psych for further care. Bipolar 1 disorder/anxiety/mental status changes Treatment per psychiatric team Type 2 diabetes Continue Jardiance Hemoglobin A1c 6.8 Nephrogenic anemia Iron studies within normal limits May need EPO in the future, followed by Nephrology Hyperkalemia Continue on Lokelma daily Potassium level 4.4 today Chronic kidney disease stage 4/diabetic nephropathy and hypertensive renal disease Avoid nephrotoxins Followed by Dr. Maravilla as an outpatient Continue calcitriol Creatinine 3.15 Type 2 diabetes Hemoglobin A1c 6.8 Continue Jardiance Hypertension/HLD Losartan DC due to kidney injury, Continue Norvasc, increase hydralazine to 50 t.i.d. Recently started atorvastatin Clonidine t.i.d. p.r.n. Blood pressure well controlled Thank you for allowing me to participate in the care of this patient. Will follow with you, please notify medical provider with any changes in condition or concerns. Quality Stroke Does the patient have a stroke diagnosis?: No VTE Prior VTE?: No VTE Risk Level:: Medical - low VTE Device Contraindication: Treatment Not Indicated VTE Drug Contraindication: Treatment Not Indicated
--- NOTE | 2025-01-17 16:32 | PC.NURSE ---
Pt declined BP recheck x2 RN's. He then demanded that it be rechecked by different staff 5 minutes later. Pt very irritable about this situation and appears to be staff splitting?
[2025-01-18] MEDS: Magnesium Hydrox/Alum Hydrox 30 ML ORAL.SUSP PO (06:48)
[2025-01-18 08:00] VITALS: BP 111/67; PULSE 107; TEMP 2.6; TEMP 36.6; O2SAT 98
--- NOTE | 2025-01-18 08:55 | PM.EVENT ---
Event Note Date of Service: 01/18/25 Event Note: Reviewed patient's blood pressure, hydralazine recently increased blood pressure 111/67 this morning. Continue amlodipine, hydralazine and p.r.n. clonidine. Time Spent With Patient Time: Total time managing care of this patient today ____ minutes.
[2025-01-18] MEDS: ARIPiprazole 30 MG TABLET PO (09:17)
[2025-01-18] MEDS: Artificial Tears 15 ML DROPS 1 DROP EYE-BOTH (09:20)
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
[2025-01-18 14:56] VITALS: BP 116/55
[2025-01-18 20:00] VITALS: BP 161/74; PULSE 86; RESP 18; TEMP 35.8; O2SAT 99
[2025-01-19 03:05] VITALS: BP 132/72
[2025-01-19 08:05] VITALS: BP 113/62; PULSE 81; TEMP 36.2; O2SAT 98
[2025-01-19] MEDS: ARIPiprazole 30 MG TABLET PO (08:34)
--- NOTE | 2025-01-19 09:51 | HO.PSYCHPN ---
Subjective Subjective Date of Service: 01/19/25 Reason For Visit: bipolar disorder Subjective Notes: Conditional Voluntary Healthcare Proxy: No Guardianship: No Medical Problems Affecting Mental Status: No Interim History: Tolerating Quetiapine increase. Slept eight hours Discussed wanting to be an employee, live here and lead groups Also talking about wanting to leave a mens holiness group Discussed with pt that this is his time to receive help. Medication Compliance: Yes Side effects from medications: No Attending Groups: Yes Review of Systems Acute medical concerns: No Medical Review of Systems: unchanged Review of Systems Review of Systems no Mental Status Exam Mental Status Exam Patient Appearance: Appropriate Patient Orientation: Person, Place, Time and Situation Level of Consciousness: Alert Patient Behavior: Talkative and Good Eye Contact Mood Description: Anxious and Expansive Affect Description: Expansive Patient Cognition Impaired: No Ability to Follow Directions: Good Speech Pattern: Spontaneous Speech Memory Description: Episodic Impaired Hallucinations: None Delusions: Not Present Perceptual Disturbances: Derealization Thought Process: Illogical (at times) and Distracted Thought Content: positive for [place], positive for Circumstantial and positive for Suicidal Ideation (denies) Depressive Symptoms: Thoughts of /Suicide (denies) Abnormal Motor Activity Signs and Symptoms: Hyperactivity Judgement: Fair Diagnostics Vital Signs (24Hr): Vital Signs - 24 hr 01/18/25 14:56 01/18/25 20:00 01/19/25 03:05 Temperature 96.4 F L Pulse Rate 86 Respiratory Rate 18 Blood Pressure 116/55 L 161/74 H 132/72 Pulse Oximetry 99 Oxygen Delivery Method Room Air 01/19/25 08:05 Temperature 97.2 F Pulse Rate 81 Respiratory Rate Blood Pressure 113/62 Pulse Oximetry 98 Oxygen Delivery Method Room Air Labs 01/17/25 13:08 Labs: Laboratory Results - last 48 hr 01/17/25 13:08 Sodium 138 Potassium 4.4 Chloride 102 Carbon Dioxide 25 Anion Gap 15 BUN 45 H Creatinine 3.15 H Estim Creat Clear Calc TNP Estimated GFR 20 Random Glucose 170 H Calcium 10.0 Medications Medications Current Medications Acetaminophen (Acetaminophen 325 Mg Tablet) 650 mg PO Q6H PRN PRN Reason: Pain, Mild (Pain Scale 1-3) Last Admin: 01/18/25 20:26 Dose: 650 mg Al Hydroxide/Mg Hydroxide (Magnesium Hydrox/Alum Hydrox 30 Ml Oral.Susp) 30 ml PO Q6H PRN PRN Reason: Heartburn/Nausea Last Admin: 01/18/25 06:48 Dose: 30 ml Amlodipine Besylate (Amlodipine Besylate 10 Mg Tablet) 10 mg PO DAILY [facility]; Protocol Last Admin: 01/19/25 08:34 Dose: 10 mg Aripiprazole (Aripiprazole 30 Mg Tablet) 30 mg PO DAILY [facility] Last Admin: 01/19/25 08:34 Dose: 30 mg Artificial Tears (Artificial Tears 15 Ml Drops) 1 drop EYE-BOTH DAILY PRN PRN Reason: allergy sx Last Admin: 01/18/25 09:20 Dose: 1 drop Atorvastatin Calcium (Atorvastatin Calcium 40 Mg Tablet) 40 mg PO DAILY [facility] Last Admin: 01/19/25 08:33 Dose: 40 mg Benztropine Mesylate (Benztropine Mesylate 1 Mg Tablet) 2 mg PO BID [facility] Last Admin: 01/19/25 08:34 Dose: 2 mg Bisacodyl (Bisacodyl 5 Mg Tablet.) 10 mg PO BEDTIME PRN PRN Reason: Constipation Calcitriol (Calcitriol 0.25 Mcg Capsule) 0.25 mcg PO DAILY [facility] Last Admin: 01/19/25 08:34 Dose: 0.25 mcg Clonidine HCl (Clonidine Hcl 0.1 Mg Tablet) 0.1 mg PO TID PRN; Protocol PRN Reason: anxiety Last Admin: 01/19/25 03:05 Dose: 0.1 mg Docusate Sodium (Docusate Sodium 100 Mg Capsule) 100 mg PO BEDTIME [facility] Last Admin: 01/18/25 20:21 Dose: 100 mg Empagliflozin (Empagliflozin 10 Mg Tablet) 10 mg PO DAILY [facility] Last Admin: 01/19/25 08:33 Dose: 10 mg Escitalopram Oxalate (Escitalopram Oxalate 20 Mg Tablet) 20 mg PO DAILY [facility] Last Admin: 01/19/25 08:34 Dose: 20 mg Famotidine (Famotidine 20 Mg Tablet) 20 mg PO DAILY [facility] Last Admin: 01/19/25 08:34 Dose: 20 mg Ferrous Sulfate (Ferrous Sulfate 324 Mg Tablet.) 324 mg PO Q2D [facility] Last Admin: 01/17/25 12:57 Dose: 324 mg Hydralazine HCl (Hydralazine Hcl 50 Mg Tablet) 50 mg PO TID [facility]; Protocol Last Admin: 01/19/25 08:33 Dose: 50 mg Hydroxyzine HCl (Hydroxyzine Hcl 25 Mg Tablet) 25 mg PO Q6H PRN PRN Reason: mild anxiety Last Admin: 01/17/25 18:28 Dose: 25 mg Lamotrigine (Lamotrigine 100 Mg Tablet) 200 mg PO BID [facility] Last Admin: 01/19/25 08:34 Dose: 200 mg Loratadine (Loratadine 10 Mg Tablet) 10 mg PO Q2D [facility] Last Admin: 01/19/25 08:49 Dose: Not Given Nicotine Polacrilex (Nicotine Polacrilex 2 Mg Gum) 4 mg BUCCAL Q2H PRN PRN Reason: Nicotine Cravings Olanzapine (Olanzapine 10 Mg Tablet) 10 mg PO BEDTIME [facility] Last Admin: 01/18/25 20:21 Dose: 10 mg Omeprazole (Omeprazole 20 Mg Capsule.Dr) 20 mg PO DAILY@0630 [facility] Last Admin: 01/19/25 06:32 Dose: 20 mg Quetiapine Fumarate (Quetiapine Fumarate 50 Mg Tablet) 50 mg PO TID PRN PRN Reason: agitation Last Admin: 01/19/25 03:08 Dose: 50 mg Quetiapine Fumarate (Quetiapine Fumarate 400 Mg Tablet) 400 mg PO BEDTIME [facility] Last Admin: 01/18/25 20:21 Dose: 400 mg Sodium Zirconium Cyclosilicate (Sodium Zirconium Cyclosilicate 10 Gm Powd.Pack) 10 gm PO DAILY [facility] Last Admin: 01/19/25 08:32 Dose: 10 gm Trazodone HCl (Trazodone Hcl 50 Mg Tablet) 50 mg PO BEDTIME MRX1 PRN PRN Reason: Insomnia Allergies Allergies Allergy/AdvReac Type Severity Reaction Status Date / Time No Known Allergies Allergy Verified 12/17/24 20:12 Assessment & Plan Assessment & Plan (1) HTN (hypertension): Status: Acute Code(s): I10 - Essential (primary) hypertension Assessment and Plan: This evening, pt is questioning regime. He has needed reminders of changes this week due to CKD and hyperkalemia by the team. (2) Bipolar 1 disorder: Status: Acute Code(s): F31.9 - Bipolar disorder, unspecified (3) CKD (chronic kidney disease) stage 3, GFR 30-59 ml/min: Status: Acute Code(s): N18.30 - Chronic kidney disease, stage 3 unspecified Plan 64-year-old male with a past medical history was listed below presented to emergency department at [facility] with mental status changes. Now admitted to inpatient psych for further care. 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 Chronic kidney disease stage 4/diabetic nephropathy and hypertensive renal disease Avoid nephrotoxins Followed by Dr. Maravilla as an outpatient Continue calcitriol Type 2 diabetes Hemoglobin A1c 6.8 Continue Jardiance Hypertension/HLD Losartan DC due to kidney injury, Continue Norvasc, hydralazine 25 t.i.d. Recently started atorvastatin Clonidine t.i.d. p.r.n. Blood pressure well controlled 01/14/25: Continue treatment. Support/Educate 01/15, 16: no changes - f/u on tremor 01/17: Seroquel 400 mg HS CMP 01/18. Continue to monitor for tremor. 01/18: Continue tx 01/19: Continue tx Reason for continued inpatient stay Substantial Risk for: rapid decompensation and med/psych decompensation Time Spent With Patient Time: Total time managing care of this patient today ____ minutes.
[2025-01-19 15:12] VITALS: BP 160/79
[2025-01-19] MEDS: Ferrous Sulfate 324 MG TABLET.DR PO (15:13)
[2025-01-19 20:00] VITALS: BP 132/65; PULSE 110; TEMP 37.1; O2SAT 97
[2025-01-19 20:18] VITALS: BP 132/65
[2025-01-20 07:58] VITALS: BP 141/73; PULSE 102; RESP 16; TEMP 36.5; O2SAT 99
[2025-01-20] MEDS: ARIPiprazole 30 MG TABLET PO (08:52)
--- NOTE | 2025-01-20 10:17 | P.PNPSI_ITS ---
Subjective Subjective Date of Service: 01/20/25 Reason For Visit: bipolar disorder Subjective Notes: Conditional Voluntary Healthcare Proxy: No Guardianship: No Medical Problems Affecting Mental Status: No Interim History: Calmer, clearer today. Denies issues of concern Engaged in milieu and with peers. 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 Medication Compliance: Yes Side effects from medications: No Attending Groups: Yes Review of Systems Acute medical concerns: No Medical Review of Systems: unchanged Review of Systems Review of Systems Denies Mental Status Exam Mental Status Exam Patient Appearance: Appropriate Patient Orientation: Person, Place, Time and Situation Level of Consciousness: Alert Patient Behavior: Talkative and Good Eye Contact Mood Description: Flat Affect Description: Flat and Expansive Patient Cognition Impaired: No Ability to Follow Directions: Good Speech Pattern: Spontaneous Speech Memory Description: Episodic Impaired Hallucinations: None Delusions: Not Present Perceptual Disturbances: Derealization Thought Process: Intact Thought Content: positive for [place], positive for Circumstantial and positive for Suicidal Ideation (denies) Depressive Symptoms: Thoughts of /Suicide (denies) Judgement: Fair Diagnostics Vital Signs (24Hr): Vital Signs - 24 hr 01/19/25 15:12 01/19/25 20:00 01/19/25 20:18 Temperature 98.7 F Pulse Rate 110 H Respiratory Rate Blood Pressure 160/79 H 132/65 132/65 Pulse Oximetry 97 Oxygen Delivery Method Room Air 01/20/25 07:58 Temperature 97.7 F Pulse Rate 102 H Respiratory Rate 16 Blood Pressure 141/73 H Pulse Oximetry 99 Oxygen Delivery Method Room Air Labs 01/17/25 13:08 Medications Medications Current Medications Acetaminophen (Acetaminophen 325 Mg Tablet) 650 mg PO Q6H PRN PRN Reason: Pain, Mild (Pain Scale 1-3) Last Admin: 01/18/25 20:26 Dose: 650 mg Al Hydroxide/Mg Hydroxide (Magnesium Hydrox/Alum Hydrox 30 Ml Oral.Susp) 30 ml PO Q6H PRN PRN Reason: Heartburn/Nausea Last Admin: 01/18/25 06:48 Dose: 30 ml Amlodipine Besylate (Amlodipine Besylate 10 Mg Tablet) 10 mg PO DAILY [facility]; Protocol Last Admin: 01/20/25 08:52 Dose: 10 mg Aripiprazole (Aripiprazole 30 Mg Tablet) 30 mg PO DAILY [facility] Last Admin: 01/20/25 08:52 Dose: 30 mg Artificial Tears (Artificial Tears 15 Ml Drops) 1 drop EYE-BOTH DAILY PRN PRN Reason: allergy sx Last Admin: 01/18/25 09:20 Dose: 1 drop Atorvastatin Calcium (Atorvastatin Calcium 40 Mg Tablet) 40 mg PO DAILY [facility] Last Admin: 01/20/25 08:52 Dose: 40 mg Benztropine Mesylate (Benztropine Mesylate 1 Mg Tablet) 2 mg PO BID [facility] Last Admin: 01/20/25 08:51 Dose: 2 mg Bisacodyl (Bisacodyl 5 Mg Tablet.) 10 mg PO BEDTIME PRN PRN Reason: Constipation Calcitriol (Calcitriol 0.25 Mcg Capsule) 0.25 mcg PO DAILY [facility] Last Admin: 01/20/25 08:52 Dose: 0.25 mcg Clonidine HCl (Clonidine Hcl 0.1 Mg Tablet) 0.1 mg PO TID PRN; Protocol PRN Reason: anxiety Last Admin: 01/19/25 03:05 Dose: 0.1 mg Docusate Sodium (Docusate Sodium 100 Mg Capsule) 100 mg PO BEDTIME [facility] Last Admin: 01/19/25 20:20 Dose: 100 mg Empagliflozin (Empagliflozin 10 Mg Tablet) 10 mg PO DAILY [facility] Last Admin: 01/20/25 08:52 Dose: 10 mg Escitalopram Oxalate (Escitalopram Oxalate 20 Mg Tablet) 20 mg PO DAILY [facility] Last Admin: 01/20/25 08:52 Dose: 20 mg Famotidine (Famotidine 20 Mg Tablet) 20 mg PO DAILY [facility] Last Admin: 01/20/25 08:51 Dose: 20 mg Ferrous Sulfate (Ferrous Sulfate 324 Mg Tablet.) 324 mg PO Q2D [facility] Last Admin: 01/19/25 15:13 Dose: 324 mg Hydralazine HCl (Hydralazine Hcl 50 Mg Tablet) 50 mg PO TID [facility]; Protocol Last Admin: 01/20/25 08:52 Dose: 50 mg Hydroxyzine HCl (Hydroxyzine Hcl 25 Mg Tablet) 25 mg PO Q6H PRN PRN Reason: mild anxiety Last Admin: 01/19/25 15:12 Dose: 25 mg Lamotrigine (Lamotrigine 100 Mg Tablet) 200 mg PO BID [facility] Last Admin: 01/20/25 08:51 Dose: 200 mg Loratadine (Loratadine 10 Mg Tablet) 10 mg PO Q2D [facility] Last Admin: 01/19/25 08:49 Dose: Not Given Nicotine Polacrilex (Nicotine Polacrilex 2 Mg Gum) 4 mg BUCCAL Q2H PRN PRN Reason: Nicotine Cravings Olanzapine (Olanzapine 10 Mg Tablet) 10 mg PO BEDTIME [facility] Last Admin: 01/19/25 20:19 Dose: 10 mg Omeprazole (Omeprazole 20 Mg Capsule.Dr) 20 mg PO DAILY@0630 [facility] Last Admin: 01/20/25 06:56 Dose: 20 mg Quetiapine Fumarate (Quetiapine Fumarate 50 Mg Tablet) 50 mg PO TID PRN PRN Reason: agitation Last Admin: 01/19/25 03:08 Dose: 50 mg Quetiapine Fumarate (Quetiapine Fumarate 400 Mg Tablet) 400 mg PO BEDTIME [facility] Last Admin: 01/19/25 20:20 Dose: 400 mg Sodium Zirconium Cyclosilicate (Sodium Zirconium Cyclosilicate 10 Gm Powd.Pack) 10 gm PO DAILY [facility] Last Admin: 01/20/25 08:52 Dose: 10 gm Trazodone HCl (Trazodone Hcl 50 Mg Tablet) 50 mg PO BEDTIME MRX1 PRN PRN Reason: Insomnia Allergies Allergies Allergy/AdvReac Type Severity Reaction Status Date / Time No Known Allergies Allergy Verified 12/17/24 20:12 Assessment & Plan Assessment & Plan (1) HTN (hypertension): Status: Acute Code(s): I10 - Essential (primary) hypertension Assessment and Plan: This evening, pt is questioning regime. He has needed reminders of changes this week due to CKD and hyperkalemia by the team. (2) Bipolar 1 disorder: Status: Acute Code(s): F31.9 - Bipolar disorder, unspecified (3) CKD (chronic kidney disease) stage 3, GFR 30-59 ml/min: Status: Acute Code(s): N18.30 - Chronic kidney disease, stage 3 unspecified Plan 64-year-old male with a past medical history was listed below presented to emergency department at [facility] with mental status changes. Now admitted to inpatient psych for further care. Bipolar 1 disorder/anxiety/mental status changes Type 2 diabetes Continue Jardiance Hemoglobin A1c 6.8 Nephrogenic anemia Iron studies within normal limits May need EPO in the future, followed by Nephrology Hyperkalemia Continue on Lokelnd daily Check potassium in the morning. Chronic kidney disease stage 4/diabetic nephropathy and hypertensive renal disease Avoid nephrotoxins Followed by Dr. Maravilla as an outpatient Continue calcitriol Type 2 diabetes Hemoglobin A1c 6.8 Continue Jardiance Hypertension/HLD Losartan DC due to kidney injury, Continue Norvasc, hydralazine 25 t.i.d. Recently started atorvastatin Clonidine t.i.d. p.r.n. Blood pressure well controlled 01/14/25: Continue treatment. Support/Educate 01/15, : no changes - f/u on tremor 01/17: Seroquel 400 mg HS CMP 01/18. Continue to monitor for tremor. 01/18: Continue tx 01/20: Continue tx Reason for continued inpatient stay Substantial Risk for: rapid decompensation and med/psych decompensation Time Spent With Patient Time: Total time managing care of this patient today ____ minutes.
[2025-01-20 15:03] VITALS: BP 178/79
[2025-01-20 20:00] VITALS: BP 187/88; PULSE 101; TEMP 36.7; O2SAT 100
[2025-01-20 20:45] VITALS: BP 182/87; PULSE 92
[2025-01-20 20:54] VITALS: BP 182/87
[2025-01-21 08:15] VITALS: BP 153/81; PULSE 98; TEMP 36.7; O2SAT 99
[2025-01-21] MEDS: ARIPiprazole 30 MG TABLET PO (08:47)
[2025-01-21] MEDS: Ferrous Sulfate 324 MG TABLET.DR PO (08:52)
--- NOTE | 2025-01-21 10:29 | P.PNPSI_ITS ---
Subjective Subjective Date of Service: 01/21/25 Reason For Visit: bipolar disorder Subjective Notes: Conditional Voluntary Healthcare Proxy: No Guardianship: No Medical Problems Affecting Mental Status: No Interim History: Juve reports he is doing OK. We discussed Seroquel dosing and increasing to 500 mg HS. He is in agreement. He continues to have some delusional content, some more reality oriented, aware he is not a staff member but a patient. Encouraged him to allow us to care for him. Labs are ordered for 01/24. Medication Compliance: Yes Side effects from medications: No Attending Groups: Yes Review of Systems CKD Review of Systems Review of Systems no Mental Status Exam Mental Status Exam Patient Appearance: Appropriate Patient Orientation: Person, Place, Time and Situation Level of Consciousness: Alert Patient Behavior: Talkative and Good Eye Contact Mood Description: Flat Affect Description: Flat and Expansive Patient Cognition Impaired: No Ability to Follow Directions: Good Speech Pattern: Spontaneous Speech Memory Description: Episodic Impaired Hallucinations: None Delusions: Not Present Perceptual Disturbances: Derealization Thought Process: Intact Thought Content: positive for Parsons, positive for Circumstantial and positive for Suicidal Ideation (denies) Depressive Symptoms: Thoughts of /Suicide (denies) Judgement: Fair Diagnostics Vital Signs (24Hr): Vital Signs - 24 hr 01/20/25 15:03 01/20/25 20:00 01/20/25 20:45 Temperature 98.1 F Pulse Rate 101 H 92 Blood Pressure 178/79 H 187/88 H 182/87 H Pulse Oximetry 100 Oxygen Delivery Method Room Air 01/20/25 20:54 01/21/25 08:15 Temperature 98.1 F Pulse Rate 98 Blood Pressure 182/87 H 153/81 H Pulse Oximetry 99 Oxygen Delivery Method Room Air Labs 01/17/25 13:08 Medications Medications Current Medications Acetaminophen (Acetaminophen 325 Mg Tablet) 650 mg PO Q6H PRN PRN Reason: Pain, Mild (Pain Scale 1-3) Last Admin: 01/21/25 08:51 Dose: 650 mg Al Hydroxide/Mg Hydroxide (Magnesium Hydrox/Alum Hydrox 30 Ml Oral.Susp) 30 ml PO Q6H PRN PRN Reason: Heartburn/Nausea Last Admin: 01/18/25 06:48 Dose: 30 ml Amlodipine Besylate (Amlodipine Besylate 10 Mg Tablet) 10 mg PO DAILY [facility]; Protocol Last Admin: 01/21/25 08:47 Dose: 10 mg Aripiprazole (Aripiprazole 30 Mg Tablet) 30 mg PO DAILY [facility] Last Admin: 01/21/25 08:47 Dose: 30 mg Artificial Tears (Artificial Tears 15 Ml Drops) 1 drop EYE-BOTH DAILY PRN PRN Reason: allergy sx Last Admin: 01/18/25 09:20 Dose: 1 drop Atorvastatin Calcium (Atorvastatin Calcium 40 Mg Tablet) 40 mg PO DAILY [facility] Last Admin: 01/21/25 08:46 Dose: 40 mg Benztropine Mesylate (Benztropine Mesylate 1 Mg Tablet) 2 mg PO BID [facility] Last Admin: 01/21/25 08:46 Dose: 2 mg Bisacodyl (Bisacodyl 5 Mg Tablet.Dr) 10 mg PO BEDTIME PRN PRN Reason: Constipation Calcitriol (Calcitriol 0.25 Mcg Capsule) 0.25 mcg PO DAILY [facility] Last Admin: 01/21/25 08:47 Dose: 0.25 mcg Clonidine HCl (Clonidine Hcl 0.1 Mg Tablet) 0.1 mg PO TID PRN; Protocol PRN Reason: anxiety Last Admin: 01/19/25 03:05 Dose: 0.1 mg Docusate Sodium (Docusate Sodium 100 Mg Capsule) 100 mg PO BEDTIME [facility] Last Admin: 01/20/25 20:55 Dose: 100 mg Empagliflozin (Empagliflozin 10 Mg Tablet) 10 mg PO DAILY [facility] Last Admin: 01/21/25 08:46 Dose: 10 mg Escitalopram Oxalate (Escitalopram Oxalate 20 Mg Tablet) 20 mg PO DAILY [facility] Last Admin: 01/21/25 08:47 Dose: 20 mg Famotidine (Famotidine 20 Mg Tablet) 20 mg PO DAILY [facility] Last Admin: 01/21/25 08:47 Dose: 20 mg Ferrous Sulfate (Ferrous Sulfate 324 Mg Tablet.Dr) 324 mg PO Q2D [facility] Last Admin: 01/21/25 08:52 Dose: 324 mg Hydralazine HCl (Hydralazine Hcl 50 Mg Tablet) 50 mg PO TID [facility]; Protocol Last Admin: 01/21/25 08:47 Dose: 50 mg Hydroxyzine HCl (Hydroxyzine Hcl 25 Mg Tablet) 25 mg PO Q6H PRN PRN Reason: mild anxiety Last Admin: 01/19/25 15:12 Dose: 25 mg Lamotrigine (Lamotrigine 100 Mg Tablet) 200 mg PO BID [facility] Last Admin: 01/21/25 08:47 Dose: 200 mg Loratadine (Loratadine 10 Mg Tablet) 10 mg PO Q2D [facility] Last Admin: 01/21/25 09:49 Dose: Not Given Nicotine Polacrilex (Nicotine Polacrilex 2 Mg Gum) 4 mg BUCCAL Q2H PRN PRN Reason: Nicotine Cravings Olanzapine (Olanzapine 10 Mg Tablet) 10 mg PO BEDTIME [facility] Last Admin: 01/20/25 20:55 Dose: 10 mg Omeprazole (Omeprazole 20 Mg Capsule.Dr) 20 mg PO DAILY@0630 [facility] Last Admin: 01/21/25 06:25 Dose: 20 mg Quetiapine Fumarate (Quetiapine Fumarate 50 Mg Tablet) 50 mg PO TID PRN PRN Reason: agitation Last Admin: 01/19/25 03:08 Dose: 50 mg Quetiapine Fumarate (Quetiapine Fumarate 400 Mg Tablet) 400 mg PO BEDTIME [facility] Last Admin: 01/20/25 20:53 Dose: 400 mg Sodium Zirconium Cyclosilicate (Sodium Zirconium Cyclosilicate 10 Gm Powd.Pack) 10 gm PO DAILY [facility] Last Admin: 01/21/25 08:46 Dose: 10 gm Trazodone HCl (Trazodone Hcl 50 Mg Tablet) 50 mg PO BEDTIME MRX1 PRN PRN Reason: Insomnia Allergies Allergies Allergy/AdvReac Type Severity Reaction Status Date / Time No Known Allergies Allergy Verified 12/17/24 20:12 Assessment & Plan Assessment & Plan (1) HTN (hypertension): Status: Acute Code(s): I10 - Essential (primary) hypertension Assessment and Plan: This evening, pt is questioning regime. He has needed reminders of changes this week due to CKD and hyperkalemia by the team. (2) Bipolar 1 disorder: Status: Acute Code(s): F31.9 - Bipolar disorder, unspecified (3) CKD (chronic kidney disease) stage 3, GFR 30-59 ml/min: Status: Acute Code(s): N18.30 - Chronic kidney disease, stage 3 unspecified Plan 64-year-old male with a past medical history was listed below presented to emergency department at [facility] with mental status changes. Now admitted to inpatient psych for further care. 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 Chronic kidney disease stage 4/diabetic nephropathy and hypertensive renal disease Avoid nephrotoxins Followed by Dr. Maravilla as an outpatient Continue calcitriol Type 2 diabetes Hemoglobin A1c 6.8 Continue Jardiance Hypertension/HLD Losartan DC due to kidney injury, Continue Norvasc, hydralazine 25 t.i.d. Recently started atorvastatin Clonidine t.i.d. p.r.n. Blood pressure well controlled 01/14/25: Continue treatment. Support/Educate 01/15, : no changes - f/u on tremor 01/17: Seroquel 400 mg HS CMP 01/18. Continue to monitor for tremor. 01/18: Continue tx 01/20: Continue tx 01/21: Variable BP's- Hospitalist may need to see again. Increase Seroquel to 500 mg HS Continue to monitor. Reason for continued inpatient stay Substantial Risk for: rapid decompensation and med/psych decompensation Time Spent With Patient Time: Total time managing care of this patient today ____ minutes.
[2025-01-21 14:43] VITALS: BP 150/81
[2025-01-21 19:46] VITALS: BP 177/85; PULSE 98; TEMP 37.3; O2SAT 98
[2025-01-21 20:15] VITALS: BP 177/85
[2025-01-21 21:30] VITALS: BP 119/62
[2025-01-22 08:00] VITALS: BP 116/64; PULSE 91; RESP 16; TEMP 36.5; O2SAT 99
[2025-01-22] MEDS: ARIPiprazole 30 MG TABLET PO (08:50)
--- NOTE | 2025-01-22 12:22 | P.PNPSI_ITS ---
Subjective Subjective Date of Service: 01/22/25 Reason For Visit: bipolar disorder Interim History: Met with patient; discussed with team; reviewed chart Patient reports that he is doing good and that Seroquel seems to be helping him. He said he slept well and wants to continue with current regimen. Some exuberant behavior, happily yelling in the hallway about latter day things Mental Status Exam Mental Status Exam Narrative: Pt is alert and oriented; behavior is exuberant, talkative, overly friendly, sometimes boisterous, but overall cooperative, friendly and adequate behavioral control; patient is not in distress; dressed in casual attire with adequate grooming and hygiene; mood is described as good and affect congruent; eye contact appropriate; Speech is a little quick but not pressured; sometimes loud; normal prosody; some mild psychomotor agitation present; thought process is organized and goal directed; Thought content is on tx; sometimes on latter day ideas; no paranoid ideations expressed; denies any SI/HI. Denies AVH and there is no evidence of perceptual disturbance. Patients insight and judgment impaired but much improved, edging towards adequate Diagnostics Vital Signs (24Hr): Vital Signs - 24 hr 01/21/25 14:43 01/21/25 19:46 01/21/25 20:15 Temperature 99.2 F Pulse Rate 98 Respiratory Rate Blood Pressure 150/81 H 177/85 H 177/85 H Pulse Oximetry 98 Oxygen Delivery Method Room Air 01/21/25 21:30 01/22/25 08:00 Temperature 97.7 F Pulse Rate 91 Respiratory Rate 16 Blood Pressure 119/62 116/64 Pulse Oximetry 99 Oxygen Delivery Method Room Air Labs 01/17/25 13:08 Medications Medications Current Medications Acetaminophen (Acetaminophen 325 Mg Tablet) 650 mg PO Q6H PRN PRN Reason: Pain, Mild (Pain Scale 1-3) Last Admin: 01/21/25 21:35 Dose: 650 mg Al Hydroxide/Mg Hydroxide (Magnesium Hydrox/Alum Hydrox 30 Ml Oral.Susp) 30 ml PO Q6H PRN PRN Reason: Heartburn/Nausea Last Admin: 01/18/25 06:48 Dose: 30 ml Amlodipine Besylate (Amlodipine Besylate 10 Mg Tablet) 10 mg PO DAILY [facility]; Protocol Last Admin: 01/22/25 08:49 Dose: 10 mg Aripiprazole (Aripiprazole 30 Mg Tablet) 30 mg PO DAILY [facility] Last Admin: 01/22/25 08:50 Dose: 30 mg Artificial Tears (Artificial Tears 15 Ml Drops) 1 drop EYE-BOTH DAILY PRN PRN Reason: allergy sx Last Admin: 01/18/25 09:20 Dose: 1 drop Atorvastatin Calcium (Atorvastatin Calcium 40 Mg Tablet) 40 mg PO DAILY [facility] Last Admin: 01/22/25 08:49 Dose: 40 mg Benztropine Mesylate (Benztropine Mesylate 1 Mg Tablet) 2 mg PO BID [facility] Last Admin: 01/22/25 08:50 Dose: 2 mg Bisacodyl (Bisacodyl 5 Mg Tablet.Dr) 10 mg PO BEDTIME PRN PRN Reason: Constipation Calcitriol (Calcitriol 0.25 Mcg Capsule) 0.25 mcg PO DAILY [facility] Last Admin: 01/22/25 08:50 Dose: 0.25 mcg Clonidine HCl (Clonidine Hcl 0.1 Mg Tablet) 0.1 mg PO TID PRN; Protocol PRN Reason: anxiety Last Admin: 01/21/25 20:15 Dose: 0.1 mg Docusate Sodium (Docusate Sodium 100 Mg Capsule) 100 mg PO BEDTIME [facility] Last Admin: 01/21/25 21:36 Dose: 100 mg Empagliflozin (Empagliflozin 10 Mg Tablet) 10 mg PO DAILY [facility] Last Admin: 01/22/25 08:49 Dose: 10 mg Escitalopram Oxalate (Escitalopram Oxalate 20 Mg Tablet) 20 mg PO DAILY [facility] Last Admin: 01/22/25 08:48 Dose: 20 mg Famotidine (Famotidine 20 Mg Tablet) 20 mg PO DAILY [facility] Last Admin: 01/22/25 08:49 Dose: 20 mg Ferrous Sulfate (Ferrous Sulfate 324 Mg Tablet.Dr) 324 mg PO Q2D [facility] Last Admin: 01/21/25 08:52 Dose: 324 mg Hydralazine HCl (Hydralazine Hcl 50 Mg Tablet) 50 mg PO TID [facility]; Protocol Last Admin: 01/22/25 08:49 Dose: 50 mg Hydroxyzine HCl (Hydroxyzine Hcl 25 Mg Tablet) 25 mg PO Q6H PRN PRN Reason: mild anxiety Last Admin: 01/19/25 15:12 Dose: 25 mg Lamotrigine (Lamotrigine 100 Mg Tablet) 200 mg PO BID [facility] Last Admin: 01/22/25 08:49 Dose: 200 mg Loratadine (Loratadine 10 Mg Tablet) 10 mg PO Q2D [facility] Last Admin: 01/21/25 09:49 Dose: Not Given Nicotine Polacrilex (Nicotine Polacrilex 2 Mg Gum) 4 mg BUCCAL Q2H PRN PRN Reason: Nicotine Cravings Olanzapine (Olanzapine 10 Mg Tablet) 10 mg PO BEDTIME [facility] Last Admin: 01/21/25 21:36 Dose: 10 mg Omeprazole (Omeprazole 20 Mg Capsule.Dr) 20 mg PO DAILY@0630 [facility] Last Admin: 01/22/25 06:34 Dose: 20 mg Quetiapine Fumarate (Quetiapine Fumarate 50 Mg Tablet) 50 mg PO TID PRN PRN Reason: agitation Last Admin: 01/19/25 03:08 Dose: 50 mg Quetiapine Fumarate (Quetiapine Fumarate 100 Mg Tablet) 500 mg PO BEDTIME [facility] Last Admin: 01/21/25 21:36 Dose: 500 mg Sodium Zirconium Cyclosilicate (Sodium Zirconium Cyclosilicate 10 Gm Powd.Pack) 10 gm PO DAILY [facility] Last Admin: 01/22/25 08:50 Dose: 10 gm Trazodone HCl (Trazodone Hcl 50 Mg Tablet) 50 mg PO BEDTIME MRX1 PRN PRN Reason: Insomnia Allergies Allergies Allergy/AdvReac Type Severity Reaction Status Date / Time No Known Allergies Allergy Verified 12/17/24 20:12 Assessment & Plan Assessment & Plan (1) HTN (hypertension): Status: Acute Code(s): I10 - Essential (primary) hypertension Assessment and Plan: This evening, pt is questioning regime. He has needed reminders of changes this week due to CKD and hyperkalemia by the team. (2) Bipolar 1 disorder: Status: Acute Code(s): F31.9 - Bipolar disorder, unspecified (3) CKD (chronic kidney disease) stage 3, GFR 30-59 ml/min: Status: Acute Code(s): N18.30 - Chronic kidney disease, stage 3 unspecified Plan 64-year-old male with a past medical history was listed below presented to emergency department at [facility] with mental status changes. Now admitted to inpatient psych for further care. 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 Chronic kidney disease stage 4/diabetic nephropathy and hypertensive renal disease Avoid nephrotoxins Followed by Dr. Maravilla as an outpatient Continue calcitriol Type 2 diabetes Hemoglobin A1c 6.8 Continue Jardiance Hypertension/HLD Losartan DC due to kidney injury, Continue Norvasc, hydralazine 25 t.i.d. Recently started atorvastatin Clonidine t.i.d. p.r.n. Blood pressure well controlled 01/14/25: Continue treatment. Support/Educate 01/15, 16: no changes - f/u on tremor 01/17: Seroquel 400 mg HS CMP 01/18. Continue to monitor for tremor. 01/18: Continue tx 01/20: Continue tx 01/21: Variable BP's- Hospitalist may need to see again. Increase Seroquel to 500 mg HS Continue to monitor. 01/22 Patient reports that he is doing good and that Seroquel seems to be helping him. He said he slept well and wants to continue with current regimen. Some exuberant behavior, happily yelling in the hallway about latter day things -continue treatment plan Patient educated on: diagnosis and medication risk/benefits Informed Consent: understands Reason for continued inpatient stay Substantial Risk for: rapid decompensation Time Spent With Patient Time: Total time managing care of this patient today ____ minutes.
[2025-01-22 15:07] VITALS: BP 174/82
[2025-01-22 17:14] VITALS: BP 160/79
[2025-01-22 20:00] VITALS: BP 170/77; PULSE 112; TEMP 37.3; O2SAT 99
[2025-01-22 20:33] VITALS: BP 170/77
[2025-01-23 08:00] VITALS: BP 143/79; PULSE 100; RESP 18; TEMP 36.4; O2SAT 98
[2025-01-23] MEDS: ARIPiprazole 30 MG TABLET PO (08:49)
--- NOTE | 2025-01-23 10:00 | P.PNPSI_ITS ---
Subjective Subjective Date of Service: 01/23/25 Reason For Visit: bipolar disorder Interim History: Met with patient; discussed with team Patient got very angry at his mother, accusing her stealing his bank card, buying clothes with historian for attending there were from a department store. Patient seemed to let go this idea once he saw the receipt for the clothing Mental Status Exam Mental Status Exam Narrative: Pt is alert and oriented; behavior is exuberant, talkative, overly friendly, sometimes boisterous, but overall cooperative, friendly and adequate behavioral control; patient is not in distress; dressed in casual attire with adequate grooming and hygiene; mood is described as good and affect congruent; eye contact appropriate; Speech is a little quick but not pressured; sometimes loud; normal prosody; some mild psychomotor agitation present; thought process is organized and goal directed; Thought content is with some paranoid ideations; denies any SI/HI. Denies AVH and there is no evidence of perceptual disturbance. Patients insight and judgment impaired but improving Diagnostics Vital Signs (24Hr): Vital Signs - 24 hr 01/22/25 15:07 01/22/25 17:14 01/22/25 20:00 Temperature 99.1 F Pulse Rate 112 H Respiratory Rate Blood Pressure 174/82 H 160/79 H 170/77 H Pulse Oximetry 99 Oxygen Delivery Method Room Air 01/22/25 20:33 01/23/25 08:00 Temperature 97.5 F Pulse Rate 100 Respiratory Rate 18 Blood Pressure 170/77 H 143/79 H Pulse Oximetry 98 Oxygen Delivery Method Room Air Labs 01/24/25 07:33 01/24/25 07:33 Medications Medications Current Medications Acetaminophen (Acetaminophen 325 Mg Tablet) 650 mg PO Q6H PRN PRN Reason: Pain, Mild (Pain Scale 1-3) Last Admin: 01/22/25 20:34 Dose: 650 mg Al Hydroxide/Mg Hydroxide (Magnesium Hydrox/Alum Hydrox 30 Ml Oral.Susp) 30 ml PO Q6H PRN PRN Reason: Heartburn/Nausea Last Admin: 01/18/25 06:48 Dose: 30 ml Amlodipine Besylate (Amlodipine Besylate 10 Mg Tablet) 10 mg PO DAILY [facility]; Protocol Last Admin: 01/23/25 08:47 Dose: 10 mg Aripiprazole (Aripiprazole 30 Mg Tablet) 30 mg PO DAILY [facility] Last Admin: 01/23/25 08:49 Dose: 30 mg Artificial Tears (Artificial Tears 15 Ml Drops) 1 drop EYE-BOTH DAILY PRN PRN Reason: allergy sx Last Admin: 01/18/25 09:20 Dose: 1 drop Atorvastatin Calcium (Atorvastatin Calcium 40 Mg Tablet) 40 mg PO DAILY [facility] Last Admin: 01/23/25 08:49 Dose: 40 mg Benztropine Mesylate (Benztropine Mesylate 1 Mg Tablet) 2 mg PO BID [facility] Last Admin: 01/23/25 08:48 Dose: 2 mg Bisacodyl (Bisacodyl 5 Mg Tablet.) 10 mg PO BEDTIME PRN PRN Reason: Constipation Calcitriol (Calcitriol 0.25 Mcg Capsule) 0.25 mcg PO DAILY [facility] Last Admin: 01/23/25 08:48 Dose: 0.25 mcg Clonidine HCl (Clonidine Hcl 0.1 Mg Tablet) 0.1 mg PO TID PRN; Protocol PRN Reason: anxiety Last Admin: 01/22/25 17:14 Dose: 0.1 mg Docusate Sodium (Docusate Sodium 100 Mg Capsule) 100 mg PO BEDTIME [facility] Last Admin: 01/22/25 20:33 Dose: 100 mg Empagliflozin (Empagliflozin 10 Mg Tablet) 10 mg PO DAILY [facility] Last Admin: 01/23/25 08:48 Dose: 10 mg Escitalopram Oxalate (Escitalopram Oxalate 20 Mg Tablet) 20 mg PO DAILY [facility] Last Admin: 01/23/25 08:48 Dose: 20 mg Famotidine (Famotidine 20 Mg Tablet) 20 mg PO DAILY [facility] Last Admin: 01/23/25 08:47 Dose: 20 mg Ferrous Sulfate (Ferrous Sulfate 324 Mg Tablet.) 324 mg PO Q2D [facility] Last Admin: 01/21/25 08:52 Dose: 324 mg Hydralazine HCl (Hydralazine Hcl 50 Mg Tablet) 50 mg PO TID [facility]; Protocol Last Admin: 01/23/25 08:57 Dose: 50 mg Hydroxyzine HCl (Hydroxyzine Hcl 25 Mg Tablet) 25 mg PO Q6H PRN PRN Reason: mild anxiety Last Admin: 01/19/25 15:12 Dose: 25 mg Lamotrigine (Lamotrigine 100 Mg Tablet) 200 mg PO BID [facility] Last Admin: 01/23/25 08:56 Dose: 200 mg Loratadine (Loratadine 10 Mg Tablet) 10 mg PO Q2D [facility] Last Admin: 01/23/25 09:14 Dose: 10 mg Nicotine Polacrilex (Nicotine Polacrilex 2 Mg Gum) 4 mg BUCCAL Q2H PRN PRN Reason: Nicotine Cravings Olanzapine (Olanzapine 10 Mg Tablet) 10 mg PO BEDTIME [facility] Last Admin: 01/22/25 20:34 Dose: 10 mg Omeprazole (Omeprazole 20 Mg Capsule.Dr) 20 mg PO DAILY@0630 [facility] Last Admin: 01/23/25 06:34 Dose: 20 mg Quetiapine Fumarate (Quetiapine Fumarate 50 Mg Tablet) 50 mg PO TID PRN PRN Reason: agitation Last Admin: 01/19/25 03:08 Dose: 50 mg Quetiapine Fumarate (Quetiapine Fumarate 100 Mg Tablet) 500 mg PO BEDTIME [facility] Last Admin: 01/22/25 20:33 Dose: 500 mg Sodium Zirconium Cyclosilicate (Sodium Zirconium Cyclosilicate 10 Gm Powd.Pack) 10 gm PO DAILY [facility] Last Admin: 01/23/25 08:47 Dose: 10 gm Trazodone HCl (Trazodone Hcl 50 Mg Tablet) 50 mg PO BEDTIME MRX1 PRN PRN Reason: Insomnia Allergies Allergies Allergy/AdvReac Type Severity Reaction Status Date / Time No Known Allergies Allergy Verified 12/17/24 20:12 Assessment & Plan Assessment & Plan (1) Bipolar 1 disorder: Status: Acute Code(s): F31.9 - Bipolar disorder, unspecified (2) HTN (hypertension): Status: Acute Code(s): I10 - Essential (primary) hypertension Assessment and Plan: This evening, pt is questioning regime. He has needed reminders of changes this week due to CKD and hyperkalemia by the team. (3) CKD (chronic kidney disease) stage 3, GFR 30-59 ml/min: Status: Acute Code(s): N18.30 - Chronic kidney disease, stage 3 unspecified Plan 64-year-old male with a past medical history was listed below presented to emergency department at [facility] with mental status changes. Now admitted to inpatient psych for further care. Bipolar 1 disorder/anxiety/mental status changes Type 2 diabetes Continue Jardiance Hemoglobin A1c 6.8 Nephrogenic anemia Iron studies within normal limits May need EPO in the future, followed by Nephrology Hyperkalemia Continue on Lokelil daily Check potassium in the morning. Chronic kidney disease stage 4/diabetic nephropathy and hypertensive renal disease Avoid nephrotoxins Followed by Dr. Maravilla as an outpatient Continue calcitriol Type 2 diabetes Hemoglobin A1c 6.8 Continue Jardiance Hypertension/HLD Losartan DC due to kidney injury, Continue Norvasc, hydralazine 25 t.i.d. Recently started atorvastatin Clonidine t.i.d. p.r.n. Blood pressure well controlled 01/14/25: Continue treatment. Support/Educate 01/15, : no changes - f/u on tremor 01/17: Seroquel 400 mg HS CMP 01/18. Continue to monitor for tremor. 01/18: Continue tx 01/20: Continue tx 01/21: Variable BP's- Hospitalist may need to see again. Increase Seroquel to 500 mg HS Continue to monitor. 01/22 Patient reports that he is doing good and that Seroquel seems to be helping him. He said he slept well and wants to continue with current regimen. Some exuberant behavior, happily yelling in the hallway about latter-day things -continue treatment plan 01/23 paranoid ideations expressed Patient educated on: diagnosis and therapeutic strategies Informed Consent: understands, does not understand and further education needed Reason for continued inpatient stay Substantial Risk for: rapid decompensation Time Spent With Patient Time: Total time managing care of this patient today ____ minutes.
[2025-01-23 14:33] VITALS: BP 132/64
[2025-01-23] MEDS: Ferrous Sulfate 324 MG TABLET.DR PO (14:33)
[2025-01-23] MEDS: Magnesium Hydrox/Alum Hydrox 30 ML ORAL.SUSP PO (17:27)
[2025-01-23 20:00] VITALS: BP 166/96; PULSE 98; TEMP 36.6; O2SAT 99
[2025-01-23 22:05] VITALS: BP 154/64; PULSE 82; TEMP 37.3; O2SAT 97
[2025-01-23 22:11] VITALS: BP 154/64
[2025-01-24 07:40] LABS: MANUAL DIFF FLAG NO
[2025-01-24 07:46] LABS: Hematocrit 29.5 % (42.0-52.0); Hemoglobin 9.4 g/dl (14.0-18.0); Imm Gran Abs Auto 0.01 X10*3/uL (0.00-0.03); Imm Gran Pct Auto 0.2 % (0.0-0.4); Lymphocytes Absolute Auto 0.8 X10*3/uL (1.2-4.9); Mean Corpuscular HGB Conc 31.9 g/dl (31.0-36.0); Mean Corpuscular Hemoglobin 27.6 pg (27.0-33.0); Mean Corpuscular Volume 86.5 fL (80.0-98.0); NRBC Abs Auto 0.000 X10*3/uL (0.0-0.012); NRBC Pct Auto 0.0 /100WBC (0.0-0.2); Platelet Count 264 X10*3/uL (160-400); Red Blood Count 3.41 X10*6/uL (4.60-5.80); White Blood Count 4.0 X10*3/uL (4.8-10.8)
[2025-01-24 08:00] VITALS: BP 138/74; PULSE 113; TEMP 36.9; O2SAT 99
[2025-01-24 08:12] LABS: Albumin Level 4.4 g/dL (3.5-5.0); Alkaline Phosphatase 140 U/L (39-117); Anion Gap 15 (12-20); Aspartate Amino Transferase 53 U/L (5-37); Blood Urea Nitrogen 37 mg/dL (9-16); Calcium 9.4 mg/dL (8.4-10.2); Carbon Dioxide 23 mmol/L (22-29); Chloride 105 mmol/L (96-108); Estimated Glomerular Filt Rate 21; Potassium 4.0 mmol/L (3.3-5.1); Sodium 139 mmol/L (135-145); Total Protein 8.3 g/dL (6.5-8.0)
[2025-01-24] MEDS: ARIPiprazole 30 MG TABLET PO (08:29)
[2025-01-24 08:45] LABS: Alanine Aminotransferase 68 U/L (0-40)
[2025-01-24] MEDS: Milk of Magnesia 30 ML ORAL.SUSP PO ×2 (09:30→11:08)
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
[2025-01-24 15:00] VITALS: BP 143/79
[2025-01-24 19:18] VITALS: BP 170/88
[2025-01-24 19:48] VITALS: BP 130/84; PULSE 111; RESP 16; TEMP 37.1; O2SAT 99
[2025-01-24 21:46] VITALS: BP 135/82
[2025-01-25 07:51] VITALS: BP 109/59; PULSE 115; TEMP 36.5; O2SAT 94
[2025-01-25] MEDS: ARIPiprazole 30 MG TABLET PO (07:55)
--- NOTE | 2025-01-25 10:22 | P.PNPSI_ITS ---
Subjective Subjective Date of Service: 01/25/25 Reason For Visit: bipolar disorder Subjective Notes: Conditional Voluntary Healthcare Proxy: No Guardianship: No Medical Problems Affecting Mental Status: No Interim History: Met with pt and Piter Andrzej [facility]. As pt is now unable to return to mother's home the [facility] case mgt idea was represented by Mr. Donnelly. Pt declined. He would like Angelita Hancock to be contacted [phone] and signed a YARA to make a connection with her. Discussed meds. Olanzapine will be discontinued. Risperdal 1 mg bid trial will begin today. Pt reports constipation today. He reported resolution to tw on 01/24, then to evening team reported constipation and was given Magnesium Citrate. Lactulose ordered today. Medication Compliance: Yes Side effects from medications: No Attending Groups: Yes Review of Systems constipation Medical Review of Systems: unchanged Review of Systems Review of Systems constipation Mental Status Exam Mental Status Exam Patient Appearance: Appropriate Patient Orientation: Person, Place, Time and Situation Level of Consciousness: Alert Patient Behavior: Talkative and Suspicious Mood Description: Anxious and Labile Affect Description: Anxious and Labile Patient Cognition Impaired: No Ability to Follow Directions: Good Speech Pattern: Spontaneous Speech Memory Description: Episodic Impaired Hallucinations: None Delusions: Paranoid Ideation Perceptual Disturbances: Derealization Thought Process: Illogical and Distracted Thought Content: positive for Circumstantial, positive for Perseveration and positive for Suicidal Ideation (denies) Depressive Symptoms: Increased Irritability and Thoughts of /Suicide (denies) Judgement: Fair Diagnostics Vital Signs (24Hr): Vital Signs - 24 hr 01/24/25 15:00 01/24/25 19:18 01/24/25 19:48 Temperature 98.8 F Pulse Rate 111 H Respiratory Rate 16 Blood Pressure 143/79 H 170/88 H 130/84 Pulse Oximetry 99 Oxygen Delivery Method Room Air 01/24/25 21:46 01/25/25 07:51 Temperature 97.7 F Pulse Rate 115 H Respiratory Rate Blood Pressure 135/82 109/59 L Pulse Oximetry 94 Oxygen Delivery Method Room Air Labs 01/24/25 07:33 01/24/25 07:33 Labs: Laboratory Results - last 48 hr 01/24/25 07:33 WBC 4.0 L RBC 3.41 L Hgb 9.4 L Hct 29.5 L MCV 86.5 MCH 27.6 MCHC 31.9 RDW 12.9 Plt Count 264 MPV 8.6 L Immature Gran % (Auto) 0.2 Neut % (Auto) 68.7 Lymph % (Auto) 20.0 [place] % (Auto) 7.9 Eos % (Auto) 2.5 Baso % (Auto) 0.7 Lymph # (Auto) 0.8 L [place] # (Auto) 0.3 Eos # (Auto) 0.1 Baso # (Auto) 0.0 Abs Immat Gran (auto) 0.01 Absolute Neuts (auto) 2.8 Absolute Nucleated RBC 0.000 Nucleated RBC % (auto) 0.0 Sodium 139 Potassium 4.0 Chloride 105 Carbon Dioxide 23 Anion Gap 15 BUN 37 H Creatinine 3.10 H Estim Creat Clear Calc TNP Estimated GFR 21 Random Glucose 177 H Calcium 9.4 Total Bilirubin 0.2 AST 53 H ALT 68 H Alkaline Phosphatase 140 H Total Protein 8.3 H Albumin 4.4 Medications Medications Current Medications Acetaminophen (Acetaminophen 325 Mg Tablet) 650 mg PO Q6H PRN PRN Reason: Pain, Mild (Pain Scale 1-3) Last Admin: 01/22/25 20:34 Dose: 650 mg Al Hydroxide/Mg Hydroxide (Magnesium Hydrox/Alum Hydrox 30 Ml Oral.Susp) 30 ml PO Q6H PRN PRN Reason: Heartburn/Nausea Last Admin: 01/23/25 17:27 Dose: 30 ml Amlodipine Besylate (Amlodipine Besylate 10 Mg Tablet) 10 mg PO DAILY [facility]; Protocol Last Admin: 01/25/25 07:55 Dose: 10 mg Amoxicillin (Amoxicillin 500 Mg Capsule) 500 mg PO BID [facility] Stop: 01/31/25 21:00 Last Admin: 01/25/25 07:55 Dose: 500 mg Aripiprazole (Aripiprazole 30 Mg Tablet) 30 mg PO DAILY [facility] Last Admin: 01/25/25 07:55 Dose: 30 mg Artificial Tears (Artificial Tears 15 Ml Drops) 1 drop EYE-BOTH DAILY PRN PRN Reason: allergy sx Last Admin: 01/18/25 09:20 Dose: 1 drop Atorvastatin Calcium (Atorvastatin Calcium 40 Mg Tablet) 40 mg PO DAILY [facility] Last Admin: 01/25/25 07:55 Dose: 40 mg Benztropine Mesylate (Benztropine Mesylate 1 Mg Tablet) 2 mg PO BID [facility] Last Admin: 01/25/25 07:56 Dose: 2 mg Bisacodyl (Bisacodyl 5 Mg Tablet.Dr) 10 mg PO BEDTIME PRN PRN Reason: Constipation Last Admin: 01/24/25 17:24 Dose: 10 mg Calcitriol (Calcitriol 0.25 Mcg Capsule) 0.25 mcg PO DAILY [facility] Last Admin: 01/25/25 07:55 Dose: 0.25 mcg Clonidine HCl (Clonidine Hcl 0.1 Mg Tablet) 0.1 mg PO TID PRN; Protocol PRN Reason: anxiety Last Admin: 01/24/25 19:18 Dose: 0.1 mg Docusate Sodium (Docusate Sodium 100 Mg Capsule) 100 mg PO BEDTIME [facility] Last Admin: 01/24/25 21:45 Dose: 100 mg Empagliflozin (Empagliflozin 10 Mg Tablet) 10 mg PO DAILY [facility] Last Admin: 01/25/25 07:55 Dose: 10 mg Escitalopram Oxalate (Escitalopram Oxalate 20 Mg Tablet) 20 mg PO DAILY [facility] Last Admin: 01/24/25 08:29 Dose: 20 mg Famotidine (Famotidine 20 Mg Tablet) 20 mg PO DAILY [facility] Last Admin: 01/25/25 07:54 Dose: 20 mg Ferrous Sulfate (Ferrous Sulfate 324 Mg Tablet.Dr) 324 mg PO Q2D [facility] Last Admin: 01/23/25 14:33 Dose: 324 mg Hydralazine HCl (Hydralazine Hcl 50 Mg Tablet) 50 mg PO TID [facility]; Protocol Last Admin: 01/25/25 07:56 Dose: 50 mg Hydroxyzine HCl (Hydroxyzine Hcl 25 Mg Tablet) 25 mg PO Q6H PRN PRN Reason: mild anxiety Last Admin: 01/19/25 15:12 Dose: 25 mg Lamotrigine (Lamotrigine 100 Mg Tablet) 200 mg PO BID [facility] Last Admin: 01/25/25 07:55 Dose: 200 mg Loratadine (Loratadine 10 Mg Tablet) 10 mg PO Q2D [facility] Last Admin: 01/23/25 09:14 Dose: 10 mg Magnesium Hydroxide (Milk Of Magnesia 30 Ml Oral.Susp) 30 ml PO BID PRN PRN Reason: Constipation Last Admin: 01/24/25 11:08 Dose: 30 ml Nicotine Polacrilex (Nicotine Polacrilex 2 Mg Gum) 4 mg BUCCAL Q2H PRN PRN Reason: Nicotine Cravings Olanzapine (Olanzapine 10 Mg Tablet) 10 mg PO BEDTIME [facility] Last Admin: 01/24/25 21:47 Dose: 10 mg Omeprazole (Omeprazole 20 Mg Capsule.) 20 mg PO DAILY@0630 [facility] Last Admin: 01/25/25 06:54 Dose: 20 mg Quetiapine Fumarate (Quetiapine Fumarate 50 Mg Tablet) 50 mg PO TID PRN PRN Reason: agitation Last Admin: 01/19/25 03:08 Dose: 50 mg Quetiapine Fumarate (Quetiapine Fumarate 100 Mg Tablet) 500 mg PO BEDTIME [facility] Last Admin: 01/24/25 21:46 Dose: 500 mg Sodium Zirconium Cyclosilicate (Sodium Zirconium Cyclosilicate 10 Gm Powd.Pack) 10 gm PO DAILY [facility] Last Admin: 01/25/25 07:55 Dose: 10 gm Trazodone HCl (Trazodone Hcl 50 Mg Tablet) 50 mg PO BEDTIME MRX1 PRN PRN Reason: Insomnia Allergies Allergies Allergy/AdvReac Type Severity Reaction Status Date / Time No Known Allergies Allergy Verified 12/17/24 20:12 Assessment & Plan Assessment & Plan (1) Bipolar 1 disorder: Status: Acute Code(s): F31.9 - Bipolar disorder, unspecified (2) HTN (hypertension): Status: Acute Code(s): I10 - Essential (primary) hypertension Assessment and Plan: This evening, pt is questioning regime. He has needed reminders of changes this week due to CKD and hyperkalemia by the team. (3) CKD (chronic kidney disease) stage 3, GFR 30-59 ml/min: Status: Acute Code(s): N18.30 - Chronic kidney disease, stage 3 unspecified Plan 64-year-old male with a past medical history was listed below presented to emergency department at [facility] with mental status changes. Now admitted to inpatient psych for further care. 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 Chronic kidney disease stage 4/diabetic nephropathy and hypertensive renal disease Avoid nephrotoxins Followed by Dr. Maravilla as an outpatient Continue calcitriol Type 2 diabetes Hemoglobin A1c 6.8 Continue Jardiance Hypertension/HLD Losartan DC due to kidney injury, Continue Norvasc, hydralazine 25 t.i.d. Recently started atorvastatin Clonidine t.i.d. p.r.n. Blood pressure well controlled 01/14/25: Continue treatment. Support/Educate 01/15, 16: no changes - f/u on tremor 01/17: Seroquel 400 mg HS CMP 01/18. Continue to monitor for tremor. 01/18: Continue tx 01/20: Continue tx 01/21: Variable BP's- Hospitalist may need to see again. Increase Seroquel to 500 mg HS Continue to monitor. 01/22 Patient reports that he is doing good and that Seroquel seems to be helping him. He said he slept well and wants to continue with current regimen. Some exuberant behavior, happily yelling in the hallway about jewish things -continue treatment plan 01/23 paranoid ideations expressed 01/25 Met with pt and Piter Donnelly [facility]. As pt is now unable to return to mother's home the [facility] case mgt idea was represented by Mr. Donnelly. Pt declined. He would like Angelita Hancock to be contacted [phone] and signed a YARA to make a connection with her. Discussed meds. Olanzapine will be discontinued. Risperdal 1 mg bid trial will begin today. Pt reports constipation today. He reported resolution to tw on 01/24, then to evening team reported constipation and was given Magnesium Citrate. Lactulose ordered today. ? Reason for continued inpatient stay Substantial Risk for: rapid decompensation and med/psych decompensation Time Spent With Patient Time: Total time managing care of this patient today ____ minutes.
[2025-01-25] MEDS: Ferrous Sulfate 324 MG TABLET.DR PO (12:21)
[2025-01-25 14:29] VITALS: BP 173/81
[2025-01-25 20:00] VITALS: BP 168/90; PULSE 96; TEMP 36.9; O2SAT 98
[2025-01-25 21:52] VITALS: BP 168/90
[2025-01-26 08:00] VITALS: BP 168/90; PULSE 96; RESP 16; TEMP 36.9; O2SAT 98
[2025-01-26] MEDS: ARIPiprazole 30 MG TABLET PO (08:58)
--- NOTE | 2025-01-26 10:43 | HO.PSYCHPN ---
Subjective Subjective Date of Service: 01/26/25 Reason For Visit: bipolar disorder Subjective Notes: Conditional Voluntary Healthcare Proxy: No Guardianship: No Medical Problems Affecting Mental Status: No Interim History: I am deeply hurt . You let two lesbians stay here and want me, a trejo, black man to leave. You will not hire me and I think this is discrimination. Discussed the above and attempted to clarify pt's perceptions. Pt states he is working with the [facility] and human services [facility] and believes he has been discriminated against. Discussed pt having relief of constipation. No discharge date planned as yet. Pt refusing all resources, believes he will live and work on [place]. Continues with delusional content. First day of change to Risperdal from Olanzapine Full review of meds with pt today. Medication Compliance: Yes Side effects from medications: No Attending Groups: Yes Review of Systems Acute medical concerns: No Review of Systems Review of Systems Reports resolved constipation Mental Status Exam Mental Status Exam Patient Appearance: Appropriate Patient Orientation: Person, Place, Time and Situation Level of Consciousness: Alert Patient Behavior: Talkative and Suspicious Mood Description: Anxious and Labile Affect Description: Anxious and Labile Patient Cognition Impaired: No Ability to Follow Directions: Good Speech Pattern: Spontaneous Speech Memory Description: Episodic Impaired Hallucinations: None Delusions: Paranoid Ideation Perceptual Disturbances: Derealization Thought Process: Illogical and Distracted Thought Content: positive for Circumstantial, positive for Perseveration and positive for Suicidal Ideation (denies) Depressive Symptoms: Increased Irritability and Thoughts of /Suicide (denies) Judgement: Fair Diagnostics Vital Signs (24Hr): Vital Signs - 24 hr 01/25/25 14:29 01/25/25 20:00 01/25/25 21:52 Temperature 98.4 F Pulse Rate 96 Respiratory Rate Blood Pressure 173/81 H 168/90 H 168/90 H Pulse Oximetry 98 Oxygen Delivery Method Room Air 01/26/25 08:00 Temperature 98.4 F Pulse Rate 96 Respiratory Rate 16 Blood Pressure 168/90 H Pulse Oximetry 98 Oxygen Delivery Method Room Air Labs 01/24/25 07:33 01/24/25 07:33 Medications Medications Current Medications Acetaminophen (Acetaminophen 325 Mg Tablet) 650 mg PO Q6H PRN PRN Reason: Pain, Mild (Pain Scale 1-3) Last Admin: 01/22/25 20:34 Dose: 650 mg Al Hydroxide/Mg Hydroxide (Magnesium Hydrox/Alum Hydrox 30 Ml Oral.Susp) 30 ml PO Q6H PRN PRN Reason: Heartburn/Nausea Last Admin: 01/23/25 17:27 Dose: 30 ml Amlodipine Besylate (Amlodipine Besylate 10 Mg Tablet) 10 mg PO DAILY [facility]; Protocol Last Admin: 01/26/25 08:59 Dose: 10 mg Amoxicillin (Amoxicillin 500 Mg Capsule) 500 mg PO BID [facility] Stop: 01/31/25 21:00 Last Admin: 01/26/25 09:00 Dose: 500 mg Aripiprazole (Aripiprazole 30 Mg Tablet) 30 mg PO DAILY [facility] Last Admin: 01/26/25 08:58 Dose: 30 mg Artificial Tears (Artificial Tears 15 Ml Drops) 1 drop EYE-BOTH DAILY PRN PRN Reason: allergy sx Last Admin: 01/18/25 09:20 Dose: 1 drop Atorvastatin Calcium (Atorvastatin Calcium 40 Mg Tablet) 40 mg PO DAILY [facility] Last Admin: 01/26/25 09:00 Dose: 40 mg Benztropine Mesylate (Benztropine Mesylate 1 Mg Tablet) 2 mg PO BID [facility] Last Admin: 01/26/25 08:59 Dose: 2 mg Bisacodyl (Bisacodyl 5 Mg Tablet.Dr) 10 mg PO BEDTIME PRN PRN Reason: Constipation Last Admin: 01/24/25 17:24 Dose: 10 mg Calcitriol (Calcitriol 0.25 Mcg Capsule) 0.25 mcg PO DAILY [facility] Last Admin: 01/26/25 09:00 Dose: 0.25 mcg Clonidine HCl (Clonidine Hcl 0.1 Mg Tablet) 0.1 mg PO TID PRN; Protocol PRN Reason: anxiety Last Admin: 01/24/25 19:18 Dose: 0.1 mg Docusate Sodium (Docusate Sodium 100 Mg Capsule) 100 mg PO BEDTIME [facility] Last Admin: 01/25/25 21:52 Dose: 100 mg Empagliflozin (Empagliflozin 10 Mg Tablet) 10 mg PO DAILY [facility] Last Admin: 01/26/25 08:59 Dose: 10 mg Escitalopram Oxalate (Escitalopram Oxalate 20 Mg Tablet) 20 mg PO DAILY [facility] Last Admin: 01/26/25 08:58 Dose: 20 mg Famotidine (Famotidine 20 Mg Tablet) 20 mg PO DAILY [facility] Last Admin: 01/26/25 08:59 Dose: 20 mg Ferrous Sulfate (Ferrous Sulfate 324 Mg Tablet.) 324 mg PO Q2D [facility] Last Admin: 01/25/25 12:21 Dose: 324 mg Hydralazine HCl (Hydralazine Hcl 50 Mg Tablet) 50 mg PO TID [facility]; Protocol Last Admin: 01/26/25 09:00 Dose: 50 mg Hydroxyzine HCl (Hydroxyzine Hcl 25 Mg Tablet) 25 mg PO Q6H PRN PRN Reason: mild anxiety Last Admin: 01/19/25 15:12 Dose: 25 mg Lactulose (Lactulose 20 Gm/30 Ml Solution) 30 gm PO DAILY PRN PRN Reason: Constipation Last Admin: 01/25/25 14:29 Dose: 30 gm Lamotrigine (Lamotrigine 100 Mg Tablet) 200 mg PO BID [facility] Last Admin: 01/26/25 09:00 Dose: 200 mg Loratadine (Loratadine 10 Mg Tablet) 10 mg PO Q2D [facility] Last Admin: 01/25/25 11:31 Dose: Not Given Magnesium Hydroxide (Milk Of Magnesia 30 Ml Oral.Susp) 30 ml PO BID PRN PRN Reason: Constipation Last Admin: 01/24/25 11:08 Dose: 30 ml Nicotine Polacrilex (Nicotine Polacrilex 2 Mg Gum) 4 mg BUCCAL Q2H PRN PRN Reason: Nicotine Cravings Omeprazole (Omeprazole 20 Mg Capsule.Dr) 20 mg PO DAILY@0630 [facility] Last Admin: 01/26/25 08:59 Dose: 20 mg Quetiapine Fumarate (Quetiapine Fumarate 50 Mg Tablet) 50 mg PO TID PRN PRN Reason: agitation Last Admin: 01/19/25 03:08 Dose: 50 mg Quetiapine Fumarate (Quetiapine Fumarate 100 Mg Tablet) 500 mg PO BEDTIME [facility] Last Admin: 01/25/25 21:51 Dose: 500 mg Risperidone (Risperidone 1 Mg Tablet) 1 mg PO BID [facility] Last Admin: 01/26/25 08:59 Dose: 1 mg Sodium Zirconium Cyclosilicate (Sodium Zirconium Cyclosilicate 10 Gm Powd.Pack) 10 gm PO DAILY [facility] Last Admin: 01/26/25 09:08 Dose: 10 gm Trazodone HCl (Trazodone Hcl 50 Mg Tablet) 50 mg PO BEDTIME MRX1 PRN PRN Reason: Insomnia Allergies Allergies Allergy/AdvReac Type Severity Reaction Status Date / Time No Known Allergies Allergy Verified 12/17/24 20:12 Assessment & Plan Assessment & Plan (1) Bipolar 1 disorder: Status: Acute Code(s): F31.9 - Bipolar disorder, unspecified (2) HTN (hypertension): Status: Acute Code(s): I10 - Essential (primary) hypertension Assessment and Plan: This evening, pt is questioning regime. He has needed reminders of changes this week due to CKD and hyperkalemia by the team. (3) CKD (chronic kidney disease) stage 3, GFR 30-59 ml/min: Status: Acute Code(s): N18.30 - Chronic kidney disease, stage 3 unspecified Plan 64-year-old male with a past medical history was listed below presented to emergency department at [facility] with mental status changes. Now admitted to inpatient psych for further care. 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 Chronic kidney disease stage 4/diabetic nephropathy and hypertensive renal disease Avoid nephrotoxins Followed by Dr. Maravilla as an outpatient Continue calcitriol Type 2 diabetes Hemoglobin A1c 6.8 Continue Jardiance Hypertension/HLD Losartan DC due to kidney injury, Continue Norvasc, hydralazine 25 t.i.d. Recently started atorvastatin Clonidine t.i.d. p.r.n. Blood pressure well controlled 01/14/25: Continue treatment. Support/Educate 01/15, 16: no changes - f/u on tremor 01/17: Seroquel 400 mg HS CMP 01/18. Continue to monitor for tremor. 01/18: Continue tx 01/20: Continue tx 01/21: Variable BP's- Hospitalist may need to see again. Increase Seroquel to 500 mg HS Continue to monitor. 01/22 Patient reports that he is doing good and that Seroquel seems to be helping him. He said he slept well and wants to continue with current regimen. Some exuberant behavior, happily yelling in the hallway about hoahaoism things -continue treatment plan 01/23 paranoid ideations expressed 01/25 Met with pt and Piter Faivre [employer]. As pt is now unable to return to mother's home the [facility] case mgt idea was represented by Mr. Donnelly. Pt declined. He would like Angelita Hancock to be contacted [phone] and signed a YARA to make a connection with her. Discussed meds. Olanzapine will be discontinued. Risperdal 1 mg bid trial will begin today. Pt reports constipation today. He reported resolution to tw on 01/24, then to evening team reported constipation and was given Magnesium Citrate. Lactulose ordered today. 01/26 I am deeply hurt . You let two lesbians stay here and want me, a trejo, black man to leave. You will not hire me and I think this is discrimination. Discussed the above and attempted to clarify pt's perceptions. Pt states he is working with the [facility] and human services [facility] and believes he has been discriminated against. Discussed pt having relief of constipation. No discharge date planned as yet. Pt refusing all resources, believes he will live and work on . Continues with delusional content. First day of change to Risperdal from Olanzapine Full review of meds with pt today. ? Reason for continued inpatient stay Substantial Risk for: rapid decompensation and med/psych decompensation Time Spent With Patient Time: Total time managing care of this patient today ____ minutes.
[2025-01-26 15:43] VITALS: BP 128/82
[2025-01-26 20:00] VITALS: BP 160/90; PULSE 100; RESP 16; TEMP 36.4; O2SAT 98
[2025-01-27 08:00] VITALS: BP 119/69; PULSE 108; RESP 16; TEMP 37.1; O2SAT 99
[2025-01-27] MEDS: ARIPiprazole 30 MG TABLET PO (08:38)
[2025-01-27 14:19] VITALS: BP 149/68
[2025-01-27] MEDS: Ferrous Sulfate 324 MG TABLET.DR PO (14:21)
--- NOTE | 2025-01-27 16:26 | PC.NURSE ---
Shift Review, Patient alert and orientated x3. Patient cheerful, Denies AH/VH/SI/HI. Patient in room sleeping alot today as well. Calm and cooperative. Eating and taking medications.
[2025-01-27 17:36] VITALS: BP 163/74; PULSE 112
[2025-01-27 20:00] VITALS: BP 112/65; PULSE 96; RESP 15; TEMP 36.7; O2SAT 95
--- NOTE | 2025-01-27 23:26 | HO.PSYCHPN ---
Subjective Subjective Date of Service: 01/27/25 Reason For Visit: bipolar disorder Subjective Notes: Conditional Voluntary Healthcare Proxy: No Guardianship: No Medical Problems Affecting Mental Status: No Interim History: Medical record and nursing notes reviewed; case discussed during rounds with team/nursing staff, and met with patient for supportive therapy/psychoeducation, as well as medication management. Patient is visible, social, pleasant and cooperative. overly bright upon approach. He is happy to be here and want to be here when asked what his treatment plan looks like. He feels grateful to be taken care of by unit staff. Report no issues with appetite or sleep. Denies SI/SIB/HI/AVH. No behavior issues Per nursing,patient slept for 8 hours. compliant witth meds. No side effects noted or reported. Medication Compliance: Yes Side effects from medications: No Review of Systems Acute medical concerns: No Medical Review of Systems: unchanged Review of Systems Review of Systems No N/V. No constipation. No physical complaint. Mental Status Exam Mental Status Exam Narrative: A+O , visible, overly bright upon approach. Pleasant and cooperative. No SI/SIB/HI/AVH, no ADL's issues., wearing casual attire. Fair insight and judgment. Treatment focus. Diagnostics Vital Signs (24Hr): Vital Signs - 24 hr 01/27/25 08:00 01/27/25 14:19 01/27/25 17:36 Temperature 98.7 F Pulse Rate 108 H 112 H Respiratory Rate 16 Blood Pressure 119/69 149/68 H 163/74 H Pulse Oximetry 99 Oxygen Delivery Method Room Air 01/27/25 20:00 Temperature 98.1 F Pulse Rate 96 Respiratory Rate 15 Blood Pressure 112/65 Pulse Oximetry 95 Oxygen Delivery Method Labs 01/24/25 07:33 01/24/25 07:33 Medications Medications Current Medications Acetaminophen (Acetaminophen 325 Mg Tablet) 650 mg PO Q6H PRN PRN Reason: Pain, Mild (Pain Scale 1-3) Last Admin: 01/22/25 20:34 Dose: 650 mg Al Hydroxide/Mg Hydroxide (Magnesium Hydrox/Alum Hydrox 30 Ml Oral.Susp) 30 ml PO Q6H PRN PRN Reason: Heartburn/Nausea Last Admin: 01/23/25 17:27 Dose: 30 ml Amlodipine Besylate (Amlodipine Besylate 10 Mg Tablet) 10 mg PO DAILY [facility]; Protocol Last Admin: 01/27/25 08:38 Dose: 10 mg Amoxicillin (Amoxicillin 500 Mg Capsule) 500 mg PO BID [facility]PLAC[facility] BY [facility] Stop: 01/31/25 21:00 Last Admin: 01/27/25 20:33 Dose: 500 mg Aripiprazole (Aripiprazole 30 Mg Tablet) 30 mg PO DAILY [facility] Last Admin: 01/27/25 08:38 Dose: 30 mg Artificial Tears (Artificial Tears 15 Ml Drops) 1 drop EYE-BOTH DAILY PRN PRN Reason: allergy sx Last Admin: 01/18/25 09:20 Dose: 1 drop Atorvastatin Calcium (Atorvastatin Calcium 40 Mg Tablet) 40 mg PO DAILY [facility] Last Admin: 01/27/25 08:39 Dose: 40 mg Benztropine Mesylate (Benztropine Mesylate 1 Mg Tablet) 2 mg PO BID [facility]PL[facility] Last Admin: 01/27/25 20:33 Dose: 2 mg Bisacodyl (Bisacodyl 5 Mg Tablet.) 10 mg PO BEDTIME PRN PRN Reason: Constipation Last Admin: 01/24/25 17:24 Dose: 10 mg Calcitriol (Calcitriol 0.25 Mcg Capsule) 0.25 mcg PO DAILY [facility] Last Admin: 01/27/25 08:39 Dose: 0.25 mcg Clonidine HCl (Clonidine Hcl 0.1 Mg Tablet) 0.1 mg PO TID PRN; Protocol PRN Reason: anxiety Last Admin: 01/24/25 19:18 Dose: 0.1 mg Docusate Sodium (Docusate Sodium 100 Mg Capsule) 100 mg PO BEDTIME REPLACED [facility] Last Admin: 01/27/25 20:33 Dose: 100 mg Empagliflozin (Empagliflozin 10 Mg Tablet) 10 mg PO DAILY [facility] Last Admin: 01/27/25 08:39 Dose: 10 mg Escitalopram Oxalate (Escitalopram Oxalate 20 Mg Tablet) 20 mg PO DAILY [facility] Last Admin: 01/27/25 08:38 Dose: 20 mg Famotidine (Famotidine 20 Mg Tablet) 20 mg PO DAILY [facility] Last Admin: 01/27/25 08:39 Dose: 20 mg Ferrous Sulfate (Ferrous Sulfate 324 Mg Tablet.) 324 mg PO Q2D REPLACED BY [facility] Last Admin: 01/27/25 14:21 Dose: 324 mg Hydralazine HCl (Hydralazine Hcl 50 Mg Tablet) 50 mg PO TID [facility]PL[facility]; Protocol Last Admin: 01/27/25 20:33 Dose: 50 mg Hydroxyzine HCl (Hydroxyzine Hcl 25 Mg Tablet) 25 mg PO Q6H PRN PRN Reason: mild anxiety Last Admin: 01/19/25 15:12 Dose: 25 mg Lactulose (Lactulose 20 Gm/30 Ml Solution) 30 gm PO DAILY PRN PRN Reason: Constipation Last Admin: 01/25/25 14:29 Dose: 30 gm Lamotrigine (Lamotrigine 100 Mg Tablet) 200 mg PO BID [facility] Last Admin: 01/27/25 20:33 Dose: 200 mg Loratadine (Loratadine 10 Mg Tablet) 10 mg PO Q2D [facility]PLAC[facility] Last Admin: 01/27/25 10:05 Dose: Not Given Magnesium Hydroxide (Milk Of Magnesia 30 Ml Oral.Susp) 30 ml PO BID PRN PRN Reason: Constipation Last Admin: 01/24/25 11:08 Dose: 30 ml Nicotine Polacrilex (Nicotine Polacrilex 2 Mg Gum) 4 mg BUCCAL Q2H PRN PRN Reason: Nicotine Cravings Omeprazole (Omeprazole 20 Mg Capsule.Dr) 20 mg PO DAILY@0630 [facility]PL[facility] Last Admin: 01/27/25 06:17 Dose: 20 mg Polyethylene Glycol (Polyethylene Glycol 3350 17 Gm Powd.Pack) 17 gm PO DAILY [facility] Last Admin: 01/27/25 08:43 Dose: 17 gm Quetiapine Fumarate (Quetiapine Fumarate 50 Mg Tablet) 50 mg PO TID PRN PRN Reason: agitation Last Admin: 01/19/25 03:08 Dose: 50 mg Quetiapine Fumarate (Quetiapine Fumarate 100 Mg Tablet) 500 mg PO BEDTIME [facility]PL[facility] Last Admin: 01/27/25 20:32 Dose: 500 mg Risperidone (Risperidone 1 Mg Tablet) 1 mg PO BID [facility]PL[facility] Last Admin: 01/27/25 20:33 Dose: 1 mg Sodium Zirconium Cyclosilicate (Sodium Zirconium Cyclosilicate 10 Gm Powd.Pack) 10 gm PO DAILY [facility] Last Admin: 01/27/25 08:44 Dose: 10 gm Trazodone HCl (Trazodone Hcl 50 Mg Tablet) 50 mg PO BEDTIME MRX1 PRN PRN Reason: Insomnia Allergies Allergies Allergy/AdvReac Type Severity Reaction Status Date / Time No Known Allergies Allergy Verified 12/17/24 20:12 Assessment & Plan Assessment & Plan (1) Bipolar 1 disorder: Status: Acute Code(s): F31.9 - Bipolar disorder, unspecified (2) HTN (hypertension): Status: Acute Code(s): I10 - Essential (primary) hypertension Assessment and Plan: This evening, pt is questioning regime. He has needed reminders of changes this week due to CKD and hyperkalemia by the team. (3) CKD (chronic kidney disease) stage 3, GFR 30-59 ml/min: Status: Acute Code(s): N18.30 - Chronic kidney disease, stage 3 unspecified Plan 64-year-old male with a past medical history was listed below presented to emergency department at [facility] with mental status changes. Now admitted to inpatient psych for further care. 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 Chronic kidney disease stage 4/diabetic nephropathy and hypertensive renal disease Avoid nephrotoxins Followed by Dr. Maravilla as an outpatient Continue calcitriol Type 2 diabetes Hemoglobin A1c 6.8 Continue Jardiance Hypertension/HLD Losartan DC due to kidney injury, Continue Norvasc, hydralazine 25 t.i.d. Recently started atorvastatin Clonidine t.i.d. p.r.n. Blood pressure well controlled 01/14/25: Continue treatment. Support/Educate 01/15, 16: no changes - f/u on tremor 01/17: Seroquel 400 mg HS CMP 01/18. Continue to monitor for tremor. 01/18: Continue tx 01/20: Continue tx 01/21: Variable BP's- Hospitalist may need to see again. Increase Seroquel to 500 mg HS Continue to monitor. 01/22 Patient reports that he is doing good and that Seroquel seems to be helping him. He said he slept well and wants to continue with current regimen. Some exuberant behavior, happily yelling in the hallway about hindu things -continue treatment plan 01/23 paranoid ideations expressed 01/25 Met with pt and Piter Donnelly [facility]. As pt is now unable to return to mother's home the [facility] case mgt idea was represented by Mr. Donnelly. Pt declined. He would like Angelita Caultan Hancock to be contacted [phone] and signed a YARA to make a connection with her. Discussed meds. Olanzapine will be discontinued. Risperdal 1 mg bid trial will begin today. Pt reports constipation today. He reported resolution to tw on 01/24, then to evening team reported constipation and was given Magnesium Citrate. Lactulose ordered today. 01/26 I am deeply hurt . You let two lesbians stay here and want me, a trejo, black man to leave. You will not hire me and I think this is discrimination. Discussed the above and attempted to clarify pt's perceptions. Pt states he is working with the [facility] and human services [facility] and believes he has been discriminated against. Discussed pt having relief of constipation. No discharge date planned as yet. Pt refusing all resources, believes he will live and work on [place]. Continues with delusional content. First day of change to Risperdal from Olanzapine Full review of meds with pt today. ?01/27/25:Patient is visible, social, pleasant and cooperative. overly bright upon approach. He is happy to be here and want to be here when asked what his treatment plan looks like. He feels grateful to be taken care of by unit staff. Report no issues with appetite or sleep. Denies SI/SIB/HI/AVH. No behavior issues Per nursing,patient slept for 8 hours. compliant witth meds. No side effects noted or reported. Patient educated on: diagnosis, medication risk/benefits and therapeutic strategies Informed Consent: understands and further education needed Reason for continued inpatient stay Substantial Risk for: med/psych decompensation Time Spent With Patient Time: Total time managing care of this patient today ____ minutes.
[2025-01-28 08:42] VITALS: BP 156/78; PULSE 100; RESP 14; TEMP 36.4; O2SAT 100
[2025-01-28] MEDS: ARIPiprazole 30 MG TABLET PO (08:44)
--- NOTE | 2025-01-28 10:18 | HO.PSYCHPN ---
Subjective Subjective Date of Service: 01/28/25 Reason For Visit: bipolar disorder Subjective Notes: Conditional Voluntary Healthcare Proxy: No Guardianship: No Medical Problems Affecting Mental Status: No Interim History: Met with pt and Piter STINSON. Discussion of discharge continued. At this time pt refuses referrals to shelters, refuses to talk with his family to assess if he can resolve issues. References that he is discriminated against as a black trejo male by reminding us we have hired lesbians to work on the unit. Threatening to us in meeting today. Reports he is not ready to go. Reports that he sees others coming in here and team hires them to work and he wants to be offered a job so he may live here. Attempted to explain that patients come into the unit for care, not for a job. Pt does not believe this to be true. Requested to use tw phone to call his advocate Angelita Hancock [place] [facility] and Human Services. Pt left a message and called again about 30 minutes later, speaking with Ms. Hancock directly, however with only a social discussion to be continued post holidays. Pt clearly let us know that he would have Ms. Hancock and Mayor Nikki close the hospital immediately should we not follow his instructions. Later in the day pt requested team go to security so he could see his bank cards. When he was told this would have to wait as the shift was changing he came to this resume writer and informed me that he had placed a call to police to report that tw had stolen his bank cards. Incidents such as this are increased in frequency. Pt requested to decrease Seroquel to 400 mg HS from 500 mg due to anger about discharge discussion which was put in place. Medication Compliance: Yes Side effects from medications: No Attending Groups: Yes Review of Systems Medical Review of Systems: unchanged Review of Systems Review of Systems Denies Mental Status Exam Mental Status Exam Patient Appearance: Appropriate Patient Orientation: Person, Place, Time and Situation Level of Consciousness: Alert Patient Behavior: Talkative, Verbal Threats, Distractible and Impulsive Mood Description: Hostile and Labile Affect Description: Hostile and Labile Patient Cognition Impaired: No Ability to Follow Directions: Fair Speech Pattern: Spontaneous Speech Memory Description: Episodic Impaired Hallucinations: None Delusions: Paranoid Ideation, Grandiose and Present Perceptual Disturbances: Derealization Thought Process: Illogical Thought Content: positive for Circumstantial and positive for Tangential Depressive Symptoms: Increased Irritability Abnormal Motor Activity Signs and Symptoms: Agitation and Restlessness Judgement: Fair Diagnostics Vital Signs (24Hr): Vital Signs - 24 hr 01/27/25 14:19 01/27/25 17:36 01/27/25 20:00 Temperature 98.1 F Pulse Rate 112 H 96 Respiratory Rate 15 Blood Pressure 149/68 H 163/74 H 112/65 Pulse Oximetry 95 Oxygen Delivery Method 01/28/25 08:42 Temperature 97.5 F Pulse Rate 100 Respiratory Rate 14 Blood Pressure 156/78 H Pulse Oximetry 100 Oxygen Delivery Method Room Air Labs 01/24/25 07:33 01/24/25 07:33 Medications Medications Current Medications Acetaminophen (Acetaminophen 325 Mg Tablet) 650 mg PO Q6H PRN PRN Reason: Pain, Mild (Pain Scale 1-3) Last Admin: 01/22/25 20:34 Dose: 650 mg Al Hydroxide/Mg Hydroxide (Magnesium Hydrox/Alum Hydrox 30 Ml Oral.Susp) 30 ml PO Q6H PRN PRN Reason: Heartburn/Nausea Last Admin: 01/23/25 17:27 Dose: 30 ml Amlodipine Besylate (Amlodipine Besylate 10 Mg Tablet) 10 mg PO DAILY [facility]; Protocol Last Admin: 01/28/25 08:43 Dose: 10 mg Amoxicillin (Amoxicillin 500 Mg Capsule) 500 mg PO BID [facility] Stop: 01/31/25 21:00 Last Admin: 01/28/25 08:43 Dose: 500 mg Aripiprazole (Aripiprazole 30 Mg Tablet) 30 mg PO DAILY [facility] Last Admin: 01/28/25 08:44 Dose: 30 mg Artificial Tears (Artificial Tears 15 Ml Drops) 1 drop EYE-BOTH DAILY PRN PRN Reason: allergy sx Last Admin: 01/18/25 09:20 Dose: 1 drop Atorvastatin Calcium (Atorvastatin Calcium 40 Mg Tablet) 40 mg PO DAILY [facility] Last Admin: 01/28/25 08:43 Dose: 40 mg Benztropine Mesylate (Benztropine Mesylate 1 Mg Tablet) 2 mg PO BID [facility] Last Admin: 01/28/25 08:43 Dose: 2 mg Bisacodyl (Bisacodyl 5 Mg Tablet.Dr) 10 mg PO BEDTIME PRN PRN Reason: Constipation Last Admin: 01/24/25 17:24 Dose: 10 mg Calcitriol (Calcitriol 0.25 Mcg Capsule) 0.25 mcg PO DAILY [facility] Last Admin: 01/28/25 08:43 Dose: 0.25 mcg Clonidine HCl (Clonidine Hcl 0.1 Mg Tablet) 0.1 mg PO TID PRN; Protocol PRN Reason: anxiety Last Admin: 01/24/25 19:18 Dose: 0.1 mg Docusate Sodium (Docusate Sodium 100 Mg Capsule) 100 mg PO BEDTIME [facility] Last Admin: 01/27/25 20:33 Dose: 100 mg Empagliflozin (Empagliflozin 10 Mg Tablet) 10 mg PO DAILY [facility] Last Admin: 01/28/25 08:43 Dose: 10 mg Escitalopram Oxalate (Escitalopram Oxalate 20 Mg Tablet) 20 mg PO DAILY [facility] Last Admin: 01/28/25 08:43 Dose: 20 mg Famotidine (Famotidine 20 Mg Tablet) 20 mg PO DAILY [facility] Last Admin: 01/28/25 08:43 Dose: 20 mg Ferrous Sulfate (Ferrous Sulfate 324 Mg Tablet.) 324 mg PO Q2D [facility] Last Admin: 01/27/25 14:21 Dose: 324 mg Hydralazine HCl (Hydralazine Hcl 50 Mg Tablet) 50 mg PO TID [facility]; Protocol Last Admin: 01/28/25 08:43 Dose: 50 mg Hydroxyzine HCl (Hydroxyzine Hcl 25 Mg Tablet) 25 mg PO Q6H PRN PRN Reason: mild anxiety Last Admin: 01/19/25 15:12 Dose: 25 mg Lactulose (Lactulose 20 Gm/30 Ml Solution) 30 gm PO DAILY PRN PRN Reason: Constipation Last Admin: 01/25/25 14:29 Dose: 30 gm Lamotrigine (Lamotrigine 100 Mg Tablet) 200 mg PO BID [facility] Last Admin: 01/28/25 08:43 Dose: 200 mg Loratadine (Loratadine 10 Mg Tablet) 10 mg PO Q2D [facility] Last Admin: 01/27/25 10:05 Dose: Not Given Magnesium Hydroxide (Milk Of Magnesia 30 Ml Oral.Susp) 30 ml PO BID PRN PRN Reason: Constipation Last Admin: 01/24/25 11:08 Dose: 30 ml Nicotine Polacrilex (Nicotine Polacrilex 2 Mg Gum) 4 mg BUCCAL Q2H PRN PRN Reason: Nicotine Cravings Omeprazole (Omeprazole 20 Mg Capsule.) 20 mg PO DAILY@0630 [facility] Last Admin: 01/28/25 06:51 Dose: 20 mg Polyethylene Glycol (Polyethylene Glycol 3350 17 Gm Powd.Pack) 17 gm PO DAILY [facility] Last Admin: 01/28/25 08:43 Dose: 17 gm Quetiapine Fumarate (Quetiapine Fumarate 50 Mg Tablet) 50 mg PO TID PRN PRN Reason: agitation Last Admin: 01/19/25 03:08 Dose: 50 mg Quetiapine Fumarate (Quetiapine Fumarate 100 Mg Tablet) 500 mg PO BEDTIME [facility] Last Admin: 01/27/25 20:32 Dose: 500 mg Risperidone (Risperidone 1 Mg Tablet) 1 mg PO BID [facility] Last Admin: 01/28/25 08:43 Dose: 1 mg Sodium Zirconium Cyclosilicate (Sodium Zirconium Cyclosilicate 10 Gm Powd.Pack) 10 gm PO DAILY [facility] Last Admin: 01/28/25 08:43 Dose: 10 gm Trazodone HCl (Trazodone Hcl 50 Mg Tablet) 50 mg PO BEDTIME MRX1 PRN PRN Reason: Insomnia Allergies Allergies Allergy/AdvReac Type Severity Reaction Status Date / Time No Known Allergies Allergy Verified 12/17/24 20:12 Assessment & Plan Assessment & Plan (1) Bipolar 1 disorder: Status: Acute Code(s): F31.9 - Bipolar disorder, unspecified (2) HTN (hypertension): Status: Acute Code(s): I10 - Essential (primary) hypertension Assessment and Plan: This evening, pt is questioning regime. He has needed reminders of changes this week due to CKD and hyperkalemia by the team. (3) CKD (chronic kidney disease) stage 3, GFR 30-59 ml/min: Status: Acute Code(s): N18.30 - Chronic kidney disease, stage 3 unspecified Plan 64-year-old male with a past medical history was listed below presented to emergency department at [facility] with mental status changes. Now admitted to inpatient psych for further care. 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 Chronic kidney disease stage 4/diabetic nephropathy and hypertensive renal disease Avoid nephrotoxins Followed by Dr. Maravilla as an outpatient Continue calcitriol Type 2 diabetes Hemoglobin A1c 6.8 Continue Jardiance Hypertension/HLD Losartan DC due to kidney injury, Continue Norvasc, hydralazine 25 t.i.d. Recently started atorvastatin Clonidine t.i.d. p.r.n. Blood pressure well controlled 01/14/25: Continue treatment. Support/Educate 01/15, 16: no changes - f/u on tremor 01/17: Seroquel 400 mg HS CMP 01/18. Continue to monitor for tremor. 01/18: Continue tx 01/20: Continue tx 01/21: Variable BP's- Hospitalist may need to see again. Increase Seroquel to 500 mg HS Continue to monitor. 01/22 Patient reports that he is doing good and that Seroquel seems to be helping him. He said he slept well and wants to continue with current regimen. Some exuberant behavior, happily yelling in the hallway about islam things -continue treatment plan 01/23 paranoid ideations expressed 01/25 Met with pt and Piter Donnelly [facility]. As pt is now unable to return to mother's home the [facility] case mgt idea was represented by Mr. Donnelly. Pt declined. He would like Angelita Hancock to be contacted [phone] and signed a YARA to make a connection with her. Discussed meds. Olanzapine will be discontinued. Risperdal 1 mg bid trial will begin today. Pt reports constipation today. He reported resolution to tw on 01/24, then to evening team reported constipation and was given Magnesium Citrate. Lactulose ordered today. 01/26 I am deeply hurt . You let two lesbians stay here and want me, a trejo, black man to leave. You will not hire me and I think this is discrimination. Discussed the above and attempted to clarify pt's perceptions. Pt states [facility] [place] and believes he has been discriminated against. Discussed pt having relief of constipation. No discharge date planned as yet. Pt refusing all resources, believes he will live and work on [address]. Continues with delusional content. First day of change to Risperdal from Olanzapine Full review of meds with pt today. ?01/27/25:Patient is visible, social, pleasant and cooperative. overly bright upon approach. He is happy to be here and want to be here when asked what his treatment plan looks like. He feels grateful to be taken care of by unit staff. Report no issues with appetite or sleep. Denies SI/SIB/HI/AVH. No behavior issues Per nursing,patient slept for 8 hours. compliant witth meds. No side effects noted or reported. 01/28/25: Met with pt and Piter STINSON. Discussion of discharge continued. At this time pt refuses referrals to shelters, refuses to talk with his family to assess if he can resolve issues. References that he is discriminated against as a black trejo male by reminding us we have hired lesbians to work on the unit. Threatening to us in meeting today. Reports he is not ready to go. Reports that he sees others coming in here and team hires them to work and he wants to be offered a job so he may live here. Attempted to explain that patients come into the unit for care, not for a job. Pt does not believe this to be true. Requested to use tw phone to call his advocate Angelita Hancock, [place] [facility] and Human Services. Pt left a message and called again about 30 minutes later, speaking with Ms. Hancock directly, however with only a social discussion to be continued post holidays. Pt clearly let us know that he would have Ms. Hancock and Mayor Nikki close the hospital immediately should we not follow his instructions. Later in the day pt requested team go to security so he could see his bank cards. When he was told this would have to wait as the shift was changing he came to this resume writer and informed me that he had placed a call to police to report that tw had stolen his bank cards. Incidents such as this are increased in frequency. Pt requested to decrease Seroquel to 400 mg HS from 500 mg due to anger about discharge discussion which was put in place. Reason for continued inpatient stay Substantial Risk for: rapid decompensation and med/psych decompensation Time Spent With Patient Time: Total time managing care of this patient today ____ minutes.
[2025-01-28 14:14] VITALS: BP 131/70; PULSE 112
[2025-01-28 16:43] VITALS: BP 185/88; PULSE 95; RESP 16; TEMP 36.4; O2SAT 98
[2025-01-28 18:12] VITALS: BP 145/76
[2025-01-29 08:20] VITALS: BP 154/76; PULSE 99; TEMP 36.4; O2SAT 99
[2025-01-29] MEDS: ARIPiprazole 30 MG TABLET PO (08:28)
[2025-01-29 14:50] VITALS: BP 136/63
[2025-01-29] MEDS: Ferrous Sulfate 324 MG TABLET.DR PO (14:50)
[2025-01-29 20:00] VITALS: BP 182/82; PULSE 100; RESP 20; TEMP 36.4; O2SAT 100
--- NOTE | 2025-01-29 23:00 | HO.PSYCHPN ---
Subjective Subjective Date of Service: 01/29/25 Reason For Visit: bipolar disorder Subjective Notes: Conditional Voluntary Healthcare Proxy: No Guardianship: No Medical Problems Affecting Mental Status: No Interim History: Medical record and nursing notes reviewed; case discussed during rounds with team/nursing staff, and met with patient for supportive therapy/psychoeducation, as well as medication management. Met with patient in the white, reports that he has a better day today. Patient states that I just found down that everyone has problems . Reports that it was rough for him during the holiday. When asked his plan for today, he says I may pack a little bit to get ready as he will be discharged soon. Reported that he will be discharged home with mom where he was raised . Bright, friendly, pleasant and cooperative, but can be labile, irritable, and delusional. However, do not make any delusional statements during this encounter. Per nursing, patient slept for 8 hours, can be irritable. No side effects from medications. Medication Compliance: Yes Side effects from medications: No Attending Groups: Intermittent Review of Systems Acute medical concerns: No Medical Review of Systems: unchanged Review of Systems Review of Systems No N/V. No constipation. No physical complaint. Mental Status Exam Mental Status Exam Narrative: A+O , visible, overly bright upon approach. Pleasant and cooperative. No SI/SIB/HI/AVH, no ADL's issues., wearing casual attire. Fair insight and judgment. Treatment focus. Diagnostics Vital Signs (24Hr): Vital Signs - 24 hr 01/29/25 08:20 01/29/25 14:50 Temperature 97.5 F Pulse Rate 99 Blood Pressure 154/76 H 136/63 Pulse Oximetry 99 Oxygen Delivery Method Room Air Labs 01/24/25 07:33 01/24/25 07:33 Medications Medications Current Medications Acetaminophen (Acetaminophen 325 Mg Tablet) 650 mg PO Q6H PRN PRN Reason: Pain, Mild (Pain Scale 1-3) Last Admin: 01/22/25 20:34 Dose: 650 mg Al Hydroxide/Mg Hydroxide (Magnesium Hydrox/Alum Hydrox 30 Ml Oral.Susp) 30 ml PO Q6H PRN PRN Reason: Heartburn/Nausea Last Admin: 01/23/25 17:27 Dose: 30 ml Amlodipine Besylate (Amlodipine Besylate 10 Mg Tablet) 10 mg PO DAILY YAQUELIN; Protocol Last Admin: 01/29/25 08:27 Dose: 10 mg Amoxicillin (Amoxicillin 500 Mg Capsule) 500 mg PO BID [facility] Stop: 01/31/25 21:00 Last Admin: 01/29/25 22:02 Dose: 500 mg Aripiprazole (Aripiprazole 30 Mg Tablet) 30 mg PO DAILY [facility] Last Admin: 01/29/25 08:28 Dose: 30 mg Artificial Tears (Artificial Tears 15 Ml Drops) 1 drop EYE-BOTH DAILY PRN PRN Reason: allergy sx Last Admin: 01/18/25 09:20 Dose: 1 drop Atorvastatin Calcium (Atorvastatin Calcium 40 Mg Tablet) 40 mg PO DAILY [facility] Last Admin: 01/29/25 08:27 Dose: 40 mg Benztropine Mesylate (Benztropine Mesylate 1 Mg Tablet) 2 mg PO BID [facility] Last Admin: 01/29/25 22:02 Dose: 2 mg Bisacodyl (Bisacodyl 5 Mg Tablet.) 10 mg PO BEDTIME PRN PRN Reason: Constipation Last Admin: 01/28/25 22:09 Dose: 10 mg Calcitriol (Calcitriol 0.25 Mcg Capsule) 0.25 mcg PO DAILY [facility] Last Admin: 01/29/25 08:27 Dose: 0.25 mcg Clonidine HCl (Clonidine Hcl 0.1 Mg Tablet) 0.1 mg PO TID PRN; Protocol PRN Reason: anxiety Last Admin: 01/28/25 16:46 Dose: 0.1 mg Docusate Sodium (Docusate Sodium 100 Mg Capsule) 100 mg PO BEDTIME [facility] Last Admin: 01/29/25 22:01 Dose: 100 mg Empagliflozin (Empagliflozin 10 Mg Tablet) 10 mg PO DAILY YAQUELIN Last Admin: 01/29/25 08:27 Dose: 10 mg Escitalopram Oxalate (Escitalopram Oxalate 20 Mg Tablet) 20 mg PO DAILY [facility] Last Admin: 01/29/25 08:27 Dose: 20 mg Famotidine (Famotidine 20 Mg Tablet) 20 mg PO DAILY [facility] Last Admin: 01/29/25 08:27 Dose: 20 mg Ferrous Sulfate (Ferrous Sulfate 324 Mg Tablet.) 324 mg PO Q2D [facility] Last Admin: 01/29/25 14:50 Dose: 324 mg Hydralazine HCl (Hydralazine Hcl 50 Mg Tablet) 50 mg PO TID [facility]; Protocol Last Admin: 01/29/25 22:02 Dose: 50 mg Hydroxyzine HCl (Hydroxyzine Hcl 25 Mg Tablet) 25 mg PO Q6H PRN PRN Reason: mild anxiety Last Admin: 01/29/25 22:01 Dose: 25 mg Lactulose (Lactulose 20 Gm/30 Ml Solution) 30 gm PO DAILY PRN PRN Reason: Constipation Last Admin: 01/25/25 14:29 Dose: 30 gm Lamotrigine (Lamotrigine 100 Mg Tablet) 200 mg PO BID [facility] Last Admin: 01/29/25 22:02 Dose: 200 mg Loratadine (Loratadine 10 Mg Tablet) 10 mg PO Q2D [facility] Last Admin: 01/29/25 08:37 Dose: Not Given Magnesium Hydroxide (Milk Of Magnesia 30 Ml Oral.Susp) 30 ml PO BID PRN PRN Reason: Constipation Last Admin: 01/24/25 11:08 Dose: 30 ml Nicotine Polacrilex (Nicotine Polacrilex 2 Mg Gum) 4 mg BUCCAL Q2H PRN PRN Reason: Nicotine Cravings Omeprazole (Omeprazole 20 Mg Capsule.Dr) 20 mg PO DAILY@0630 [facility] Last Admin: 01/29/25 06:45 Dose: 20 mg Polyethylene Glycol (Polyethylene Glycol 3350 17 Gm Powd.Pack) 17 gm PO DAILY [facility] Last Admin: 01/29/25 08:26 Dose: 17 gm Quetiapine Fumarate (Quetiapine Fumarate 50 Mg Tablet) 50 mg PO TID PRN PRN Reason: agitation Last Admin: 01/19/25 03:08 Dose: 50 mg Quetiapine Fumarate (Quetiapine Fumarate 400 Mg Tablet) 400 mg PO BEDTIME [facility] Last Admin: 01/29/25 22:02 Dose: 400 mg Risperidone (Risperidone 1 Mg Tablet) 1 mg PO BID [facility] Last Admin: 01/29/25 22:02 Dose: 1 mg Sodium Zirconium Cyclosilicate (Sodium Zirconium Cyclosilicate 10 Gm Powd.Pack) 10 gm PO DAILY [facility] Last Admin: 01/29/25 08:26 Dose: 10 gm Trazodone HCl (Trazodone Hcl 50 Mg Tablet) 50 mg PO BEDTIME MRX1 PRN PRN Reason: Insomnia Last Admin: 01/29/25 22:02 Dose: 50 mg Allergies Allergies Allergy/AdvReac Type Severity Reaction Status Date / Time No Known Allergies Allergy Verified 12/17/24 20:12 Assessment & Plan Assessment & Plan (1) Bipolar 1 disorder: Status: Acute Code(s): F31.9 - Bipolar disorder, unspecified (2) HTN (hypertension): Status: Acute Code(s): I10 - Essential (primary) hypertension Assessment and Plan: This evening, pt is questioning regime. He has needed reminders of changes this week due to CKD and hyperkalemia by the team. (3) CKD (chronic kidney disease) stage 3, GFR 30-59 ml/min: Status: Acute Code(s): N18.30 - Chronic kidney disease, stage 3 unspecified Plan 64-year-old male with a past medical history was listed below presented to emergency department at [facility] with mental status changes. Now admitted to inpatient psych for further care. 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 Chronic kidney disease stage 4/diabetic nephropathy and hypertensive renal disease Avoid nephrotoxins Followed by Dr. Maravilla as an outpatient Continue calcitriol Type 2 diabetes Hemoglobin A1c 6.8 Continue Jardiance Hypertension/HLD Losartan DC due to kidney injury, Continue Norvasc, hydralazine 25 t.i.d. Recently started atorvastatin Clonidine t.i.d. p.r.n. Blood pressure well controlled 01/14/25: Continue treatment. Support/Educate 01/15, 16: no changes - f/u on tremor 01/17: Seroquel 400 mg HS CMP 01/18. Continue to monitor for tremor. 01/18: Continue tx 01/20: Continue tx 01/21: Variable BP's- Hospitalist may need to see again. Increase Seroquel to 500 mg HS Continue to monitor. 01/22 Patient reports that he is doing good and that Seroquel seems to be helping him. He said he slept well and wants to continue with current regimen. Some exuberant behavior, happily yelling in the hallway about hindu things -continue treatment plan 01/23 paranoid ideations expressed 01/25 Met with pt and Piter Donnelly [facility]. As pt is now unable to return to mother's home the [facility] case mgt idea was represented by Mr. Donnelly. Pt declined. He would like Angelita Hancock to be contacted [phone] and signed a YARA to make a connection with her. Discussed meds. Olanzapine will be discontinued. Risperdal 1 mg bid trial will begin today. Pt reports constipation today. He reported resolution to tw on 01/24, then to evening team reported constipation and was given Magnesium Citrate. Lactulose ordered today. 01/26 I am deeply hurt . You let two lesbians stay here and want me, a trejo, black man to leave. You will not hire me and I think this is discrimination. Discussed the above and attempted to clarify pt's perceptions. [facility] states [facility] and human services of [place] and believes he has been discriminated against. Discussed pt having relief of constipation. No discharge date planned as yet. Pt refusing all resources, believes he will live and work on . Continues with delusional content. First day of change to Risperdal from Olanzapine Full review of meds with pt today. ?01/27/25:Patient is visible, social, pleasant and cooperative. overly bright upon approach. He is happy to be here and want to be here when asked what his treatment plan looks like. He feels grateful to be taken care of by unit staff. Report no issues with appetite or sleep. Denies SI/SIB/HI/AVH. No behavior issues Per nursing,patient slept for 8 hours. compliant witth meds. No side effects noted or reported. 01/28/25: Met with pt and Piter Dickinsonelijah [facility]. Discussion of discharge continued. At this time pt refuses referrals to shelters, refuses to talk with his family to assess if he can resolve issues. References that he is discriminated against as a black trejo male by reminding us we have hired lesbians to work on the unit. Threatening to us in meeting today. Reports he is not ready to go. Reports that he sees others coming in here and team hires them to work and he wants to be offered a job so he may live here. Attempted to explain that patients come into the unit for care, not for a job. Pt does not believe this to be true. Requested to use tw phone to call his advocate Angelita Hancock [place] Director of [facility] and Human Services. Pt left a message and called again about 30 minutes later, speaking with Ms. Hancock directly, however with only a social discussion to be continued post holidays. Pt clearly let us know that he would have Ms. Hancock and Mayor [place] close the hospital immediately should we not follow his instructions. Later in the day pt requested team go to security so he could see his bank cards. When he was told this would have to wait as the shift was changing he came to this bid writer and informed me that he had placed a call to police to report that tw had stolen his bank cards. Incidents such as this are increased in frequency. Pt requested to decrease Seroquel to 400 mg HS from 500 mg due to anger about discharge discussion which was put in place. 01/29/25: Met with patient in the white, reports that he has a better day today. Patient states that I just found down that everyone has problems . Reports that it was rough for him during the holiday. When asked his plan for today, he says I may pack a little bit to get ready as he will be discharged soon. Reported that he will be discharged home with mom where he was raised . Bright, friendly, pleasant and cooperative, but can be labile, irritable, and delusional. However, do not make any delusional statements during this encounter. Per nursing, patient slept for 8 hours, can be irritable. No side effects from medications. Patient educated on: diagnosis, medication risk/benefits and therapeutic strategies Informed Consent: understands and further education needed Reason for continued inpatient stay Substantial Risk for: med/psych decompensation Time Spent With Patient Time: Total time managing care of this patient today ____ minutes.
[2025-01-30 08:08] VITALS: BP 120/64; PULSE 108; TEMP 36.8; O2SAT 100
[2025-01-30] MEDS: ARIPiprazole 30 MG TABLET PO (08:36)
[2025-01-30 13:54] VITALS: BP 128/73; PULSE 104
[2025-01-30 20:00] VITALS: BP 178/77; PULSE 101; TEMP 36.7; O2SAT 98
[2025-01-30 20:14] VITALS: BP 178/77
--- NOTE | 2025-01-30 21:42 | P.PNPSI_ITS ---
Subjective Subjective Date of Service: 01/30/25 Reason For Visit: bipolar disorder Subjective Notes: Conditional Voluntary Healthcare Proxy: No Guardianship: No Medical Problems Affecting Mental Status: No Interim History: Medical record and nursing notes reviewed; case discussed during rounds with team/nursing staff, and met with patient for supportive therapy/psychoeducation, as well as medication management. Patient is superfical, visble and pleasant upon approach. He reports calling his mon 3 times and plan to call her again. This provider asks reasons for calling call many times, he says it is his mom who is 80+ y.o . Patient reports there is no privacy for him to talk to his mom which nursing reports he was on the phone irritable. earlier of today. Patient is not irritable during assessment, concrete. Denies SI/SIB/HI/AVH but can be delusions and paranoid. Meds compliant, no side effect, slept for 8 hours. Medication Compliance: Yes Side effects from medications: No Review of Systems Acute medical concerns: No Medical Review of Systems: unchanged Review of Systems Review of Systems No N/V. No constipation. No physical complaint. Mental Status Exam Mental Status Exam Narrative: A+O , visible, bright upon approach. Pleasant and cooperative. No SI/SIB/HI/AVH, no ADL's issues., wearing casual attire. Fair insight and judgment. Treatment focus. Diagnostics Vital Signs (24Hr): Vital Signs - 24 hr 01/30/25 08:08 01/30/25 13:54 01/30/25 20:00 Temperature 98.3 F 98.1 F Pulse Rate 108 H 104 H 101 H Blood Pressure 120/64 128/73 178/77 H Pulse Oximetry 100 98 Oxygen Delivery Method Room Air Room Air 01/30/25 20:14 Temperature Pulse Rate Blood Pressure 178/77 H Pulse Oximetry Oxygen Delivery Method Labs 01/24/25 07:33 01/24/25 07:33 Medications Medications Current Medications Acetaminophen (Acetaminophen 325 Mg Tablet) 650 mg PO Q6H PRN PRN Reason: Pain, Mild (Pain Scale 1-3) Last Admin: 01/22/25 20:34 Dose: 650 mg Al Hydroxide/Mg Hydroxide (Magnesium Hydrox/Alum Hydrox 30 Ml Oral.Susp) 30 ml PO Q6H PRN PRN Reason: Heartburn/Nausea Last Admin: 01/23/25 17:27 Dose: 30 ml Amlodipine Besylate (Amlodipine Besylate 10 Mg Tablet) 10 mg PO DAILY [facility]; Protocol Last Admin: 01/30/25 08:36 Dose: 10 mg Amoxicillin (Amoxicillin 500 Mg Capsule) 500 mg PO BID [facility] Stop: 01/31/25 21:00 Last Admin: 01/30/25 20:09 Dose: 500 mg Aripiprazole (Aripiprazole 30 Mg Tablet) 30 mg PO DAILY [facility] Last Admin: 01/30/25 08:36 Dose: 30 mg Artificial Tears (Artificial Tears 15 Ml Drops) 1 drop EYE-BOTH DAILY PRN PRN Reason: allergy sx Last Admin: 01/18/25 09:20 Dose: 1 drop Atorvastatin Calcium (Atorvastatin Calcium 40 Mg Tablet) 40 mg PO DAILY [facility] Last Admin: 01/30/25 08:37 Dose: 40 mg Benztropine Mesylate (Benztropine Mesylate 1 Mg Tablet) 2 mg PO BID [facility] Last Admin: 01/30/25 20:10 Dose: 2 mg Bisacodyl (Bisacodyl 5 Mg Tablet.) 10 mg PO BEDTIME PRN PRN Reason: Constipation Last Admin: 01/28/25 22:09 Dose: 10 mg Calcitriol (Calcitriol 0.25 Mcg Capsule) 0.25 mcg PO DAILY [facility] Last Admin: 01/30/25 08:36 Dose: 0.25 mcg Clonidine HCl (Clonidine Hcl 0.1 Mg Tablet) 0.1 mg PO TID PRN; Protocol PRN Reason: anxiety Last Admin: 01/28/25 16:46 Dose: 0.1 mg Docusate Sodium (Docusate Sodium 100 Mg Capsule) 100 mg PO BEDTIME [facility] Last Admin: 01/30/25 20:10 Dose: 100 mg Empagliflozin (Empagliflozin 10 Mg Tablet) 10 mg PO DAILY [facility] Last Admin: 01/30/25 08:37 Dose: 10 mg Escitalopram Oxalate (Escitalopram Oxalate 20 Mg Tablet) 20 mg PO DAILY [facility] Last Admin: 01/30/25 08:36 Dose: 20 mg Famotidine (Famotidine 20 Mg Tablet) 20 mg PO DAILY [facility] Last Admin: 01/30/25 08:37 Dose: 20 mg Ferrous Sulfate (Ferrous Sulfate 324 Mg Tablet.) 324 mg PO Q2D [facility] Last Admin: 01/29/25 14:50 Dose: 324 mg Hydralazine HCl (Hydralazine Hcl 50 Mg Tablet) 50 mg PO TID [facility]; Protocol Last Admin: 01/30/25 20:14 Dose: 50 mg Hydroxyzine HCl (Hydroxyzine Hcl 25 Mg Tablet) 25 mg PO Q6H PRN PRN Reason: mild anxiety Last Admin: 01/29/25 22:01 Dose: 25 mg Lactulose (Lactulose 20 Gm/30 Ml Solution) 30 gm PO DAILY PRN PRN Reason: Constipation Last Admin: 01/25/25 14:29 Dose: 30 gm Lamotrigine (Lamotrigine 100 Mg Tablet) 200 mg PO BID [facility] Last Admin: 01/30/25 20:09 Dose: 200 mg Loratadine (Loratadine 10 Mg Tablet) 10 mg PO Q2D [facility] Last Admin: 01/29/25 08:37 Dose: Not Given Magnesium Hydroxide (Milk Of Magnesia 30 Ml Oral.Susp) 30 ml PO BID PRN PRN Reason: Constipation Last Admin: 01/24/25 11:08 Dose: 30 ml Nicotine Polacrilex (Nicotine Polacrilex 2 Mg Gum) 4 mg BUCCAL Q2H PRN PRN Reason: Nicotine Cravings Omeprazole (Omeprazole 20 Mg Capsule.Dr) 20 mg PO DAILY@0630 [facility] Last Admin: 01/30/25 07:23 Dose: 20 mg Polyethylene Glycol (Polyethylene Glycol 3350 17 Gm Powd.Pack) 17 gm PO DAILY [facility] Last Admin: 01/30/25 08:36 Dose: 17 gm Quetiapine Fumarate (Quetiapine Fumarate 50 Mg Tablet) 50 mg PO TID PRN PRN Reason: agitation Last Admin: 01/19/25 03:08 Dose: 50 mg Quetiapine Fumarate (Quetiapine Fumarate 400 Mg Tablet) 400 mg PO BEDTIME [facility] Last Admin: 01/30/25 20:09 Dose: 400 mg Risperidone (Risperidone 1 Mg Tablet) 1 mg PO BID [facility] Last Admin: 01/30/25 20:10 Dose: 1 mg Sodium Zirconium Cyclosilicate (Sodium Zirconium Cyclosilicate 10 Gm Powd.Pack) 10 gm PO DAILY [facility] Last Admin: 01/30/25 08:36 Dose: 10 gm Trazodone HCl (Trazodone Hcl 50 Mg Tablet) 50 mg PO BEDTIME MRX1 PRN PRN Reason: Insomnia Last Admin: 01/29/25 22:02 Dose: 50 mg Allergies Allergies Allergy/AdvReac Type Severity Reaction Status Date / Time No Known Allergies Allergy Verified 12/17/24 20:12 Assessment & Plan Assessment & Plan (1) Bipolar 1 disorder: Status: Acute Code(s): F31.9 - Bipolar disorder, unspecified (2) HTN (hypertension): Status: Acute Code(s): I10 - Essential (primary) hypertension Assessment and Plan: This evening, pt is questioning regime. He has needed reminders of changes this week due to CKD and hyperkalemia by the team. (3) CKD (chronic kidney disease) stage 3, GFR 30-59 ml/min: Status: Acute Code(s): N18.30 - Chronic kidney disease, stage 3 unspecified Plan 64-year-old male with a past medical history was listed below presented to emergency department at [facility] with mental status changes. Now admitted to inpatient psych for further care. 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 Chronic kidney disease stage 4/diabetic nephropathy and hypertensive renal disease Avoid nephrotoxins Followed by Dr. Maravilla as an outpatient Continue calcitriol Type 2 diabetes Hemoglobin A1c 6.8 Continue Jardiance Hypertension/HLD Losartan DC due to kidney injury, Continue Norvasc, hydralazine 25 t.i.d. Recently started atorvastatin Clonidine t.i.d. p.r.n. Blood pressure well controlled 01/14/25: Continue treatment. Support/Educate 01/15, : no changes - f/u on tremor 01/17: Seroquel 400 mg HS CMP 01/18. Continue to monitor for tremor. 01/18: Continue tx 01/20: Continue tx 01/21: Variable BP's- Hospitalist may need to see again. Increase Seroquel to 500 mg HS Continue to monitor. 01/22 Patient reports that he is doing good and that Seroquel seems to be helping him. He said he slept well and wants to continue with current regimen. Some exuberant behavior, happily yelling in the hallway about taoist things -continue treatment plan 01/23 paranoid ideations expressed 01/25 Met with pt and Piter STINSON. As pt is now unable to return to mother's home the [facility] case mgt idea was represented by Mr. Donnelly. Pt declined. He would like Angelita Hancock to be contacted [phone] and signed a YARA to make a connection with her. Discussed meds. Olanzapine will be discontinued. Risperdal 1 mg bid trial will begin today. Pt reports constipation today. He reported resolution to tw on 01/24, then to evening team reported constipation and was given Magnesium Citrate. Lactulose ordered today. 01/26 I am deeply hurt . You let two lesbians stay here and want me, a trejo, black man to leave. You will not hire me and I think this is discrimination. Discussed the above and attempted to clarify pt's perceptions. Pt states he is working with the [facility] and believes he has been discriminated against. Discussed pt having relief of constipation. No discharge date planned as yet. Pt refusing all resources, believes he will live and work on . Continues with delusional content. First day of change to Risperdal from Olanzapine Full review of meds with pt today. ?01/27/25:Patient is visible, social, pleasant and cooperative. overly bright upon approach. He is happy to be here and want to be here when asked what his treatment plan looks like. He feels grateful to be taken care of by unit staff. Report no issues with appetite or sleep. Denies SI/SIB/HI/AVH. No behavior issues Per nursing,patient slept for 8 hours. compliant witth meds. No side effects noted or reported. 01/28/25: Met with pt and Piter STINSON. Discussion of discharge continued. At this time pt refuses referrals to shelters, refuses to talk with his family to assess if he can resolve issues. References that he is discriminated against as a black trejo male by reminding us we have hired lesbians to work on the unit. Threatening to us in meeting today. Reports he is not ready to go. Reports that he sees others coming in here and team hires them to work and he wants to be offered a job so he may live here. Attempted to explain that patients come into the unit for care, not for a job. Pt does not believe this to be true. Requested to use tw phone to call his advocate Angelita Hancock [place] [facility]. Pt left a message and called again about 30 minutes later, speaking with Ms. Hancock directly, however with only a social discussion to be continued post holidays. Pt clearly let us know that he would have Ms. Hancock and Mayor [place] close the hospital immediately should we not follow his instructions. Later in the day pt requested team go to security so he could see his bank cards. When he was told this would have to wait as the shift was changing he came to this script writer and informed me that he had placed a call to police to report that tw had stolen his bank cards. Incidents such as this are increased in frequency. Pt requested to decrease Seroquel to 400 mg HS from 500 mg due to anger about discharge discussion which was put in place. 01/29/25: Met with patient in the white, reports that he has a better day today. Patient states that I just found down that everyone has problems . Reports that it was rough for him during the holiday. When asked his plan for today, he says I may pack a little bit to get ready as he will be discharged soon. Reported that he will be discharged home with mom where he was raised . Bright, friendly, pleasant and cooperative, but can be labile, irritable, and delusional. However, do not make any delusional statements during this encounter. Per nursing, patient slept for 8 hours, can be irritable. No side effects from medications. 01/30/25: Patient is superficial, visible and pleasant upon approach. He reports calling his mon 3 times and plan to call her again. This provider asks reasons for calling call many times, he says it is his mom who is 80+ y.o . Patient reports there is no privacy for him to talk to his mom which nursing reports he was on the phone irritable. earlier of today. Patient is not irritable during assessment, concrete. Denies SI/SIB/HI/AVH but can be delusions and paranoid. Meds compliant, no side effect, slept for 8 hours. Patient educated on: medication risk/benefits and therapeutic strategies Informed Consent: understands and further education needed Reason for continued inpatient stay Substantial Risk for: med/psych decompensation Time Spent With Patient Time: Total time managing care of this patient today ____ minutes.
[2025-01-31 07:55] VITALS: BP 185/88; PULSE 100; RESP 16; TEMP 36.7; O2SAT 99
[2025-01-31] MEDS: ARIPiprazole 30 MG TABLET PO (08:40)
[2025-01-31 16:06] VITALS: BP 128/75; PULSE 110; O2SAT 100
[2025-01-31] MEDS: Ferrous Sulfate 324 MG TABLET.DR PO (16:09)
[2025-01-31 20:00] VITALS: BP 159/75; PULSE 106; RESP 16; TEMP 37.1; O2SAT 99
[2025-01-31 22:14] VITALS: BP 150/84
--- NOTE | 2025-01-31 23:50 | HO.PSYCHPN ---
Subjective Subjective Date of Service: 01/31/25 Reason For Visit: bipolar disorder Subjective Notes: Conditional Voluntary Healthcare Proxy: No Guardianship: No Medical Problems Affecting Mental Status: No Interim History: Medical record and nursing notes reviewed; case discussed during rounds with team/nursing staff, and met with patient for supportive therapy/psychoeducation, as well as medication management. Patient is not pleasant as he is usually with this provider but not angry or irritable toward this provider. however, he is perservaretive on obtaining a global sales director. Ask this provider if able to attend to meeting with Paddy and Nitin this week. Racing thoughts, poor judgment, restless. Appear to make himself very busy, back and forth with SW, not happy with services that he has received even though he is not straight forward with his provider about it. However, compliant with meds. No side effects. Denies SI/SIB/HI/AVH. Medication Compliance: Yes Side effects from medications: No Review of Systems Acute medical concerns: No Medical Review of Systems: unchanged Review of Systems Review of Systems No N/V. No constipation. No physical complaint. Mental Status Exam Mental Status Exam Narrative: A+O , visible, not happy, irritable most of the day but cooperative,racing thoughts, restless. . No SI/SIB/HI/AVH, no ADL's issues., wearing casual attire. Poor insight and judgment. Diagnostics Vital Signs (24Hr): Vital Signs - 24 hr 01/31/25 07:55 01/31/25 16:06 01/31/25 20:00 Temperature 98.0 F 98.8 F Pulse Rate 100 110 H 106 H Respiratory Rate 16 16 Blood Pressure 185/88 H 128/75 159/75 H Pulse Oximetry 99 100 99 Oxygen Delivery Method Room Air Room Air Room Air 01/31/25 22:14 Temperature Pulse Rate Respiratory Rate Blood Pressure 150/84 H Pulse Oximetry Oxygen Delivery Method Labs 01/24/25 07:33 01/24/25 07:33 Medications Medications Current Medications Acetaminophen (Acetaminophen 325 Mg Tablet) 650 mg PO Q6H PRN PRN Reason: Pain, Mild (Pain Scale 1-3) Last Admin: 01/22/25 20:34 Dose: 650 mg Al Hydroxide/Mg Hydroxide (Magnesium Hydrox/Alum Hydrox 30 Ml Oral.Susp) 30 ml PO Q6H PRN PRN Reason: Heartburn/Nausea Last Admin: 01/23/25 17:27 Dose: 30 ml Amlodipine Besylate (Amlodipine Besylate 10 Mg Tablet) 10 mg PO DAILY [facility]; Protocol Last Admin: 01/31/25 08:05 Dose: 10 mg Aripiprazole (Aripiprazole 30 Mg Tablet) 30 mg PO DAILY [facility] Last Admin: 01/31/25 08:40 Dose: 30 mg Artificial Tears (Artificial Tears 15 Ml Drops) 1 drop EYE-BOTH DAILY PRN PRN Reason: allergy sx Last Admin: 01/18/25 09:20 Dose: 1 drop Atorvastatin Calcium (Atorvastatin Calcium 40 Mg Tablet) 40 mg PO DAILY [facility] Last Admin: 01/31/25 08:40 Dose: 40 mg Benztropine Mesylate (Benztropine Mesylate 1 Mg Tablet) 2 mg PO BID [facility] Last Admin: 01/31/25 22:13 Dose: 2 mg Bisacodyl (Bisacodyl 5 Mg Tablet.) 10 mg PO BEDTIME PRN PRN Reason: Constipation Last Admin: 01/28/25 22:09 Dose: 10 mg Calcitriol (Calcitriol 0.25 Mcg Capsule) 0.25 mcg PO DAILY [facility] Last Admin: 01/31/25 08:40 Dose: 0.25 mcg Clonidine HCl (Clonidine Hcl 0.1 Mg Tablet) 0.1 mg PO TID PRN; Protocol PRN Reason: anxiety Last Admin: 01/28/25 16:46 Dose: 0.1 mg Docusate Sodium (Docusate Sodium 100 Mg Capsule) 100 mg PO BEDTIME [facility] Last Admin: 01/31/25 22:15 Dose: 100 mg Empagliflozin (Empagliflozin 10 Mg Tablet) 10 mg PO DAILY [facility] Last Admin: 01/31/25 08:40 Dose: 10 mg Escitalopram Oxalate (Escitalopram Oxalate 20 Mg Tablet) 20 mg PO DAILY [facility] Last Admin: 01/31/25 08:40 Dose: 20 mg Famotidine (Famotidine 20 Mg Tablet) 20 mg PO DAILY [facility] Last Admin: 01/31/25 08:40 Dose: 20 mg Ferrous Sulfate (Ferrous Sulfate 324 Mg Tablet.) 324 mg PO Q2D [facility] Last Admin: 01/31/25 16:09 Dose: 324 mg Hydralazine HCl (Hydralazine Hcl 50 Mg Tablet) 50 mg PO TID [facility]; Protocol Last Admin: 01/31/25 22:14 Dose: 50 mg Hydroxyzine HCl (Hydroxyzine Hcl 25 Mg Tablet) 25 mg PO Q6H PRN PRN Reason: mild anxiety Last Admin: 01/29/25 22:01 Dose: 25 mg Lactulose (Lactulose 20 Gm/30 Ml Solution) 30 gm PO DAILY PRN PRN Reason: Constipation Last Admin: 01/25/25 14:29 Dose: 30 gm Lamotrigine (Lamotrigine 100 Mg Tablet) 200 mg PO BID [facility] Last Admin: 01/31/25 22:13 Dose: 200 mg Loratadine (Loratadine 10 Mg Tablet) 10 mg PO Q2D [facility] Last Admin: 01/31/25 09:08 Dose: Not Given Magnesium Hydroxide (Milk Of Magnesia 30 Ml Oral.Susp) 30 ml PO BID PRN PRN Reason: Constipation Last Admin: 01/24/25 11:08 Dose: 30 ml Nicotine Polacrilex (Nicotine Polacrilex 2 Mg Gum) 4 mg BUCCAL Q2H PRN PRN Reason: Nicotine Cravings Omeprazole (Omeprazole 20 Mg Capsule.Dr) 20 mg PO DAILY@0630 [facility] Last Admin: 01/31/25 06:39 Dose: 20 mg Polyethylene Glycol (Polyethylene Glycol 3350 17 Gm Powd.Pack) 17 gm PO DAILY [facility] Last Admin: 01/31/25 08:46 Dose: 17 gm Quetiapine Fumarate (Quetiapine Fumarate 50 Mg Tablet) 50 mg PO TID PRN PRN Reason: agitation Last Admin: 01/19/25 03:08 Dose: 50 mg Quetiapine Fumarate (Quetiapine Fumarate 400 Mg Tablet) 400 mg PO BEDTIME [facility] Last Admin: 01/31/25 22:14 Dose: 400 mg Risperidone (Risperidone 1 Mg Tablet) 1 mg PO BID [facility] Last Admin: 01/31/25 22:13 Dose: 1 mg Sodium Zirconium Cyclosilicate (Sodium Zirconium Cyclosilicate 10 Gm Powd.Pack) 10 gm PO DAILY [facility] Last Admin: 01/31/25 09:11 Dose: 10 gm Trazodone HCl (Trazodone Hcl 50 Mg Tablet) 50 mg PO BEDTIME MRX1 PRN PRN Reason: Insomnia Last Admin: 01/29/25 22:02 Dose: 50 mg Allergies Allergies Allergy/AdvReac Type Severity Reaction Status Date / Time No Known Allergies Allergy Verified 12/17/24 20:12 Assessment & Plan Assessment & Plan (1) Bipolar 1 disorder: Status: Acute Code(s): F31.9 - Bipolar disorder, unspecified (2) HTN (hypertension): Status: Acute Code(s): I10 - Essential (primary) hypertension Assessment and Plan: This evening, pt is questioning regime. He has needed reminders of changes this week due to CKD and hyperkalemia by the team. (3) CKD (chronic kidney disease) stage 3, GFR 30-59 ml/min: Status: Acute Code(s): N18.30 - Chronic kidney disease, stage 3 unspecified Plan 64-year-old male with a past medical history was listed below presented to emergency department at [facility] with mental status changes. Now admitted to inpatient psych for further care. 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 Chronic kidney disease stage 4/diabetic nephropathy and hypertensive renal disease Avoid nephrotoxins Followed by Dr. Maravilla as an outpatient Continue calcitriol Type 2 diabetes Hemoglobin A1c 6.8 Continue Jardiance Hypertension/HLD Losartan DC due to kidney injury, Continue Norvasc, hydralazine 25 t.i.d. Recently started atorvastatin Clonidine t.i.d. p.r.n. Blood pressure well controlled 01/14/25: Continue treatment. Support/Educate 01/15, 16: no changes - f/u on tremor 01/17: Seroquel 400 mg HS CMP 01/18. Continue to monitor for tremor. 01/18: Continue tx 01/20: Continue tx 01/21: Variable BP's- Hospitalist may need to see again. Increase Seroquel to 500 mg HS Continue to monitor. 01/22 Patient reports that he is doing good and that Seroquel seems to be helping him. He said he slept well and wants to continue with current regimen. Some exuberant behavior, happily yelling in the hallway about jehovah's witness things -continue treatment plan 01/23 paranoid ideations expressed 01/25 Met with pt and Piter STINSON. As pt is now unable to return to mother's home the [facility] case mgt idea was represented by Mr. Donnelly. Pt declined. He would like Angelita Hancock to be contacted [phone] and signed a YARA to make a connection with her. Discussed meds. Olanzapine will be discontinued. Risperdal 1 mg bid trial will begin today. Pt reports constipation today. He reported resolution to tw on 01/24, then to evening team reported constipation and was given Magnesium Citrate. Lactulose ordered today. 01/26 I am deeply hurt . You let two lesbians stay here and want me, a trejo, black man to leave. You will not hire me and I think this is discrimination. Discussed the above and attempted to clarify pt's perceptions. Pt states he is working with the commisioner of [facility] and human services of [place] and believes he has been discriminated against. Discussed pt having relief of constipation. No discharge date planned as yet. Pt refusing all resources, believes he will live and work on . Continues with delusional content. First day of change to Risperdal from Olanzapine Full review of meds with pt today. ?01/27/25:Patient is visible, social, pleasant and cooperative. overly bright upon approach. He is happy to be here and want to be here when asked what his treatment plan looks like. He feels grateful to be taken care of by unit staff. Report no issues with appetite or sleep. Denies SI/SIB/HI/AVH. No behavior issues Per nursing,patient slept for 8 hours. compliant witth meds. No side effects noted or reported. 01/28/25: Met with pt and Piter [facility]. Discussion of discharge continued. At this time pt refuses referrals to shelters, refuses to talk with his family to assess if he can resolve issues. References that he is discriminated against as a black trejo male by reminding us we have hired lesbians to work on the unit. Threatening to us in meeting today. Reports he is not ready to go. Reports that he sees others coming in here and team hires them to work and he wants to be offered a job so he may live here. Attempted to explain that patients come into the unit for care, not for a job. Pt does not believe this to be true. Requested to use tw phone to call his advocate Angelita Hancock [place] Director of Health and Human Services. Pt left a message and called again about 30 minutes later, speaking with Ms. Hancock directly, however with only a social discussion to be continued post holidays. Pt clearly let us know that he would have Ms. Hancock and Mayor Nikki close the hospital immediately should we not follow his instructions. Later in the day pt requested team go to security so he could see his bank cards. When he was told this would have to wait as the shift was changing he came to this technical writer and informed me that he had placed a call to police to report that tw had stolen his bank cards. Incidents such as this are increased in frequency. Pt requested to decrease Seroquel to 400 mg HS from 500 mg due to anger about discharge discussion which was put in place. 01/29/25: Met with patient in the white, reports that he has a better day today. Patient states that I just found down that everyone has problems . Reports that it was rough for him during the holiday. When asked his plan for today, he says I may pack a little bit to get ready as he will be discharged soon. Reported that he will be discharged home with mom where he was raised . Bright, friendly, pleasant and cooperative, but can be labile, irritable, and delusional. However, do not make any delusional statements during this encounter. Per nursing, patient slept for 8 hours, can be irritable. No side effects from medications. 01/30/25: Patient is superficial, visible and pleasant upon approach. He reports calling his mon 3 times and plan to call her again. This provider asks reasons for calling call many times, he says it is his mom who is 80+ y.o . Patient reports there is no privacy for him to talk to his mom which nursing reports he was on the phone irritable. earlier of today. Patient is not irritable during assessment, concrete. Denies SI/SIB/HI/AVH but can be delusions and paranoid. Meds compliant, no side effect, slept for 8 hours. 01/31/25: Patient is not pleasant as he is usually with this provider but not angry or irritable toward this provider. however, he is perservaretive on obtaining a global sales director. Ask this provider if able to attend to meeting with Margi this week. Racing thoughts, poor judgment, restless. Appear to make himself very busy, back and forth with SW, not happy with services that he has received even though he is not straight forward with his provider about it. However, compliant with meds. No side effects. Denies SI/SIB/HI/AVH. BP elevated as the result. Patient educated on: diagnosis, medication risk/benefits and therapeutic strategies Informed Consent: further education needed Reason for continued inpatient stay Substantial Risk for: med/psych decompensation Time Spent With Patient Time: Total time managing care of this patient today ____ minutes.
[2025-02-01 08:44] VITALS: BP 129/67; PULSE 120; RESP 18; TEMP 36.8; O2SAT 98
[2025-02-01 09:41] VITALS: BP 129/67
[2025-02-01] MEDS: ARIPiprazole 30 MG TABLET PO (09:41)
[2025-02-01 09:42] VITALS: BP 129/67
[2025-02-01 11:22] LABS: Alanine Aminotransferase 99 U/L (0-40); Albumin Level 4.3 g/dL (3.5-5.0); Alkaline Phosphatase 174 U/L (39-117); Anion Gap 16 (12-20); Aspartate Amino Transferase 71 U/L (5-37); Blood Urea Nitrogen 36 mg/dL (9-16); Calcium 9.6 mg/dL (8.4-10.2); Carbon Dioxide 24 mmol/L (22-29); Chloride 102 mmol/L (96-108); Estimated Glomerular Filt Rate 21; Potassium 4.6 mmol/L (3.3-5.1); Sodium 137 mmol/L (135-145); Total Protein 8.2 g/dL (6.5-8.0)
--- NOTE | 2025-02-01 12:33 | P.PNPSI_ITS ---
Subjective Subjective Date of Service: 02/01/25 Reason For Visit: bipolar disorder Subjective Notes: Conditional Voluntary Healthcare Proxy: No Guardianship: No Medical Problems Affecting Mental Status: No Interim History: Discussed discharge with pt today. He requests 02/03 as does his mother as mother will be going to [place] 02/02 for an eye procedure and will not be able to drive for a few days. Pt reports he feels ready to go home. Denies SI,HI, AH, VH. Medication Compliance: Yes Side effects from medications: No Attending Groups: Yes Review of Systems CKD Medical Review of Systems: unchanged Review of Systems Review of Systems No Mental Status Exam Mental Status Exam Patient Appearance: Appropriate Patient Orientation: Person, Place, Time and Situation Level of Consciousness: Alert Patient Behavior: Talkative, Cooperative and Good Eye Contact Mood Description: Appropriate Affect Description: Appropriate Patient Cognition Impaired: No Ability to Follow Directions: Good Speech Pattern: Spontaneous Speech Memory Description: Intact Hallucinations: None Delusions: Not Present Thought Process: Goal Oriented Thought Content: positive for Goal Oriented and positive for Suicidal Ideation (denies) Depressive Symptoms: Thoughts of /Suicide (denies) Judgement: Fair Diagnostics Vital Signs (24Hr): Vital Signs - 24 hr 01/31/25 16:06 01/31/25 20:00 01/31/25 22:14 Temperature 98.8 F Pulse Rate 110 H 106 H Respiratory Rate 16 Blood Pressure 128/75 159/75 H 150/84 H Pulse Oximetry 100 99 Oxygen Delivery Method Room Air Room Air 02/01/25 08:44 02/01/25 09:41 02/01/25 09:42 Temperature 98.2 F Pulse Rate 120 H Respiratory Rate 18 Blood Pressure 129/67 129/67 129/67 Pulse Oximetry 98 Oxygen Delivery Method Room Air Labs 01/24/25 07:33 02/01/25 10:00 Labs: Laboratory Results - last 48 hr 02/01/25 10:00 Sodium 137 Potassium 4.6 Chloride 102 Carbon Dioxide 24 Anion Gap 16 BUN 36 H Creatinine 3.02 H Estim Creat Clear Calc TNP Estimated GFR 21 Random Glucose 347 H Calcium 9.6 Total Bilirubin 0.1 AST 71 H ALT 99 H Alkaline Phosphatase 174 H Total Protein 8.2 H Albumin 4.3 Medications Medications Current Medications Acetaminophen (Acetaminophen 325 Mg Tablet) 650 mg PO Q6H PRN PRN Reason: Pain, Mild (Pain Scale 1-3) Last Admin: 01/22/25 20:34 Dose: 650 mg Al Hydroxide/Mg Hydroxide (Magnesium Hydrox/Alum Hydrox 30 Ml Oral.Susp) 30 ml PO Q6H PRN PRN Reason: Heartburn/Nausea Last Admin: 01/23/25 17:27 Dose: 30 ml Amlodipine Besylate (Amlodipine Besylate 10 Mg Tablet) 10 mg PO DAILY [facility]; Protocol Last Admin: 02/01/25 09:41 Dose: 10 mg Aripiprazole (Aripiprazole 30 Mg Tablet) 30 mg PO DAILY [facility] Last Admin: 02/01/25 09:41 Dose: 30 mg Artificial Tears (Artificial Tears 15 Ml Drops) 1 drop EYE-BOTH DAILY PRN PRN Reason: allergy sx Last Admin: 01/18/25 09:20 Dose: 1 drop Atorvastatin Calcium (Atorvastatin Calcium 40 Mg Tablet) 40 mg PO DAILY [facility] Last Admin: 02/01/25 09:41 Dose: 40 mg Benztropine Mesylate (Benztropine Mesylate 1 Mg Tablet) 2 mg PO BID [facility] Last Admin: 02/01/25 09:41 Dose: 2 mg Bisacodyl (Bisacodyl 5 Mg Tablet.) 10 mg PO BEDTIME PRN PRN Reason: Constipation Last Admin: 01/28/25 22:09 Dose: 10 mg Calcitriol (Calcitriol 0.25 Mcg Capsule) 0.25 mcg PO DAILY [facility] Last Admin: 02/01/25 09:42 Dose: 0.25 mcg Clonidine HCl (Clonidine Hcl 0.1 Mg Tablet) 0.1 mg PO TID PRN; Protocol PRN Reason: anxiety Last Admin: 01/28/25 16:46 Dose: 0.1 mg Docusate Sodium (Docusate Sodium 100 Mg Capsule) 100 mg PO BEDTIME [facility] Last Admin: 01/31/25 22:15 Dose: 100 mg Empagliflozin (Empagliflozin 10 Mg Tablet) 10 mg PO DAILY [facility] Last Admin: 02/01/25 09:42 Dose: 10 mg Escitalopram Oxalate (Escitalopram Oxalate 20 Mg Tablet) 20 mg PO DAILY [facility] Last Admin: 02/01/25 09:42 Dose: 20 mg Famotidine (Famotidine 20 Mg Tablet) 20 mg PO DAILY [facility] Last Admin: 02/01/25 09:42 Dose: 20 mg Ferrous Sulfate (Ferrous Sulfate 324 Mg Tablet.) 324 mg PO Q2D [facility] Last Admin: 01/31/25 16:09 Dose: 324 mg Hydralazine HCl (Hydralazine Hcl 50 Mg Tablet) 50 mg PO TID [facility]; Protocol Last Admin: 02/01/25 09:42 Dose: 50 mg Hydroxyzine HCl (Hydroxyzine Hcl 25 Mg Tablet) 25 mg PO Q6H PRN PRN Reason: mild anxiety Last Admin: 01/29/25 22:01 Dose: 25 mg Lactulose (Lactulose 20 Gm/30 Ml Solution) 30 gm PO DAILY PRN PRN Reason: Constipation Last Admin: 01/25/25 14:29 Dose: 30 gm Lamotrigine (Lamotrigine 100 Mg Tablet) 200 mg PO BID [facility] Last Admin: 02/01/25 09:42 Dose: 200 mg Loratadine (Loratadine 10 Mg Tablet) 10 mg PO Q2D [facility] Last Admin: 01/31/25 09:08 Dose: Not Given Magnesium Hydroxide (Milk Of Magnesia 30 Ml Oral.Susp) 30 ml PO BID PRN PRN Reason: Constipation Last Admin: 01/24/25 11:08 Dose: 30 ml Nicotine Polacrilex (Nicotine Polacrilex 2 Mg Gum) 4 mg BUCCAL Q2H PRN PRN Reason: Nicotine Cravings Omeprazole (Omeprazole 20 Mg Capsule.Dr) 20 mg PO DAILY@0630 [facility] Last Admin: 02/01/25 07:13 Dose: 20 mg Polyethylene Glycol (Polyethylene Glycol 3350 17 Gm Powd.Pack) 17 gm PO DAILY [facility] Last Admin: 02/01/25 09:43 Dose: 17 gm Quetiapine Fumarate (Quetiapine Fumarate 50 Mg Tablet) 50 mg PO TID PRN PRN Reason: agitation Last Admin: 01/19/25 03:08 Dose: 50 mg Quetiapine Fumarate (Quetiapine Fumarate 400 Mg Tablet) 400 mg PO BEDTIME [facility] Last Admin: 01/31/25 22:14 Dose: 400 mg Risperidone (Risperidone 1 Mg Tablet) 1 mg PO BID [facility] Last Admin: 02/01/25 09:43 Dose: 1 mg Sodium Zirconium Cyclosilicate (Sodium Zirconium Cyclosilicate 10 Gm Powd.Pack) 10 gm PO DAILY [facility] Last Admin: 02/01/25 09:43 Dose: 10 gm Trazodone HCl (Trazodone Hcl 50 Mg Tablet) 50 mg PO BEDTIME MRX1 PRN PRN Reason: Insomnia Last Admin: 01/29/25 22:02 Dose: 50 mg Allergies Allergies Allergy/AdvReac Type Severity Reaction Status Date / Time No Known Allergies Allergy Verified 12/17/24 20:12 Assessment & Plan Assessment & Plan (1) Bipolar 1 disorder: Status: Acute Code(s): F31.9 - Bipolar disorder, unspecified (2) HTN (hypertension): Status: Acute Code(s): I10 - Essential (primary) hypertension Assessment and Plan: This evening, pt is questioning regime. He has needed reminders of changes this week due to CKD and hyperkalemia by the team. (3) CKD (chronic kidney disease) stage 3, GFR 30-59 ml/min: Status: Acute Code(s): N18.30 - Chronic kidney disease, stage 3 unspecified Plan 64-year-old male with a past medical history was listed below presented to emergency department at [facility] with mental status changes. Now admitted to inpatient psych for further care. 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 Chronic kidney disease stage 4/diabetic nephropathy and hypertensive renal disease Avoid nephrotoxins Followed by Dr. Maravilla as an outpatient Continue calcitriol Type 2 diabetes Hemoglobin A1c 6.8 Continue Jardiance Hypertension/HLD Losartan DC due to kidney injury, Continue Norvasc, hydralazine 25 t.i.d. Recently started atorvastatin Clonidine t.i.d. p.r.n. Blood pressure well controlled 01/14/25: Continue treatment. Support/Educate 01/15, 16: no changes - f/u on tremor 01/17: Seroquel 400 mg HS CMP 01/18. Continue to monitor for tremor. 01/18: Continue tx 01/20: Continue tx 01/21: Variable BP's- Hospitalist may need to see again. Increase Seroquel to 500 mg HS Continue to monitor. 01/22 Patient reports that he is doing good and that Seroquel seems to be helping him. He said he slept well and wants to continue with current regimen. Some exuberant behavior, happily yelling in the hallway about evangelical things -continue treatment plan 01/23 paranoid ideations expressed 01/25 Met with pt and Piter STINSON. As pt is now unable to return to mother's home the [facility] case mgt idea was represented by Mr. Donnelly. Pt declined. He would like Angelita Hancock to be contacted [phone] and signed a YARA to make a connection with her. Discussed meds. Olanzapine will be discontinued. Risperdal 1 mg bid trial will begin today. Pt reports constipation today. He reported resolution to tw on 01/24, then to evening team reported constipation and was given Magnesium Citrate. Lactulose ordered today. 01/26 I am deeply hurt . You let two lesbians stay here and want me, a trejo, black man to leave. You will not hire me and I think this is discrimination. Discussed the above and attempted to clarify pt's perceptions. Pt states he is working with the [facility] and believes he has been discriminated against. Discussed pt having relief of constipation. No discharge date planned as yet. Pt refusing all resources, believes he will live and work on [employer]. Continues with delusional content. First day of change to Risperdal from Olanzapine Full review of meds with pt today. ?01/27/25:Patient is visible, social, pleasant and cooperative. overly bright upon approach. He is happy to be here and want to be here when asked what his treatment plan looks like. He feels grateful to be taken care of by unit staff. Report no issues with appetite or sleep. Denies SI/SIB/HI/AVH. No behavior issues Per nursing,patient slept for 8 hours. compliant witth meds. No side effects noted or reported. 01/28/25: Met with pt and Piter STINSON. Discussion of discharge continued. At this time pt refuses referrals to shelters, refuses to talk with his family to assess if he can resolve issues. References that he is discriminated against as a black trejo male by reminding us we have hired lesbians to work on the unit. Threatening to us in meeting today. Reports he is not ready to go. Reports that he sees others coming in here and team hires them to work and he wants to be offered a job so he may live here. Attempted to explain that patients come into the unit for care, not for a job. Pt does not believe this to be true. Requested to use tw phone to call his advocate Angelita Hancock, [place] [facility]. Pt left a message and called again about 30 minutes later, speaking with Ms. Hancock directly, however with only a social discussion to be continued post holidays. Pt clearly let us know that he would have Ms. Hancock and Mayor Nikki close the hospital immediately should we not follow his instructions. Later in the day pt requested team go to security so he could see his bank cards. When he was told this would have to wait as the shift was changing he came to this advertising writer and informed me that he had placed a call to police to report that tw had stolen his bank cards. Incidents such as this are increased in frequency. Pt requested to decrease Seroquel to 400 mg HS from 500 mg due to anger about discharge discussion which was put in place. 01/29/25: Met with patient in the white, reports that he has a better day today. Patient states that I just found down that everyone has problems . Reports that it was rough for him during the holiday. When asked his plan for today, he says I may pack a little bit to get ready as he will be discharged soon. Reported that he will be discharged home with mom where he was raised . Bright, friendly, pleasant and cooperative, but can be labile, irritable, and delusional. However, do not make any delusional statements during this encounter. Per nursing, patient slept for 8 hours, can be irritable. No side effects from medications. 01/30/25: Patient is superficial, visible and pleasant upon approach. He reports calling his mon 3 times and plan to call her again. This provider asks reasons for calling call many times, he says it is his mom who is 80+ y.o . Patient reports there is no privacy for him to talk to his mom which nursing reports he was on the phone irritable. earlier of today. Patient is not irritable during assessment, concrete. Denies SI/SIB/HI/AVH but can be delusions and paranoid. Meds compliant, no side effect, slept for 8 hours. 01/31/25: Patient is not pleasant as he is usually with this provider but not angry or irritable toward this provider. 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 Ask this provider if able to attend to meeting with Paddy and Nitin this week. Racing thoughts, poor judgment, restless. Appear to make himself very busy, back and forth with SW, not happy with services that he has received even though he is not straight forward with his provider about it. However, compliant with meds. No side effects. Denies SI/SIB/HI/AVH. BP elevated as the result. 02/01/25:Discussed discharge with pt today. He requests 02/03 as does his mother as mother will be going to [place] 02/02 for an eye procedure and will not be able to drive for a few days. Pt reports he feels ready to go home. Denies SI,HI, AH, VH. Plan: Discharge 02/03/25. Reason for continued inpatient stay Substantial Risk for: rapid decompensation Time Spent With Patient Time: Total time managing care of this patient today ____ minutes.
[2025-02-01 19:42] VITALS: BP 156/80; PULSE 111; TEMP 37.1; O2SAT 97
[2025-02-02 08:00] VITALS: BP 159/73; PULSE 95; RESP 16; TEMP 37.2; O2SAT 95
[2025-02-02 08:39] VITALS: BP 159/73
[2025-02-02] MEDS: ARIPiprazole 30 MG TABLET PO (08:41)
--- NOTE | 2025-02-02 10:38 | P.PNPSI_ITS ---
Subjective Subjective Date of Service: 02/02/25 Reason For Visit: bipolar disorder Subjective Notes: Conditional Voluntary Healthcare Proxy: No Guardianship: No Medical Problems Affecting Mental Status: No Interim History: Angry and accusatory today. Pt declines discharge due to his tooth being swollen and having a back ache. Hospitalist met with pt to check in regarding above concerns, he angrily refused and told her to f---off. Met with pt and Piter STINSON. Pt reports he will not discharge tomorrow. He asks that we begin the appeal process for him to remain in pt, which Britanyidris STINSON will initiate. Discussed his tooth pain- reviewed with pt antibiotic course that was done and that dentists will not come to the unit. Pt is angry that he does not have an appt. Discussed that we will need to wait until he discharges. Discussed back pain-this is the first time he has told tw of this. He declines to give details regarding how long the pain has been going on, only to report lower back and flank pain. Pt expressed accusations that he did not receive a notice in writing that I had called his mother as he requested on 02/01. He expressed that he had asked tw several times to get him an licensed prosthetist/orthotist and this was not done. [facility] did follow up with him- in person and in writing which we reviewed. He was accusatory that he was not informed of the CV's he signed on M5 and on the medical unit. Reports feeling he is discriminated against as he is a black trejo male. Later in the day he reported to team he had lost paperwork, believes it was taken from his room, and will call Medicare about it. Medication Compliance: Yes Side effects from medications: No Attending Groups: Yes Review of Systems Acute medical concerns: Yes back pain dental pain Medical Review of Systems: unchanged Review of Systems Review of Systems back pain dental pain refused hospitalist consultation Mental Status Exam Mental Status Exam Patient Appearance: Appropriate Patient Orientation: Person, Place, Time and Situation Level of Consciousness: Alert Patient Behavior: Talkative, Suspicious, Belligerent and Good Eye Contact Mood Description: Angry Affect Description: Angry Patient Cognition Impaired: No Ability to Follow Directions: Good Speech Pattern: Spontaneous Speech Memory Description: Episodic Impaired Hallucinations: None Delusions: Paranoid Ideation Thought Process: Goal Oriented Thought Content: positive for Goal Oriented and positive for Suicidal Ideation (denies) Depressive Symptoms: Increased Irritability Abnormal Motor Activity Signs and Symptoms: Agitation Judgement: Fair Diagnostics Vital Signs (24Hr): Vital Signs - 24 hr 02/01/25 19:42 02/02/25 08:00 02/02/25 08:39 Temperature 98.7 F 99 F Pulse Rate 111 H 95 Respiratory Rate 16 Blood Pressure 156/80 H 159/73 H 159/73 H Pulse Oximetry 97 95 Oxygen Delivery Method Room Air Room Air Labs 01/24/25 07:33 02/01/25 10:00 Labs: Laboratory Results - last 48 hr 02/01/25 10:00 Sodium 137 Potassium 4.6 Chloride 102 Carbon Dioxide 24 Anion Gap 16 BUN 36 H Creatinine 3.02 H Estim Creat Clear Calc TNP Estimated GFR 21 Random Glucose 347 H Calcium 9.6 Total Bilirubin 0.1 AST 71 H ALT 99 H Alkaline Phosphatase 174 H Total Protein 8.2 H Albumin 4.3 Medications Medications Current Medications Acetaminophen (Acetaminophen 325 Mg Tablet) 650 mg PO Q6H PRN PRN Reason: Pain, Mild (Pain Scale 1-3) Last Admin: 01/22/25 20:34 Dose: 650 mg Al Hydroxide/Mg Hydroxide (Magnesium Hydrox/Alum Hydrox 30 Ml Oral.Susp) 30 ml PO Q6H PRN PRN Reason: Heartburn/Nausea Last Admin: 01/23/25 17:27 Dose: 30 ml Amlodipine Besylate (Amlodipine Besylate 10 Mg Tablet) 10 mg PO DAILY [facility]; Protocol Last Admin: 02/02/25 08:39 Dose: 10 mg Aripiprazole (Aripiprazole 30 Mg Tablet) 30 mg PO DAILY [facility] Last Admin: 02/02/25 08:41 Dose: 30 mg Artificial Tears (Artificial Tears 15 Ml Drops) 1 drop EYE-BOTH DAILY PRN PRN Reason: allergy sx Last Admin: 01/18/25 09:20 Dose: 1 drop Atorvastatin Calcium (Atorvastatin Calcium 40 Mg Tablet) 40 mg PO DAILY [facility] Last Admin: 02/02/25 08:41 Dose: 40 mg Benztropine Mesylate (Benztropine Mesylate 1 Mg Tablet) 2 mg PO BID [facility] Last Admin: 02/02/25 08:39 Dose: 2 mg Bisacodyl (Bisacodyl 5 Mg Tablet.Dr) 10 mg PO BEDTIME PRN PRN Reason: Constipation Last Admin: 01/28/25 22:09 Dose: 10 mg Calcitriol (Calcitriol 0.25 Mcg Capsule) 0.25 mcg PO DAILY [facility] Last Admin: 02/02/25 08:41 Dose: 0.25 mcg Clonidine HCl (Clonidine Hcl 0.1 Mg Tablet) 0.1 mg PO TID PRN; Protocol PRN Reason: anxiety Last Admin: 01/28/25 16:46 Dose: 0.1 mg Docusate Sodium (Docusate Sodium 100 Mg Capsule) 100 mg PO BEDTIME [facility] Last Admin: 02/01/25 20:18 Dose: 100 mg Empagliflozin (Empagliflozin 10 Mg Tablet) 10 mg PO DAILY [facility] Last Admin: 02/02/25 08:42 Dose: 10 mg Escitalopram Oxalate (Escitalopram Oxalate 20 Mg Tablet) 20 mg PO DAILY [facility] Last Admin: 02/02/25 08:40 Dose: 20 mg Famotidine (Famotidine 20 Mg Tablet) 20 mg PO DAILY [facility] Last Admin: 02/02/25 08:42 Dose: 20 mg Ferrous Sulfate (Ferrous Sulfate 324 Mg Tablet.) 324 mg PO Q2D [facility] Last Admin: 01/31/25 16:09 Dose: 324 mg Hydralazine HCl (Hydralazine Hcl 50 Mg Tablet) 50 mg PO TID [facility]; Protocol Last Admin: 02/02/25 08:40 Dose: 50 mg Hydroxyzine HCl (Hydroxyzine Hcl 25 Mg Tablet) 25 mg PO Q6H PRN PRN Reason: mild anxiety Last Admin: 01/29/25 22:01 Dose: 25 mg Lactulose (Lactulose 20 Gm/30 Ml Solution) 30 gm PO DAILY PRN PRN Reason: Constipation Last Admin: 01/25/25 14:29 Dose: 30 gm Lamotrigine (Lamotrigine 100 Mg Tablet) 200 mg PO BID [facility] Last Admin: 02/02/25 08:38 Dose: 200 mg Loratadine (Loratadine 10 Mg Tablet) 10 mg PO Q2D [facility] Last Admin: 02/02/25 09:17 Dose: Not Given Magnesium Hydroxide (Milk Of Magnesia 30 Ml Oral.Susp) 30 ml PO BID PRN PRN Reason: Constipation Last Admin: 01/24/25 11:08 Dose: 30 ml Nicotine Polacrilex (Nicotine Polacrilex 2 Mg Gum) 4 mg BUCCAL Q2H PRN PRN Reason: Nicotine Cravings Omeprazole (Omeprazole 20 Mg Capsule.) 20 mg PO DAILY@0630 [facility] Last Admin: 02/02/25 06:32 Dose: 20 mg Polyethylene Glycol (Polyethylene Glycol 3350 17 Gm Powd.Pack) 17 gm PO DAILY [facility] Last Admin: 02/02/25 08:44 Dose: 17 gm Quetiapine Fumarate (Quetiapine Fumarate 50 Mg Tablet) 50 mg PO TID PRN PRN Reason: agitation Last Admin: 02/02/25 08:44 Dose: 50 mg Quetiapine Fumarate (Quetiapine Fumarate 400 Mg Tablet) 400 mg PO BEDTIME [facility] Last Admin: 02/01/25 20:18 Dose: 400 mg Risperidone (Risperidone 1 Mg Tablet) 1 mg PO BID [facility] Last Admin: 02/02/25 08:43 Dose: 1 mg Sodium Zirconium Cyclosilicate (Sodium Zirconium Cyclosilicate 10 Gm Powd.Pack) 10 gm PO DAILY [facility] Last Admin: 02/02/25 09:17 Dose: 10 gm Trazodone HCl (Trazodone Hcl 50 Mg Tablet) 50 mg PO BEDTIME MRX1 PRN PRN Reason: Insomnia Last Admin: 01/29/25 22:02 Dose: 50 mg Allergies Allergies Allergy/AdvReac Type Severity Reaction Status Date / Time No Known Allergies Allergy Verified 12/17/24 20:12 Assessment & Plan Assessment & Plan (1) Bipolar 1 disorder: Status: Acute Code(s): F31.9 - Bipolar disorder, unspecified (2) HTN (hypertension): Status: Acute Code(s): I10 - Essential (primary) hypertension Assessment and Plan: This evening, pt is questioning regime. He has needed reminders of changes this week due to CKD and hyperkalemia by the team. (3) CKD (chronic kidney disease) stage 3, GFR 30-59 ml/min: Status: Acute Code(s): N18.30 - Chronic kidney disease, stage 3 unspecified Plan 64-year-old male with a past medical history was listed below presented to emergency department at [facility] with mental status changes. Now admitted to inpatient psych for further care. 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 Chronic kidney disease stage 4/diabetic nephropathy and hypertensive renal disease Avoid nephrotoxins Followed by Dr. Maravilla as an outpatient Continue calcitriol Type 2 diabetes Hemoglobin A1c 6.8 Continue Jardiance Hypertension/HLD Losartan DC due to kidney injury, Continue Norvasc, hydralazine 25 t.i.d. Recently started atorvastatin Clonidine t.i.d. p.r.n. Blood pressure well controlled 01/14/25: Continue treatment. Support/Educate 01/15, : no changes - f/u on tremor 01/17: Seroquel 400 mg HS CMP 01/18. Continue to monitor for tremor. 01/18: Continue tx 01/20: Continue tx 01/21: Variable BP's- Hospitalist may need to see again. Increase Seroquel to 500 mg HS Continue to monitor. 01/22 Patient reports that he is doing good and that Seroquel seems to be helping him. He said he slept well and wants to continue with current regimen. Some exuberant behavior, happily yelling in the hallway about taoism things -continue treatment plan 01/23 paranoid ideations expressed 01/25 Met with pt and Piter Donnelly [facility]. As pt is now unable to return to mother's home the [facility] case mgt idea was represented by Mr. Donnelly. Pt declined. He would like Angelita Aletheajasbir Santi to be contacted [phone] and signed a YARA to make a connection with her. Discussed meds. Olanzapine will be discontinued. Risperdal 1 mg bid trial will begin today. Pt reports constipation today. He reported resolution to tw on 01/24, then to evening team reported constipation and was given Magnesium Citrate. Lactulose ordered today. 01/26 I am deeply hurt . You let two lesbians stay here and want me, a trejo, black man to leave. You will not hire me and I think this is discrimination. Discussed the above and attempted to clarify pt's perceptions. Pt states he is working with the [facility] and human services [facility] and believes he has been discriminated against. Discussed pt having relief of constipation. No discharge date planned as yet. Pt refusing all resources, believes he will live and work on [place]. Continues with delusional content. First day of change to Risperdal from Olanzapine Full review of meds with pt today. ?01/27/25:Patient is visible, social, pleasant and cooperative. overly bright upon approach. He is happy to be here and want to be here when asked what his treatment plan looks like. He feels grateful to be taken care of by unit staff. Report no issues with appetite or sleep. Denies SI/SIB/HI/AVH. No behavior issues Per nursing,patient slept for 8 hours. compliant witth meds. No side effects noted or reported. 01/28/25: Met with pt and Piter STINSON. Discussion of discharge continued. At this time pt refuses referrals to shelters, refuses to talk with his family to assess if he can resolve issues. References that he is discriminated against as a black trejo male by reminding us we have hired lesbians to work on the unit. Threatening to us in meeting today. Reports he is not ready to go. Reports that he sees others coming in here and team hires them to work and he wants to be offered a job so he may live here. Attempted to explain that patients come into the unit for care, not for a job. Pt does not believe this to be true. Requested to use tw phone to call his advocate Angelita Hancock [place] Director of [facility] and Human Services. Pt left a message and called again about 30 minutes later, speaking with Ms. Hancock directly, however with only a social discussion to be continued post holidays. Pt clearly let us know that he would have Ms. Hancock and Mayor Nikki close the hospital immediately should we not follow his instructions. Later in the day pt requested team go to security so he could see his bank cards. When he was told this would have to wait as the shift was changing he came to this public relations writer and informed me that he had placed a call to police to report that tw had stolen his bank cards. Incidents such as this are increased in frequency. Pt requested to decrease Seroquel to 400 mg HS from 500 mg due to anger about discharge discussion which was put in place. 01/29/25: Met with patient in the white, reports that he has a better day today. Patient states that I just found down that everyone has problems . Reports that it was rough for him during the holiday. When asked his plan for today, he says I may pack a little bit to get ready as he will be discharged soon. Reported that he will be discharged home with mom where he was raised . Bright, friendly, pleasant and cooperative, but can be labile, irritable, and delusional. However, do not make any delusional statements during this encounter. Per nursing, patient slept for 8 hours, can be irritable. No side effects from medications. 01/30/25: Patient is superficial, visible and pleasant upon approach. He reports calling his mon 3 times and plan to call her again. This provider asks reasons for calling call many times, he says it is his mom who is 80+ y.o . Patient reports there is no privacy for him to talk to his mom which nursing reports he was on the phone irritable. earlier of today. Patient is not irritable during assessment, concrete. Denies SI/SIB/HI/AVH but can be delusions and paranoid. Meds compliant, no side effect, slept for 8 hours. 01/31/25: Patient is not pleasant as he is usually with this provider but not angry or irritable toward this provider. however, he is perservaretive on obtaining a film producer. Ask this provider if able to attend to meeting with Paddy and Nitin this week. Racing thoughts, poor judgment, restless. Appear to make himself very busy, back and forth with SW, not happy with services that he has received even though he is not straight forward with his provider about it. However, compliant with meds. No side effects. Denies SI/SIB/HI/AVH. BP elevated as the result. 02/01/25:Discussed discharge with pt today. He requests 02/03 as does his mother as mother will be going to [place] 02/02 for an eye procedure and will not be able to drive for a few days. Pt reports he feels ready to go home. Denies SI,HI, AH, VH. Plan: Discharge 02/03/25. 02/02/25: Angry and accusatory today. Pt declines discharge due to his tooth being swollen and having a back ache. Hospitalist met with pt to check in regarding above concerns, he angrily refused and told her to f---off. Met with pt and Piter STINSON. Pt reports he will not discharge tomorrow. He asks that we begin the appeal process for him to remain in pt, which Britany STINSON will initiate. Discussed his tooth pain- reviewed with pt antibiotic course that was done and that dentists will not come to the unit. Pt is angry that he does not have an appt. Discussed that we will need to wait until he discharges. Discussed back pain-this is the first time he has told tw of this. He declines to give details regarding how long the pain has been going on, only to report lower back and flank pain. Pt expressed accusations that he did not receive a notice in writing that I had called his mother as he requested on 02/01. He expressed that he had asked tw several times to get him an licensed prosthetist/orthotist and this was not done. [facility] did follow up with him- in person and in writing which we reviewed. He was accusatory that he was not informed of the CV's he signed on M5 and on the medical unit. Reports feeling he is discriminated against as he is a black trejo male. Later in the day he reported to team he had lost paperwork, believes it was taken from his room, and will call Medicare about it. Plan: Appeal initiated by Britany STINSON Risperdal decreased to 0.5 mg bid Refusing care, wanting to remain in patient to address tooth pain, back pain Declined med changes today, ?stronger antipsychotic to assist pt with sx mgt. Patient educated on: therapeutic strategies and medical condition Reason for continued inpatient stay Substantial Risk for: rapid decompensation Time Spent With Patient Time: Total time managing care of this patient today ____ minutes.
[2025-02-02 14:31] VITALS: BP 154/75
[2025-02-02] MEDS: Ferrous Sulfate 324 MG TABLET.DR PO (14:31)
--- NOTE | 2025-02-02 16:29 | PM.EVENT ---
Event Note Date of Service: 02/02/25 Event Note: Asked to see patient for low back pain and flank pain. When approached patient for assessment patient stated ?I did not ask for you ? When I attempted to explain to patient why I was here, he was interrupting and telling me that he did not have any pain and does not need me. Then abruptly turned away and said ?have a nice day. Notified psychiatric team, advised them to reconsult if patient symptoms return. Time Spent With Patient Time: Total time managing care of this patient today ____ minutes.
[2025-02-02 22:00] VITALS: BP 152/71; PULSE 102; RESP 18; TEMP 36.4; O2SAT 98
[2025-02-02 22:23] VITALS: BP 152/71
[2025-02-03 08:00] VITALS: BP 118/71; PULSE 98; RESP 18; TEMP 2.9; TEMP 37.2; O2SAT 98
[2025-02-03] MEDS: ARIPiprazole 30 MG TABLET PO (08:52)
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
[2025-02-03 13:35] VITALS: BP 148/70
[2025-02-03 13:36] VITALS: BP 148/70
[2025-02-03 15:01] LABS: Resp Syncy Virus RNA Qual PCR NEGATIVE (Negative); SARS COV2 PCR INHOUSE NEGATIVE (Negative)
[2025-02-04 05:23] LABS: HIV Num 1 0.07 S/CO (0.00-0.99)
[2025-02-04 06:02] LABS: Syphilis Screen Nonreactive (Nonreactive)
[2025-02-04 08:42] VITALS: BP 157/76; PULSE 86; TEMP 36.6; O2SAT 100
[2025-02-04] MEDS: ARIPiprazole 30 MG TABLET PO (08:43)
--- NOTE | 2025-02-04 10:15 | P.PNPSI_ITS ---
Subjective Subjective Date of Service: 02/04/25 Reason For Visit: bipolar disorder Subjective Notes: Conditional Voluntary Healthcare Proxy: No Guardianship: No Medical Problems Affecting Mental Status: No Interim History: Pt and team informed this a.m. that Medicare appeal agreed with plan to discharge on 02/03. Pt decided to submit a secondary appeal which is completed. Results are pending. MRI completed. Met with pt who is tolerating Haldol and who today discussed why tw had not hired him an employment attorney. This was reviewed with pt. Pt referenced an instance in transport by ambulance [place] [facility] prior to admit that he was ?restrained by EMS and would like to discuss this with an employment attorney. He has [employer] numbers and declined legal manager numbers Medication Compliance: Yes Side effects from medications: No Attending Groups: Yes (quieter in group per team report) Review of Systems CKD Medical Review of Systems: unchanged Review of Systems Review of Systems Denies- CXR is being evaluated by hospitalist and pulmonary team. Pt is not symptomatic. Mental Status Exam Mental Status Exam Patient Appearance: Appropriate Patient Orientation: Person, Place, Time and Situation Level of Consciousness: Alert Patient Behavior: Talkative, Suspicious, Distractible and Good Eye Contact Mood Description: Suspicious Affect Description: Labile Patient Cognition Impaired: No Ability to Follow Directions: Good Speech Pattern: Perseverating and Spontaneous Speech Memory Description: Episodic Impaired Hallucinations: None Delusions: Paranoid Ideation Thought Process: Illogical, Distracted and Evasive Thought Content: positive for [place], positive for Circumstantial, positive for Goal Oriented, positive for Perseveration, positive for Tangential, positive for Evasive and positive for Suicidal Ideation (denies) Depressive Symptoms: Diff. Making Decisions and Thoughts of /Suicide (denies) Judgement: Good Diagnostics Vital Signs (24Hr): Vital Signs - 24 hr 02/03/25 13:35 02/03/25 13:36 02/04/25 08:42 Temperature Pulse Rate Blood Pressure 148/70 H 148/70 H 157/76 H Pulse Oximetry Oxygen Delivery Method 02/04/25 08:42 02/04/25 08:42 Temperature 97.8 F Pulse Rate 86 Blood Pressure 157/76 H 157/76 H Pulse Oximetry 100 Oxygen Delivery Method Room Air Labs 02/04/25 12:56 02/04/25 12:56 Labs: Laboratory Results - last 48 hr 02/03/25 02/03/25 14:00 14:13 T.pallidum Ab (EIA) Nonreactive HIV 1&2 Ab/P24 Ag 4thGn Nonreactive Influenza Type A (PCR) NEGATIVE Influenza Type B (PCR) NEGATIVE RSV RNA Qual (PCR) NEGATIVE SARS-CoV-2 RNA (RT-PCR) NEGATIVE Imaging Radiology Impressions: ITS Impressions Abdomen X-Ray 02/03/25 11:36 IMPRESSION: Large to moderate volume of stool, most pronounced in the rectum. Suspected calcific tendinitis involving gluteal tendons on the right, correlate for symptoms of right hip pain. Electronically signed by: Malcom Batres MD 02/03/2025 11:52 AM EST RP Chest X-Ray 02/03/25 11:39 IMPRESSION: Concerning acute small airway inflammatory processes versus multifocal pneumonia versus mild interstitial edema. Electronically signed by: Daniel Agosto MD 02/03/2025 11:51 AM EST RP Skull X-Ray 02/03/25 11:42 IMPRESSION: Negative for foreign body or gross acute fracture, skull. Electronically signed by: Daniel Agosto MD 02/03/2025 11:52 AM EST RP Medications Medications Current Medications Acetaminophen (Acetaminophen 325 Mg Tablet) 650 mg PO Q6H PRN PRN Reason: Pain, Mild (Pain Scale 1-3) Last Admin: 01/22/25 20:34 Dose: 650 mg Al Hydroxide/Mg Hydroxide (Magnesium Hydrox/Alum Hydrox 30 Ml Oral.Susp) 30 ml PO Q6H PRN PRN Reason: Heartburn/Nausea Last Admin: 01/23/25 17:27 Dose: 30 ml Amlodipine Besylate (Amlodipine Besylate 10 Mg Tablet) 10 mg PO DAILY YAQUELIN; Protocol Last Admin: 02/04/25 08:42 Dose: 10 mg Aripiprazole (Aripiprazole 30 Mg Tablet) 30 mg PO DAILY [facility] Last Admin: 02/04/25 08:43 Dose: 30 mg Artificial Tears (Artificial Tears 15 Ml Drops) 1 drop EYE-BOTH DAILY PRN PRN Reason: allergy sx Last Admin: 01/18/25 09:20 Dose: 1 drop Atorvastatin Calcium (Atorvastatin Calcium 40 Mg Tablet) 40 mg PO DAILY [facility] Last Admin: 02/04/25 08:43 Dose: 40 mg Benztropine Mesylate (Benztropine Mesylate 1 Mg Tablet) 2 mg PO BID [facility] Last Admin: 02/04/25 08:43 Dose: 2 mg Bisacodyl (Bisacodyl 5 Mg Tablet.) 10 mg PO BEDTIME PRN PRN Reason: Constipation Last Admin: 01/28/25 22:09 Dose: 10 mg Calcitriol (Calcitriol 0.25 Mcg Capsule) 0.25 mcg PO DAILY [facility] Last Admin: 02/04/25 08:42 Dose: 0.25 mcg Clonidine HCl (Clonidine Hcl 0.1 Mg Tablet) 0.1 mg PO TID PRN; Protocol PRN Reason: anxiety Last Admin: 02/03/25 21:31 Dose: 0.1 mg Docusate Sodium (Docusate Sodium 100 Mg Capsule) 100 mg PO BEDTIME [facility] Last Admin: 02/03/25 22:38 Dose: Not Given Empagliflozin (Empagliflozin 10 Mg Tablet) 10 mg PO DAILY [facility] Last Admin: 02/04/25 08:42 Dose: 10 mg Escitalopram Oxalate (Escitalopram Oxalate 20 Mg Tablet) 20 mg PO DAILY [facility] Last Admin: 02/04/25 08:43 Dose: 20 mg Famotidine (Famotidine 20 Mg Tablet) 20 mg PO DAILY [facility] Last Admin: 02/04/25 08:43 Dose: 20 mg Ferrous Sulfate (Ferrous Sulfate 324 Mg Tablet.) 324 mg PO Q2D [facility] Last Admin: 02/02/25 14:31 Dose: 324 mg Haloperidol (Haloperidol 5 Mg Tablet) 5 mg PO BID [facility] Last Admin: 02/04/25 08:43 Dose: 5 mg Hydralazine HCl (Hydralazine Hcl 50 Mg Tablet) 50 mg PO TID [facility]; Protocol Last Admin: 02/04/25 08:42 Dose: 50 mg Hydroxyzine HCl (Hydroxyzine Hcl 25 Mg Tablet) 25 mg PO Q6H PRN PRN Reason: mild anxiety Last Admin: 01/29/25 22:01 Dose: 25 mg Lactulose (Lactulose 20 Gm/30 Ml Solution) 30 gm PO DAILY PRN PRN Reason: Constipation Last Admin: 01/25/25 14:29 Dose: 30 gm Lamotrigine (Lamotrigine 100 Mg Tablet) 200 mg PO BID [facility] Last Admin: 02/04/25 08:43 Dose: 200 mg Loratadine (Loratadine 10 Mg Tablet) 10 mg PO Q2D [facility] Last Admin: 02/04/25 08:44 Dose: Not Given Magnesium Hydroxide (Milk Of Magnesia 30 Ml Oral.Susp) 30 ml PO BID PRN PRN Reason: Constipation Last Admin: 01/24/25 11:08 Dose: 30 ml Nicotine Polacrilex (Nicotine Polacrilex 2 Mg Gum) 4 mg BUCCAL Q2H PRN PRN Reason: Nicotine Cravings Omeprazole (Omeprazole 20 Mg Capsule.Dr) 20 mg PO DAILY@0630 [facility] Last Admin: 02/04/25 07:28 Dose: 20 mg Polyethylene Glycol (Polyethylene Glycol 3350 17 Gm Powd.Pack) 17 gm PO DAILY [facility] Last Admin: 02/04/25 08:44 Dose: 17 gm Quetiapine Fumarate (Quetiapine Fumarate 50 Mg Tablet) 50 mg PO TID PRN PRN Reason: agitation Last Admin: 02/03/25 21:31 Dose: 50 mg Quetiapine Fumarate (Quetiapine Fumarate 400 Mg Tablet) 400 mg PO BEDTIME [facility] Last Admin: 02/03/25 21:31 Dose: 400 mg Sodium Zirconium Cyclosilicate (Sodium Zirconium Cyclosilicate 10 Gm Powd.Pack) 10 gm PO DAILY [facility] Last Admin: 02/04/25 08:43 Dose: 10 gm Trazodone HCl (Trazodone Hcl 50 Mg Tablet) 50 mg PO BEDTIME MRX1 PRN PRN Reason: Insomnia Last Admin: 02/03/25 21:31 Dose: 50 mg Allergies Allergies Allergy/AdvReac Type Severity Reaction Status Date / Time No Known Allergies Allergy Verified 12/17/24 20:12 Assessment & Plan Assessment & Plan (1) Bipolar 1 disorder: Status: Acute Code(s): F31.9 - Bipolar disorder, unspecified (2) HTN (hypertension): Status: Acute Code(s): I10 - Essential (primary) hypertension Assessment and Plan: This evening, pt is questioning regime. He has needed reminders of changes this week due to CKD and hyperkalemia by the team. (3) CKD (chronic kidney disease) stage 3, GFR 30-59 ml/min: Status: Acute Code(s): N18.30 - Chronic kidney disease, stage 3 unspecified Plan 64-year-old male with a past medical history was listed below presented to emergency department at [facility] with mental status changes. Now admitted to inpatient psych for further care. 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 Chronic kidney disease stage 4/diabetic nephropathy and hypertensive renal disease Avoid nephrotoxins Followed by Dr. Maravilla as an outpatient Continue calcitriol Type 2 diabetes Hemoglobin A1c 6.8 Continue Jardiance Hypertension/HLD Losartan DC due to kidney injury, Continue Norvasc, hydralazine 25 t.i.d. Recently started atorvastatin Clonidine t.i.d. p.r.n. Blood pressure well controlled 01/14/25: Continue treatment. Support/Educate 01/15, : no changes - f/u on tremor 01/17: Seroquel 400 mg HS CMP 01/18. Continue to monitor for tremor. 01/18: Continue tx 01/20: Continue tx 01/21: Variable BP's- Hospitalist may need to see again. Increase Seroquel to 500 mg HS Continue to monitor. 01/22 Patient reports that he is doing good and that Seroquel seems to be helping him. He said he slept well and wants to continue with current regimen. Some exuberant behavior, happily yelling in the hallway about rastafari things -continue treatment plan 01/23 paranoid ideations expressed 01/25 Met with pt and Piter Andrzej [facility]. As pt is now unable to return to mother's home the [facility] case mgt idea was represented by Mr. Donnelly. Pt declined. He would like Angelitakaelyn Clairejasbir Santi to be contacted [phone] and signed a YARA to make a connection with her. Discussed meds. Olanzapine will be discontinued. Risperdal 1 mg bid trial will begin today. Pt reports constipation today. He reported resolution to tw on 01/24, then to evening team reported constipation and was given Magnesium Citrate. Lactulose ordered today. 01/26 I am deeply hurt . You let two lesbians stay here and want me, a trejo, black man to leave. You will not hire me and I think this is discrimination. Discussed the above and attempted to clarify pt's perceptions. 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 Discussed pt having relief of constipation. No discharge date planned as yet. Pt refusing all resources, believes he will live and work on [facility]. Continues with delusional content. First day of change to Risperdal from Olanzapine Full review of meds with pt today. ?01/27/25:Patient is visible, social, pleasant and cooperative. overly bright upon approach. He is happy to be here and want to be here when asked what his treatment plan looks like. He feels grateful to be taken care of by unit staff. Report no issues with appetite or sleep. Denies SI/SIB/HI/AVH. No behavior issues Per nursing,patient slept for 8 hours. compliant witth meds. No side effects noted or reported. 01/28/25: Met with pt and Piter STINSON. Discussion of discharge continued. At this time pt refuses referrals to shelters, refuses to talk with his family to assess if he can resolve issues. References that he is discriminated against as a black trejo male by reminding us we have hired lesbians to work on the unit. Threatening to us in meeting today. Reports he is not ready to go. Reports that he sees others coming in here and team hires them to work and he wants to be offered a job so he may live here. Attempted to explain that patients come into the unit for care, not for a job. Pt does not believe this to be true. Requested to use tw phone to call his advocate Angelita Hancock [place] Director of Health and Human Services. Pt left a message and called again about 30 minutes later, speaking with Ms. Hancock directly, however with only a social discussion to be continued post holidays. Pt clearly let us know that he would have Ms. Hancock and Mayor Nikki close the hospital immediately should we not follow his instructions. Later in the day pt requested team go to security so he could see his bank cards. When he was told this would have to wait as the shift was changing he came to this bond underwriter and informed me that he had placed a call to police to report that tw had stolen his bank cards. Incidents such as this are increased in frequency. Pt requested to decrease Seroquel to 400 mg HS from 500 mg due to anger about discharge discussion which was put in place. 01/29/25: Met with patient in the white, reports that he has a better day today. Patient states that I just found down that everyone has problems . Reports that it was rough for him during the holiday. When asked his plan for today, he says I may pack a little bit to get ready as he will be discharged soon. Reported that he will be discharged home with mom where he was raised . Bright, friendly, pleasant and cooperative, but can be labile, irritable, and delusional. However, do not make any delusional statements during this encounter. Per nursing, patient slept for 8 hours, can be irritable. No side effects from medications. 01/30/25: Patient is superficial, visible and pleasant upon approach. He reports calling his mon 3 times and plan to call her again. This provider asks reasons for calling call many times, he says it is his mom who is 80+ y.o . Patient reports there is no privacy for him to talk to his mom which nursing reports he was on the phone irritable. earlier of today. Patient is not irritable during assessment, concrete. Denies SI/SIB/HI/AVH but can be delusions and paranoid. Meds compliant, no side effect, slept for 8 hours. 01/31/25: Patient is not pleasant as he is usually with this provider but not angry or irritable toward this provider. however, he is perservaretive on obtaining a congregational care pastor. Ask this provider if able to attend to meeting with Paddy and Nitin this week. Racing thoughts, poor judgment, restless. Appear to make himself very busy, back and forth with SW, not happy with services that he has received even though he is not straight forward with his provider about it. However, compliant with meds. No side effects. Denies SI/SIB/HI/AVH. BP elevated as the result. 02/01/25:Discussed discharge with pt today. He requests 02/03 as does his mother as mother will be going to [place] 02/02 for an eye procedure and will not be able to drive for a few days. Pt reports he feels ready to go home. Denies SI,HI, AH, VH. Plan: Discharge 02/03/25. 02/02/25: Angry and accusatory today. Pt declines discharge due to his tooth being swollen and having a back ache. Hospitalist met with pt to check in regarding above concerns, he angrily refused and told her to f---off. Met with pt and Piter STINSON. Pt reports he will not discharge tomorrow. He asks that we begin the appeal process for him to remain in pt, which Britany STINSON will initiate. Discussed his tooth pain- reviewed with pt antibiotic course that was done and that dentists will not come to the unit. Pt is angry that he does not have an appt. Discussed that we will need to wait until he discharges. Discussed back pain-this is the first time he has told tw of this. He declines to give details regarding how long the pain has been going on, only to report lower back and flank pain. Pt expressed accusations that he did not receive a notice in writing that I had called his mother as he requested on 02/01. He expressed that he had asked tw several times to get him an employment attorney and this was not done. [facility] did follow up with him- in person and in writing which we reviewed. He was accusatory that he was not informed of the CV's he signed on [address] and on the medical unit. Reports feeling he is discriminated against as he is a black trejo male. Later in the day he reported to team he had lost paperwork, believes it was taken from his room, and will call Medicare about it. Plan: Appeal initiated by Britany STINSON Risperdal decreased to 0.5 mg bid Refusing care, wanting to remain in patient to address tooth pain, back pain Declined med changes today, ?stronger antipsychotic to assist pt with sx mgt. 02/03: DC Risperdal Haldol 5 mg bid Pre MRI eval MRI brain HIV, RPR 02/04: Continue tx Pt has filed a secondary Medicare appeal to remain in the hospital. Reason for continued inpatient stay Substantial Risk for: stable for discharge Time Spent With Patient Time: Total time managing care of this patient today ____ minutes.
[2025-02-04 13:00] LABS: MANUAL DIFF FLAG NO
[2025-02-04 13:03] LABS: Hematocrit 25.7 % (42.0-52.0); Hemoglobin 8.6 g/dl (14.0-18.0); Imm Gran Abs Auto 0.02 X10*3/uL (0.00-0.03); Imm Gran Pct Auto 0.6 % (0.0-0.4); Lymphocytes Absolute Auto 0.6 X10*3/uL (1.2-4.9); Mean Corpuscular HGB Conc 33.5 g/dl (31.0-36.0); Mean Corpuscular Hemoglobin 28.0 pg (27.0-33.0); Mean Corpuscular Volume 83.7 fL (80.0-98.0); NRBC Abs Auto 0.000 X10*3/uL (0.0-0.012); NRBC Pct Auto 0.0 /100WBC (0.0-0.2); Platelet Count 222 X10*3/uL (160-400); Red Blood Count 3.07 X10*6/uL (4.60-5.80); White Blood Count 3.4 X10*3/uL (4.8-10.8)
[2025-02-04 13:14] LABS: Anion Gap 14 (12-20); Blood Urea Nitrogen 45 mg/dL (9-16); Calcium 9.9 mg/dL (8.4-10.2); Carbon Dioxide 26 mmol/L (22-29); Chloride 103 mmol/L (96-108); Estimated Glomerular Filt Rate 18; Potassium 4.8 mmol/L (3.3-5.1); Sodium 138 mmol/L (135-145)
[2025-02-04 14:41] VITALS: BP 133/74
[2025-02-04] MEDS: Ferrous Sulfate 324 MG TABLET.DR PO (14:41)
[2025-02-04 20:00] VITALS: BP 128/65; PULSE 86; RESP 16; TEMP 37.7; O2SAT 98
[2025-02-04 20:27] VITALS: BP 128/65
[2025-02-05 08:00] VITALS: BP 140/59; PULSE 88; RESP 16; TEMP 36.6; O2SAT 100
[2025-02-05] MEDS: ARIPiprazole 30 MG TABLET PO (08:29)
--- NOTE | 2025-02-05 10:16 | HO.PSYCHPN ---
Subjective Subjective Date of Service: 02/05/25 Reason For Visit: bipolar disorder Subjective Notes: Conditional Voluntary Healthcare Proxy: No Guardianship: No Medical Problems Affecting Mental Status: No Interim History: Reviewed with team, review of plan of care. Pt is visable, active in milieu. Pulmonology requested repeat chest xray as they are in process of deciding on treatment after earlier chest x ray showing possible pneumonia with pt being asymptomatic. Pt is in agreement. Pt is active with peers, attending of groups and denies current sx or issues in our meeting today. Medication Compliance: Yes Side effects from medications: No Attending Groups: Yes Review of Systems Acute medical concerns: No Medical Review of Systems: unchanged Review of Systems Review of Systems pt denies Mental Status Exam Mental Status Exam Patient Appearance: Appropriate Patient Orientation: Person, Place, Time and Situation Level of Consciousness: Alert Patient Behavior: Talkative, Suspicious, Distractible and Good Eye Contact Mood Description: Suspicious Affect Description: Labile Patient Cognition Impaired: No Ability to Follow Directions: Good Speech Pattern: Perseverating and Spontaneous Speech Memory Description: Episodic Impaired Hallucinations: None Delusions: Paranoid Ideation Thought Process: Illogical, Distracted and Evasive Thought Content: positive for [place], positive for Circumstantial, positive for Goal Oriented, positive for Perseveration, positive for Tangential, positive for Evasive and positive for Suicidal Ideation (denies) Depressive Symptoms: Diff. Making Decisions and Thoughts of /Suicide (denies) Judgement: Good Diagnostics Vital Signs (24Hr): Vital Signs - 24 hr 02/04/25 14:41 02/04/25 20:00 02/04/25 20:27 Temperature 99.8 F Pulse Rate 86 Respiratory Rate 16 Blood Pressure 133/74 128/65 128/65 Pulse Oximetry 98 Oxygen Delivery Method Room Air 02/05/25 08:00 Temperature 97.8 F Pulse Rate 88 Respiratory Rate 16 Blood Pressure 140/59 H Pulse Oximetry 100 Oxygen Delivery Method Room Air Labs 02/04/25 12:56 02/04/25 12:56 Labs: Laboratory Results - last 48 hr 02/03/25 02/03/25 02/04/25 14:00 14:13 12:56 WBC 3.4 L RBC 3.07 L Hgb 8.6 L Hct 25.7 L MCV 83.7 MCH 28.0 MCHC 33.5 RDW 12.5 Plt Count 222 MPV 8.7 L Immature Gran % (Auto) 0.6 H Neut % (Auto) 67.3 Lymph % (Auto) 19.0 L [place] % (Auto) 10.1 Eos % (Auto) 2.4 Baso % (Auto) 0.6 Lymph # (Auto) 0.6 L [place] # (Auto) 0.3 Eos # (Auto) 0.1 Baso # (Auto) 0.0 Abs Immat Gran (auto) 0.02 Absolute Neuts (auto) 2.3 Absolute Nucleated RBC 0.000 Nucleated RBC % (auto) 0.0 Sodium 138 Potassium 4.8 Chloride 103 Carbon Dioxide 26 Anion Gap 14 BUN 45 H Creatinine 3.49 H Estim Creat Clear Calc TNP Estimated GFR 18 Random Glucose 317 H Calcium 9.9 T.pallidum Ab (EIA) Nonreactive HIV 1&2 Ab/P24 Ag 4thGn Nonreactive Influenza Type A (PCR) NEGATIVE Influenza Type B (PCR) NEGATIVE RSV RNA Qual (PCR) NEGATIVE SARS-CoV-2 RNA (RT-PCR) NEGATIVE Imaging Radiology Impressions: ITS Impressions Abdomen X-Ray 02/03/25 11:36 IMPRESSION: Large to moderate volume of stool, most pronounced in the rectum. Suspected calcific tendinitis involving gluteal tendons on the right, correlate for symptoms of right hip pain. Electronically signed by: Malcom Batres MD 02/03/2025 11:52 AM EST RP Chest X-Ray 02/03/25 11:39 IMPRESSION: Concerning acute small airway inflammatory processes versus multifocal pneumonia versus mild interstitial edema. Electronically signed by: Daniel Agosto MD 02/03/2025 11:51 AM EST RP Skull X-Ray 02/03/25 11:42 IMPRESSION: Negative for foreign body or gross acute fracture, skull. Electronically signed by: Daniel Agosto MD 02/03/2025 11:52 AM EST RP Brain MRI 02/04/25 14:45 IMPRESSION: 1. No evidence of intracranial hemorrhage, acute infarction, mass effect, or edema. 2. 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 3. There are mild white matter changes of small vessel ischemia. Electronically signed by: Jaden Talbert MD 02/04/2025 04:18 PM [facility] Medications Medications Current Medications Acetaminophen (Acetaminophen 325 Mg Tablet) 650 mg PO Q6H PRN PRN Reason: Pain, Mild (Pain Scale 1-3) Last Admin: 01/22/25 20:34 Dose: 650 mg Al Hydroxide/Mg Hydroxide (Magnesium Hydrox/Alum Hydrox 30 Ml Oral.Susp) 30 ml PO Q6H PRN PRN Reason: Heartburn/Nausea Last Admin: 01/23/25 17:27 Dose: 30 ml Amlodipine Besylate (Amlodipine Besylate 10 Mg Tablet) 10 mg PO DAILY COUNT INCLUDES THE [facility]; Protocol Last Admin: 02/05/25 08:29 Dose: 10 mg Aripiprazole (Aripiprazole 30 Mg Tablet) 30 mg PO DAILY COUNT INCLUDES THE [facility] Last Admin: 02/05/25 08:29 Dose: 30 mg Artificial Tears (Artificial Tears 15 Ml Drops) 1 drop EYE-BOTH DAILY PRN PRN Reason: allergy sx Last Admin: 01/18/25 09:20 Dose: 1 drop Atorvastatin Calcium (Atorvastatin Calcium 40 Mg Tablet) 40 mg PO DAILY COUNT INCLUDES THE [facility] Last Admin: 02/05/25 08:30 Dose: 40 mg Benztropine Mesylate (Benztropine Mesylate 1 Mg Tablet) 2 mg PO BID COUNT INCLUDES THE [facility] Last Admin: 02/05/25 08:29 Dose: 2 mg Bisacodyl (Bisacodyl 5 Mg Tablet.Dr) 10 mg PO BEDTIME PRN PRN Reason: Constipation Last Admin: 01/28/25 22:09 Dose: 10 mg Calcitriol (Calcitriol 0.25 Mcg Capsule) 0.25 mcg PO DAILY COUNT INCLUDES THE [facility] Last Admin: 02/05/25 08:30 Dose: 0.25 mcg Clonidine HCl (Clonidine Hcl 0.1 Mg Tablet) 0.1 mg PO TID PRN; Protocol PRN Reason: anxiety Last Admin: 02/03/25 21:31 Dose: 0.1 mg Docusate Sodium (Docusate Sodium 100 Mg Capsule) 100 mg PO BEDTIME YAQUELIN Last Admin: 02/04/25 20:28 Dose: 100 mg Empagliflozin (Empagliflozin 10 Mg Tablet) 10 mg PO DAILY COUNT INCLUDES THE [facility] Last Admin: 02/05/25 08:30 Dose: 10 mg Escitalopram Oxalate (Escitalopram Oxalate 20 Mg Tablet) 20 mg PO DAILY COUNT INCLUDES THE [facility] Last Admin: 02/05/25 08:30 Dose: 20 mg Famotidine (Famotidine 20 Mg Tablet) 20 mg PO DAILY COUNT INCLUDES THE [facility] Last Admin: 02/05/25 08:30 Dose: 20 mg Ferrous Sulfate (Ferrous Sulfate 324 Mg Tablet.) 324 mg PO Q2D COUNT INCLUDES THE [facility] Last Admin: 02/04/25 14:41 Dose: 324 mg Haloperidol (Haloperidol 5 Mg Tablet) 5 mg PO BID COUNT INCLUDES THE [facility] Last Admin: 02/05/25 08:30 Dose: 5 mg Hydralazine HCl (Hydralazine Hcl 50 Mg Tablet) 50 mg PO TID COUNT INCLUDES THE [facility]; Protocol Last Admin: 02/05/25 08:29 Dose: 50 mg Hydroxyzine HCl (Hydroxyzine Hcl 25 Mg Tablet) 25 mg PO Q6H PRN PRN Reason: mild anxiety Last Admin: 01/29/25 22:01 Dose: 25 mg Lactulose (Lactulose 20 Gm/30 Ml Solution) 30 gm PO DAILY PRN PRN Reason: Constipation Last Admin: 01/25/25 14:29 Dose: 30 gm Lamotrigine (Lamotrigine 100 Mg Tablet) 200 mg PO BID COUNT INCLUDES THE [facility] Last Admin: 02/05/25 08:30 Dose: 200 mg Loratadine (Loratadine 10 Mg Tablet) 10 mg PO Q2D COUNT INCLUDES THE [facility] Last Admin: 02/04/25 08:44 Dose: Not Given Magnesium Hydroxide (Milk Of Magnesia 30 Ml Oral.Susp) 30 ml PO BID PRN PRN Reason: Constipation Last Admin: 01/24/25 11:08 Dose: 30 ml Nicotine Polacrilex (Nicotine Polacrilex 2 Mg Gum) 4 mg BUCCAL Q2H PRN PRN Reason: Nicotine Cravings Omeprazole (Omeprazole 20 Mg Capsule.) 20 mg PO DAILY@0630 COUNT INCLUDES THE [facility] Last Admin: 02/05/25 07:07 Dose: 20 mg Polyethylene Glycol (Polyethylene Glycol 3350 17 Gm Powd.Pack) 17 gm PO DAILY COUNT INCLUDES THE [facility] Last Admin: 02/05/25 08:26 Dose: 17 gm Quetiapine Fumarate (Quetiapine Fumarate 50 Mg Tablet) 50 mg PO TID PRN PRN Reason: agitation Last Admin: 02/03/25 21:31 Dose: 50 mg Quetiapine Fumarate (Quetiapine Fumarate 400 Mg Tablet) 400 mg PO BEDTIME COUNT INCLUDES THE [facility] Last Admin: 02/04/25 20:28 Dose: 400 mg Sodium Zirconium Cyclosilicate (Sodium Zirconium Cyclosilicate 10 Gm Powd.Pack) 10 gm PO DAILY YAQUELIN Last Admin: 02/05/25 08:26 Dose: 10 gm Trazodone HCl (Trazodone Hcl 50 Mg Tablet) 50 mg PO BEDTIME MRX1 PRN PRN Reason: Insomnia Last Admin: 02/03/25 21:31 Dose: 50 mg Allergies Allergies Allergy/AdvReac Type Severity Reaction Status Date / Time No Known Allergies Allergy Verified 12/17/24 20:12 Assessment & Plan Assessment & Plan (1) Bipolar 1 disorder: Status: Acute Code(s): F31.9 - Bipolar disorder, unspecified (2) HTN (hypertension): Status: Acute Code(s): I10 - Essential (primary) hypertension Assessment and Plan: This evening, pt is questioning regime. He has needed reminders of changes this week due to CKD and hyperkalemia by the team. (3) CKD (chronic kidney disease) stage 3, GFR 30-59 ml/min: Status: Acute Code(s): N18.30 - Chronic kidney disease, stage 3 unspecified Plan 64-year-old male with a past medical history was listed below presented to emergency department at [facility] with mental status changes. Now admitted to inpatient psych for further care. 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 Chronic kidney disease stage 4/diabetic nephropathy and hypertensive renal disease Avoid nephrotoxins Followed by Dr. Maravilla as an outpatient Continue calcitriol Type 2 diabetes Hemoglobin A1c 6.8 Continue Jardiance Hypertension/HLD Losartan DC due to kidney injury, Continue Norvasc, hydralazine 25 t.i.d. Recently started atorvastatin Clonidine t.i.d. p.r.n. Blood pressure well controlled 01/14/25: Continue treatment. Support/Educate 01/15, : no changes - f/u on tremor 01/17: Seroquel 400 mg HS CMP 01/18. Continue to monitor for tremor. 01/18: Continue tx 01/20: Continue tx 01/21: Variable BP's- Hospitalist may need to see again. Increase Seroquel to 500 mg HS Continue to monitor. 01/22 Patient reports that he is doing good and that Seroquel seems to be helping him. He said he slept well and wants to continue with current regimen. Some exuberant behavior, happily yelling in the hallway about taoist things -continue treatment plan 01/23 paranoid ideations expressed 01/25 Met with pt and Piter STINSON. As pt is now unable to return to mother's home the [facility] case mgt idea was represented by Mr. Donnelly. Pt declined. He would like Angelita Hancock to be contacted [phone] and signed a YARA to make a connection with her. Discussed meds. Olanzapine will be discontinued. Risperdal 1 mg bid trial will begin today. Pt reports constipation today. He reported resolution to tw on 01/24, then to evening team reported constipation and was given Magnesium Citrate. Lactulose ordered today. 01/26 I am deeply hurt . You let two lesbians stay here and want me, a trejo, black man to leave. You will not hire me and I think this is discrimination. Discussed the above and attempted to clarify pt's perceptions. Pt states he is working with the [facility] of [place] and believes he has been discriminated against. Discussed pt having relief of constipation. No discharge date planned as yet. Pt refusing all resources, believes he will live and work on . Continues with delusional content. First day of change to Risperdal from Olanzapine Full review of meds with pt today. ?01/27/25:Patient is visible, social, pleasant and cooperative. overly bright upon approach. He is happy to be here and want to be here when asked what his treatment plan looks like. He feels grateful to be taken care of by unit staff. Report no issues with appetite or sleep. Denies SI/SIB/HI/AVH. No behavior issues Per nursing,patient slept for 8 hours. compliant witth meds. No side effects noted or reported. 01/28/25: Met with pt and Piter STINSON. Discussion of discharge continued. At this time pt refuses referrals to shelters, refuses to talk with his family to assess if he can resolve issues. References that he is discriminated against as a black trejo male by reminding us we have hired lesbians to work on the unit. Threatening to us in meeting today. Reports he is not ready to go. Reports that he sees others coming in here and team hires them to work and he wants to be offered a job so he may live here. Attempted to explain that patients come into the unit for care, not for a job. Pt does not believe this to be true. Requested to use tw phone to call his advocate Angelita Hancock, [place] [facility]. Pt left a message and called again about 30 minutes later, speaking with Ms. Hancock directly, however with only a social discussion to be continued post holidays. Pt clearly let us know that he would have Ms. Hancock and Mayor Nikki close the hospital immediately should we not follow his instructions. Later in the day pt requested team go to security so he could see his bank cards. When he was told this would have to wait as the shift was changing he came to this clinical writer and informed me that he had placed a call to police to report that tw had stolen his bank cards. Incidents such as this are increased in frequency. Pt requested to decrease Seroquel to 400 mg HS from 500 mg due to anger about discharge discussion which was put in place. 01/29/25: Met with patient in the white, reports that he has a better day today. Patient states that I just found down that everyone has problems . Reports that it was rough for him during the holiday. When asked his plan for today, he says I may pack a little bit to get ready as he will be discharged soon. Reported that he will be discharged home with mom where he was raised . Bright, friendly, pleasant and cooperative, but can be labile, irritable, and delusional. However, do not make any delusional statements during this encounter. Per nursing, patient slept for 8 hours, can be irritable. No side effects from medications. 01/30/25: Patient is superficial, visible and pleasant upon approach. He reports calling his mon 3 times and plan to call her again. This provider asks reasons for calling call many times, he says it is his mom who is 80+ y.o . Patient reports there is no privacy for him to talk to his mom which nursing reports he was on the phone irritable. earlier of today. Patient is not irritable during assessment, concrete. Denies SI/SIB/HI/AVH but can be delusions and paranoid. Meds compliant, no side effect, slept for 8 hours. 01/31/25: Patient is not pleasant as he is usually with this provider but not angry or irritable toward this provider. however, he is perservaretive on obtaining a business law teacher. Ask this provider if able to attend to meeting with Paddy and Nitin this week. Racing thoughts, poor judgment, restless. Appear to make himself very busy, back and forth with SW, not happy with services that he has received even though he is not straight forward with his provider about it. However, compliant with meds. No side effects. Denies SI/SIB/HI/AVH. BP elevated as the result. 02/01/25:Discussed discharge with pt today. He requests 02/03 as does his mother as mother will be going to [place] 02/02 for an eye procedure and will not be able to drive for a few days. Pt reports he feels ready to go home. Denies SI,HI, AH, VH. Plan: Discharge 02/03/25. 02/02/25: Angry and accusatory today. Pt declines discharge due to his tooth being swollen and having a back ache. Hospitalist met with pt to check in regarding above concerns, he angrily refused and told her to f---off. Met with pt and Piter STINSON. Pt reports he will not discharge tomorrow. He asks that we begin the appeal process for him to remain in pt, which Britany STINSON will initiate. Discussed his tooth pain- reviewed with pt antibiotic course that was done and that dentists will not come to the unit. Pt is angry that he does not have an appt. Discussed that we will need to wait until he discharges. Discussed back pain-this is the first time he has told tw of this. He declines to give details regarding how long the pain has been going on, only to report lower back and flank pain. Pt expressed accusations that he did not receive a notice in writing that I had called his mother as he requested on 02/01. He expressed that he had asked tw several times to get him an patent prosecution attorney and this was not done. [facility] did follow up with him- in person and in writing which we reviewed. He was accusatory that he was not informed of the CV's he signed on M5 and on the medical unit. Reports feeling he is discriminated against as he is a black trejo male. Later in the day he reported to team he had lost paperwork, believes it was taken from his room, and will call Medicare about it. Plan: Appeal initiated by Britany Carballo [employer] Risperdal decreased to 0.5 mg bid Refusing care, wanting to remain in patient to address tooth pain, back pain Declined med changes today, ?stronger antipsychotic to assist pt with sx mgt. 02/03: DC Risperdal Haldol 5 mg bid Pre MRI eval MRI brain HIV, RPR 02/04: Continue tx Pt has filed a secondary Medicare appeal to remain in the hospital. 02/05: Reviewed with team, review of plan of care. Pt is visable, active in milieu. Pulmonology requested repeat chest xray as they are in process of deciding on treatment after earlier chest x ray showing possible pneumonia with pt being asymptomatic. Pt is in agreement. Pt is active with peers, attending of groups and denies current sx or issues in our meeting today. Reason for continued inpatient stay Substantial Risk for: rapid decompensation Time Spent With Patient Time: Total time managing care of this patient today ____ minutes.
[2025-02-05 14:40] VITALS: BP 104/59
[2025-02-05 19:57] VITALS: BP 154/73; PULSE 97; RESP 15; TEMP 37.1; O2SAT 99
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
[2025-02-06 10:00] VITALS: BP 108/61; PULSE 93; RESP 14; TEMP 36.4; O2SAT 100
[2025-02-06] MEDS: ARIPiprazole 30 MG TABLET PO (10:06)
[2025-02-06 15:40] VITALS: BP 100/59
[2025-02-06] MEDS: Ferrous Sulfate 324 MG TABLET.DR PO (15:40)
[2025-02-06 20:00] VITALS: BP 166/78; PULSE 95; RESP 15; TEMP 36.7; O2SAT 99
[2025-02-06 21:40] VITALS: BP 117/67; PULSE 81
[2025-02-07 08:00] VITALS: BP 93/52; PULSE 98; RESP 16; TEMP 36.9; O2SAT 99
[2025-02-07] MEDS: ARIPiprazole 30 MG TABLET PO (08:59)
[2025-02-07 09:26] VITALS: BP 108/58; PULSE 91; O2SAT 100
--- NOTE | 2025-02-07 10:08 | HO.PSYCHPN ---
Subjective Subjective Date of Service: 02/07/25 Reason For Visit: bipolar disorder Subjective Notes: Conditional Voluntary Healthcare Proxy: No Guardianship: No Medical Problems Affecting Mental Status: No Interim History: Reports right ear pain. Amoxicillin initiated by hospitalist. I feel stronger . Reports sleep is appropriate, he is keeping in contact with his family. Visable in milieu, attending groups. Intermittent fixed delusional content waxes and wanes Medication Compliance: Yes Side effects from medications: No Attending Groups: Yes Review of Systems Acute medical concerns: Yes R Ear pain-amoxicillin initiated Medical Review of Systems: changed Review of Systems Review of Systems right ear pain Mental Status Exam Mental Status Exam Patient Appearance: Appropriate Patient Orientation: Person, Place, Time and Situation Level of Consciousness: Alert Patient Behavior: Talkative, Suspicious, Distractible and Good Eye Contact Mood Description: Suspicious Affect Description: Labile Patient Cognition Impaired: No Ability to Follow Directions: Good Speech Pattern: Perseverating and Spontaneous Speech Memory Description: Episodic Impaired Hallucinations: None Delusions: Paranoid Ideation Thought Process: Illogical, Distracted and Evasive Thought Content: positive for [place], positive for Circumstantial, positive for Goal Oriented, positive for Perseveration, positive for Tangential, positive for Evasive and positive for Suicidal Ideation (denies) Depressive Symptoms: Diff. Making Decisions and Thoughts of /Suicide (denies) Judgement: Good Diagnostics Vital Signs (24Hr): Vital Signs - 24 hr 02/06/25 15:40 02/06/25 20:00 02/06/25 21:40 Temperature 98.1 F Pulse Rate 95 81 Respiratory Rate 15 Blood Pressure 100/59 L 166/78 H 117/67 Pulse Oximetry 99 Oxygen Delivery Method 02/07/25 08:00 02/07/25 09:26 Temperature 98.5 F Pulse Rate 98 91 Respiratory Rate 16 Blood Pressure 93/52 L 108/58 L Pulse Oximetry 99 100 Oxygen Delivery Method Room Air Room Air Labs 02/04/25 12:56 02/04/25 12:56 Imaging Radiology Impressions: ITS Impressions Abdomen X-Ray 02/03/25 11:36 IMPRESSION: Large to moderate volume of stool, most pronounced in the rectum. Suspected calcific tendinitis involving gluteal tendons on the right, correlate for symptoms of right hip pain. Electronically signed by: Malcom Batres MD 02/03/2025 11:52 AM EST RP Chest X-Ray 02/03/25 11:39 IMPRESSION: Concerning acute small airway inflammatory processes versus multifocal pneumonia versus mild interstitial edema. Electronically signed by: Daniel Agosto MD 02/03/2025 11:51 AM EST RP Skull X-Ray 02/03/25 11:42 IMPRESSION: Negative for foreign body or gross acute fracture, skull. Electronically signed by: Daniel Agosto MD 02/03/2025 11:52 AM EST RP Brain MRI 02/04/25 14:45 IMPRESSION: 1. No evidence of intracranial hemorrhage, acute infarction, mass effect, or edema. 2. 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 3. There are mild white matter changes of small vessel ischemia. Electronically signed by: Jaden Talbert MD 02/04/2025 04:18 PM EST RP Medications Medications Current Medications Acetaminophen (Acetaminophen 325 Mg Tablet) 650 mg PO Q6H PRN PRN Reason: Pain, Mild (Pain Scale 1-3) Last Admin: 02/05/25 21:22 Dose: 650 mg Al Hydroxide/Mg Hydroxide (Magnesium Hydrox/Alum Hydrox 30 Ml Oral.Susp) 30 ml PO Q6H PRN PRN Reason: Heartburn/Nausea Last Admin: 01/23/25 17:27 Dose: 30 ml Amlodipine Besylate (Amlodipine Besylate 10 Mg Tablet) 10 mg PO DAILY [facility]; Protocol Last Admin: 02/07/25 10:03 Dose: Not Given Aripiprazole (Aripiprazole 30 Mg Tablet) 30 mg PO DAILY [facility] Last Admin: 02/07/25 08:59 Dose: 30 mg Artificial Tears (Artificial Tears 15 Ml Drops) 1 drop EYE-BOTH DAILY PRN PRN Reason: allergy sx Last Admin: 01/18/25 09:20 Dose: 1 drop Atorvastatin Calcium (Atorvastatin Calcium 40 Mg Tablet) 40 mg PO DAILY [facility] Last Admin: 02/07/25 08:59 Dose: 40 mg Benztropine Mesylate (Benztropine Mesylate 1 Mg Tablet) 2 mg PO BID [facility] Last Admin: 02/07/25 09:00 Dose: 2 mg Bisacodyl (Bisacodyl 5 Mg Tablet.Dr) 10 mg PO BEDTIME PRN PRN Reason: Constipation Last Admin: 01/28/25 22:09 Dose: 10 mg Calcitriol (Calcitriol 0.25 Mcg Capsule) 0.25 mcg PO DAILY [facility] Last Admin: 02/07/25 08:59 Dose: 0.25 mcg Clonidine HCl (Clonidine Hcl 0.1 Mg Tablet) 0.1 mg PO TID PRN; Protocol PRN Reason: anxiety Last Admin: 02/06/25 20:20 Dose: 0.1 mg Docusate Sodium (Docusate Sodium 100 Mg Capsule) 100 mg PO BEDTIME [facility] Last Admin: 02/06/25 20:21 Dose: 100 mg Empagliflozin (Empagliflozin 10 Mg Tablet) 10 mg PO DAILY [facility] Last Admin: 02/07/25 08:59 Dose: 10 mg Escitalopram Oxalate (Escitalopram Oxalate 20 Mg Tablet) 20 mg PO DAILY [facility] Last Admin: 02/07/25 08:59 Dose: 20 mg Famotidine (Famotidine 20 Mg Tablet) 20 mg PO DAILY [facility] Last Admin: 02/07/25 08:59 Dose: 20 mg Ferrous Sulfate (Ferrous Sulfate 324 Mg Tablet.) 324 mg PO Q2D [facility] Last Admin: 02/06/25 15:40 Dose: 324 mg Haloperidol (Haloperidol 5 Mg Tablet) 5 mg PO BID [facility] Last Admin: 02/07/25 08:59 Dose: 5 mg Hydralazine HCl (Hydralazine Hcl 50 Mg Tablet) 50 mg PO TID [facility]; Protocol Last Admin: 02/07/25 10:04 Dose: Not Given Hydroxyzine HCl (Hydroxyzine Hcl 25 Mg Tablet) 25 mg PO Q6H PRN PRN Reason: mild anxiety Last Admin: 01/29/25 22:01 Dose: 25 mg Lactulose (Lactulose 20 Gm/30 Ml Solution) 30 gm PO DAILY PRN PRN Reason: Constipation Last Admin: 01/25/25 14:29 Dose: 30 gm Lamotrigine (Lamotrigine 100 Mg Tablet) 200 mg PO BID [facility] Last Admin: 02/07/25 08:59 Dose: 200 mg Loratadine (Loratadine 10 Mg Tablet) 10 mg PO Q2D [facility] Last Admin: 02/06/25 10:07 Dose: Not Given Magnesium Hydroxide (Milk Of Magnesia 30 Ml Oral.Susp) 30 ml PO BID PRN PRN Reason: Constipation Last Admin: 01/24/25 11:08 Dose: 30 ml Nicotine Polacrilex (Nicotine Polacrilex 2 Mg Gum) 4 mg BUCCAL Q2H PRN PRN Reason: Nicotine Cravings Omeprazole (Omeprazole 20 Mg Capsule.Dr) 20 mg PO DAILY@0630 [facility] Last Admin: 02/07/25 06:40 Dose: 20 mg Polyethylene Glycol (Polyethylene Glycol 3350 17 Gm Powd.Pack) 17 gm PO DAILY [facility] Last Admin: 02/07/25 09:07 Dose: 17 gm Quetiapine Fumarate (Quetiapine Fumarate 50 Mg Tablet) 50 mg PO TID PRN PRN Reason: agitation Last Admin: 02/03/25 21:31 Dose: 50 mg Quetiapine Fumarate (Quetiapine Fumarate 400 Mg Tablet) 400 mg PO BEDTIME [facility] Last Admin: 02/06/25 20:21 Dose: 400 mg Sodium Zirconium Cyclosilicate (Sodium Zirconium Cyclosilicate 10 Gm Powd.Pack) 10 gm PO DAILY [facility] Last Admin: 02/07/25 09:07 Dose: 10 gm Trazodone HCl (Trazodone Hcl 50 Mg Tablet) 50 mg PO BEDTIME MRX1 PRN PRN Reason: Insomnia Last Admin: 02/03/25 21:31 Dose: 50 mg Allergies Allergies Allergy/AdvReac Type Severity Reaction Status Date / Time No Known Allergies Allergy Verified 12/17/24 20:12 Assessment & Plan Assessment & Plan (1) Bipolar 1 disorder: Status: Acute Code(s): F31.9 - Bipolar disorder, unspecified (2) HTN (hypertension): Status: Acute Code(s): I10 - Essential (primary) hypertension Assessment and Plan: This evening, pt is questioning regime. He has needed reminders of changes this week due to CKD and hyperkalemia by the team. (3) CKD (chronic kidney disease) stage 3, GFR 30-59 ml/min: Status: Acute Code(s): N18.30 - Chronic kidney disease, stage 3 unspecified Plan 64-year-old male with a past medical history was listed below presented to emergency department at [facility] with mental status changes. Now admitted to inpatient psych for further care. 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 Chronic kidney disease stage 4/diabetic nephropathy and hypertensive renal disease Avoid nephrotoxins Followed by Dr. Maravilla as an outpatient Continue calcitriol Type 2 diabetes Hemoglobin A1c 6.8 Continue Jardiance Hypertension/HLD Losartan DC due to kidney injury, Continue Norvasc, hydralazine 25 t.i.d. Recently started atorvastatin Clonidine t.i.d. p.r.n. Blood pressure well controlled 01/14/25: Continue treatment. Support/Educate 01/15, : no changes - f/u on tremor 01/17: Seroquel 400 mg HS CMP 01/18. Continue to monitor for tremor. 01/18: Continue tx 01/20: Continue tx 01/21: Variable BP's- Hospitalist may need to see again. Increase Seroquel to 500 mg HS Continue to monitor. 01/22 Patient reports that he is doing good and that Seroquel seems to be helping him. He said he slept well and wants to continue with current regimen. Some exuberant behavior, happily yelling in the hallway about mandaen things -continue treatment plan 01/23 paranoid ideations expressed 01/25 Met with pt and Piter Donnelly [facility]. As pt is now unable to return to mother's home the [facility] case mgt idea was represented by Mr. Donnelly. Pt declined. He would like Angelita Hancock to be contacted [phone] and signed a YARA to make a connection with her. Discussed meds. Olanzapine will be discontinued. Risperdal 1 mg bid trial will begin today. Pt reports constipation today. He reported resolution to tw on 01/24, then to evening team reported constipation and was given Magnesium Citrate. Lactulose ordered today. 01/26 I am deeply hurt . You let two lesbians stay here and want me, a trejo, black man to leave. You will not hire me and I think this is discrimination. Discussed the above and attempted to clarify pt's perceptions. Pt states he is working with the [facility] services of [facility] and believes he has been discriminated against. Discussed pt having relief of constipation. No discharge date planned as yet. Pt refusing all resources, believes he will live and work on . Continues with delusional content. First day of change to Risperdal from Olanzapine Full review of meds with pt today. ?01/27/25:Patient is visible, social, pleasant and cooperative. overly bright upon approach. He is happy to be here and want to be here when asked what his treatment plan looks like. He feels grateful to be taken care of by unit staff. Report no issues with appetite or sleep. Denies SI/SIB/HI/AVH. No behavior issues Per nursing,patient slept for 8 hours. compliant witth meds. No side effects noted or reported. 01/28/25: Met with pt and Piter STINSON. Discussion of discharge continued. At this time pt refuses referrals to shelters, refuses to talk with his family to assess if he can resolve issues. References that he is discriminated against as a black trejo male by reminding us we have hired lesbians to work on the unit. Threatening to us in meeting today. Reports he is not ready to go. Reports that he sees others coming in here and team hires them to work and he wants to be offered a job so he may live here. Attempted to explain that patients come into the unit for care, not for a job. Pt does not believe this to be true. Requested to use tw phone to call his advocate Angelita Hancock, [facility] and [facility] Services. Pt left a message and called again about 30 minutes later, speaking with Ms. Hancock directly, however with only a social discussion to be continued post holidays. Pt clearly let us know that he would have Ms. Hancock and Mayor Nikki close the hospital immediately should we not follow his instructions. Later in the day pt requested team go to security so he could see his bank cards. When he was told this would have to wait as the shift was changing he came to this resume writer and informed me that he had placed a call to police to report that tw had stolen his bank cards. Incidents such as this are increased in frequency. Pt requested to decrease Seroquel to 400 mg HS from 500 mg due to anger about discharge discussion which was put in place. 01/29/25: Met with patient in the white, reports that he has a better day today. Patient states that I just found down that everyone has problems . Reports that it was rough for him during the holiday. When asked his plan for today, he says I may pack a little bit to get ready as he will be discharged soon. Reported that he will be discharged home with mom where he was raised . Bright, friendly, pleasant and cooperative, but can be labile, irritable, and delusional. However, do not make any delusional statements during this encounter. Per nursing, patient slept for 8 hours, can be irritable. No side effects from medications. 01/30/25: Patient is superficial, visible and pleasant upon approach. He reports calling his mon 3 times and plan to call her again. This provider asks reasons for calling call many times, he says it is his mom who is 80+ y.o . Patient reports there is no privacy for him to talk to his mom which nursing reports he was on the phone irritable. earlier of today. Patient is not irritable during assessment, concrete. Denies SI/SIB/HI/AVH but can be delusions and paranoid. Meds compliant, no side effect, slept for 8 hours. 01/31/25: Patient is not pleasant as he is usually with this provider but not angry or irritable toward this provider. however, he is perservaretive on obtaining a ux ui designer. Ask this provider if able to attend to meeting with Paddy and Nitin this week. Racing thoughts, poor judgment, restless. Appear to make himself very busy, back and forth with SW, not happy with services that he has received even though he is not straight forward with his provider about it. However, compliant with meds. No side effects. Denies SI/SIB/HI/AVH. BP elevated as the result. 02/01/25:Discussed discharge with pt today. He requests 02/03 as does his mother as mother will be going to [place] 02/02 for an eye procedure and will not be able to drive for a few days. Pt reports he feels ready to go home. Denies SI,HI, AH, VH. Plan: Discharge 02/03/25. 02/02/25: Angry and accusatory today. Pt declines discharge due to his tooth being swollen and having a back ache. Hospitalist met with pt to check in regarding above concerns, he angrily refused and told her to f---off. Met with pt and Piter STINSON. Pt reports he will not discharge tomorrow. He asks that we begin the appeal process for him to remain in pt, which Britany STINSON will initiate. Discussed his tooth pain- reviewed with pt antibiotic course that was done and that dentists will not come to the unit. Pt is angry that he does not have an appt. Discussed that we will need to wait until he discharges. Discussed back pain-this is the first time he has told tw of this. He declines to give details regarding how long the pain has been going on, only to report lower back and flank pain. Pt expressed accusations that he did not receive a notice in writing that I had called his mother as he requested on 02/01. He expressed that he had asked tw several times to get him an restorative care technician and this was not done. [facility] did follow up with him- in person and in writing which we reviewed. He was accusatory that he was not informed of the CV's he signed on M5 and on the medical unit. Reports feeling he is discriminated against as he is a black trejo male. Later in the day he reported to team he had lost paperwork, believes it was taken from his room, and will call Medicare about it. Plan: Appeal initiated by Britany STINSON Risperdal decreased to 0.5 mg bid Refusing care, wanting to remain in patient to address tooth pain, back pain Declined med changes today, ?stronger antipsychotic to assist pt with sx mgt. 02/03: DC Risperdal Haldol 5 mg bid Pre MRI eval MRI brain HIV, RPR 02/04: Continue tx Pt has filed a secondary Medicare appeal to remain in the hospital. 02/05: Reviewed with team, review of plan of care. Pt is visable, active in milieu. Pulmonology requested repeat chest xray as they are in process of deciding on treatment after earlier chest x ray showing possible pneumonia with pt being asymptomatic. Pt is in agreement. Pt is active with peers, attending of groups and denies current sx or issues in our meeting today. 02/07/25: Continue regime. Reason for continued inpatient stay Substantial Risk for: rapid decompensation Time Spent With Patient Time: Total time managing care of this patient today ____ minutes.
--- NOTE | 2025-02-07 14:22 | P.CONHOSP_ITS ---
History of Present Illness Data of Consult Service Date: 02/07/25 Primary Care Provider: Unknown Physician HPI Reason for consult: Right ear pain 64-year-old male with a past medical history of diabetes, chronic kidney disease, hypertension, bipolar 1 disorder, depression, anemia, hyperkalemia who was currently being treated on inpatient psychiatric unit. Patient being seen for right ear pain. Patient reports that he has had right ear pain for a couple of days, has some muffled pain sensation over the weekend less painful now. He denies any fever, chills, has mild nasal congestion, has a sore throat, no cough. Eating and drinking within normal limits. Patient has some redness to his right eardrum along with some tragal tenderness. No lymphadenopathy. Neck is supple without any lymphadenopathy. He otherwise feels well, denies any shortness of breath, chest pain, abdominal pain or any other concerning symptoms. Review of Systems 2 Review of Systems: Patient has no acute medical complaints at this time All other systems are reviewed and are negative [facility] Medical History Hyperkalemia Anemia in chronic kidney disease (CKD) HTN (hypertension) CKD (chronic kidney disease) stage 3, GFR 30-59 ml/min Diabetes Social History Household Members: Family Household Members Other:: Mother Housing: Apartment Do you presently have visiting nurse or other home services: No Patient Tobacco Use Status: Former Tobacco user Tobacco use type: Cigarette Smoked in Last 30 Days: No e-Cigarette/Vaping Use: Never Used Patient Interested in Nicotine Replacement: No Patient Given Instructions on How to Stop Smoking: No Second Hand Smoke Exposure: No Currently Displaying Signs/Symptoms of Drug Intoxication Withdrawal: No Do you feel safe in your current relationship?: No Current Relationship Advance Directives: No Advance Directives Information Provided: Yes Do you have thoughts of harming others: None Do you have a plan to hurt others: No Plan Recently lost weight without trying: No How much weight loss: Not applicable Eating poorly because of decreased appetite: No Nutrition screen score: 0 Nutrition Risks: No Nutritional Risk Poor oral hygiene: No service: No Sexual orientation: Don't Know Meds Allergies Allergy/AdvReac Type Severity Reaction Status Date / Time No Known Allergies Allergy Verified 12/17/24 20:12 Active Medications: Current Medications Acetaminophen (Acetaminophen 325 Mg Tablet) 650 mg PO Q6H PRN PRN Reason: Pain, Mild (Pain Scale 1-3) Last Admin: 02/05/25 21:22 Dose: 650 mg Al Hydroxide/Mg Hydroxide (Magnesium Hydrox/Alum Hydrox 30 Ml Oral.Susp) 30 ml PO Q6H PRN PRN Reason: Heartburn/Nausea Last Admin: 01/23/25 17:27 Dose: 30 ml Amlodipine Besylate (Amlodipine Besylate 10 Mg Tablet) 10 mg PO DAILY [facility]; Protocol Last Admin: 02/07/25 10:03 Dose: Not Given Aripiprazole (Aripiprazole 30 Mg Tablet) 30 mg PO DAILY [facility] Last Admin: 02/07/25 08:59 Dose: 30 mg Artificial Tears (Artificial Tears 15 Ml Drops) 1 drop EYE-BOTH DAILY PRN PRN Reason: allergy sx Last Admin: 01/18/25 09:20 Dose: 1 drop Atorvastatin Calcium (Atorvastatin Calcium 40 Mg Tablet) 40 mg PO DAILY [facility] Last Admin: 02/07/25 08:59 Dose: 40 mg Benztropine Mesylate (Benztropine Mesylate 1 Mg Tablet) 2 mg PO BID [facility] Last Admin: 02/07/25 09:00 Dose: 2 mg Bisacodyl (Bisacodyl 5 Mg Tablet.Dr) 10 mg PO BEDTIME PRN PRN Reason: Constipation Last Admin: 01/28/25 22:09 Dose: 10 mg Calcitriol (Calcitriol 0.25 Mcg Capsule) 0.25 mcg PO DAILY [facility] Last Admin: 02/07/25 08:59 Dose: 0.25 mcg Clonidine HCl (Clonidine Hcl 0.1 Mg Tablet) 0.1 mg PO TID PRN; Protocol PRN Reason: anxiety Last Admin: 02/06/25 20:20 Dose: 0.1 mg Docusate Sodium (Docusate Sodium 100 Mg Capsule) 100 mg PO BEDTIME YAQUELIN Last Admin: 02/06/25 20:21 Dose: 100 mg Empagliflozin (Empagliflozin 10 Mg Tablet) 10 mg PO DAILY YAQUELIN Last Admin: 02/07/25 08:59 Dose: 10 mg Escitalopram Oxalate (Escitalopram Oxalate 20 Mg Tablet) 20 mg PO DAILY [facility] Last Admin: 02/07/25 08:59 Dose: 20 mg Famotidine (Famotidine 20 Mg Tablet) 20 mg PO DAILY [facility] Last Admin: 02/07/25 08:59 Dose: 20 mg Ferrous Sulfate (Ferrous Sulfate 324 Mg Tablet.) 324 mg PO Q2D [facility] Last Admin: 02/06/25 15:40 Dose: 324 mg Haloperidol (Haloperidol 5 Mg Tablet) 5 mg PO BID [facility] Last Admin: 02/07/25 08:59 Dose: 5 mg Hydralazine HCl (Hydralazine Hcl 50 Mg Tablet) 50 mg PO TID [facility]; Protocol Last Admin: 02/07/25 10:04 Dose: Not Given Hydroxyzine HCl (Hydroxyzine Hcl 25 Mg Tablet) 25 mg PO Q6H PRN PRN Reason: mild anxiety Last Admin: 01/29/25 22:01 Dose: 25 mg Lactulose (Lactulose 20 Gm/30 Ml Solution) 30 gm PO DAILY PRN PRN Reason: Constipation Last Admin: 01/25/25 14:29 Dose: 30 gm Lamotrigine (Lamotrigine 100 Mg Tablet) 200 mg PO BID [facility] Last Admin: 02/07/25 08:59 Dose: 200 mg Loratadine (Loratadine 10 Mg Tablet) 10 mg PO Q2D [facility] Last Admin: 02/06/25 10:07 Dose: Not Given Magnesium Hydroxide (Milk Of Magnesia 30 Ml Oral.Susp) 30 ml PO BID PRN PRN Reason: Constipation Last Admin: 01/24/25 11:08 Dose: 30 ml Nicotine Polacrilex (Nicotine Polacrilex 2 Mg Gum) 4 mg BUCCAL Q2H PRN PRN Reason: Nicotine Cravings Omeprazole (Omeprazole 20 Mg Capsule.) 20 mg PO DAILY@0630 [facility] Last Admin: 02/07/25 06:40 Dose: 20 mg Polyethylene Glycol (Polyethylene Glycol 3350 17 Gm Powd.Pack) 17 gm PO DAILY [facility] Last Admin: 02/07/25 09:07 Dose: 17 gm Quetiapine Fumarate (Quetiapine Fumarate 50 Mg Tablet) 50 mg PO TID PRN PRN Reason: agitation Last Admin: 02/03/25 21:31 Dose: 50 mg Quetiapine Fumarate (Quetiapine Fumarate 400 Mg Tablet) 400 mg PO BEDTIME [facility] Last Admin: 02/06/25 20:21 Dose: 400 mg Sodium Zirconium Cyclosilicate (Sodium Zirconium Cyclosilicate 10 Gm Powd.Pack) 10 gm PO DAILY [facility] Last Admin: 02/07/25 09:07 Dose: 10 gm Trazodone HCl (Trazodone Hcl 50 Mg Tablet) 50 mg PO BEDTIME MRX1 PRN PRN Reason: Insomnia Last Admin: 02/03/25 21:31 Dose: 50 mg Home Medications ?Medication ?Instructions ?Recorded ?Confirmed ?Last Taken ?Type calcitriol 0.25 mcg capsule 0.25 mcg PO DAILY 12/17/24 01/10/25 12/24/24 History dapagliflozin propanediol 10 mg 10 mg PO DAILY 5 01/10/25 Unknown History tablet (Farxiga) docusate sodium 100 mg capsule 100 mg PO DAILY 5 01/10/25 12/24/24 History famotidine 20 mg tablet 20 mg PO DAILY 12/17/2401/0112/24/24 History ferrous sulfate 325 mg (65 mg 325 mg PO Q2D 12/17/24 1 03/12/24 Unknown History iron) tablet,delayed release omeprazole 30 mg DIRECTED 12/29/24 1 Unknown History escitalopram oxalate 20 mg tablet 20 mg PO DAILY 01/1001/10/25 Unknown History lamotrigine 200 mg tablet 200 mg PO BID 01/10/2501/10 Unknown History (Lamictal) naphazoline 0.025 %-pheniramine 1 drp ophthalmic (eye) QD-QID PRN 01/10/25 01/10/25 Unknown History 0.3 % eye drops (Naphcon-A) itch Physical Exam 2 Vital Signs and Narrative: Vital Signs: Last Vital Signs Temp 98.5 F 02/07/25 08:00 Pulse 91 02/07/25 09:26 Resp 16 02/07/25 08:00 BP 108/58 L 02/07/25 09:26 Pulse Ox 100 02/07/25 09:26 O2 Del Method Room Air 02/07/25 09:26 Alert and oriented X3, calm and cooperative. Answers questions. Neuro: CN II-X11 intact, no deficits, visual acuity intact EYES: PERRLA, EOM intact ENT: Hearing intact, MMM. Left ear tympanic membrane within normal limits, right tympanic membrane slightly red. No redness to canals, positive tragal tenderness to right ear, no lymphadenopathy. No pain in pinnae Cardiac: S1 S2 RRR, No ectopy Pulmonary: lungs clear to auscultation, No increased WOB. Abdominal: BS active in all 4 quadrants, no guarding or tenderness MSK: Strength 5/5 upper and lower extremities : Deferred Extremities: No edema in lower extremities Psych: Mood stable, Quiet and cooperative. Skin: Warm and dry, Intact Results Labs 02/04/25 12:56 02/04/25 12:56 Assessment and Plan (1) Right otitis media: Status: Acute Plan 64-year-old male with a past medical history was listed below presented to emergency department at [facility] with mental status changes and unsafe behavior at home. Now admitted to inpatient psych for further care. Bipolar 1 disorder/anxiety/mental status changes Treatment per psychiatric team Right otitis media Treat with Augmentin 875 b.i.d. for 7 days, Claritin 10 mg daily Notify provider with no improvement Type 2 diabetes Continue Jardiance Hemoglobin A1c 6.8 Anemia Follow labs. H&H 8.6/25.7 Reviewed candidate for EPO future if needed Chronic kidney disease stage IIIB/IV/hyperkalemia CREAT 3.49- K+ 4.8 Avoid nephrotoxins Patient was seen by Nephrology. Recommendations appreciated. Continue Lokelma daily, continue calcitriol Type 2 diabetes Hemoglobin A1c 6.8 Continue Jardiance Hypertension/HLD Continue Norvasc, hydralazine 50 mg t.i.d. Continue atorvastatin Thank you for allowing me to participate in the care of this patient. Will follow with you, please notify medical provider with any changes in condition or concerns.
[2025-02-07 16:50] VITALS: BP 176/82
[2025-02-07 20:00] VITALS: BP 173/83; PULSE 93; RESP 18; TEMP 37.3; O2SAT 98
[2025-02-08 08:00] VITALS: BP 115/72; PULSE 95; RESP 16; TEMP 36.1; O2SAT 99
[2025-02-08 09:19] VITALS: BP 115/72
[2025-02-08] MEDS: ARIPiprazole 30 MG TABLET PO (09:19)
--- NOTE | 2025-02-08 09:55 | HO.PSYCHPN ---
Subjective Subjective Date of Service: 02/08/25 Reason For Visit: bipolar disorder Interim History: met with patient; discussed with team No change in presentation; no complaints and no requests Diagnostics Vital Signs (24Hr): Vital Signs - 24 hr 02/07/25 16:50 02/07/25 20:00 02/08/25 09:19 Temperature 99.1 F Pulse Rate 93 Respiratory Rate 18 Blood Pressure 176/82 H 173/83 H 115/72 Pulse Oximetry 98 Oxygen Delivery Method Room Air Labs 02/04/25 12:56 02/04/25 12:56 Imaging Radiology Impressions: ITS Impressions Abdomen X-Ray 02/03/25 11:36 IMPRESSION: Large to moderate volume of stool, most pronounced in the rectum. Suspected calcific tendinitis involving gluteal tendons on the right, correlate for symptoms of right hip pain. Electronically signed by: Malcom Batres MD 02/03/2025 11:52 AM EST RP Chest X-Ray 02/03/25 11:39 IMPRESSION: Concerning acute small airway inflammatory processes versus multifocal pneumonia versus mild interstitial edema. Electronically signed by: Daniel Agosto MD 02/03/2025 11:51 AM EST RP Skull X-Ray 02/03/25 11:42 IMPRESSION: Negative for foreign body or gross acute fracture, skull. Electronically signed by: Daniel Agosto MD 02/03/2025 11:52 AM EST RP Brain MRI 02/04/25 14:45 IMPRESSION: 1. No evidence of intracranial hemorrhage, acute infarction, mass effect, or edema. 2. 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 3. There are mild white matter changes of small vessel ischemia. Electronically signed by: Jaden Talbert MD 02/04/2025 04:18 PM EST RP Medications Medications Current Medications Acetaminophen (Acetaminophen 325 Mg Tablet) 650 mg PO Q6H PRN PRN Reason: Pain, Mild (Pain Scale 1-3) Last Admin: 02/08/25 07:13 Dose: 650 mg Al Hydroxide/Mg Hydroxide (Magnesium Hydrox/Alum Hydrox 30 Ml Oral.Susp) 30 ml PO Q6H PRN PRN Reason: Heartburn/Nausea Last Admin: 11/23/25 17:27 Dose: 30 ml Amlodipine Besylate (Amlodipine Besylate 10 Mg Tablet) 10 mg PO DAILY [facility]; Protocol Last Admin: 02/08/25 09:19 Dose: 10 mg Amoxicillin/Clavulanate Potassium (Amoxicillin/Potassium Clav 875 Mg Tablet) 875 mg PO BID [facility] Last Admin: 02/08/25 09:19 Dose: 875 mg Aripiprazole (Aripiprazole 30 Mg Tablet) 30 mg PO DAILY [facility] Last Admin: 02/08/25 09:19 Dose: 30 mg Artificial Tears (Artificial Tears 15 Ml Drops) 1 drop EYE-BOTH DAILY PRN PRN Reason: allergy sx Last Admin: 01/18/25 09:20 Dose: 1 drop Atorvastatin Calcium (Atorvastatin Calcium 40 Mg Tablet) 40 mg PO DAILY [facility] Last Admin: 02/08/25 09:19 Dose: 40 mg Benztropine Mesylate (Benztropine Mesylate 1 Mg Tablet) 2 mg PO BID [facility] Last Admin: 02/08/25 09:19 Dose: 2 mg Bisacodyl (Bisacodyl 5 Mg Tablet.) 10 mg PO BEDTIME PRN PRN Reason: Constipation Last Admin: 01/28/25 22:09 Dose: 10 mg Calcitriol (Calcitriol 0.25 Mcg Capsule) 0.25 mcg PO DAILY [facility] Last Admin: 02/08/25 09:19 Dose: 0.25 mcg Clonidine HCl (Clonidine Hcl 0.1 Mg Tablet) 0.1 mg PO TID PRN; Protocol PRN Reason: anxiety Last Admin: 02/06/25 20:20 Dose: 0.1 mg Docusate Sodium (Docusate Sodium 100 Mg Capsule) 100 mg PO BEDTIME YAQUELIN Last Admin: 02/07/25 22:19 Dose: 100 mg Empagliflozin (Empagliflozin 10 Mg Tablet) 10 mg PO DAILY [facility] Last Admin: 02/08/25 09:19 Dose: 10 mg Escitalopram Oxalate (Escitalopram Oxalate 20 Mg Tablet) 20 mg PO DAILY [facility] Last Admin: 02/08/25 09:19 Dose: 20 mg Famotidine (Famotidine 20 Mg Tablet) 20 mg PO DAILY [facility] Last Admin: 02/08/25 09:19 Dose: 20 mg Ferrous Sulfate (Ferrous Sulfate 324 Mg Tablet.) 324 mg PO Q2D [facility] Last Admin: 02/06/25 15:40 Dose: 324 mg Haloperidol (Haloperidol 5 Mg Tablet) 5 mg PO BID [facility] Last Admin: 02/08/25 09:19 Dose: 5 mg Hydralazine HCl (Hydralazine Hcl 50 Mg Tablet) 50 mg PO TID [facility]; Protocol Last Admin: 02/08/25 09:20 Dose: 50 mg Hydroxyzine HCl (Hydroxyzine Hcl 25 Mg Tablet) 25 mg PO Q6H PRN PRN Reason: mild anxiety Last Admin: 01/29/25 22:01 Dose: 25 mg Lactulose (Lactulose 20 Gm/30 Ml Solution) 30 gm PO DAILY PRN PRN Reason: Constipation Last Admin: 01/25/25 14:29 Dose: 30 gm Lamotrigine (Lamotrigine 100 Mg Tablet) 200 mg PO BID [facility] Last Admin: 02/08/25 09:19 Dose: 200 mg Loratadine (Loratadine 10 Mg Tablet) 10 mg PO Q2D [facility] Last Admin: 02/08/25 09:20 Dose: Not Given Magnesium Hydroxide (Milk Of Magnesia 30 Ml Oral.Susp) 30 ml PO BID PRN PRN Reason: Constipation Last Admin: 01/24/25 11:08 Dose: 30 ml Nicotine Polacrilex (Nicotine Polacrilex 2 Mg Gum) 4 mg BUCCAL Q2H PRN PRN Reason: Nicotine Cravings Omeprazole (Omeprazole 20 Mg Capsule.Dr) 20 mg PO DAILY@0630 [facility] Last Admin: 02/08/25 06:26 Dose: 20 mg Polyethylene Glycol (Polyethylene Glycol 3350 17 Gm Powd.Pack) 17 gm PO DAILY [facility] Last Admin: 02/08/25 09:20 Dose: 17 gm Quetiapine Fumarate (Quetiapine Fumarate 50 Mg Tablet) 50 mg PO TID PRN PRN Reason: agitation Last Admin: 02/03/25 21:31 Dose: 50 mg Quetiapine Fumarate (Quetiapine Fumarate 400 Mg Tablet) 400 mg PO BEDTIME [facility] Last Admin: 02/07/25 22:24 Dose: 400 mg Sodium Zirconium Cyclosilicate (Sodium Zirconium Cyclosilicate 10 Gm Powd.Pack) 10 gm PO DAILY [facility] Last Admin: 02/08/25 09:20 Dose: 10 gm Trazodone HCl (Trazodone Hcl 50 Mg Tablet) 50 mg PO BEDTIME MRX1 PRN PRN Reason: Insomnia Last Admin: 02/03/25 21:31 Dose: 50 mg Allergies Allergies Allergy/AdvReac Type Severity Reaction Status Date / Time No Known Allergies Allergy Verified 12/17/24 20:12 Assessment & Plan Assessment & Plan (1) Bipolar 1 disorder: Status: Acute Code(s): F31.9 - Bipolar disorder, unspecified (2) HTN (hypertension): Status: Acute Code(s): I10 - Essential (primary) hypertension Assessment and Plan: This evening, pt is questioning regime. He has needed reminders of changes this week due to CKD and hyperkalemia by the team. (3) CKD (chronic kidney disease) stage 3, GFR 30-59 ml/min: Status: Acute Code(s): N18.30 - Chronic kidney disease, stage 3 unspecified Plan 64-year-old male with a past medical history was listed below presented to emergency department at [facility] with mental status changes. Now admitted to inpatient psych for further care. 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 Chronic kidney disease stage 4/diabetic nephropathy and hypertensive renal disease Avoid nephrotoxins Followed by Dr. Maravilla as an outpatient Continue calcitriol Type 2 diabetes Hemoglobin A1c 6.8 Continue Jardiance Hypertension/HLD Losartan DC due to kidney injury, Continue Norvasc, hydralazine 25 t.i.d. Recently started atorvastatin Clonidine t.i.d. p.r.n. Blood pressure well controlled 01/14/25: Continue treatment. Support/Educate 01/15, 16: no changes - f/u on tremor 01/17: Seroquel 400 mg HS CMP 01/18. Continue to monitor for tremor. 01/18: Continue tx 01/20: Continue tx 01/21: Variable BP's- Hospitalist may need to see again. Increase Seroquel to 500 mg HS Continue to monitor. 01/22 Patient reports that he is doing good and that Seroquel seems to be helping him. He said he slept well and wants to continue with current regimen. Some exuberant behavior, happily yelling in the hallway about catholic things -continue treatment plan 01/23 paranoid ideations expressed 01/25 Met with pt and Piter STINSON. As pt is now unable to return to mother's home the [facility] case mgt idea was represented by Mr. Donnelly. Pt declined. He would like Angelita Hancock to be contacted [phone] and signed a YARA to make a connection with her. Discussed meds. Olanzapine will be discontinued. Risperdal 1 mg bid trial will begin today. Pt reports constipation today. He reported resolution to tw on 01/24, then to evening team reported constipation and was given Magnesium Citrate. Lactulose ordered today. 01/26 I am deeply hurt . You let two lesbians stay here and want me, a trejo, black man to leave. You will not hire me and I think this is discrimination. Discussed the above and attempted to clarify pt's perceptions. Pt states he is working with the [facility] and human services [facility] and believes he has been discriminated against. Discussed pt having relief of constipation. No discharge date planned as yet. Pt refusing all resources, believes he will live and work on . Continues with delusional content. First day of change to Risperdal from Olanzapine Full review of meds with pt today. ?01/27/25:Patient is visible, social, pleasant and cooperative. overly bright upon approach. He is happy to be here and want to be here when asked what his treatment plan looks like. He feels grateful to be taken care of by unit staff. Report no issues with appetite or sleep. Denies SI/SIB/HI/AVH. No behavior issues Per nursing,patient slept for 8 hours. compliant witth meds. No side effects noted or reported. 01/28/25: Met with pt and Piter STINSON. Discussion of discharge continued. At this time pt refuses referrals to shelters, refuses to talk with his family to assess if he can resolve issues. References that he is discriminated against as a black trejo male by reminding us we have hired lesbians to work on the unit. Threatening to us in meeting today. Reports he is not ready to go. Reports that he sees others coming in here and team hires them to work and he wants to be offered a job so he may live here. Attempted to explain that patients come into the unit for care, not for a job. Pt does not believe this to be true. Requested to use tw phone to call his advocate Angelita Hancock, [place] Director of Health and Human Services. Pt left a message and called again about 30 minutes later, speaking with Ms. Hancock directly, however with only a social discussion to be continued post holidays. Pt clearly let us know that he would have Ms. Hancock and Mayor Nikki close the hospital immediately should we not follow his instructions. Later in the day pt requested team go to security so he could see his bank cards. When he was told this would have to wait as the shift was changing he came to this quality analyst/technical writer and informed me that he had placed a call to police to report that tw had stolen his bank cards. Incidents such as this are increased in frequency. Pt requested to decrease Seroquel to 400 mg HS from 500 mg due to anger about discharge discussion which was put in place. 01/29/25: Met with patient in the white, reports that he has a better day today. Patient states that I just found down that everyone has problems . Reports that it was rough for him during the holiday. When asked his plan for today, he says I may pack a little bit to get ready as he will be discharged soon. Reported that he will be discharged home with mom where he was raised . Bright, friendly, pleasant and cooperative, but can be labile, irritable, and delusional. However, do not make any delusional statements during this encounter. Per nursing, patient slept for 8 hours, can be irritable. No side effects from medications. 01/30/25: Patient is superficial, visible and pleasant upon approach. He reports calling his mon 3 times and plan to call her again. This provider asks reasons for calling call many times, he says it is his mom who is 80+ y.o . Patient reports there is no privacy for him to talk to his mom which nursing reports he was on the phone irritable. earlier of today. Patient is not irritable during assessment, concrete. Denies SI/SIB/HI/AVH but can be delusions and paranoid. Meds compliant, no side effect, slept for 8 hours. 01/31/25: Patient is not pleasant as he is usually with this provider but not angry or irritable toward this provider. however, he is perservaretive on obtaining a hardware engineer. Ask this provider if able to attend to meeting with Paddy and Nitin this week. Racing thoughts, poor judgment, restless. Appear to make himself very busy, back and forth with SW, not happy with services that he has received even though he is not straight forward with his provider about it. However, compliant with meds. No side effects. Denies SI/SIB/HI/AVH. BP elevated as the result. 02/01/25:Discussed discharge with pt today. He requests 02/03 as does his mother as mother will be going to [place] 02/02 for an eye procedure and will not be able to drive for a few days. Pt reports he feels ready to go home. Denies SI,HI, AH, VH. Plan: Discharge 02/03/25. 02/02/25: Angry and accusatory today. Pt declines discharge due to his tooth being swollen and having a back ache. Hospitalist met with pt to check in regarding above concerns, he angrily refused and told her to f---off. Met with pt and Piter STINSON. Pt reports he will not discharge tomorrow. He asks that we begin the appeal process for him to remain in pt, which Britany STINSON will initiate. Discussed his tooth pain- reviewed with pt antibiotic course that was done and that dentists will not come to the unit. Pt is angry that he does not have an appt. Discussed that we will need to wait until he discharges. Discussed back pain-this is the first time he has told tw of this. He declines to give details regarding how long the pain has been going on, only to report lower back and flank pain. Pt expressed accusations that he did not receive a notice in writing that I had called his mother as he requested on 02/01. He expressed that he had asked tw several times to get him an tax associate attorney and this was not done. [facility] did follow up with him- in person and in writing which we reviewed. He was accusatory that he was not informed of the CV's he signed on M5 and on the medical unit. Reports feeling he is discriminated against as he is a black trejo male. Later in the day he reported to team he had lost paperwork, believes it was taken from his room, and will call Medicare about it. Plan: Appeal initiated by Britany STINSON Risperdal decreased to 0.5 mg bid Refusing care, wanting to remain in patient to address tooth pain, back pain Declined med changes today, ?stronger antipsychotic to assist pt with sx mgt. 02/03: DC Risperdal Haldol 5 mg bid Pre MRI eval MRI brain HIV, RPR 02/04: Continue tx Pt has filed a secondary Medicare appeal to remain in the hospital. 02/05: Reviewed with team, review of plan of care. Pt is visable, active in milieu. Pulmonology requested repeat chest xray as they are in process of deciding on treatment after earlier chest x ray showing possible pneumonia with pt being asymptomatic. Pt is in agreement. Pt is active with peers, attending of groups and denies current sx or issues in our meeting today. 02/07/25: Continue regime. Time Spent With Patient Time: Total time managing care of this patient today ____ minutes.
[2025-02-08] MEDS: Ferrous Sulfate 324 MG TABLET.DR PO (13:23)
[2025-02-08 15:38] VITALS: BP 136/78
[2025-02-08 20:00] VITALS: BP 172/81; PULSE 105; RESP 20; TEMP 36.4; O2SAT 99
[2025-02-08 20:06] VITALS: BP 172/81
--- NOTE | 2025-02-08 20:20 | HO.PSYCHPN ---
Subjective Subjective Date of Service: 02/08/25 Reason For Visit: bipolar disorder Subjective Notes: Conditional Voluntary Healthcare Proxy: No Guardianship: No Medical Problems Affecting Mental Status: No Interim History: Medical record and nursing notes reviewed; case discussed during rounds with team/nursing staff, and met with patient for supportive therapy/psychoeducation, as well as medication management. Met with patient in the exam, reports that his mood is good today. Denies any sleeping or appetite issues. Patient reports no anxiety or depression, and denies other safety concerns or hallucinations. Reported that his mom will be on a cruise for 12 days started next Friday. Patient states I know it may not happen that I wish I can go to see my mom before she goes on the cruise . When this provider asked for clarification if patient actually want to be discharged to see his mom, he says that he would like to see his mom and return here to the hospital. Patient denies any plans goals of him for future when asked the patient what he would like to do when he be discharged. 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 Patient slept for 8 hours last night, hypetensive medication were held yesterday d/t low blood pressure. However, elevated today. Patient appeared to not planning to discharge, do not think that he wants to be discharged. He told this provider his attending- Angelaie is taper him down on Seroquel, he asked if he is can be lowered down to another 100 mg. Appears in good behavior control. Continue with current treatment plan. Tentatively to be discharged tomorrow or the next day. Medication Compliance: Yes Side effects from medications: No Attending Groups: Intermittent Review of Systems Acute medical concerns: No Medical Review of Systems: unchanged Review of Systems Review of Systems Constitutional: Denies fatigue and Denies fever(s) Cardiovascular: Denies chest pain and Denies dyspnea Respiratory: Denies dyspnea Gastrointestinal: Denies abdominal pain Psychiatric: denies suicidal ideation Endocrine: Denies fatigue Yes all other systems are reviewed and are negative Mental Status Exam Mental Status Exam Narrative: A+O , visible, pleasant and cooperative, no racing thoughts. No SI/SIB/HI/AVH, no ADL's issues., wearing casual attire. Poor judgment. Diagnostics Vital Signs (24Hr): Vital Signs - 24 hr 02/08/25 08:00 02/08/25 09:19 02/08/25 15:38 Temperature 97 F Pulse Rate 95 Respiratory Rate 16 Blood Pressure 115/72 115/72 136/78 Pulse Oximetry 99 Oxygen Delivery Method Room Air 02/08/25 20:00 02/08/25 20:06 Temperature 97.6 F Pulse Rate 105 H Respiratory Rate 20 Blood Pressure 172/81 H 172/81 H Pulse Oximetry 99 Oxygen Delivery Method Room Air Labs 02/04/25 12:56 02/04/25 12:56 Imaging Radiology Impressions: ITS Impressions Abdomen X-Ray 02/03/25 11:36 IMPRESSION: Large to moderate volume of stool, most pronounced in the rectum. Suspected calcific tendinitis involving gluteal tendons on the right, correlate for symptoms of right hip pain. Electronically signed by: Malcom Batres MD 02/03/2025 11:52 AM EST RP Chest X-Ray 02/03/25 11:39 IMPRESSION: Concerning acute small airway inflammatory processes versus multifocal pneumonia versus mild interstitial edema. Electronically signed by: Daniel Agosto MD 02/03/2025 11:51 AM EST RP Skull X-Ray 02/03/25 11:42 IMPRESSION: Negative for foreign body or gross acute fracture, skull. Electronically signed by: Daniel Agosto MD 02/03/2025 11:52 AM EST RP Brain MRI 02/04/25 14:45 IMPRESSION: 1. No evidence of intracranial hemorrhage, acute infarction, mass effect, or edema. 2. 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 3. There are mild white matter changes of small vessel ischemia. Electronically signed by: Jaden Talbert MD 02/04/2025 04:18 PM EST RP Medications Medications Current Medications Acetaminophen (Acetaminophen 325 Mg Tablet) 650 mg PO Q6H PRN PRN Reason: Pain, Mild (Pain Scale 1-3) Last Admin: 02/08/25 07:13 Dose: 650 mg Al Hydroxide/Mg Hydroxide (Magnesium Hydrox/Alum Hydrox 30 Ml Oral.Susp) 30 ml PO Q6H PRN PRN Reason: Heartburn/Nausea Last Admin: 01/23/25 17:27 Dose: 30 ml Amlodipine Besylate (Amlodipine Besylate 10 Mg Tablet) 10 mg PO DAILY [facility]; Protocol Last Admin: 02/08/25 09:19 Dose: 10 mg Amoxicillin/Clavulanate Potassium (Amoxicillin/Potassium Clav 875 Mg Tablet) 875 mg PO BID [facility] Last Admin: 02/08/25 20:06 Dose: 875 mg Aripiprazole (Aripiprazole 30 Mg Tablet) 30 mg PO DAILY [facility] Last Admin: 02/08/25 09:19 Dose: 30 mg Artificial Tears (Artificial Tears 15 Ml Drops) 1 drop EYE-BOTH DAILY PRN PRN Reason: allergy sx Last Admin: 01/18/25 09:20 Dose: 1 drop Atorvastatin Calcium (Atorvastatin Calcium 40 Mg Tablet) 40 mg PO DAILY [facility] Last Admin: 02/08/25 09:19 Dose: 40 mg Benztropine Mesylate (Benztropine Mesylate 1 Mg Tablet) 2 mg PO BID [facility] Last Admin: 02/08/25 20:06 Dose: 2 mg Bisacodyl (Bisacodyl 5 Mg Tablet.) 10 mg PO BEDTIME PRN PRN Reason: Constipation Last Admin: 01/28/25 22:09 Dose: 10 mg Calcitriol (Calcitriol 0.25 Mcg Capsule) 0.25 mcg PO DAILY [facility] Last Admin: 02/08/25 09:19 Dose: 0.25 mcg Clonidine HCl (Clonidine Hcl 0.1 Mg Tablet) 0.1 mg PO TID PRN; Protocol PRN Reason: anxiety Last Admin: 02/06/25 20:20 Dose: 0.1 mg Docusate Sodium (Docusate Sodium 100 Mg Capsule) 100 mg PO BEDTIME [facility] Last Admin: 02/08/25 20:06 Dose: 100 mg Empagliflozin (Empagliflozin 10 Mg Tablet) 10 mg PO DAILY [facility] Last Admin: 02/08/25 09:19 Dose: 10 mg Escitalopram Oxalate (Escitalopram Oxalate 20 Mg Tablet) 20 mg PO DAILY [facility] Last Admin: 02/08/25 09:19 Dose: 20 mg Famotidine (Famotidine 20 Mg Tablet) 20 mg PO DAILY [facility] Last Admin: 02/08/25 09:19 Dose: 20 mg Ferrous Sulfate (Ferrous Sulfate 324 Mg Tablet.) 324 mg PO Q2D [facility] Last Admin: 02/08/25 13:23 Dose: 324 mg Haloperidol (Haloperidol 5 Mg Tablet) 5 mg PO BID [facility] Last Admin: 02/08/25 20:06 Dose: 5 mg Hydralazine HCl (Hydralazine Hcl 50 Mg Tablet) 50 mg PO TID [facility]; Protocol Last Admin: 02/08/25 20:06 Dose: 50 mg Hydroxyzine HCl (Hydroxyzine Hcl 25 Mg Tablet) 25 mg PO Q6H PRN PRN Reason: mild anxiety Last Admin: 01/29/25 22:01 Dose: 25 mg Lactulose (Lactulose 20 Gm/30 Ml Solution) 30 gm PO DAILY PRN PRN Reason: Constipation Last Admin: 01/25/25 14:29 Dose: 30 gm Lamotrigine (Lamotrigine 100 Mg Tablet) 200 mg PO BID [facility] Last Admin: 02/08/25 20:07 Dose: 200 mg Loratadine (Loratadine 10 Mg Tablet) 10 mg PO Q2D [facility] Last Admin: 02/08/25 09:20 Dose: Not Given Magnesium Hydroxide (Milk Of Magnesia 30 Ml Oral.Susp) 30 ml PO BID PRN PRN Reason: Constipation Last Admin: 01/24/25 11:08 Dose: 30 ml Nicotine Polacrilex (Nicotine Polacrilex 2 Mg Gum) 4 mg BUCCAL Q2H PRN PRN Reason: Nicotine Cravings Omeprazole (Omeprazole 20 Mg Capsule.Dr) 20 mg PO DAILY@0630 [facility] Last Admin: 02/08/25 06:26 Dose: 20 mg Polyethylene Glycol (Polyethylene Glycol 3350 17 Gm Powd.Pack) 17 gm PO DAILY [facility] Last Admin: 02/08/25 09:20 Dose: 17 gm Quetiapine Fumarate (Quetiapine Fumarate 50 Mg Tablet) 50 mg PO TID PRN PRN Reason: agitation Last Admin: 02/03/25 21:31 Dose: 50 mg Quetiapine Fumarate (Quetiapine Fumarate 400 Mg Tablet) 400 mg PO BEDTIME [facility] Last Admin: 02/08/25 20:06 Dose: 400 mg Sodium Zirconium Cyclosilicate (Sodium Zirconium Cyclosilicate 10 Gm Powd.Pack) 10 gm PO DAILY [facility] Last Admin: 02/08/25 09:20 Dose: 10 gm Trazodone HCl (Trazodone Hcl 50 Mg Tablet) 50 mg PO BEDTIME MRX1 PRN PRN Reason: Insomnia Last Admin: 02/03/25 21:31 Dose: 50 mg Allergies Allergies Allergy/AdvReac Type Severity Reaction Status Date / Time No Known Allergies Allergy Verified 12/17/24 20:12 Assessment & Plan Assessment & Plan (1) Bipolar 1 disorder: Status: Acute Code(s): F31.9 - Bipolar disorder, unspecified (2) HTN (hypertension): Status: Acute Code(s): I10 - Essential (primary) hypertension Assessment and Plan: This evening, pt is questioning regime. He has needed reminders of changes this week due to CKD and hyperkalemia by the team. (3) CKD (chronic kidney disease) stage 3, GFR 30-59 ml/min: Status: Acute Code(s): N18.30 - Chronic kidney disease, stage 3 unspecified Plan 64-year-old male with a past medical history was listed below presented to emergency department at [facility] with mental status changes. Now admitted to inpatient psych for further care. 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 Chronic kidney disease stage 4/diabetic nephropathy and hypertensive renal disease Avoid nephrotoxins Followed by Dr. Maravilla as an outpatient Continue calcitriol Type 2 diabetes Hemoglobin A1c 6.8 Continue Jardiance Hypertension/HLD Losartan DC due to kidney injury, Continue Norvasc, hydralazine 25 t.i.d. Recently started atorvastatin Clonidine t.i.d. p.r.n. Blood pressure well controlled 01/14/25: Continue treatment. Support/Educate 01/15, 16: no changes - f/u on tremor 01/17: Seroquel 400 mg HS CMP 01/18. Continue to monitor for tremor. 01/18: Continue tx 01/20: Continue tx 01/21: Variable BP's- Hospitalist may need to see again. Increase Seroquel to 500 mg HS Continue to monitor. 01/22 Patient reports that he is doing good and that Seroquel seems to be helping him. He said he slept well and wants to continue with current regimen. Some exuberant behavior, happily yelling in the hallway about buddhist things -continue treatment plan 01/23 paranoid ideations expressed 01/25 Met with pt and Piter STINSON. As pt is now unable to return to mother's home the [facility] case mgt idea was represented by Mr. Donnelly. Pt declined. He would like Angelita Hancock to be contacted [phone] and signed a YARA to make a connection with her. Discussed meds. Olanzapine will be discontinued. Risperdal 1 mg bid trial will begin today. Pt reports constipation today. He reported resolution to tw on 01/24, then to evening team reported constipation and was given Magnesium Citrate. Lactulose ordered today. 01/26 I am deeply hurt . You let two lesbians stay here and want me, a trejo, black man to leave. You will not hire me and I think this is discrimination. Discussed the above and attempted to clarify pt's perceptions. Pt states he is working with the [facility] and human services [facility] and believes he has been discriminated against. Discussed pt having relief of constipation. No discharge date planned as yet. Pt refusing all resources, believes he will live and work on . Continues with delusional content. First day of change to Risperdal from Olanzapine Full review of meds with pt today. ?01/27/25:Patient is visible, social, pleasant and cooperative. overly bright upon approach. He is happy to be here and want to be here when asked what his treatment plan looks like. He feels grateful to be taken care of by unit staff. Report no issues with appetite or sleep. Denies SI/SIB/HI/AVH. No behavior issues Per nursing,patient slept for 8 hours. compliant witth meds. No side effects noted or reported. 01/28/25: Met with pt and Piter STINSON. Discussion of discharge continued. At this time pt refuses referrals to shelters, refuses to talk with his family to assess if he can resolve issues. References that he is discriminated against as a black trejo male by reminding us we have hired lesbians to work on the unit. Threatening to us in meeting today. Reports he is not ready to go. Reports that he sees others coming in here and team hires them to work and he wants to be offered a job so he may live here. Attempted to explain that patients come into the unit for care, not for a job. Pt does not believe this to be true. Requested to use tw phone to call his advocate Angelita Hancock, [place] Director of Health and Human Services. Pt left a message and called again about 30 minutes later, speaking with Ms. Hancock directly, however with only a social discussion to be continued post holidays. Pt clearly let us know that he would have Ms. Hancock and Mayor Nikki close the hospital immediately should we not follow his instructions. Later in the day pt requested team go to security so he could see his bank cards. When he was told this would have to wait as the shift was changing he came to this communications writer and informed me that he had placed a call to police to report that tw had stolen his bank cards. Incidents such as this are increased in frequency. Pt requested to decrease Seroquel to 400 mg HS from 500 mg due to anger about discharge discussion which was put in place. 01/29/25: Met with patient in the white, reports that he has a better day today. Patient states that I just found down that everyone has problems . Reports that it was rough for him during the holiday. When asked his plan for today, he says I may pack a little bit to get ready as he will be discharged soon. Reported that he will be discharged home with mom where he was raised . Bright, friendly, pleasant and cooperative, but can be labile, irritable, and delusional. However, do not make any delusional statements during this encounter. Per nursing, patient slept for 8 hours, can be irritable. No side effects from medications. 01/30/25: Patient is superficial, visible and pleasant upon approach. He reports calling his mon 3 times and plan to call her again. This provider asks reasons for calling call many times, he says it is his mom who is 80+ y.o . Patient reports there is no privacy for him to talk to his mom which nursing reports he was on the phone irritable. earlier of today. Patient is not irritable during assessment, concrete. Denies SI/SIB/HI/AVH but can be delusions and paranoid. Meds compliant, no side effect, slept for 8 hours. 01/31/25: Patient is not pleasant as he is usually with this provider but not angry or irritable toward this provider. 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 Ask this provider if able to attend to meeting with Paddy and Nitin this week. Racing thoughts, poor judgment, restless. Appear to make himself very busy, back and forth with SW, not happy with services that he has received even though he is not straight forward with his provider about it. However, compliant with meds. No side effects. Denies SI/SIB/HI/AVH. BP elevated as the result. 02/01/25:Discussed discharge with pt today. He requests 02/03 as does his mother as mother will be going to [place] 02/02 for an eye procedure and will not be able to drive for a few days. Pt reports he feels ready to go home. Denies SI,HI, AH, VH. Plan: Discharge 02/03/25. 02/02/25: Angry and accusatory today. Pt declines discharge due to his tooth being swollen and having a back ache. Hospitalist met with pt to check in regarding above concerns, he angrily refused and told her to f---off. Met with pt and Piter STINSON. Pt reports he will not discharge tomorrow. He asks that we begin the appeal process for him to remain in pt, which Britany STINSON will initiate. Discussed his tooth pain- reviewed with pt antibiotic course that was done and that dentists will not come to the unit. Pt is angry that he does not have an appt. Discussed that we will need to wait until he discharges. Discussed back pain-this is the first time he has told tw of this. He declines to give details regarding how long the pain has been going on, only to report lower back and flank pain. Pt expressed accusations that he did not receive a notice in writing that I had called his mother as he requested on 02/01. He expressed that he had asked tw several times to get him an discharge rn and this was not done. [facility] did follow up with him- in person and in writing which we reviewed. He was accusatory that he was not informed of the CV's he signed on M5 and on the medical unit. Reports feeling he is discriminated against as he is a black trejo male. Later in the day he reported to team he had lost paperwork, believes it was taken from his room, and will call Medicare about it. Plan: Appeal initiated by Britany STINSON Risperdal decreased to 0.5 mg bid Refusing care, wanting to remain in patient to address tooth pain, back pain Declined med changes today, ?stronger antipsychotic to assist pt with sx mgt. 02/03: DC Risperdal Haldol 5 mg bid Pre MRI eval MRI brain HIV, RPR 02/04: Continue tx Pt has filed a secondary Medicare appeal to remain in the hospital. 02/05: Reviewed with team, review of plan of care. Pt is visable, active in milieu. Pulmonology requested repeat chest xray as they are in process of deciding on treatment after earlier chest x ray showing possible pneumonia with pt being asymptomatic. Pt is in agreement. Pt is active with peers, attending of groups and denies current sx or issues in our meeting today. 02/07/25: Continue regime. 02/08/25: Met with patient in the exam, reports that his mood is good today. Denies any sleeping or appetite issues. Patient reports no anxiety or depression, and denies other safety concerns or hallucinations. Reported that his mom will be on a cruise for 12 days started next Friday. Patient states I know it may not happen that I wish I can go to see my mom before she goes on the cruise . When this provider asked for clarification if patient actually want to be discharged to see his mom, he says that he would like to see his mom and return here to the hospital. Patient denies any plans goals of him for future when asked the patient what he would like to do when he be discharged. 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 Patient slept for 8 hours last night, hypertensive medication were held yesterday d/t low blood pressure. However, elevated today. Patient appeared to not planning to discharge, do not think that he wants to be discharged. He told this provider his attending- Angelaie is taper him down on Seroquel, he asked if he is can be lowered down to another 100 mg. Appears in good behavior control. Continue with current treatment plan. Tentatively to be discharged tomorrow or the next day. Patient educated on: medication risk/benefits and therapeutic strategies Informed Consent: understands and further education needed Reason for continued inpatient stay Substantial Risk for: med/psych decompensation Time Spent With Patient Time: Total time managing care of this patient today ____ minutes.
[2025-02-09 08:25] VITALS: BP 115/72
[2025-02-09] MEDS: ARIPiprazole 30 MG TABLET PO (08:26)
--- NOTE | 2025-02-09 10:07 | P.PNPSI_ITS ---
Subjective Subjective Date of Service: 02/09/25 Reason For Visit: bipolar disorder Subjective Notes: Conditional Voluntary Healthcare Proxy: No Guardianship: No Medical Problems Affecting Mental Status: No Interim History: Juve continues to wait for an appeal decision regarding remaining in pt. We learned today that [employer] appeal was not filed on 02/04 and that this would need to be done again. Discussed with pt, Britany STINSON and Piter STINSON if he wanted to file a second time or if he felt he was prepared for discharge as he has been behaviorally stable. Pt responded that that was up to tw- will you give me a job here.? Discussed with pt that we could not offer employment as he is currently with us receiving treatment and these boundaries needed to be clear. Pt then decided he would like to file the second appeal and with the assistance of Britany STINSON this was successfully completed. Pt was informed he would have a decision in approximately 72 business hours. Pt denies SI,HI,AH,VH. He is responding to antibiotics for reported ear ache and participating in the milieu. Medication Compliance: Yes Side effects from medications: No Attending Groups: Yes Review of Systems Acute medical concerns: No Review of Systems Review of Systems Reports ear ache is improved. Mental Status Exam Mental Status Exam Patient Appearance: Appropriate Patient Orientation: Person, Place, Time and Situation Level of Consciousness: Alert Patient Behavior: Talkative and Good Eye Contact Mood Description: Appropriate Affect Description: Appropriate Patient Cognition Impaired: No Ability to Follow Directions: Good Speech Pattern: Spontaneous Speech Memory Description: Episodic Impaired Hallucinations: None Delusions: Present (presents with fixed delusional ideas, not responsive to regime since admission) Thought Process: Goal Oriented Thought Content: positive for Circumstantial, positive for Goal Oriented and positive for Suicidal Ideation (denies) Depressive Symptoms: Thoughts of /Suicide (denies) Judgement: Fair Diagnostics Vital Signs (24Hr): Vital Signs - 24 hr 02/08/25 15:38 02/08/25 20:00 02/08/25 20:06 Temperature 97.6 F Pulse Rate 105 H Respiratory Rate 20 Blood Pressure 136/78 172/81 H 172/81 H Pulse Oximetry 99 Oxygen Delivery Method Room Air 02/09/25 08:25 Temperature Pulse Rate Respiratory Rate Blood Pressure 115/72 Pulse Oximetry Oxygen Delivery Method Labs 02/04/25 12:56 02/04/25 12:56 Imaging Radiology Impressions: ITS Impressions Abdomen X-Ray 02/03/25 11:36 IMPRESSION: Large to moderate volume of stool, most pronounced in the rectum. Suspected calcific tendinitis involving gluteal tendons on the right, correlate for symptoms of right hip pain. Electronically signed by: Malcom Batres MD 02/03/2025 11:52 AM EST RP Chest X-Ray 02/03/25 11:39 IMPRESSION: Concerning acute small airway inflammatory processes versus multifocal pneumonia versus mild interstitial edema. Electronically signed by: Daniel Agosto MD 02/03/2025 11:51 AM EST RP Skull X-Ray 02/03/25 11:42 IMPRESSION: Negative for foreign body or gross acute fracture, skull. Electronically signed by: Daniel Agosto MD 02/03/2025 11:52 AM EST RP Brain MRI 02/04/25 14:45 IMPRESSION: 1. No evidence of intracranial hemorrhage, acute infarction, mass effect, or edema. 2. 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 3. There are mild white matter changes of small vessel ischemia. Electronically signed by: Jaden Talbert MD 02/04/2025 04:18 PM EST RP Medications Medications Current Medications Acetaminophen (Acetaminophen 325 Mg Tablet) 650 mg PO Q6H PRN PRN Reason: Pain, Mild (Pain Scale 1-3) Last Admin: 02/08/25 20:31 Dose: 650 mg Al Hydroxide/Mg Hydroxide (Magnesium Hydrox/Alum Hydrox 30 Ml Oral.Susp) 30 ml PO Q6H PRN PRN Reason: Heartburn/Nausea Last Admin: 01/23/25 17:27 Dose: 30 ml Amlodipine Besylate (Amlodipine Besylate 10 Mg Tablet) 10 mg PO DAILY [facility]; Protocol Last Admin: 02/09/25 08:25 Dose: 10 mg Amoxicillin/Clavulanate Potassium (Amoxicillin/Potassium Clav 875 Mg Tablet) 875 mg PO BID [facility] Last Admin: 02/09/25 08:26 Dose: 875 mg Aripiprazole (Aripiprazole 30 Mg Tablet) 30 mg PO DAILY [facility] Last Admin: 02/09/25 08:26 Dose: 30 mg Artificial Tears (Artificial Tears 15 Ml Drops) 1 drop EYE-BOTH DAILY PRN PRN Reason: allergy sx Last Admin: 01/18/25 09:20 Dose: 1 drop Atorvastatin Calcium (Atorvastatin Calcium 40 Mg Tablet) 40 mg PO DAILY [facility] Last Admin: 02/09/25 08:26 Dose: 40 mg Benztropine Mesylate (Benztropine Mesylate 1 Mg Tablet) 2 mg PO BID [facility] Last Admin: 02/09/25 08:26 Dose: 2 mg Bisacodyl (Bisacodyl 5 Mg Tablet.Dr) 10 mg PO BEDTIME PRN PRN Reason: Constipation Last Admin: 01/28/25 22:09 Dose: 10 mg Calcitriol (Calcitriol 0.25 Mcg Capsule) 0.25 mcg PO DAILY [facility] Last Admin: 02/09/25 08:26 Dose: 0.25 mcg Clonidine HCl (Clonidine Hcl 0.1 Mg Tablet) 0.1 mg PO TID PRN; Protocol PRN Reason: anxiety Last Admin: 02/06/25 20:20 Dose: 0.1 mg Docusate Sodium (Docusate Sodium 100 Mg Capsule) 100 mg PO BEDTIME [facility] Last Admin: 02/08/25 20:06 Dose: 100 mg Empagliflozin (Empagliflozin 10 Mg Tablet) 10 mg PO DAILY [facility] Last Admin: 02/09/25 08:26 Dose: 10 mg Escitalopram Oxalate (Escitalopram Oxalate 20 Mg Tablet) 20 mg PO DAILY [facility] Last Admin: 02/09/25 08:25 Dose: 20 mg Famotidine (Famotidine 20 Mg Tablet) 20 mg PO DAILY [facility] Last Admin: 02/09/25 08:26 Dose: 20 mg Ferrous Sulfate (Ferrous Sulfate 324 Mg Tablet.) 324 mg PO Q2D [facility] Last Admin: 02/08/25 13:23 Dose: 324 mg Haloperidol (Haloperidol 5 Mg Tablet) 5 mg PO BID [facility] Last Admin: 02/09/25 08:26 Dose: 5 mg Hydralazine HCl (Hydralazine Hcl 50 Mg Tablet) 50 mg PO TID [facility]; Protocol Last Admin: 02/09/25 08:26 Dose: 50 mg Hydroxyzine HCl (Hydroxyzine Hcl 25 Mg Tablet) 25 mg PO Q6H PRN PRN Reason: mild anxiety Last Admin: 01/29/25 22:01 Dose: 25 mg Lactulose (Lactulose 20 Gm/30 Ml Solution) 30 gm PO DAILY PRN PRN Reason: Constipation Last Admin: 01/25/25 14:29 Dose: 30 gm Lamotrigine (Lamotrigine 100 Mg Tablet) 200 mg PO BID [facility] Last Admin: 02/09/25 08:26 Dose: 200 mg Loratadine (Loratadine 10 Mg Tablet) 10 mg PO Q2D [facility] Last Admin: 02/08/25 09:20 Dose: Not Given Magnesium Hydroxide (Milk Of Magnesia 30 Ml Oral.Susp) 30 ml PO BID PRN PRN Reason: Constipation Last Admin: 01/24/25 11:08 Dose: 30 ml Nicotine Polacrilex (Nicotine Polacrilex 2 Mg Gum) 4 mg BUCCAL Q2H PRN PRN Reason: Nicotine Cravings Omeprazole (Omeprazole 20 Mg Capsule.Dr) 20 mg PO DAILY@0630 [facility] Last Admin: 02/09/25 07:37 Dose: 20 mg Polyethylene Glycol (Polyethylene Glycol 3350 17 Gm Powd.Pack) 17 gm PO DAILY [facility] Last Admin: 02/09/25 08:27 Dose: 17 gm Quetiapine Fumarate (Quetiapine Fumarate 50 Mg Tablet) 50 mg PO TID PRN PRN Reason: agitation Last Admin: 02/03/25 21:31 Dose: 50 mg Quetiapine Fumarate (Quetiapine Fumarate 400 Mg Tablet) 400 mg PO BEDTIME [facility] Last Admin: 02/08/25 20:06 Dose: 400 mg Sodium Zirconium Cyclosilicate (Sodium Zirconium Cyclosilicate 10 Gm Powd.Pack) 10 gm PO DAILY [facility] Last Admin: 02/09/25 08:26 Dose: 10 gm Trazodone HCl (Trazodone Hcl 50 Mg Tablet) 50 mg PO BEDTIME MRX1 PRN PRN Reason: Insomnia Last Admin: 02/03/25 21:31 Dose: 50 mg Allergies Allergies Allergy/AdvReac Type Severity Reaction Status Date / Time No Known Allergies Allergy Verified 12/17/24 20:12 Assessment & Plan Assessment & Plan (1) Bipolar 1 disorder: Status: Acute Code(s): F31.9 - Bipolar disorder, unspecified (2) HTN (hypertension): Status: Acute Code(s): I10 - Essential (primary) hypertension Assessment and Plan: This evening, pt is questioning regime. He has needed reminders of changes this week due to CKD and hyperkalemia by the team. (3) CKD (chronic kidney disease) stage 3, GFR 30-59 ml/min: Status: Acute Code(s): N18.30 - Chronic kidney disease, stage 3 unspecified Plan 64-year-old male with a past medical history was listed below presented to emergency department at [facility] with mental status changes. Now admitted to inpatient psych for further care. 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 Chronic kidney disease stage 4/diabetic nephropathy and hypertensive renal disease Avoid nephrotoxins Followed by Dr. Maravilla as an outpatient Continue calcitriol Type 2 diabetes Hemoglobin A1c 6.8 Continue Jardiance Hypertension/HLD Losartan DC due to kidney injury, Continue Norvasc, hydralazine 25 t.i.d. Recently started atorvastatin Clonidine t.i.d. p.r.n. Blood pressure well controlled 01/14/25: Continue treatment. Support/Educate 01/15, : no changes - f/u on tremor 01/17: Seroquel 400 mg HS CMP 01/18. Continue to monitor for tremor. 01/18: Continue tx 01/20: Continue tx 01/21: Variable BP's- Hospitalist may need to see again. Increase Seroquel to 500 mg HS Continue to monitor. 01/22 Patient reports that he is doing good and that Seroquel seems to be helping him. He said he slept well and wants to continue with current regimen. Some exuberant behavior, happily yelling in the hallway about faith things -continue treatment plan 01/23 paranoid ideations expressed 01/25 Met with pt and Piter Donnelly [facility]. As pt is now unable to return to mother's home the [facility] case mgt idea was represented by Mr. Donnelly. Pt declined. He would like Angelita Hancock to be contacted [phone] and signed a YARA to make a connection with her. Discussed meds. Olanzapine will be discontinued. Risperdal 1 mg bid trial will begin today. Pt reports constipation today. He reported resolution to tw on 01/24, then to evening team reported constipation and was given Magnesium Citrate. Lactulose ordered today. 01/26 I am deeply hurt . You let two lesbians stay here and want me, a trejo, black man to leave. You will not hire me and I think this is discrimination. Discussed the above and attempted to clarify pt's perceptions. Pt states he is working with [facility] [place] and believes he has been discriminated against. Discussed pt having relief of constipation. No discharge date planned as yet. Pt refusing all resources, believes he will live and work on [facility]. Continues with delusional content. First day of change to Risperdal from Olanzapine Full review of meds with pt today. ?01/27/25:Patient is visible, social, pleasant and cooperative. overly bright upon approach. He is happy to be here and want to be here when asked what his treatment plan looks like. He feels grateful to be taken care of by unit staff. Report no issues with appetite or sleep. Denies SI/SIB/HI/AVH. No behavior issues Per nursing,patient slept for 8 hours. compliant witth meds. No side effects noted or reported. 01/28/25: Met with pt and Piter STINSON. Discussion of discharge continued. At this time pt refuses referrals to shelters, refuses to talk with his family to assess if he can resolve issues. References that he is discriminated against as a black trejo male by reminding us we have hired lesbians to work on the unit. Threatening to us in meeting today. Reports he is not ready to go. Reports that he sees others coming in here and team hires them to work and he wants to be offered a job so he may live here. Attempted to explain that patients come into the unit for care, not for a job. Pt does not believe this to be true. Requested to use tw phone to call his advocate Angelita Hancock [place] Director [facility] and Human Services. Pt left a message and called again about 30 minutes later, speaking with Ms. Hancock directly, however with only a social discussion to be continued post holidays. Pt clearly let us know that he would have Ms. Hancock and Mayor Nikki close the hospital immediately should we not follow his instructions. Later in the day pt requested team go to security so he could see his bank cards. When he was told this would have to wait as the shift was changing he came to this insurance underwriter and informed me that he had placed a call to police to report that tw had stolen his bank cards. Incidents such as this are increased in frequency. Pt requested to decrease Seroquel to 400 mg HS from 500 mg due to anger about discharge discussion which was put in place. 01/29/25: Met with patient in the white, reports that he has a better day today. Patient states that I just found down that everyone has problems . Reports that it was rough for him during the holiday. When asked his plan for today, he says I may pack a little bit to get ready as he will be discharged soon. Reported that he will be discharged home with mom where he was raised . Bright, friendly, pleasant and cooperative, but can be labile, irritable, and delusional. However, do not make any delusional statements during this encounter. Per nursing, patient slept for 8 hours, can be irritable. No side effects from medications. 01/30/25: Patient is superficial, visible and pleasant upon approach. He reports calling his mon 3 times and plan to call her again. This provider asks reasons for calling call many times, he says it is his mom who is 80+ y.o . Patient reports there is no privacy for him to talk to his mom which nursing reports he was on the phone irritable. earlier of today. Patient is not irritable during assessment, concrete. Denies SI/SIB/HI/AVH but can be delusions and paranoid. Meds compliant, no side effect, slept for 8 hours. 01/31/25: Patient is not pleasant as he is usually with this provider but not angry or irritable toward this provider. however, he is perservaretive on obtaining a laborer general. Ask this provider if able to attend to meeting with Paddy and Nitin this week. Racing thoughts, poor judgment, restless. Appear to make himself very busy, back and forth with SW, not happy with services that he has received even though he is not straight forward with his provider about it. However, compliant with meds. No side effects. Denies SI/SIB/HI/AVH. BP elevated as the result. 02/01/25:Discussed discharge with pt today. He requests 02/03 as does his mother as mother will be going to [place] 02/02 for an eye procedure and will not be able to drive for a few days. Pt reports he feels ready to go home. Denies SI,HI, AH, VH. Plan: Discharge 02/03/25. 02/02/25: Angry and accusatory today. Pt declines discharge due to his tooth being swollen and having a back ache. Hospitalist met with pt to check in regarding above concerns, he angrily refused and told her to f---off. Met with pt and Piter STINSON. Pt reports he will not discharge tomorrow. He asks that we begin the appeal process for him to remain in pt, which Britany STINSON will initiate. Discussed his tooth pain- reviewed with pt antibiotic course that was done and that dentists will not come to the unit. Pt is angry that he does not have an appt. Discussed that we will need to wait until he discharges. Discussed back pain-this is the first time he has told tw of this. He declines to give details regarding how long the pain has been going on, only to report lower back and flank pain. Pt expressed accusations that he did not receive a notice in writing that I had called his mother as he requested on 02/01. He expressed that he had asked tw several times to get him an financial sales consultant and this was not done. [facility] did follow up with him- in person and in writing which we reviewed. He was accusatory that he was not informed of the CV's he signed on [address] and on the medical unit. Reports feeling he is discriminated against as he is a black trejo male. Later in the day he reported to team he had lost paperwork, believes it was taken from his room, and will call Medicare about it. Plan: Appeal initiated by Britany STINSON Risperdal decreased to 0.5 mg bid Refusing care, wanting to remain in patient to address tooth pain, back pain Declined med changes today, ?stronger antipsychotic to assist pt with sx mgt. 02/03: DC Risperdal Haldol 5 mg bid Pre MRI eval MRI brain HIV, RPR 02/04: Continue tx Pt has filed a secondary Medicare appeal to remain in the hospital. 02/05: Reviewed with team, review of plan of care. Pt is visable, active in milieu. Pulmonology requested repeat chest xray as they are in process of deciding on treatment after earlier chest x ray showing possible pneumonia with pt being asymptomatic. Pt is in agreement. Pt is active with peers, attending of groups and denies current sx or issues in our meeting today. 02/07/25: Continue regime. 02/08/25: Met with patient in the exam, reports that his mood is good today. Denies any sleeping or appetite issues. Patient reports no anxiety or depression, and denies other safety concerns or hallucinations. Reported that his mom will be on a cruise for 12 days started next Friday. Patient states I know it may not happen that I wish I can go to see my mom before she goes on the cruise . When this provider asked for clarification if patient actually want to be discharged to see his mom, he says that he would like to see his mom and return here to the hospital. Patient denies any plans goals of him for future when asked the patient what he would like to do when he be discharged. 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 Patient slept for 8 hours last night, hypertensive medication were held yesterday d/t low blood pressure. However, elevated today. Patient appeared to not planning to discharge, do not think that he wants to be discharged. He told this provider his attending- Angelaie is taper him down on Seroquel, he asked if he is can be lowered down to another 100 mg. Appears in good behavior control. Continue with current treatment plan. Tentatively to be discharged tomorrow or the next day. 02/09/25: Juve continues to wait for an appeal decision regarding remaining in pt. We learned today that [employer] appeal was not filed on 02/04 and that this would need to be done again. Discussed with pt, Britany STINSON and Piter STINSON if he wanted to file a second time or if he felt he was prepared for discharge as he has been behaviorally stable. Pt responded that that was up to tw- will you give me a job here.? Discussed with pt that we could not offer employment as he is currently with us receiving treatment and these boundaries needed to be clear. Pt then decided he would like to file the second appeal and with the assistance of Britany STINSON this was successfully completed. Pt was informed he would have a decision in approximately 72 business hours. Pt denies SI,HI,AH,VH. He is responding to antibiotics for reported ear ache and participating in the milieu. Plan: Continue regime. Reason for continued inpatient stay Substantial Risk for: stable for discharge Time Spent With Patient Time: Total time managing care of this patient today ____ minutes.
[2025-02-09 15:28] VITALS: BP 134/70
[2025-02-09 19:59] VITALS: BP 144/73; PULSE 98; RESP 18; TEMP 37.3; O2SAT 98
[2025-02-10 08:00] VITALS: BP 146/76; PULSE 97; RESP 16; TEMP 37.2; O2SAT 100
[2025-02-10 08:32] VITALS: BP 146/76
[2025-02-10] MEDS: ARIPiprazole 30 MG TABLET PO (08:32)
--- NOTE | 2025-02-10 10:02 | P.PNPSI_ITS ---
Subjective Subjective Date of Service: 02/10/25 Reason For Visit: bipolar disorder Subjective Notes: Conditional Voluntary Healthcare Proxy: No Guardianship: No Medical Problems Affecting Mental Status: No Interim History: Pt reports his ear pain to be diminished. He requests we begin to taper Seroquel by 100 mg to 300 as he is not in need of this. Discussed that this dose was a stable dose on admit and it may place him at risk- he asks to taper. Will hold at this time. Denies SI,HI,AH,VH. Reports sleep and appetite are intact. Team reports he slept eight hours last evening. Pt has talked with Medicare appeal unit today. He asks team if he will be authorized to remain on the unit until the decision is made and this was affirmed. Pt's mother left tw a voice mail today. Pt was asked to contact her to inform her that he was withdrawn permission to speak with her. He reports he has notified her. Team notes some lability of mood- worried at times, bright at times. Pt discussed that his mother will travel for the holidays and he is not wanting to stay in her home without her present during this trip. Will order a.m. labs. Medication Compliance: Yes Side effects from medications: No Attending Groups: Yes Review of Systems Acute medical concerns: No Medical Review of Systems: unchanged Review of Systems Review of Systems Ear pain diminished Mental Status Exam Mental Status Exam Patient Appearance: Appropriate Patient Orientation: Person, Place, Time and Situation Level of Consciousness: Alert Patient Behavior: Talkative and Good Eye Contact Mood Description: Appropriate Affect Description: Appropriate Patient Cognition Impaired: No Ability to Follow Directions: Good Speech Pattern: Spontaneous Speech Memory Description: Episodic Impaired Hallucinations: None Delusions: Present (presents with fixed delusional ideas, not responsive to regime since admission) Thought Process: Goal Oriented Thought Content: positive for Circumstantial, positive for Goal Oriented and positive for Suicidal Ideation (denies) Depressive Symptoms: Thoughts of /Suicide (denies) Judgement: Fair Diagnostics Vital Signs (24Hr): Vital Signs - 24 hr 02/09/25 15:28 02/09/25 19:59 02/10/25 08:32 Temperature 99.1 F Pulse Rate 98 Respiratory Rate 18 Blood Pressure 134/70 144/73 H 146/76 H Pulse Oximetry 98 Oxygen Delivery Method Room Air Labs 02/04/25 12:56 02/04/25 12:56 Imaging Radiology Impressions: ITS Impressions Abdomen X-Ray 02/03/25 11:36 IMPRESSION: Large to moderate volume of stool, most pronounced in the rectum. Suspected calcific tendinitis involving gluteal tendons on the right, correlate for symptoms of right hip pain. Electronically signed by: Malcom Batres MD 02/03/2025 11:52 AM EST RP Chest X-Ray 02/03/25 11:39 IMPRESSION: Concerning acute small airway inflammatory processes versus multifocal pneumonia versus mild interstitial edema. Electronically signed by: Daniel Agosto MD 02/03/2025 11:51 AM EST RP Skull X-Ray 02/03/25 11:42 IMPRESSION: Negative for foreign body or gross acute fracture, skull. Electronically signed by: Daniel Agosto MD 02/03/2025 11:52 AM EST RP Brain MRI 02/04/25 14:45 IMPRESSION: 1. No evidence of intracranial hemorrhage, acute infarction, mass effect, or edema. 2. 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 3. There are mild white matter changes of small vessel ischemia. Electronically signed by: Jaden Talbert MD 02/04/2025 04:18 PM EST RP Medications Medications Current Medications Acetaminophen (Acetaminophen 325 Mg Tablet) 650 mg PO Q6H PRN PRN Reason: Pain, Mild (Pain Scale 1-3) Last Admin: 02/08/25 20:31 Dose: 650 mg Al Hydroxide/Mg Hydroxide (Magnesium Hydrox/Alum Hydrox 30 Ml Oral.Susp) 30 ml PO Q6H PRN PRN Reason: Heartburn/Nausea Last Admin: 01/23/25 17:27 Dose: 30 ml Amlodipine Besylate (Amlodipine Besylate 10 Mg Tablet) 10 mg PO DAILY [facility]; Protocol Last Admin: 02/10/25 08:32 Dose: 10 mg Amoxicillin/Clavulanate Potassium (Amoxicillin/Potassium Clav 875 Mg Tablet) 875 mg PO BID [facility] Last Admin: 02/10/25 08:31 Dose: 875 mg Aripiprazole (Aripiprazole 30 Mg Tablet) 30 mg PO DAILY [facility] Last Admin: 02/10/25 08:32 Dose: 30 mg Artificial Tears (Artificial Tears 15 Ml Drops) 1 drop EYE-BOTH DAILY PRN PRN Reason: allergy sx Last Admin: 01/18/25 09:20 Dose: 1 drop Atorvastatin Calcium (Atorvastatin Calcium 40 Mg Tablet) 40 mg PO DAILY [facility] Last Admin: 02/10/25 08:31 Dose: 40 mg Benztropine Mesylate (Benztropine Mesylate 1 Mg Tablet) 2 mg PO BID [facility] Last Admin: 02/10/25 08:31 Dose: 2 mg Bisacodyl (Bisacodyl 5 Mg Tablet.Dr) 10 mg PO BEDTIME PRN PRN Reason: Constipation Last Admin: 01/28/25 22:09 Dose: 10 mg Calcitriol (Calcitriol 0.25 Mcg Capsule) 0.25 mcg PO DAILY [facility] Last Admin: 02/10/25 08:31 Dose: 0.25 mcg Clonidine HCl (Clonidine Hcl 0.1 Mg Tablet) 0.1 mg PO TID PRN; Protocol PRN Reason: anxiety Last Admin: 02/06/25 20:20 Dose: 0.1 mg Docusate Sodium (Docusate Sodium 100 Mg Capsule) 100 mg PO BEDTIME [facility] Last Admin: 02/09/25 21:44 Dose: 100 mg Empagliflozin (Empagliflozin 10 Mg Tablet) 10 mg PO DAILY [facility] Last Admin: 02/10/25 08:32 Dose: 10 mg Escitalopram Oxalate (Escitalopram Oxalate 20 Mg Tablet) 20 mg PO DAILY [facility] Last Admin: 02/10/25 08:31 Dose: 20 mg Famotidine (Famotidine 20 Mg Tablet) 20 mg PO DAILY [facility] Last Admin: 02/10/25 08:32 Dose: 20 mg Ferrous Sulfate (Ferrous Sulfate 324 Mg Tablet.) 324 mg PO Q2D [facility] Last Admin: 02/08/25 13:23 Dose: 324 mg Haloperidol (Haloperidol 5 Mg Tablet) 5 mg PO BID [facility] Last Admin: 02/10/25 08:31 Dose: 5 mg Hydralazine HCl (Hydralazine Hcl 50 Mg Tablet) 50 mg PO TID [facility]; Protocol Last Admin: 02/10/25 08:32 Dose: 50 mg Hydroxyzine HCl (Hydroxyzine Hcl 25 Mg Tablet) 25 mg PO Q6H PRN PRN Reason: mild anxiety Last Admin: 01/29/25 22:01 Dose: 25 mg Lactulose (Lactulose 20 Gm/30 Ml Solution) 30 gm PO DAILY PRN PRN Reason: Constipation Last Admin: 01/25/25 14:29 Dose: 30 gm Lamotrigine (Lamotrigine 100 Mg Tablet) 200 mg PO BID [facility] Last Admin: 02/10/25 08:31 Dose: 200 mg Loratadine (Loratadine 10 Mg Tablet) 10 mg PO Q2D [facility] Last Admin: 02/10/25 08:33 Dose: Not Given Magnesium Hydroxide (Milk Of Magnesia 30 Ml Oral.Susp) 30 ml PO BID PRN PRN Reason: Constipation Last Admin: 01/24/25 11:08 Dose: 30 ml Nicotine Polacrilex (Nicotine Polacrilex 2 Mg Gum) 4 mg BUCCAL Q2H PRN PRN Reason: Nicotine Cravings Omeprazole (Omeprazole 20 Mg Capsule.Dr) 20 mg PO DAILY@0630 [facility] Last Admin: 02/10/25 06:17 Dose: 20 mg Polyethylene Glycol (Polyethylene Glycol 3350 17 Gm Powd.Pack) 17 gm PO DAILY [facility] Last Admin: 02/10/25 08:30 Dose: 17 gm Quetiapine Fumarate (Quetiapine Fumarate 50 Mg Tablet) 50 mg PO TID PRN PRN Reason: agitation Last Admin: 02/03/25 21:31 Dose: 50 mg Quetiapine Fumarate (Quetiapine Fumarate 400 Mg Tablet) 400 mg PO BEDTIME [facility] Last Admin: 02/09/25 20:39 Dose: 400 mg Sodium Zirconium Cyclosilicate (Sodium Zirconium Cyclosilicate 10 Gm Powd.Pack) 10 gm PO DAILY [facility] Last Admin: 02/10/25 08:30 Dose: 10 gm Trazodone HCl (Trazodone Hcl 50 Mg Tablet) 50 mg PO BEDTIME MRX1 PRN PRN Reason: Insomnia Last Admin: 02/03/25 21:31 Dose: 50 mg Allergies Allergies Allergy/AdvReac Type Severity Reaction Status Date / Time No Known Allergies Allergy Verified 12/17/24 20:12 Assessment & Plan Assessment & Plan (1) Bipolar 1 disorder: Status: Acute Code(s): F31.9 - Bipolar disorder, unspecified (2) HTN (hypertension): Status: Acute Code(s): I10 - Essential (primary) hypertension (3) CKD (chronic kidney disease) stage 3, GFR 30-59 ml/min: Status: Acute Code(s): N18.30 - Chronic kidney disease, stage 3 unspecified Plan 02/10/25: Pt reports his ear pain to be diminished. He requests we begin to taper Seroquel by 100 mg to 300 as he is not in need of this. Discussed that this dose was a stable dose on admit and it may place him at risk- he asks to taper. Will hold at this time. Denies SI,HI,AH,VH. Reports sleep and appetite are intact. Team reports he slept eight hours last evening. Pt has talked with Medicare appeal unit today. He asks team if he will be authorized to remain on the unit until the decision is made and this was affirmed. Pt's mother left tw a voice mail today. Pt was asked to contact her to inform her that he was withdrawn permission to speak with her. He reports he has notified her. Team notes some lability of mood- worried at times, bright at times. Pt discussed that his mother will travel for the holidays and he is not wanting to stay in her home without her present during this trip. Will order a.m. labs. Plan: Labs in the a.m. Hold on Seroquel tapering at this time. Reason for continued inpatient stay Substantial Risk for: stable for discharge Time Spent With Patient Time: Total time managing care of this patient today ____ minutes.
[2025-02-10 15:10] VITALS: BP 137/76
[2025-02-10] MEDS: Ferrous Sulfate 324 MG TABLET.DR PO (15:10)
[2025-02-10 19:41] VITALS: BP 140/70; PULSE 80; RESP 18; TEMP 37; O2SAT 98
[2025-02-11 07:59] LABS: MANUAL DIFF FLAG NO
[2025-02-11 08:01] LABS: Hematocrit 29.5 % (42.0-52.0); Hemoglobin 9.6 g/dl (14.0-18.0); Imm Gran Abs Auto 0.03 X10*3/uL (0.00-0.03); Imm Gran Pct Auto 1.0 % (0.0-0.4); Lymphocytes Absolute Auto 0.8 X10*3/uL (1.2-4.9); Mean Corpuscular HGB Conc 32.5 g/dl (31.0-36.0); Mean Corpuscular Hemoglobin 27.8 pg (27.0-33.0); Mean Corpuscular Volume 85.5 fL (80.0-98.0); NRBC Abs Auto 0.000 X10*3/uL (0.0-0.012); NRBC Pct Auto 0.0 /100WBC (0.0-0.2); Platelet Count 268 X10*3/uL (160-400); Red Blood Count 3.45 X10*6/uL (4.60-5.80); White Blood Count 3.0 X10*3/uL (4.8-10.8)
[2025-02-11 08:32] LABS: Alanine Aminotransferase 51 U/L (0-40); Albumin Level 4.5 g/dL (3.5-5.0); Alkaline Phosphatase 158 U/L (39-117); Anion Gap 17 (12-20); Aspartate Amino Transferase 39 U/L (5-37); Blood Urea Nitrogen 54 mg/dL (9-16); Calcium 9.8 mg/dL (8.4-10.2); Carbon Dioxide 23 mmol/L (22-29); Chloride 104 mmol/L (96-108); Estimated Glomerular Filt Rate 19; Potassium 4.8 mmol/L (3.3-5.1); Sodium 139 mmol/L (135-145); Total Protein 8.8 g/dL (6.5-8.0)
--- NOTE | 2025-02-11 08:37 | PM.EVENT ---
Event Note Date of Service: 02/11/25 Time Spent With Patient Time: Total time managing care of this patient today ____ minutes.
[2025-02-11 09:00] VITALS: BP 119/63; PULSE 95; RESP 18; TEMP 36.9; O2SAT 98
[2025-02-11] MEDS: ARIPiprazole 30 MG TABLET PO (09:29)
--- NOTE | 2025-02-11 10:18 | HO.PSYCHPN ---
Subjective Subjective Date of Service: 02/11/25 Reason For Visit: bipolar disorder Subjective Notes: Conditional Voluntary Healthcare Proxy: No Guardianship: No Medical Problems Affecting Mental Status: No Interim History: Pt denies SI,HI,AH,VH. Slept eight hours, attending intermittent groups. Angry with tw as you are supposed to hire me a contact lens edge buffer and you have not. This is a chronic complaint pt has had during the admission. Pt has [facility] number to discuss this, attempted to provide education regarding senior attorney presence when pt is voluntary on the unit. He persisted with other team members. Today, diagnostics updated. Hospitalist and renal attempted to meet with pt as LFT's are trending and there is a question of gall bladder dysfunction. As a result, team plan to stop atoravastatin and recommend OP cardiac consult for possible change to Repatha. They plan to ask pt to have a liver ultrasound as well. Also renal/DM issues, Jardiance they will stop due to GFR values and recommend Lantus or GLP-1. A1C is 7.3-8.8 and they believe pt needs tighter DM mgt. Team met with pt to discuss this. Pt would not allow the medical/renal team to explain and educate him regarding these values. They plan to make changes in regime. Insurance appeal remains pending. Team expects to have an answer on 02/14. Medication Compliance: Yes Side effects from medications: Yes (as noted) Attending Groups: Intermittent Review of Systems as noted Medical Review of Systems: unchanged Review of Systems Review of Systems Denies Mental Status Exam Mental Status Exam Patient Appearance: Appropriate Patient Orientation: Person, Place, Time and Situation Level of Consciousness: Alert Patient Behavior: Talkative and Good Eye Contact Mood Description: Appropriate Affect Description: Appropriate Patient Cognition Impaired: No Ability to Follow Directions: Good Speech Pattern: Spontaneous Speech Memory Description: Episodic Impaired Hallucinations: None Delusions: Present (presents with fixed delusional ideas, not responsive to regime since admission) Thought Process: Goal Oriented Thought Content: positive for Circumstantial, positive for Goal Oriented and positive for Suicidal Ideation (denies) Depressive Symptoms: Thoughts of /Suicide (denies) Judgement: Fair Diagnostics Vital Signs (24Hr): Vital Signs - 24 hr 02/10/25 15:10 02/10/25 19:41 02/11/25 09:00 Temperature 98.6 F 98.5 F Pulse Rate 80 95 Respiratory Rate 18 18 Blood Pressure 137/76 140/70 H 119/63 Pulse Oximetry 98 98 Oxygen Delivery Method Room Air Room Air Labs 02/11/25 07:44 02/11/25 07:44 Labs: Laboratory Results - last 48 hr 02/11/25 07:44 WBC 3.0 L RBC 3.45 L Hgb 9.6 L Hct 29.5 L MCV 85.5 MCH 27.8 MCHC 32.5 RDW 12.9 Plt Count 268 MPV 9.0 L Immature Gran % (Auto) 1.0 H Neut % (Auto) 55.8 Lymph % (Auto) 27.2 Sutton % (Auto) 12.6 H Eos % (Auto) 2.7 Baso % (Auto) 0.7 Lymph # (Auto) 0.8 L Sutton # (Auto) 0.4 Eos # (Auto) 0.1 Baso # (Auto) 0.0 Abs Immat Gran (auto) 0.03 Absolute Neuts (auto) 1.7 L Absolute Nucleated RBC 0.000 Nucleated RBC % (auto) 0.0 Sodium 139 Potassium 4.8 Chloride 104 Carbon Dioxide 23 Anion Gap 17 BUN 54 H Creatinine 3.37 H Estim Creat Clear Calc TNP Estimated GFR 19 Random Glucose 214 H Calcium 9.8 Total Bilirubin 0.2 AST 39 H ALT 51 H Alkaline Phosphatase 158 H Total Protein 8.8 H Albumin 4.5 Imaging Radiology Impressions: ITS Impressions Abdomen X-Ray 02/03/25 11:36 IMPRESSION: Large to moderate volume of stool, most pronounced in the rectum. Suspected calcific tendinitis involving gluteal tendons on the right, correlate for symptoms of right hip pain. Electronically signed by: Malcom Batres MD 02/03/2025 11:52 AM EST RP Chest X-Ray 02/03/25 11:39 IMPRESSION: Concerning acute small airway inflammatory processes versus multifocal pneumonia versus mild interstitial edema. Electronically signed by: Daniel Agosto MD 02/03/2025 11:51 AM EST RP Skull X-Ray 02/03/25 11:42 IMPRESSION: Negative for foreign body or gross acute fracture, skull. Electronically signed by: Daniel Agosto MD 02/03/2025 11:52 AM EST RP Brain MRI 02/04/25 14:45 IMPRESSION: 1. No evidence of intracranial hemorrhage, acute infarction, mass effect, or edema. 2. 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 3. There are mild white matter changes of small vessel ischemia. Electronically signed by: Jaden Talbert MD 02/04/2025 04:18 PM EST RP Medications Medications Current Medications Acetaminophen (Acetaminophen 325 Mg Tablet) 650 mg PO Q6H PRN PRN Reason: Pain, Mild (Pain Scale 1-3) Last Admin: 02/10/25 20:47 Dose: 650 mg Al Hydroxide/Mg Hydroxide (Magnesium Hydrox/Alum Hydrox 30 Ml Oral.Susp) 30 ml PO Q6H PRN PRN Reason: Heartburn/Nausea Last Admin: 01/23/25 17:27 Dose: 30 ml Amlodipine Besylate (Amlodipine Besylate 10 Mg Tablet) 10 mg PO DAILY [facility]; Protocol Last Admin: 02/11/25 09:27 Dose: 10 mg Amoxicillin/Clavulanate Potassium (Amoxicillin/Potassium Clav 875 Mg Tablet) 875 mg PO BID [facility] Last Admin: 02/11/25 09:28 Dose: 875 mg Aripiprazole (Aripiprazole 30 Mg Tablet) 30 mg PO DAILY [facility] Last Admin: 02/11/25 09:29 Dose: 30 mg Artificial Tears (Artificial Tears 15 Ml Drops) 1 drop EYE-BOTH DAILY PRN PRN Reason: allergy sx Last Admin: 01/18/25 09:20 Dose: 1 drop Atorvastatin Calcium (Atorvastatin Calcium 40 Mg Tablet) 40 mg PO DAILY [facility] Last Admin: 02/11/25 09:27 Dose: 40 mg Benztropine Mesylate (Benztropine Mesylate 1 Mg Tablet) 2 mg PO BID [facility] Last Admin: 02/11/25 09:28 Dose: 2 mg Bisacodyl (Bisacodyl 5 Mg Tablet.Dr) 10 mg PO BEDTIME PRN PRN Reason: Constipation Last Admin: 01/28/25 22:09 Dose: 10 mg Calcitriol (Calcitriol 0.25 Mcg Capsule) 0.25 mcg PO DAILY [facility] Last Admin: 02/11/25 09:28 Dose: 0.25 mcg Clonidine HCl (Clonidine Hcl 0.1 Mg Tablet) 0.1 mg PO TID PRN; Protocol PRN Reason: anxiety Last Admin: 02/06/25 20:20 Dose: 0.1 mg Docusate Sodium (Docusate Sodium 100 Mg Capsule) 100 mg PO BEDTIME [facility] Last Admin: 02/10/25 20:48 Dose: 100 mg Escitalopram Oxalate (Escitalopram Oxalate 20 Mg Tablet) 20 mg PO DAILY [facility] Last Admin: 02/11/25 09:27 Dose: 20 mg Famotidine (Famotidine 20 Mg Tablet) 20 mg PO DAILY [facility] Last Admin: 02/11/25 09:27 Dose: 20 mg Ferrous Sulfate (Ferrous Sulfate 324 Mg Tablet.) 324 mg PO Q2D [facility] Last Admin: 02/10/25 15:10 Dose: 324 mg Haloperidol (Haloperidol 5 Mg Tablet) 5 mg PO BID [facility] Last Admin: 02/11/25 09:29 Dose: 5 mg Hydralazine HCl (Hydralazine Hcl 50 Mg Tablet) 50 mg PO TID [facility]; Protocol Last Admin: 02/11/25 09:27 Dose: 50 mg Hydroxyzine HCl (Hydroxyzine Hcl 25 Mg Tablet) 25 mg PO Q6H PRN PRN Reason: mild anxiety Last Admin: 01/29/25 22:01 Dose: 25 mg Lactulose (Lactulose 20 Gm/30 Ml Solution) 30 gm PO DAILY PRN PRN Reason: Constipation Last Admin: 01/25/25 14:29 Dose: 30 gm Lamotrigine (Lamotrigine 100 Mg Tablet) 200 mg PO BID [facility] Last Admin: 02/11/25 09:29 Dose: 200 mg Loratadine (Loratadine 10 Mg Tablet) 10 mg PO Q2D [facility] Last Admin: 02/10/25 08:33 Dose: Not Given Magnesium Hydroxide (Milk Of Magnesia 30 Ml Oral.Susp) 30 ml PO BID PRN PRN Reason: Constipation Last Admin: 01/24/25 11:08 Dose: 30 ml Nicotine Polacrilex (Nicotine Polacrilex 2 Mg Gum) 4 mg BUCCAL Q2H PRN PRN Reason: Nicotine Cravings Omeprazole (Omeprazole 20 Mg Capsule.) 20 mg PO DAILY@0630 [facility] Last Admin: 02/11/25 06:49 Dose: 20 mg Polyethylene Glycol (Polyethylene Glycol 3350 17 Gm Powd.Pack) 17 gm PO DAILY [facility] Last Admin: 02/11/25 09:24 Dose: 17 gm Quetiapine Fumarate (Quetiapine Fumarate 50 Mg Tablet) 50 mg PO TID PRN PRN Reason: agitation Last Admin: 02/03/25 21:31 Dose: 50 mg Quetiapine Fumarate (Quetiapine Fumarate 400 Mg Tablet) 400 mg PO BEDTIME [facility] Last Admin: 02/10/25 20:48 Dose: 400 mg Sodium Zirconium Cyclosilicate (Sodium Zirconium Cyclosilicate 10 Gm Powd.Pack) 10 gm PO DAILY [facility] Last Admin: 02/11/25 09:24 Dose: 10 gm Trazodone HCl (Trazodone Hcl 50 Mg Tablet) 50 mg PO BEDTIME MRX1 PRN PRN Reason: Insomnia Last Admin: 02/03/25 21:31 Dose: 50 mg Allergies Allergies Allergy/AdvReac Type Severity Reaction Status Date / Time No Known Allergies Allergy Verified 12/17/24 20:12 Assessment & Plan Assessment & Plan (1) Bipolar 1 disorder: Status: Acute Code(s): F31.9 - Bipolar disorder, unspecified (2) HTN (hypertension): Status: Acute Code(s): I10 - Essential (primary) hypertension (3) CKD (chronic kidney disease) stage 3, GFR 30-59 ml/min: Status: Acute Code(s): N18.30 - Chronic kidney disease, stage 3 unspecified Plan 02/10/25: Pt reports his ear pain to be diminished. He requests we begin to taper Seroquel by 100 mg to 300 as he is not in need of this. Discussed that this dose was a stable dose on admit and it may place him at risk- he asks to taper. Will hold at this time. Denies SI,HI,AH,VH. Reports sleep and appetite are intact. Team reports he slept eight hours last evening. Pt has talked with Medicare appeal unit today. He asks team if he will be authorized to remain on the unit until the decision is made and this was affirmed. Pt's mother left tw a voice mail today. Pt was asked to contact her to inform her that he was withdrawn permission to speak with her. He reports he has notified her. Team notes some lability of mood- worried at times, bright at times. Pt discussed that his mother will travel for the holidays and he is not wanting to stay in her home without her present during this trip. Will order a.m. labs. Plan: Labs in the a.m. Hold on Seroquel tapering at this time. 02/11/25: Pt denies SI,HI,AH,VH. Slept eight hours, attending intermittent groups. Angry with tw as you are supposed to hire me a contact lens edge buffer and you have not. This is a chronic complaint pt has had during the admission. Pt has [facility] number to discuss this, attempted to provide education regarding senior attorney presence when pt is voluntary on the unit. He persisted with other team members. Today, diagnostics updated. Hospitalist and renal attempted to meet with pt as LFT's are trending and there is a question of gall bladder dysfunction. As a result, team plan to stop atoravastatin and recommend OP cardiac consult for possible change to Repatha. They plan to ask pt to have a liver ultrasound as well. Also renal/DM issues, Jardiance they will stop due to GFR values and recommend Lantus or GLP-1. A1C is 7.3-8.8 and they believe pt needs tighter DM mgt. Team met with pt to discuss this. Pt would not allow the medical/renal team to explain and educate him regarding these values. They plan to make changes in regime. Insurance appeal remains pending. Team expects to have an answer on 02/14. Reason for continued inpatient stay Substantial Risk for: rapid decompensation and med/psych decompensation Time Spent With Patient Time: Total time managing care of this patient today ____ minutes.
[2025-02-11 10:33] LABS: Parathyroid Hormone Intact 185.7 pg/mL (8.7-77.1)
--- NOTE | 2025-02-11 12:59 | HO.PM.IMPN ---
Subjective Subjective Date of Service: 02/11/25 Interval History: Patient is seen in follow up for elevated LFTs. Patient with a episode of low back and flank pain on 02/02, patient declined assessment at that time. On his AST noted to be 71/ALT 99. Now trending down 39 and 51. Patient on atorvastatin. We will DC, we will need outpatient follow up for possible Repatha for hyperlipidemia. Patient's blood sugars also noted to be elevated, hemoglobin A1c increased to 8.8. Attempted to discuss GLP 1 medications with patient. Patient is not amenable to any other treatment until he discusses with Dr. Rod who is on vacation. Review of Systems Denies any shortness of breath, chest pain, headaches, dysuria, abdominal pain or discomfort, nausea, vomiting or diarrhea. Denies fever or chills. Physical Exam Exam: Exam: CONST: Alert and oriented, in NAD. Thin, easily agitated HEENT: Normocephalic, atraumatic RESP: Respiratory rate even and regular HEART: Decline GI: Decline : Decline SKIN: Color within normal limits, no visible lesions or rashes NEURO: Moves all extremities, Speech clear PSYCH: Answers questions Vital Signs: Vital Signs: Last Vital Signs Temp 98.5 F 02/11/25 09:00 Pulse 95 02/11/25 09:00 Resp 18 02/11/25 09:00 BP 119/63 02/11/25 09:00 Pulse Ox 98 02/11/25 09:00 O2 Del Method Room Air 02/11/25 09:00 Objective Data Active Medications Acetaminophen (Acetaminophen 325 Mg Tablet) 650 mg PO Q6H PRN PRN Reason: Pain, Mild (Pain Scale 1-3) Last Admin: 02/10/25 20:47 Dose: 650 mg Documented By: CEDRICK Al Hydroxide/Mg Hydroxide (Magnesium Hydrox/Alum Hydrox 30 Ml Oral.Susp) 30 ml PO Q6H PRN PRN Reason: Heartburn/Nausea Last Admin: 01/23/25 17:27 Dose: 30 ml Documented By: EMERSON Amlodipine Besylate (Amlodipine Besylate 10 Mg Tablet) 10 mg PO DAILY [facility]; Protocol Last Admin: 02/11/25 09:27 Dose: 10 mg Documented By: SAMANTHA Amoxicillin/Clavulanate Potassium (Amoxicillin/Potassium Clav 875 Mg Tablet) 875 mg PO BID [facility] Last Admin: 02/11/25 09:28 Dose: 875 mg Documented By: SAMANTHA Aripiprazole (Aripiprazole 30 Mg Tablet) 30 mg PO DAILY [facility] Last Admin: 02/11/25 09:29 Dose: 30 mg Documented By: SAMANTHA Artificial Tears (Artificial Tears 15 Ml Drops) 1 drop EYE-BOTH DAILY PRN PRN Reason: allergy sx Last Admin: 01/18/25 09:20 Dose: 1 drop Documented By: BRUNA Benztropine Mesylate (Benztropine Mesylate 1 Mg Tablet) 2 mg PO BID [facility] Last Admin: 02/11/25 09:28 Dose: 2 mg Documented By: SAMANTHA Bisacodyl (Bisacodyl 5 Mg Tablet.) 10 mg PO BEDTIME PRN PRN Reason: Constipation Last Admin: 01/28/25 22:09 Dose: 10 mg Documented By: JEN Calcitriol (Calcitriol 0.25 Mcg Capsule) 0.25 mcg PO DAILY [facility] Last Admin: 02/11/25 09:28 Dose: 0.25 mcg Documented By: SAMANTHA Clonidine HCl (Clonidine Hcl 0.1 Mg Tablet) 0.1 mg PO TID PRN; Protocol PRN Reason: anxiety Last Admin: 02/06/25 20:20 Dose: 0.1 mg Documented By: KENDRICK Docusate Sodium (Docusate Sodium 100 Mg Capsule) 100 mg PO BEDTIME [facility] Last Admin: 02/10/25 20:48 Dose: 100 mg Documented By: CEDRICK Escitalopram Oxalate (Escitalopram Oxalate 20 Mg Tablet) 20 mg PO DAILY [facility] Last Admin: 02/11/25 09:27 Dose: 20 mg Documented By: SAMANTHA Famotidine (Famotidine 20 Mg Tablet) 20 mg PO DAILY [facility] Last Admin: 02/11/25 09:27 Dose: 20 mg Documented By: SAMANTHA Ferrous Sulfate (Ferrous Sulfate 324 Mg Tablet.) 324 mg PO Q2D [facility] Last Admin: 02/10/25 15:10 Dose: 324 mg Documented By: CHRIS Haloperidol (Haloperidol 5 Mg Tablet) 5 mg PO BID [facility] Last Admin: 02/11/25 09:29 Dose: 5 mg Documented By: SAMANTHA Hydralazine HCl (Hydralazine Hcl 50 Mg Tablet) 50 mg PO TID [facility]; Protocol Last Admin: 02/11/25 09:27 Dose: 50 mg Documented By: SAMANTHA Hydroxyzine HCl (Hydroxyzine Hcl 25 Mg Tablet) 25 mg PO Q6H PRN PRN Reason: mild anxiety Last Admin: 01/29/25 22:01 Dose: 25 mg Documented By: JEN Lactulose (Lactulose 20 Gm/30 Ml Solution) 30 gm PO DAILY PRN PRN Reason: Constipation Last Admin: 01/25/25 14:29 Dose: 30 gm Documented By: DELVIS Lamotrigine (Lamotrigine 100 Mg Tablet) 200 mg PO BID [facility] Last Admin: 02/11/25 09:29 Dose: 200 mg Documented By: SAMANTHA Loratadine (Loratadine 10 Mg Tablet) 10 mg PO Q2D [facility] Last Admin: 02/10/25 08:33 Dose: Not Given Documented By: CHRIS Non-Admin Reason: Patient Refused Magnesium Hydroxide (Milk Of Magnesia 30 Ml Oral.Susp) 30 ml PO BID PRN PRN Reason: Constipation Last Admin: 01/24/25 11:08 Dose: 30 ml Documented By: DELVIS Nicotine Polacrilex (Nicotine Polacrilex 2 Mg Gum) 4 mg BUCCAL Q2H PRN PRN Reason: Nicotine Cravings Omeprazole (Omeprazole 20 Mg Capsule.Dr) 20 mg PO DAILY@0630 [facility] Last Admin: 02/11/25 06:49 Dose: 20 mg Documented By: CEDRICK Polyethylene Glycol (Polyethylene Glycol 3350 17 Gm Powd.Pack) 17 gm PO DAILY [facility] Last Admin: 02/11/25 09:24 Dose: 17 gm Documented By: SAMANTHA Quetiapine Fumarate (Quetiapine Fumarate 50 Mg Tablet) 50 mg PO TID PRN PRN Reason: agitation Last Admin: 02/03/25 21:31 Dose: 50 mg Documented By: JEN Quetiapine Fumarate (Quetiapine Fumarate 400 Mg Tablet) 400 mg PO BEDTIME [facility] Last Admin: 02/10/25 20:48 Dose: 400 mg Documented By: CEDRICK Sodium Zirconium Cyclosilicate (Sodium Zirconium Cyclosilicate 10 Gm Powd.Pack) 10 gm PO DAILY [facility] Last Admin: 02/11/25 09:24 Dose: 10 gm Documented By: SAMANTHA Trazodone HCl (Trazodone Hcl 50 Mg Tablet) 50 mg PO BEDTIME MRX1 PRN PRN Reason: Insomnia Last Admin: 02/03/25 21:31 Dose: 50 mg Documented By: JEN Labs 02/11/25 07:44 02/11/25 07:44 Labs: Laboratory Results - last 24 hr 02/11/25 02/11/25 07:44 09:48 MCV 85.5 MCH 27.8 MCHC 32.5 RDW 12.9 Plt Count 268 MPV 9.0 L Immature Gran % (Auto) 1.0 H Neut % (Auto) 55.8 Lymph % (Auto) 27.2 Izard % (Auto) 12.6 H Eos % (Auto) 2.7 Baso % (Auto) 0.7 Lymph # (Auto) 0.8 L Izard # (Auto) 0.4 Eos # (Auto) 0.1 Baso # (Auto) 0.0 Abs Immat Gran (auto) 0.03 Absolute Neuts (auto) 1.7 L Absolute Nucleated RBC 0.000 Nucleated RBC % (auto) 0.0 Anion Gap 17 Estim Creat Clear Calc TNP Estimated GFR 19 Random Glucose 214 H Estimat Average Glucose 206 Hemoglobin A1c % 8.8 H Calcium 9.8 Phosphorus 4.1 Total Bilirubin 0.2 AST 39 H ALT 51 H Alkaline Phosphatase 158 H Total Protein 8.8 H Albumin 4.5 PTH Intact 185.7 H Assessment and Plan (1) HTN (hypertension): Status: Acute (2) Diabetes: Status: Acute Plan 64-year-old male with a past medical history was listed below presented to emergency department at [facility] with mental status changes. Now admitted to inpatient psych for further care. Bipolar 1 disorder/anxiety/mental status changes Treatment per psychiatric team Type 2 diabetes Continue Jardiance Hemoglobin A1c 8.8 Discussed GLP 1 with patient, patient declining at this time. Nephrogenic anemia Iron studies within normal limits May need EPO in the future, followed by Nephrology Transaminitis Patient with episode of abdominal pain on 02/03/2024 LFTs elevated, now trending down We will check ultrasound to rule out cholelithiasis Hepatitis panel negative. We will need outpatient GI Hyperkalemia Continue on Lokelma daily Potassium level 4.8 today Chronic kidney disease stage 4/diabetic nephropathy and hypertensive renal disease Avoid nephrotoxins Followed by Dr. Maravilla as an outpatient Continue calcitriol Creatinine 3.37 Phosphorus level within normal limit Check vitamin-D levels. Type 2 diabetes Hemoglobin A1c 8.8 Continue Jardiance Discussed GLP 1 with patient, patient is not interested at this time wishes to talk to Dr. Rod Hypertension/HLD Losartan DC due to kidney injury, Continue Norvasc, increase hydralazine to 50 t.i.d. Atorvastatin DC, patient we will need outpatient follow up for Repatha Clonidine t.i.d. p.r.n. Blood pressure well controlled Thank you for allowing me to participate in the care of this patient. Will follow with you, please notify medical provider with any changes in condition or concerns. Quality Stroke Does the patient have a stroke diagnosis?: No VTE Prior VTE?: No VTE Risk Level:: Medical - low VTE Device Contraindication: Treatment Not Indicated VTE Drug Contraindication: Treatment Not Indicated
[2025-02-11 15:49] VITALS: BP 127/60
[2025-02-12 08:00] VITALS: BP 97/53; PULSE 95; TEMP 37.2; O2SAT 97
[2025-02-12 09:18] VITALS: BP 111/59
[2025-02-12] MEDS: ARIPiprazole 30 MG TABLET PO (09:18)
[2025-02-12 09:19] VITALS: BP 111/59
--- NOTE | 2025-02-12 09:49 | PM.CNNEP ---
History of Present Illness Reason for Consult Consult date: 02/12/25 Chief Complaint Chief complaint: bipolar disorder History of Present Illness Narrative: RT[facility] consulted for CKD. PT is well known to [facility] and followed by Dr Manzanares for the past 10 years and known to have adv CKD BSL SCr 2.5 to 3.0 andd was adm to Psych PMH asnoted signif for adv CKD d/t combination of ANNE MARIE in past and underlying DN, Nephrogenic Anenia and MDB of CKD manageed with vit D. H/O DM, hypertension, bipolar, depression Date of service : 02/11/25 [facility] Past Medical History Medical History (Updated 02/12/25 @ 10:24 by Tadeo Melendez MD) Hyperkalemia Anemia in chronic kidney disease (CKD) HTN (hypertension) Diabetes Social History Social History Household Members: Family Household Members Other:: Mother Housing: Apartment Do you presently have visiting nurse or other home services: No Patient Tobacco Use Status: Former Tobacco user Tobacco use type: Cigarette Smoked in Last 30 Days: No e-Cigarette/Vaping Use: Never Used Patient Interested in Nicotine Replacement: No Patient Given Instructions on How to Stop Smoking: No Second Hand Smoke Exposure: No Currently Displaying Signs/Symptoms of Drug Intoxication Withdrawal: No Do you feel safe in your current relationship?: No Current Relationship Advance Directives: No Advance Directives Information Provided: Yes Do you have thoughts of harming others: None Do you have a plan to hurt others: No Plan Recently lost weight without trying: No How much weight loss: Not applicable Eating poorly because of decreased appetite: No Nutrition screen score: 0 Nutrition Risks: No Nutritional Risk Poor oral hygiene: No service: No Sexual orientation: Don't Know Meds Allergies Allergy/AdvReac Type Severity Reaction Status Date / Time No Known Allergies Allergy Verified 12/17/24 20:12 Active Medications: Current Medications Acetaminophen (Acetaminophen 325 Mg Tablet) 650 mg PO Q6H PRN PRN Reason: Pain, Mild (Pain Scale 1-3) Last Admin: 02/12/25 00:38 Dose: 650 mg Al Hydroxide/Mg Hydroxide (Magnesium Hydrox/Alum Hydrox 30 Ml Oral.Susp) 30 ml PO Q6H PRN PRN Reason: Heartburn/Nausea Last Admin: 01/23/25 17:27 Dose: 30 ml Amlodipine Besylate (Amlodipine Besylate 10 Mg Tablet) 10 mg PO DAILY [facility]; Protocol Last Admin: 02/12/25 09:19 Dose: 10 mg Amoxicillin/Clavulanate Potassium (Amoxicillin/Potassium Clav 875 Mg Tablet) 875 mg PO BID [facility] Last Admin: 02/12/25 09:18 Dose: 875 mg Aripiprazole (Aripiprazole 30 Mg Tablet) 30 mg PO DAILY [facility] Last Admin: 02/12/25 09:18 Dose: 30 mg Artificial Tears (Artificial Tears 15 Ml Drops) 1 drop EYE-BOTH DAILY PRN PRN Reason: allergy sx Last Admin: 01/18/25 09:20 Dose: 1 drop Benztropine Mesylate (Benztropine Mesylate 1 Mg Tablet) 2 mg PO BID [facility] Last Admin: 02/12/25 09:18 Dose: 2 mg Bisacodyl (Bisacodyl 5 Mg Tablet.) 10 mg PO BEDTIME PRN PRN Reason: Constipation Last Admin: 01/28/25 22:09 Dose: 10 mg Calcitriol (Calcitriol 0.25 Mcg Capsule) 0.25 mcg PO DAILY [facility] Last Admin: 02/12/25 09:18 Dose: 0.25 mcg Clonidine HCl (Clonidine Hcl 0.1 Mg Tablet) 0.1 mg PO TID PRN; Protocol PRN Reason: anxiety Last Admin: 02/06/25 20:20 Dose: 0.1 mg Docusate Sodium (Docusate Sodium 100 Mg Capsule) 100 mg PO BEDTIME [facility] Last Admin: 02/11/25 20:47 Dose: 100 mg Empagliflozin (Empagliflozin 10 Mg Tablet) 10 mg PO DAILY [facility] Last Admin: 02/12/25 09:19 Dose: 10 mg Escitalopram Oxalate (Escitalopram Oxalate 20 Mg Tablet) 20 mg PO DAILY [facility] Last Admin: 02/12/25 09:19 Dose: 20 mg Famotidine (Famotidine 20 Mg Tablet) 20 mg PO DAILY [facility] Last Admin: 02/12/25 09:18 Dose: 20 mg Ferrous Sulfate (Ferrous Sulfate 324 Mg Tablet.) 324 mg PO Q2D [facility] Last Admin: 02/10/25 15:10 Dose: 324 mg Haloperidol (Haloperidol 5 Mg Tablet) 5 mg PO BID [facility] Last Admin: 02/12/25 09:18 Dose: 5 mg Hydralazine HCl (Hydralazine Hcl 50 Mg Tablet) 50 mg PO TID [facility]; Protocol Last Admin: 02/12/25 09:18 Dose: 50 mg Hydroxyzine HCl (Hydroxyzine Hcl 25 Mg Tablet) 25 mg PO Q6H PRN PRN Reason: mild anxiety Last Admin: 02/12/25 00:37 Dose: 25 mg Lactulose (Lactulose 20 Gm/30 Ml Solution) 30 gm PO DAILY PRN PRN Reason: Constipation Last Admin: 01/25/25 14:29 Dose: 30 gm Lamotrigine (Lamotrigine 100 Mg Tablet) 200 mg PO BID [facility] Last Admin: 02/12/25 09:18 Dose: 200 mg Loratadine (Loratadine 10 Mg Tablet) 10 mg PO Q2D [facility] Last Admin: 02/10/25 08:33 Dose: Not Given Magnesium Hydroxide (Milk Of Magnesia 30 Ml Oral.Susp) 30 ml PO BID PRN PRN Reason: Constipation Last Admin: 01/24/25 11:08 Dose: 30 ml Nicotine Polacrilex (Nicotine Polacrilex 2 Mg Gum) 4 mg BUCCAL Q2H PRN PRN Reason: Nicotine Cravings Omeprazole (Omeprazole 20 Mg Capsule.Dr) 20 mg PO DAILY@0630 [facility] Last Admin: 02/12/25 06:53 Dose: 20 mg Polyethylene Glycol (Polyethylene Glycol 3350 17 Gm Powd.Pack) 17 gm PO DAILY [facility] Last Admin: 02/12/25 09:17 Dose: 17 gm Quetiapine Fumarate (Quetiapine Fumarate 50 Mg Tablet) 50 mg PO TID PRN PRN Reason: agitation Last Admin: 02/12/25 00:37 Dose: 50 mg Quetiapine Fumarate (Quetiapine Fumarate 400 Mg Tablet) 400 mg PO BEDTIME [facility] Last Admin: 02/11/25 20:48 Dose: 400 mg Sodium Zirconium Cyclosilicate (Sodium Zirconium Cyclosilicate 10 Gm Powd.Pack) 10 gm PO DAILY [facility] Last Admin: 02/12/25 09:17 Dose: 10 gm Trazodone HCl (Trazodone Hcl 50 Mg Tablet) 50 mg PO BEDTIME MRX1 PRN PRN Reason: Insomnia Last Admin: 02/03/25 21:31 Dose: 50 mg Home Medications ?Medication ?Instructions ?Recorded ?Confirmed ?Last Taken ?Type calcitriol 0.25 mcg capsule 0.25 mcg PO DAILY 12/17/24 01/10/25 12/24/24 History dapagliflozin propanediol 10 mg 10 mg PO DAILY 12/17/24 01/10/25 Unknown History tablet (Farxiga) docusate sodium 100 mg capsule 100 mg PO DAILY 12/17/24 01/10/25 12/24/24 History famotidine 20 mg tablet 20 mg PO DAILY 12/17/24 01/10/25 12/24/24 History ferrous sulfate 325 mg (65 mg 325 mg PO Q2D 12/17/24 01/10/25 Unknown History iron) tablet,delayed release omeprazole 30 mg DIRECTED 12/29/24 12/30/24 Unknown History escitalopram oxalate 20 mg tablet 20 mg PO DAILY 01/10/25 01/10/25 Unknown History lamotrigine 200 mg tablet 200 mg PO BID 01/10/25 01/10/25 Unknown History (Lamictal) naphazoline 0.025 %-pheniramine 1 drp ophthalmic (eye) QD-QID PRN 01/10/25 01/10/25 Unknown History 0.3 % eye drops (Naphcon-A) itch Physical Exam Exam Exam: [facility]vs: s1s2 Rs; cta Abd; soft Vital Signs: Last Vital Signs Temp 99.0 F 02/12/25 08:00 Pulse 95 02/12/25 08:00 Resp 18 02/11/25 09:00 BP 111/59 L 02/12/25 09:19 Pulse Ox 97 02/12/25 08:00 O2 Del Method Room Air 02/12/25 08:00 Results Lab Results 02/11/25 07:44 02/11/25 07:44 Lab results: Chemistry 02/11/25 07:44 Sodium 139 Potassium 4.8 Carbon Dioxide 23 BUN 54 H Creatinine 3.37 H Calcium 9.8 Phosphorus 4.1 Hematology 02/11/25 07:44 WBC 3.0 L Hgb 9.6 L Plt Count 268 Assessment and Plan (1) CKD stage 4 due to type 2 diabetes mellitus: Status: Acute Plan Chronic kidney disease, stage 4 (severe) ([facility]) 2. Type 2 diabetes mellitus with diabetic chronic kidney disease, not otherwise specified (HCC) 3. Hypertension 4. Proteinuria, not otherwise specified 5. Anemia in chronic kidney disease Kidney function is at baseline. He has sub nephrotic macroscopic proteinuria (1.92 g) He has now severe CKD due to: -residual kidney function loss from prior ANNE MARIE -diabetic and hypertensive kidney disease Blood pressure is acceptable. He was on losartan. He is on dapagliflozin. He has nephrogenic anemia. He will need LOY. Iron profile is not on target. I will start him on iron supplement and repeat CBC and iron profile after 4 week oral supplementation. iPTH is high. He is on vitamin d analogs. PLAN losartan being held for anne marie , on hydrlazine and norvasc his bp is controlled- Ferrous sulfate 325 mg daily Calcitriol 0.25 mcg daily [id number] RAASI follow kidney function and electrolytes CBC and iron profile avoid NSAID low sodium diet we discussed glp1 as he refuses insulin for management of dm, he wants to discuss with dr. manzanares in office Date of service : 02/11/25 Procedures Date of Service Date of Service: 02/12/25
--- NOTE | 2025-02-12 09:52 | P.PNPSI_ITS ---
Subjective Subjective Date of Service: 02/12/25 Reason For Visit: bipolar disorder Interim History: met with patient; discussed with team; reviewed chart Patient friendly on approach; says he is doing good and no requests. Appropriate with peers and staff Mental Status Exam Mental Status Exam Narrative: Pt is alert and oriented; behavior is in overall good behavioral control; a little exuberant and talkative at times; cooperative and friendly; patient is not in distress; dressed in casual attire with adequate grooming and hygiene; mood is described as good and affect congruent; eye contact appropriate; Speech normal rate, volume and prosody; no psychomotor agitation present; thought process is organized and goal directed; Thought content is on remaining on inpatient unit; denies any SI/HI. Denies AVH and there is no evidence of perceptual disturbance. Patients insight and judgment improved Diagnostics Vital Signs (24Hr): Vital Signs - 24 hr 02/11/25 15:49 02/12/25 08:00 02/12/25 09:18 Temperature 99.0 F Pulse Rate 95 Blood Pressure 127/60 97/53 L 111/59 L Pulse Oximetry 97 Oxygen Delivery Method Room Air 02/12/25 09:19 Temperature Pulse Rate Blood Pressure 111/59 L Pulse Oximetry Oxygen Delivery Method Labs 02/11/25 07:44 02/11/25 07:44 Labs: Laboratory Results - last 48 hr 02/11/25 02/11/25 07:44 09:48 WBC 3.0 L RBC 3.45 L Hgb 9.6 L Hct 29.5 L MCV 85.5 MCH 27.8 MCHC 32.5 RDW 12.9 Plt Count 268 MPV 9.0 L Immature Gran % (Auto) 1.0 H Neut % (Auto) 55.8 Lymph % (Auto) 27.2 [place] % (Auto) 12.6 H Eos % (Auto) 2.7 Baso % (Auto) 0.7 Lymph # (Auto) 0.8 L [place] # (Auto) 0.4 Eos # (Auto) 0.1 Baso # (Auto) 0.0 Abs Immat Gran (auto) 0.03 Absolute Neuts (auto) 1.7 L Absolute Nucleated RBC 0.000 Nucleated RBC % (auto) 0.0 Sodium 139 Potassium 4.8 Chloride 104 Carbon Dioxide 23 Anion Gap 17 BUN 54 H Creatinine 3.37 H Estim Creat Clear Calc TNP Estimated GFR 19 Random Glucose 214 H Estimat Average Glucose 206 Hemoglobin A1c % 8.8 H Calcium 9.8 Phosphorus 4.1 Total Bilirubin 0.2 AST 39 H ALT 51 H Alkaline Phosphatase 158 H Total Protein 8.8 H Albumin 4.5 PTH Intact 185.7 H Imaging Radiology Impressions: ITS Impressions Abdomen X-Ray 02/03/25 11:36 IMPRESSION: Large to moderate volume of stool, most pronounced in the rectum. Suspected calcific tendinitis involving gluteal tendons on the right, correlate for symptoms of right hip pain. Electronically signed by: Malcom Batres MD 02/03/2025 11:52 AM EST RP Chest X-Ray 02/03/25 11:39 IMPRESSION: Concerning acute small airway inflammatory processes versus multifocal pneumonia versus mild interstitial edema. Electronically signed by: Daniel Agosto MD 02/03/2025 11:51 AM EST RP Skull X-Ray 02/03/25 11:42 IMPRESSION: Negative for foreign body or gross acute fracture, skull. Electronically signed by: Daniel Agosto MD 02/03/2025 11:52 AM EST RP Brain MRI 02/04/25 14:45 IMPRESSION: 1. No evidence of intracranial hemorrhage, acute infarction, mass effect, or edema. 2. 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 3. There are mild white matter changes of small vessel ischemia. Electronically signed by: Jaden Talbert MD 02/04/2025 04:18 PM EST RP Abdomen Ultrasound 02/11/25 16:26 IMPRESSION: 1. Mildly diffusely increased hepatic echogenicity in keeping with steatosis. No suspicious focal lesion or intrahepatic biliary dilatation. 2. Normal gallbladder. No extrahepatic biliary dilatation. 3. Several tiny right renal simple cysts. Electronically signed by: Jaden Talbert MD 02/11/2025 04:50 PM EST RP Medications Medications Current Medications Acetaminophen (Acetaminophen 325 Mg Tablet) 650 mg PO Q6H PRN PRN Reason: Pain, Mild (Pain Scale 1-3) Last Admin: 02/12/25 00:38 Dose: 650 mg Al Hydroxide/Mg Hydroxide (Magnesium Hydrox/Alum Hydrox 30 Ml Oral.Susp) 30 ml PO Q6H PRN PRN Reason: Heartburn/Nausea Last Admin: 01/23/25 17:27 Dose: 30 ml Amlodipine Besylate (Amlodipine Besylate 10 Mg Tablet) 10 mg PO DAILY [facility]; Protocol Last Admin: 02/12/25 09:19 Dose: 10 mg Amoxicillin/Clavulanate Potassium (Amoxicillin/Potassium Clav 875 Mg Tablet) 875 mg PO BID [facility] Last Admin: 02/12/25 09:18 Dose: 875 mg Aripiprazole (Aripiprazole 30 Mg Tablet) 30 mg PO DAILY [facility] Last Admin: 02/12/25 09:18 Dose: 30 mg Artificial Tears (Artificial Tears 15 Ml Drops) 1 drop EYE-BOTH DAILY PRN PRN Reason: allergy sx Last Admin: 01/18/25 09:20 Dose: 1 drop Benztropine Mesylate (Benztropine Mesylate 1 Mg Tablet) 2 mg PO BID [facility] Last Admin: 02/12/25 09:18 Dose: 2 mg Bisacodyl (Bisacodyl 5 Mg Tablet.) 10 mg PO BEDTIME PRN PRN Reason: Constipation Last Admin: 01/28/25 22:09 Dose: 10 mg Calcitriol (Calcitriol 0.25 Mcg Capsule) 0.25 mcg PO DAILY [facility] Last Admin: 02/12/25 09:18 Dose: 0.25 mcg Clonidine HCl (Clonidine Hcl 0.1 Mg Tablet) 0.1 mg PO TID PRN; Protocol PRN Reason: anxiety Last Admin: 02/06/25 20:20 Dose: 0.1 mg Docusate Sodium (Docusate Sodium 100 Mg Capsule) 100 mg PO BEDTIME YAQUELIN Last Admin: 02/11/25 20:47 Dose: 100 mg Empagliflozin (Empagliflozin 10 Mg Tablet) 10 mg PO DAILY [facility] Last Admin: 02/12/25 09:19 Dose: 10 mg Escitalopram Oxalate (Escitalopram Oxalate 20 Mg Tablet) 20 mg PO DAILY [facility] Last Admin: 02/12/25 09:19 Dose: 20 mg Famotidine (Famotidine 20 Mg Tablet) 20 mg PO DAILY [facility] Last Admin: 02/12/25 09:18 Dose: 20 mg Ferrous Sulfate (Ferrous Sulfate 324 Mg Tablet.) 324 mg PO Q2D [facility] Last Admin: 02/10/25 15:10 Dose: 324 mg Haloperidol (Haloperidol 5 Mg Tablet) 5 mg PO BID [facility] Last Admin: 02/12/25 09:18 Dose: 5 mg Hydralazine HCl (Hydralazine Hcl 50 Mg Tablet) 50 mg PO TID [facility]; Protocol Last Admin: 02/12/25 09:18 Dose: 50 mg Hydroxyzine HCl (Hydroxyzine Hcl 25 Mg Tablet) 25 mg PO Q6H PRN PRN Reason: mild anxiety Last Admin: 02/12/25 00:37 Dose: 25 mg Lactulose (Lactulose 20 Gm/30 Ml Solution) 30 gm PO DAILY PRN PRN Reason: Constipation Last Admin: 01/25/25 14:29 Dose: 30 gm Lamotrigine (Lamotrigine 100 Mg Tablet) 200 mg PO BID [facility] Last Admin: 02/12/25 09:18 Dose: 200 mg Loratadine (Loratadine 10 Mg Tablet) 10 mg PO Q2D [facility] Last Admin: 02/10/25 08:33 Dose: Not Given Magnesium Hydroxide (Milk Of Magnesia 30 Ml Oral.Susp) 30 ml PO BID PRN PRN Reason: Constipation Last Admin: 01/24/25 11:08 Dose: 30 ml Nicotine Polacrilex (Nicotine Polacrilex 2 Mg Gum) 4 mg BUCCAL Q2H PRN PRN Reason: Nicotine Cravings Omeprazole (Omeprazole 20 Mg Capsule.Dr) 20 mg PO DAILY@0630 [facility] Last Admin: 02/12/25 06:53 Dose: 20 mg Polyethylene Glycol (Polyethylene Glycol 3350 17 Gm Powd.Pack) 17 gm PO DAILY [facility] Last Admin: 02/12/25 09:17 Dose: 17 gm Quetiapine Fumarate (Quetiapine Fumarate 50 Mg Tablet) 50 mg PO TID PRN PRN Reason: agitation Last Admin: 02/12/25 00:37 Dose: 50 mg Quetiapine Fumarate (Quetiapine Fumarate 400 Mg Tablet) 400 mg PO BEDTIME [facility] Last Admin: 02/11/25 20:48 Dose: 400 mg Sodium Zirconium Cyclosilicate (Sodium Zirconium Cyclosilicate 10 Gm Powd.Pack) 10 gm PO DAILY [facility] Last Admin: 02/12/25 09:17 Dose: 10 gm Trazodone HCl (Trazodone Hcl 50 Mg Tablet) 50 mg PO BEDTIME MRX1 PRN PRN Reason: Insomnia Last Admin: 02/03/25 21:31 Dose: 50 mg Allergies Allergies Allergy/AdvReac Type Severity Reaction Status Date / Time No Known Allergies Allergy Verified 12/17/24 20:12 Assessment & Plan Assessment & Plan (1) Bipolar 1 disorder: Status: Acute Code(s): F31.9 - Bipolar disorder, unspecified (2) HTN (hypertension): Status: Acute Code(s): I10 - Essential (primary) hypertension (3) CKD (chronic kidney disease) stage 3, GFR 30-59 ml/min: Status: Acute Code(s): N18.30 - Chronic kidney disease, stage 3 unspecified Assessment and Plan: has now severe CKD due to: -residual kidney function loss from prior ANNE MARIE -diabetic and hypertensive kidney disease Plan Plan 02/10/25: Pt reports his ear pain to be diminished. He requests we begin to taper Seroquel by 100 mg to 300 as he is not in need of this. Discussed that this dose was a stable dose on admit and it may place him at risk- he asks to taper. Will hold at this time. Denies SI,HI,AH,VH. Reports sleep and appetite are intact. Team reports he slept eight hours last evening. Pt has talked with Medicare appeal unit today. He asks team if he will be authorized to remain on the unit until the decision is made and this was affirmed. Pt's mother left tw a voice mail today. Pt was asked to contact her to inform her that he was withdrawn permission to speak with her. He reports he has notified her. Team notes some lability of mood- worried at times, bright at times. Pt discussed that his mother will travel for the holidays and he is not wanting to stay in her home without her present during this trip. Will order a.m. labs. Plan: Labs in the a.m. Hold on Seroquel tapering at this time. 02/11/25: Pt denies SI,HI,AH,VH. Slept eight hours, attending intermittent groups. Angry with tw as you are supposed to hire me a reversal print inspector and you have not. This is a chronic complaint pt has had during the admission. Pt has [facility] number to discuss this, attempted to provide education regarding bankruptcy attorney presence when pt is voluntary on the unit. He persisted with other team members. Today, diagnostics updated. Hospitalist and renal attempted to meet with pt as LFT's are trending and there is a question of gall bladder dysfunction. As a result, team plan to stop atoravastatin and recommend OP cardiac consult for possible change to Repatha. They plan to ask pt to have a liver ultrasound as well. Also renal/DM issues, Jardiance they will stop due to GFR values and recommend Lantus or GLP-1. A1C is 7.3-8.8 and they believe pt needs tighter DM mgt. Team met with pt to discuss this. Pt would not allow the medical/renal team to explain and educate him regarding these values. They plan to make changes in regime. Insurance appeal remains pending. Team expects to have an answer on 02/14. 02/12 no change in presentation; in behavioral and impulse control; cooperative and appropriate with peers and staff Patient educated on: diagnosis Informed Consent: understands Reason for continued inpatient stay Substantial Risk for: stable for discharge Time Spent With Patient Time: Total time managing care of this patient today ____ minutes.
[2025-02-12] MEDS: Ferrous Sulfate 324 MG TABLET.DR PO (13:01)
[2025-02-12 13:50] VITALS: BP 124/66; PULSE 88
[2025-02-12 20:00] VITALS: BP 139/61; PULSE 88; RESP 18; TEMP 37.1; O2SAT 96
[2025-02-12 20:59] VITALS: BP 139/61
[2025-02-13 08:11] VITALS: BP 121/57; PULSE 91; TEMP 36.9; O2SAT 98
[2025-02-13] MEDS: ARIPiprazole 30 MG TABLET PO (08:40)
[2025-02-13 14:09] VITALS: BP 140/72; PULSE 102
--- NOTE | 2025-02-13 16:48 | HO.PSYCHPN ---
Subjective Subjective Date of Service: 02/13/25 Reason For Visit: bipolar disorder Interim History: Met with patient; discussed with team Patient reports that he is good. 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 that his 2nd appeal was denied and wants me to tell his primary team that he is now working on his 3rd step appeal Mental Status Exam Mental Status Exam Narrative: Pt is alert and oriented; behavior is in overall good behavioral control; a little exuberant and talkative at times; cooperative and friendly; patient is not in distress; dressed in casual attire with adequate grooming and hygiene; mood is described as good and affect congruent; eye contact appropriate; Speech normal rate, volume and prosody; no psychomotor agitation present; thought process is organized and goal directed; Thought content is on remaining on inpatient unit; denies any SI/HI. Denies AVH and there is no evidence of perceptual disturbance. Patients insight and judgment improved Diagnostics Vital Signs (24Hr): Vital Signs - 24 hr 02/12/25 20:00 02/12/25 20:59 02/13/25 08:11 Temperature 98.7 F 98.5 F Pulse Rate 88 91 Respiratory Rate 18 Blood Pressure 139/61 139/61 121/57 L Pulse Oximetry 96 98 Oxygen Delivery Method Room Air Room Air 02/13/25 14:09 Temperature Pulse Rate 102 H Respiratory Rate Blood Pressure 140/72 H Pulse Oximetry Oxygen Delivery Method Labs 02/11/25 07:44 02/11/25 07:44 Imaging Radiology Impressions: ITS Impressions Abdomen X-Ray 02/03/25 11:36 IMPRESSION: Large to moderate volume of stool, most pronounced in the rectum. Suspected calcific tendinitis involving gluteal tendons on the right, correlate for symptoms of right hip pain. Electronically signed by: Malcom Batres MD 02/03/2025 11:52 AM EST RP Chest X-Ray 02/03/25 11:39 IMPRESSION: Concerning acute small airway inflammatory processes versus multifocal pneumonia versus mild interstitial edema. Electronically signed by: Daniel Agosto MD 02/03/2025 11:51 AM EST RP Skull X-Ray 02/03/25 11:42 IMPRESSION: Negative for foreign body or gross acute fracture, skull. Electronically signed by: Daniel Agosto MD 02/03/2025 11:52 AM EST RP Brain MRI 02/04/25 14:45 IMPRESSION: 1. No evidence of intracranial hemorrhage, acute infarction, mass effect, or edema. 2. 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 3. There are mild white matter changes of small vessel ischemia. Electronically signed by: Jaden Talbert MD 02/04/2025 04:18 PM EST RP Abdomen Ultrasound 02/11/25 16:26 IMPRESSION: 1. Mildly diffusely increased hepatic echogenicity in keeping with steatosis. No suspicious focal lesion or intrahepatic biliary dilatation. 2. Normal gallbladder. No extrahepatic biliary dilatation. 3. Several tiny right renal simple cysts. Electronically signed by: Jaden Talbert MD 02/11/2025 04:50 PM EST RP Medications Medications Current Medications Acetaminophen (Acetaminophen 325 Mg Tablet) 650 mg PO Q6H PRN PRN Reason: Pain, Mild (Pain Scale 1-3) Last Admin: 02/12/25 13:01 Dose: 650 mg Al Hydroxide/Mg Hydroxide (Magnesium Hydrox/Alum Hydrox 30 Ml Oral.Susp) 30 ml PO Q6H PRN PRN Reason: Heartburn/Nausea Last Admin: 01/23/25 17:27 Dose: 30 ml Amlodipine Besylate (Amlodipine Besylate 10 Mg Tablet) 10 mg PO DAILY [facility]; Protocol Last Admin: 02/13/25 08:39 Dose: 10 mg Amoxicillin/Clavulanate Potassium (Amoxicillin/Potassium Clav 875 Mg Tablet) 875 mg PO BID [facility] Last Admin: 02/13/25 08:39 Dose: 875 mg Aripiprazole (Aripiprazole 30 Mg Tablet) 30 mg PO DAILY [facility] Last Admin: 02/13/25 08:40 Dose: 30 mg Artificial Tears (Artificial Tears 15 Ml Drops) 1 drop EYE-BOTH DAILY PRN PRN Reason: allergy sx Last Admin: 01/18/25 09:20 Dose: 1 drop Benztropine Mesylate (Benztropine Mesylate 1 Mg Tablet) 2 mg PO BID [facility] Last Admin: 02/13/25 08:38 Dose: 2 mg Bisacodyl (Bisacodyl 5 Mg Tablet.Dr) 10 mg PO BEDTIME PRN PRN Reason: Constipation Last Admin: 01/28/25 22:09 Dose: 10 mg Calcitriol (Calcitriol 0.25 Mcg Capsule) 0.25 mcg PO DAILY [facility] Last Admin: 02/13/25 08:40 Dose: 0.25 mcg Clonidine HCl (Clonidine Hcl 0.1 Mg Tablet) 0.1 mg PO TID PRN; Protocol PRN Reason: anxiety Last Admin: 02/06/25 20:20 Dose: 0.1 mg Docusate Sodium (Docusate Sodium 100 Mg Capsule) 100 mg PO BEDTIME YAQUELIN Last Admin: 02/12/25 20:57 Dose: 100 mg Empagliflozin (Empagliflozin 10 Mg Tablet) 10 mg PO DAILY [facility] Last Admin: 02/13/25 08:39 Dose: 10 mg Escitalopram Oxalate (Escitalopram Oxalate 20 Mg Tablet) 20 mg PO DAILY [facility] Last Admin: 02/13/25 08:40 Dose: 20 mg Famotidine (Famotidine 20 Mg Tablet) 20 mg PO DAILY [facility] Last Admin: 02/13/25 08:38 Dose: 20 mg Ferrous Sulfate (Ferrous Sulfate 324 Mg Tablet.Dr) 324 mg PO Q2D [facility] Last Admin: 02/12/25 13:01 Dose: 324 mg Haloperidol (Haloperidol 5 Mg Tablet) 5 mg PO BID [facility] Last Admin: 02/13/25 08:40 Dose: 5 mg Hydralazine HCl (Hydralazine Hcl 50 Mg Tablet) 50 mg PO TID [facility]; Protocol Last Admin: 02/13/25 14:25 Dose: 50 mg Hydroxyzine HCl (Hydroxyzine Hcl 25 Mg Tablet) 25 mg PO Q6H PRN PRN Reason: mild anxiety Last Admin: 02/12/25 00:37 Dose: 25 mg Lactulose (Lactulose 20 Gm/30 Ml Solution) 30 gm PO DAILY PRN PRN Reason: Constipation Last Admin: 01/25/25 14:29 Dose: 30 gm Lamotrigine (Lamotrigine 100 Mg Tablet) 200 mg PO BID [facility] Last Admin: 02/13/25 08:39 Dose: 200 mg Loratadine (Loratadine 10 Mg Tablet) 10 mg PO Q2D PRN PRN Reason: allergies Magnesium Hydroxide (Milk Of Magnesia 30 Ml Oral.Susp) 30 ml PO BID PRN PRN Reason: Constipation Last Admin: 01/24/25 11:08 Dose: 30 ml Nicotine Polacrilex (Nicotine Polacrilex 2 Mg Gum) 4 mg BUCCAL Q2H PRN PRN Reason: Nicotine Cravings Omeprazole (Omeprazole 20 Mg Capsule.) 20 mg PO DAILY@0630 [facility] Last Admin: 02/13/25 06:33 Dose: 20 mg Polyethylene Glycol (Polyethylene Glycol 3350 17 Gm Powd.Pack) 17 gm PO DAILY [facility] Last Admin: 02/13/25 08:38 Dose: 17 gm Quetiapine Fumarate (Quetiapine Fumarate 50 Mg Tablet) 50 mg PO TID PRN PRN Reason: agitation Last Admin: 02/12/25 00:37 Dose: 50 mg Quetiapine Fumarate (Quetiapine Fumarate 400 Mg Tablet) 400 mg PO BEDTIME [facility] Last Admin: 02/12/25 20:58 Dose: 400 mg Sodium Zirconium Cyclosilicate (Sodium Zirconium Cyclosilicate 10 Gm Powd.Pack) 10 gm PO DAILY [facility] Last Admin: 02/13/25 08:38 Dose: 10 gm Trazodone HCl (Trazodone Hcl 50 Mg Tablet) 50 mg PO BEDTIME MRX1 PRN PRN Reason: Insomnia Last Admin: 02/03/25 21:31 Dose: 50 mg Allergies Allergies Allergy/AdvReac Type Severity Reaction Status Date / Time No Known Allergies Allergy Verified 12/17/24 20:12 Assessment & Plan Assessment & Plan (1) Bipolar 1 disorder: Status: Acute Code(s): F31.9 - Bipolar disorder, unspecified (2) HTN (hypertension): Status: Acute Code(s): I10 - Essential (primary) hypertension (3) CKD (chronic kidney disease) stage 3, GFR 30-59 ml/min: Status: Acute Code(s): N18.30 - Chronic kidney disease, stage 3 unspecified Assessment and Plan: has now severe CKD due to: -residual kidney function loss from prior ANNE MARIE -diabetic and hypertensive kidney disease Plan Plan 02/10/25: Pt reports his ear pain to be diminished. He requests we begin to taper Seroquel by 100 mg to 300 as he is not in need of this. Discussed that this dose was a stable dose on admit and it may place him at risk- he asks to taper. Will hold at this time. Denies SI,HI,AH,VH. Reports sleep and appetite are intact. Team reports he slept eight hours last evening. Pt has talked with Medicare appeal unit today. He asks team if he will be authorized to remain on the unit until the decision is made and this was affirmed. Pt's mother left tw a voice mail today. Pt was asked to contact her to inform her that he was withdrawn permission to speak with her. He reports he has notified her. Team notes some lability of mood- worried at times, bright at times. Pt discussed that his mother will travel for the holidays and he is not wanting to stay in her home without her present during this trip. Will order a.m. labs. Plan: Labs in the a.m. Hold on Seroquel tapering at this time. 02/11/25: Pt denies SI,HI,AH,VH. Slept eight hours, attending intermittent groups. Angry with tw as you are supposed to hire me a washer off and you have not. This is a chronic complaint pt has had during the admission. Pt has [facility] number to discuss this, attempted to provide education regarding patent attorney presence when pt is voluntary on the unit. He persisted with other team members. Today, diagnostics updated. Hospitalist and renal attempted to meet with pt as LFT's are trending and there is a question of gall bladder dysfunction. As a result, team plan to stop atoravastatin and recommend OP cardiac consult for possible change to Repatha. They plan to ask pt to have a liver ultrasound as well. Also renal/DM issues, Jardiance they will stop due to GFR values and recommend Lantus or GLP-1. A1C is 7.3-8.8 and they believe pt needs tighter DM mgt. Team met with pt to discuss this. Pt would not allow the medical/renal team to explain and educate him regarding these values. They plan to make changes in regime. Insurance appeal remains pending. Team expects to have an answer on 02/14. 02/12 no change in presentation; in behavioral and impulse control; cooperative and appropriate with peers and staff 02/13 Patient reports that he is good. 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 that his 2nd appeal was denied and wants me to tell his primary team that he is now working on his 3rd step appeal Patient educated on: therapeutic strategies Informed Consent: does not understand Reason for continued inpatient stay Substantial Risk for: stable for discharge Time Spent With Patient Time: Total time managing care of this patient today ____ minutes.
[2025-02-13 19:54] VITALS: BP 126/70; PULSE 95; RESP 16; TEMP 37.1; O2SAT 99
--- NOTE | 2025-02-14 07:21 | PC.NURSE ---
Flu Sx, Patient woke this am with headache, fatigue, feeling of a sore throat. Temp is 99.4 Provider notified and ordered Resp. panel (nasal swab). At this time, results pending.
[2025-02-14 07:53] LABS: Resp Syncy Virus RNA Qual PCR NEGATIVE (Negative); SARS COV2 PCR INHOUSE NEGATIVE (Negative)
[2025-02-14 08:00] VITALS: BP 122/69; PULSE 86; RESP 18; TEMP 36.5; O2SAT 99
[2025-02-14] MEDS: ARIPiprazole 30 MG TABLET PO (09:55)
--- NOTE | 2025-02-14 10:06 | HO.PSYCHPN ---
Subjective Subjective Date of Service: 02/14/25 Reason For Visit: bipolar disorder Subjective Notes: Conditional Voluntary Healthcare Proxy: No Guardianship: No Medical Problems Affecting Mental Status: No Interim History: Slept 8 hours. Pt learned over the weekend that his second appeal to insurance was denied. He initiated a third appeal today. Asks for an RODRIGUEZ to go to the Social Security Office to begin his appeal. Discussed hospital policy and not being able to send patients on RODRIGUEZ. Discussed discharge with pt and he left the discussion, stating he would contact Angelita, the director of health and human services for [place] He approached this movie writer later in the day and reported that staff informed him he would discharge on Friday, Feb 18, 2025. He asked if this was fact and tw responded it was the first tw was hearing of this date and plan. Denies SI,HI,AH,VH Not attending groups today. Anxious over appeal process. Medication Compliance: Yes Side effects from medications: No Attending Groups: No Review of Systems Declined medical recommendations from hospitalist and renal team on 02/11/25. Medical Review of Systems: unchanged Review of Systems Review of Systems Denies Mental Status Exam Mental Status Exam Patient Appearance: Fatigued and Appropriate Patient Orientation: Person, Place, Time and Situation Level of Consciousness: Alert Patient Behavior: Talkative and Good Eye Contact Mood Description: Angry Affect Description: Flat Patient Cognition Impaired: No Ability to Follow Directions: Good Speech Pattern: Spontaneous Speech Memory Description: Intact and Episodic Impaired Hallucinations: None Delusions: Present (fixed, nursing home) Thought Process: Distracted Thought Content: positive for Perseveration and positive for Suicidal Ideation (denies) Depressive Symptoms: Thoughts of /Suicide (denies) Judgement: Good Diagnostics Vital Signs (24Hr): Vital Signs - 24 hr 02/13/25 14:09 02/13/25 19:54 02/14/25 08:00 Temperature 98.7 F 97.7 F Pulse Rate 102 H 95 86 Respiratory Rate 16 18 Blood Pressure 140/72 H 126/70 122/69 Pulse Oximetry 99 99 Oxygen Delivery Method Room Air Room Air Labs 02/11/25 07:44 02/11/25 07:44 Labs: Laboratory Results - last 48 hr 02/14/25 07:00 Influenza Type A (PCR) NEGATIVE Influenza Type B (PCR) NEGATIVE RSV RNA Qual (PCR) NEGATIVE SARS-CoV-2 RNA (RT-PCR) NEGATIVE Imaging Radiology Impressions: ITS Impressions Abdomen X-Ray 02/03/25 11:36 IMPRESSION: Large to moderate volume of stool, most pronounced in the rectum. Suspected calcific tendinitis involving gluteal tendons on the right, correlate for symptoms of right hip pain. Electronically signed by: Malcom Batres MD 02/03/2025 11:52 AM EST RP Chest X-Ray 02/03/25 11:39 IMPRESSION: Concerning acute small airway inflammatory processes versus multifocal pneumonia versus mild interstitial edema. Electronically signed by: Daniel Agosto MD 02/03/2025 11:51 AM EST RP Skull X-Ray 02/03/25 11:42 IMPRESSION: Negative for foreign body or gross acute fracture, skull. Electronically signed by: Daniel Agosto MD 02/03/2025 11:52 AM EST RP Brain MRI 02/04/25 14:45 IMPRESSION: 1. No evidence of intracranial hemorrhage, acute infarction, mass effect, or edema. 2. 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 3. There are mild white matter changes of small vessel ischemia. Electronically signed by: Jaden Talbert MD 02/04/2025 04:18 PM EST RP Abdomen Ultrasound 02/11/25 16:26 IMPRESSION: 1. Mildly diffusely increased hepatic echogenicity in keeping with steatosis. No suspicious focal lesion or intrahepatic biliary dilatation. 2. Normal gallbladder. No extrahepatic biliary dilatation. 3. Several tiny right renal simple cysts. Electronically signed by: Jaden Talbert MD 02/11/2025 04:50 PM EST RP Medications Medications Current Medications Acetaminophen (Acetaminophen 325 Mg Tablet) 650 mg PO Q6H PRN PRN Reason: Pain, Mild (Pain Scale 1-3) Last Admin: 02/12/25 13:01 Dose: 650 mg Al Hydroxide/Mg Hydroxide (Magnesium Hydrox/Alum Hydrox 30 Ml Oral.Susp) 30 ml PO Q6H PRN PRN Reason: Heartburn/Nausea Last Admin: 01/23/25 17:27 Dose: 30 ml Amlodipine Besylate (Amlodipine Besylate 10 Mg Tablet) 10 mg PO DAILY [facility]; Protocol Last Admin: 02/14/25 09:56 Dose: 10 mg Amoxicillin/Clavulanate Potassium (Amoxicillin/Potassium Clav 875 Mg Tablet) 875 mg PO BID [facility] Last Admin: 02/14/25 09:54 Dose: 875 mg Aripiprazole (Aripiprazole 30 Mg Tablet) 30 mg PO DAILY [facility] Last Admin: 02/14/25 09:55 Dose: 30 mg Artificial Tears (Artificial Tears 15 Ml Drops) 1 drop EYE-BOTH DAILY PRN PRN Reason: allergy sx Last Admin: 01/18/25 09:20 Dose: 1 drop Benztropine Mesylate (Benztropine Mesylate 1 Mg Tablet) 2 mg PO BID [facility] Last Admin: 02/14/25 09:55 Dose: 2 mg Bisacodyl (Bisacodyl 5 Mg Tablet.) 10 mg PO BEDTIME PRN PRN Reason: Constipation Last Admin: 01/28/25 22:09 Dose: 10 mg Calcitriol (Calcitriol 0.25 Mcg Capsule) 0.25 mcg PO DAILY [facility] Last Admin: 02/14/25 09:56 Dose: 0.25 mcg Clonidine HCl (Clonidine Hcl 0.1 Mg Tablet) 0.1 mg PO TID PRN; Protocol PRN Reason: anxiety Last Admin: 02/06/25 20:20 Dose: 0.1 mg Docusate Sodium (Docusate Sodium 100 Mg Capsule) 100 mg PO BEDTIME [facility] Last Admin: 02/13/25 20:13 Dose: 100 mg Empagliflozin (Empagliflozin 10 Mg Tablet) 10 mg PO DAILY [facility] Last Admin: 02/14/25 09:55 Dose: 10 mg Escitalopram Oxalate (Escitalopram Oxalate 20 Mg Tablet) 20 mg PO DAILY [facility] Last Admin: 02/14/25 09:56 Dose: 20 mg Famotidine (Famotidine 20 Mg Tablet) 20 mg PO DAILY [facility] Last Admin: 02/14/25 09:55 Dose: 20 mg Ferrous Sulfate (Ferrous Sulfate 324 Mg Tablet.) 324 mg PO Q2D [facility] Last Admin: 02/12/25 13:01 Dose: 324 mg Haloperidol (Haloperidol 5 Mg Tablet) 5 mg PO BID [facility] Last Admin: 02/14/25 09:56 Dose: 5 mg Hydralazine HCl (Hydralazine Hcl 50 Mg Tablet) 50 mg PO TID [facility]; Protocol Last Admin: 02/14/25 09:54 Dose: 50 mg Hydroxyzine HCl (Hydroxyzine Hcl 25 Mg Tablet) 25 mg PO Q6H PRN PRN Reason: mild anxiety Last Admin: 02/12/25 00:37 Dose: 25 mg Lactulose (Lactulose 20 Gm/30 Ml Solution) 30 gm PO DAILY PRN PRN Reason: Constipation Last Admin: 01/25/25 14:29 Dose: 30 gm Lamotrigine (Lamotrigine 100 Mg Tablet) 200 mg PO BID [facility] Last Admin: 02/14/25 09:56 Dose: 200 mg Loratadine (Loratadine 10 Mg Tablet) 10 mg PO Q2D PRN PRN Reason: allergies Magnesium Hydroxide (Milk Of Magnesia 30 Ml Oral.Susp) 30 ml PO BID PRN PRN Reason: Constipation Last Admin: 01/24/25 11:08 Dose: 30 ml Nicotine Polacrilex (Nicotine Polacrilex 2 Mg Gum) 4 mg BUCCAL Q2H PRN PRN Reason: Nicotine Cravings Omeprazole (Omeprazole 20 Mg Capsule.Dr) 20 mg PO DAILY@0630 [facility] Last Admin: 02/14/25 06:59 Dose: 20 mg Polyethylene Glycol (Polyethylene Glycol 3350 17 Gm Powd.Pack) 17 gm PO DAILY [facility] Last Admin: 02/14/25 09:56 Dose: 17 gm Quetiapine Fumarate (Quetiapine Fumarate 50 Mg Tablet) 50 mg PO TID PRN PRN Reason: agitation Last Admin: 02/12/25 00:37 Dose: 50 mg Quetiapine Fumarate (Quetiapine Fumarate 400 Mg Tablet) 400 mg PO BEDTIME [facility] Last Admin: 02/13/25 20:13 Dose: 400 mg Sodium Zirconium Cyclosilicate (Sodium Zirconium Cyclosilicate 10 Gm Powd.Pack) 10 gm PO DAILY [facility] Last Admin: 02/14/25 09:56 Dose: 10 gm Trazodone HCl (Trazodone Hcl 50 Mg Tablet) 50 mg PO BEDTIME MRX1 PRN PRN Reason: Insomnia Last Admin: 02/03/25 21:31 Dose: 50 mg Allergies Allergies Allergy/AdvReac Type Severity Reaction Status Date / Time No Known Allergies Allergy Verified 12/17/24 20:12 Assessment & Plan Assessment & Plan (1) Bipolar 1 disorder: Status: Acute Code(s): F31.9 - Bipolar disorder, unspecified (2) HTN (hypertension): Status: Acute Code(s): I10 - Essential (primary) hypertension (3) CKD (chronic kidney disease) stage 3, GFR 30-59 ml/min: Status: Acute Code(s): N18.30 - Chronic kidney disease, stage 3 unspecified Assessment and Plan: has now severe CKD due to: -residual kidney function loss from prior ANNE MARIE -diabetic and hypertensive kidney disease Plan Plan 02/10/25: Pt reports his ear pain to be diminished. He requests we begin to taper Seroquel by 100 mg to 300 as he is not in need of this. Discussed that this dose was a stable dose on admit and it may place him at risk- he asks to taper. Will hold at this time. Denies SI,HI,AH,VH. Reports sleep and appetite are intact. Team reports he slept eight hours last evening. Pt has talked with Medicare appeal unit today. He asks team if he will be authorized to remain on the unit until the decision is made and this was affirmed. Pt's mother left tw a voice mail today. Pt was asked to contact her to inform her that he was withdrawn permission to speak with her. He reports he has notified her. Team notes some lability of mood- worried at times, bright at times. Pt discussed that his mother will travel for the holidays and he is not wanting to stay in her home without her present during this trip. Will order a.m. labs. Plan: Labs in the a.m. Hold on Seroquel tapering at this time. 02/11/25: Pt denies SI,HI,AH,VH. Slept eight hours, attending intermittent groups. Angry with tw as you are supposed to hire me a lane marker installer and you have not. This is a chronic complaint pt has had during the admission. Pt has [facility] number to discuss this, attempted to provide education regarding ip technology transactions attorney presence when pt is voluntary on the unit. He persisted with other team members. Today, diagnostics updated. Hospitalist and renal attempted to meet with pt as LFT's are trending and there is a question of gall bladder dysfunction. As a result, team plan to stop atoravastatin and recommend OP cardiac consult for possible change to Repatha. They plan to ask pt to have a liver ultrasound as well. Also renal/DM issues, Jardiance they will stop due to GFR values and recommend Lantus or GLP-1. A1C is 7.3-8.8 and they believe pt needs tighter DM mgt. Team met with pt to discuss this. Pt would not allow the medical/renal team to explain and educate him regarding these values. They plan to make changes in regime. Insurance appeal remains pending. Team expects to have an answer on 02/14. 02/12 no change in presentation; in behavioral and impulse control; cooperative and appropriate with peers and staff 02/13 Patient reports that he is good. He tells movie writer that his 2nd appeal was denied and wants me to tell his primary team that he is now working on his 3rd step appeal 02/14/25: Slept 8 hours. Pt learned over the weekend that his second appeal to insurance was denied. He initiated a third appeal today. Asks for an RODRIGUEZ to go to the Social Security Office to begin his appeal. Discussed hospital policy and not being able to send patients on RODRIGUEZ. Discussed discharge with pt and he left the discussion, stating he would contact Angelita, the director of health and human services for [place] He approached this movie writer later in the day and reported that staff informed him he would discharge on Friday, Feb 18, 2025. He asked if this was fact and tw responded it was the first tw was hearing of this date and plan. Denies SI,HI,AH,VH Not attending groups today. Anxious over appeal process. Reason for continued inpatient stay Substantial Risk for: stable for discharge Time Spent With Patient Time: Total time managing care of this patient today ____ minutes.
[2025-02-14] MEDS: Ferrous Sulfate 324 MG TABLET.DR PO (16:10)
[2025-02-14 20:00] VITALS: BP 182/82; PULSE 94; RESP 20; TEMP 37.8; O2SAT 97
[2025-02-14 23:41] VITALS: BP 144/78
[2025-02-15 08:00] VITALS: BP 90/54; PULSE 75; RESP 18; TEMP 36.9; O2SAT 99
[2025-02-15 09:02] VITALS: BP 90/54
[2025-02-15] MEDS: ARIPiprazole 30 MG TABLET PO (09:02)
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
[2025-02-16 06:54] LABS: Vitamin D 25-OH, D2 <4 ng/mL; Vitamin D 25-OH, D3 23 ng/mL; Vitamin D 25-OH, Total 23 ng/mL (30-100)
== END 2025-02-15 10:58 | disposition home or self-care (01) | DRG 885 ==
PROVIDERS: Nurse Practitioner Family; Psychiatry & Neurology Psychiatry; Admitting Provider Clinical Nurse Specialist Psychiatric/Mental Health, Adult; Visit Provider Clinical Nurse Specialist Psychiatric/Mental Health, Adult
DX: F31.9 Bipolar disorder, unspecified (principal); N18.4 Chronic kidney disease, stage 4 (severe); N17.9 Acute kidney failure, unspecified; I12.9 Hypertensive chronic kidney disease with stage 1 through stage 4 chronic kidney disease, or unspecified chronic kidney disease; E78.5 Hyperlipidemia, unspecified; F41.9 Anxiety disorder, unspecified; E87.5 Hyperkalemia; D63.1 Anemia in chronic kidney disease; E11.22 Type 2 diabetes mellitus with diabetic chronic kidney disease; Z20.822 Contact with and (suspected) exposure to COVID-19; Z87.891 Personal history of nicotine dependence; Z79.899 Other long term (current) drug therapy
CPT/HCPCS: 36415; 70250; 70551; 71045; 71046; 74018; 76705; 80048; 80053; 80061; 82306; 82607; 82746; 83036; 83735; 83970; 84100; 84439; 84443; 85025; 86780; 87389; 87637

== ENCOUNTER 2025-01-11 14:20 | Outpatient (BNV) | payer MEDICARE, MEDICAID, SELFPAY | END 2025-02-11 16:26 | PROVIDERS: Admitting Provider Clinical Nurse Specialist Psychiatric/Mental Health, Adult; Visit Provider Radiology Diagnostic Radiology | DX: N28.1 Cyst of kidney, acquired (principal); R93.2 Abnormal findings on diagnostic imaging of liver and biliary tract | CPT/HCPCS: 76705 ==

== ENCOUNTER 2025-01-11 14:20 | Outpatient (BNV) | payer MEDICARE, MEDICAID, SELFPAY | END 2025-02-04 14:45 | PROVIDERS: Admitting Provider Clinical Nurse Specialist Psychiatric/Mental Health, Adult; Visit Provider Radiology Diagnostic Radiology | DX: G93.89 Other specified disorders of brain (principal); I67.82 Cerebral ischemia | CPT/HCPCS: 70551 ==

== ENCOUNTER 2025-01-11 14:20 | Outpatient (BNV) | payer MEDICARE, MEDICAID, SELFPAY | END 2025-02-03 11:15 | PROVIDERS: Admitting Provider Clinical Nurse Specialist Psychiatric/Mental Health, Adult; Visit Provider Radiology Diagnostic Radiology | DX: R41.82 Altered mental status, unspecified (principal) | CPT/HCPCS: 70250; 71045; 74018 ==

== ENCOUNTER → 2025-01-11 14:20 | Outpatient (BNV) | payer MEDICARE, MEDICAID, SELFPAY | PROVIDERS: Admitting Provider Clinical Nurse Specialist Psychiatric/Mental Health, Adult; Visit Provider Clinical Nurse Specialist Psychiatric/Mental Health, Adult | DX: F31.9 Bipolar disorder, unspecified (principal); I10 Essential (primary) hypertension; E11.9 Type 2 diabetes mellitus without complications; N18.30 Chronic kidney disease, stage 3 unspecified; E87.5 Hyperkalemia | CPT/HCPCS: 90792 ==

== ENCOUNTER → 2025-01-11 14:20 | Outpatient (BNV) | payer MEDICARE, MEDICAID, SELFPAY | PROVIDERS: Admitting Provider Clinical Nurse Specialist Psychiatric/Mental Health, Adult; Visit Provider Nurse Practitioner Family | DX: I10 Essential (primary) hypertension (principal) | CPT/HCPCS: 99231 ==